=== PATIENT | female | born 1945 | race Caucasian/White ===

== ENCOUNTER → 2019-02-24 14:54 | Outpatient (BNVA) | payer MEDICARE, MEDICAID, SELFPAY | PROVIDERS: PCP Family Medicine; Visit Provider Family Medicine | DX: R42 Dizziness and giddiness (principal); E03.9 Hypothyroidism, unspecified; E78.2 Mixed hyperlipidemia; M25.541 Pain in joints of right hand; M25.542 Pain in joints of left hand | CPT/HCPCS: 80053; 80061; 83721; 84443; 85025 ==

== ENCOUNTER 2019-04-01 07:16 | Observation (INO) | payer MEDICARE, MEDICAID, SELFPAY ==
[2019-04-01] VITALS (15 sets, daily range): BP systolic 105–169; BP diastolic 66–102; PULSE 62–97; RESP 14–22; TEMP 34.7–36.6; O2SAT 96–100; BMI 26.6
--- NOTE | 2019-04-01 07:20 | XR_ITS ---
WS: [id number] XR chest 1V portable [id number] REASON FOR EXAM: cp FINDINGS: Comparisons were made to previous exam of 09/30 2017. A dual electrode pacemaker seen electrode wiring satisfactory. There is mild congestion in the upper lung summers in the hilum on the right and left show mild conges tion There is no definite pneumonia. XR/XR chest 1V portable [id number] IMPRESSION: Mild interstitial edema hilum and upper lungs. Dual electrode pacemaker.
--- NOTE | 2019-04-01 07:21 | ECG_ITS ---
Measurements Intervals [place] Rate: 76 P: 66 SD: 152 QRS: 89 QRSD: 151 T: 19 QT: 497 QTc: 561 ELECTRONIC VENTRICULAR PACEMAKER MARKED ST ELEVATION, CONSIDER INFERIOR INJURY [MARKED ST ELEVATION W/O NORMALLY I INFLECTED T WAVE IN II/aVF] Compared to ECG 07/01/2017 05:42:09 ST (T wave) deviation now present Myocardial infarct finding now present Electronically Signed On 04-01-2019 19:05:01 REAL ESTATE COORDINATOR by Nehemias Vazquez M.D. [id number]
--- NOTE | 2019-04-01 07:22 | ED_ITS ---
Entered by Leti Farnsworth, acting as scribe for Robb Connors MD HPI - Chest Pain General: Chief Complaint: Chest Pain Stated Complaint: chest pain Time Seen by Provider: 04/01/19 07:20 Source: patient and EMS Mode of arrival: EMS Limitations: no limitations History of Present Illness: HPI narrative: 73 yo female presents with chest pain. pt states this started yesterday. pt states the pain radiates to bilateral arms. pt has had nausea. pt denies any other symptoms at this time. She denies worsening or improving factors. Patient had aspirin and nitro in route. She has no history of cardiac stents. complaint: chest pain Onset (ago): day(s) (yesterday) Timing of current episode: constant and still present Prior episodes: No Onset: during rest Pain location: substernal Pain radiation: right arm and left arm Severity: moderate Quality: sharp Relieving factors: nitroglycerin Exacerbating factors: nothing Associated symptoms: Reports diaphoresis and nausea; Deny dyspnea Treatment prior to arrival: nitroglycerin Review of Systems Const: Reports: diaphoresis Eyes: Denies: blurry vision or eye discomfort ENMT: Denies: throat pain or dental pain Card: Reports: chest pain Resp: Denies: shortness of breath GI: Reports: nausea : Denies: painful urination Musc: Denies: neck pain or back pain Skin/Breast: Denies: rash Neuro: Denies: headache Psych: Denies: depression Torey/Lymph: Denies: easy bruising All/Imm: Denies: hives PFS ED PFSH: Social History Smoking and tobacco status: former smoker Physical Exam Const: COMMON NORMALS: no apparent distress, oriented x3 and healthy appearing HENMT: COMMON NORMALS: normocephalic and head/scalp atraumatic HEAD & SCALP: normocephalic and atraumatic Eye: COMMON NORMALS: PERRL and EOMs intact bilaterally PUPIL: Yes PERRL Neck/C-Spine: COMMON NORMALS: full ROM and supple Resp: COMMON NORMALS: normal respiratory effort, no retractions, no use of accessory muscles and clear to auscultation bilaterally AUSCULTATION: clear to auscultation bilaterally Cardio: COMMON NORMALS: regular rate, regular rhythm and no murmurs RATE: regular rate RHYTHM: regular rhythm GI: COMMON NORMALS: normal to inspection, nondistended, normoactive bowel sounds, soft to palpation, non-tender and no masses PALPATION: Yes soft Extremity: COMMON NORMALS: normal to inspection and full ROM Neuro: COMMON NORMALS: oriented x3, moves all extremities and no focal motor deficits Psych: COMMON NORMALS: mental status grossly normal, thought process normal and cooperative THOUGHT PROCESS: normal thought process Skin: COMMON NORMALS: no rashes or lesions noted and no wounds GENERAL SKIN EXAM: no rashes or lesions noted Course Reevaluation(s): Reevaluation #1: Patient's EKG shows a paced rhythm with a EKG she caught an acute STEMI. Minimal change previous EKG that I noticed. I did go to the [facility] and have Dr. Knapp review EKG at this time as well and he states it is not an acute STEMI and to follow troponins. Time: 07:30 Vital Signs: Vital signs: Vital Signs Temperature 94.4 F L 04/01/19 07:24 Pulse Rate 82 04/01/19 08:55 Respiratory Rate 18 04/01/19 09:16 Blood Pressure 153/98 04/01/19 08:55 Pulse Oximetry 100 04/01/19 08:55 MDM - Chest Pain 2 MDM Narrative: Medical decision making narrative: Patient presents here with chest pain. Initial troponins elevated second troponin actually decreased. Had Dr. Knapp review EKG with no signs of ST elevation KS. Patient has had continued pain here and spoke to hospitalist will admit for ACS rule out. Patient has no signs of pulmonary embolism. Lab Data: Labs: Lab Results 04/01/19 04/01/19 04/01/19 Range/Units 07:40 07:40 07:40 WBC 11.7 H (4.0-10.0) 10^3/ uL RBC 5.09 (4.1-5.3) 10^6/u L Hgb 14.3 (11.5-15.3) g/dL Hct 45.2 (37.0-47.0) % MCV 88.8 (81-99) fL MCH 28.1 (28.0-34.0) pg MCHC 31.6 (30.0-36.0) g/dL RDW 14.5 (12.1-15.1) % Plt Count 200 (130-400) 10^3/c mm MPV 10.8 H (7.4-10.4) fL Neut % (Auto) 68.1 % Lymph % (Auto) 21.4 % [place] % (Auto) 6.8 % Eos % (Auto) 2.5 % Baso % (Auto) 0.9 % Neut # (Auto) 8.0 H (1.8-7.7) 10^3/u L Lymph # (Auto) 2.5 (0.8-4.8) 10^3/u L [place] # (Auto) 0.8 (0.2-0.9) 10^3/u L Eos # (Auto) 0.3 (0.0-0.8) 10^3/u L Baso # (Auto) 0.1 (0.0-0.1) 10^3/u L Nucleated RBC % (a uto) 0 % Nucleated RBCs # 0.0 /100WBC Sodium 134 L (136-145) mmol/L Potassium 4.5 (3.5-5.1) mmol/L Chloride 96 L (98-107) mmol/L Carbon Dioxide 19 L (22-29) mmol/L Anion Gap 23.5 H (5-19) BUN 26 H (8-23) mg/dL Creatinine 1.6 H (0.5-0.9) mg/dL Glucose 413 H (65-115) mg/dL Calcium 9.9 (8.5-10.5) mg/dL Total Bilirubin 0.6 (0.15-1.2) mg/dL AST 34 H (0-32) U/L ALT 25 (0-33) U/L Alkaline Phosphata se 126 H (35-105) IU/L Troponin T Baselin e 102 H* (0-10) ng/mL Troponin T 120 Min carlene (0-10) ng/mL Total Protein 8.2 (6.6-8.7) g/dL Albumin 3.9 (3.5-5.2) g/dL Globulin 4.3 (1.3-4.6) g/dL 04/01/19 Range/Units 09:15 WBC (4.0-10.0) 10^3/ uL RBC (4.1-5.3) 10^6/u L Hgb (11.5-15.3) g/dL Hct (37.0-47.0) % MCV (81-99) fL MCH (28.0-34.0) pg MCHC (30.0-36.0) g/dL RDW (12.1-15.1) % Plt Count (130-400) 10^3/c mm MPV (7.4-10.4) fL Neut % (Auto) % Lymph % (Auto) % [place] % (Auto) % Eos % (Auto) % Baso % (Auto) % Neut # (Auto) (1.8-7.7) 10^3/u L Lymph # (Auto) (0.8-4.8) 10^3/u L [place] # (Auto) (0.2-0.9) 10^3/u L Eos # (Auto) (0.0-0.8) 10^3/u L Baso # (Auto) (0.0-0.1) 10^3/u L Nucleated RBC % (a uto) % Nucleated RBCs # /100WBC Sodium (136-145) mmol/L Potassium (3.5-5.1) mmol/L Chloride (98-107) mmol/L Carbon Dioxide (22-29) mmol/L Anion Gap (5-19) BUN (8-23) mg/dL Creatinine (0.5-0.9) mg/dL Glucose (65-115) mg/dL Calcium (8.5-10.5) mg/dL Total Bilirubin (0.15-1.2) mg/dL AST (0-32) U/L ALT (0-33) U/L Alkaline Phosphata se (35-105) IU/L Troponin T Baselin e (0-10) ng/mL Troponin T 120 Min carlene 84.30 H (0-10) ng/mL Total Protein (6.6-8.7) g/dL Albumin (3.5-5.2) g/dL Globulin (1.3-4.6) g/dL Imaging Data^: CXR: Attestation: I personally reviewed and interpreted this imaging study as follows: My impression: no acute abnormality EKG Data^: EKG 1: Attestation: I personally reviewed and interpreted this EKG as follows: EKG interpretation date: 04/01/19 EKG interpretation time: 07:26 Interpretation: paced rhytm no stemi qrs 151 qtc 527 EKG 2: Attestation: I personally reviewed and interpreted this EKG as follows: EKG interpretation date: 04/01/19 EKG interpretation time: 09:02 Interpretation: paced rhythm hr 82 no stemi qrs 126 qtc 485 Discharge Plan Discharge Prescriptions: No Action rosuvastatin [Crestor] 40 mg tablet 40 mg PO ONCE RF: 0 spironolactone 25 mg tablet 25 mg PO DAILY RF: 0 levothyroxine 50 mcg tablet 50 mcg PO ONCE RF: 0 alendronate 70 mg tablet 70 mg PO .weekly RF: 0 nitroglycerin [Nitrostat] 0.4 mg tablet, sublingual 0.4 mg SUBLINGUAL Q5M PRNRF: 0 famotidine 20 mg tablet 20 mg PO BID RF: 0 methenamine hippurate 1 gram tablet 1 gm PO BID RF: 0 citalopram 10 mg tablet 10 mg PO DAILY RF: 0 aspirin [Adult Low Dose Aspirin] 81 mg tablet,delayed release (DR/EC) 81 mg PO DAILY RF: 0 PreserVision AREDS [id number] ekll-qo-boyw capsule 1 cap PO BID RF: 0 tramadol 50 mg tablet 50 mg PO .hs Qty: 30 RF: 1 clonazepam 0.5 mg tablet 0.5 mg PO ONCE Qty: 30 RF: 1 Tresiba FlexTouch U-100 100 unit/mL (3 mL) insulin pen 75 unit SUBCUT DAILY RF: 0 insulin aspart U-100 [Novolog U-100 Insulin aspart] 100 unit/mL solution See Rx Instructions SUBCUT .COMPLEX Qty: 30 RF: 0 carvedilol 3.125 mg tablet 6.25 mg PO BID RF: 0 Lasix 20 mg Tablet 20 mg PO DAILY RF: 0 Coding Level of Care Code ED Chief Talent Officer for Chg 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 The documentation recorded by the Javad raines Bridget Annette, accurately reflects the service I personally performed and the decisions made by Dory joseph Korby, MD Apr 01, 2019 07:16
[2019-04-01] MEDS: ondansetron 2 mg/ML SDV 2 mL 4 MG IVP ×2 (07:39→09:16)
[2019-04-01] MEDS: morphine 4 mg/mL SDV 1 mL IVP ×2 (07:39→09:16)
[2019-04-01 07:44] LABS: Basophils # 0.1 10^3/uL (0.0-0.1); Basophils % 0.9 %; Eosinophils # 0.3 10^3/uL (0.0-0.8); Eosinophils % 2.5 %; Hematocrit 45.2 % (37.0-47.0); Hemoglobin 14.3 g/dL (11.5-15.3); Lymphocytes # 2.5 10^3/uL (0.8-4.8); Lymphocytes % 21.4 %; Mean Corpuscular HGB Conc 31.6 g/dL (30.0-36.0); Mean Corpuscular Hemoglobin 28.1 pg (28.0-34.0); Mean Corpuscular Volume 88.8 fL (81-99); Mean Platelet Volume 10.8 fL (7.4-10.4); Monocytes # 0.8 10^3/uL (0.2-0.9); Monocytes % 6.8 %; Neutrophils % 68.1 %; Nucleated Red Blood Cells % 0 %; Platelet Count 200 10^3/cmm (130-400); Red Blood Count 5.09 10^6/uL (4.1-5.3); Red Cell Distribution Width 14.5 % (12.1-15.1); White Blood Count 11.7 10^3/uL (4.0-10.0)
--- NOTE | 2019-04-01 07:56 | PC.NURSE ---
Pt stated she is have intermittent right arm pain. Dr. Connors informed. No new orders recieved.
[2019-04-01 08:04] LABS: Alanine Aminotransferase 25 U/L (0-33); Albumin Level 3.9 g/dL (3.5-5.2); Alkaline Phosphatase 126 IU/L (35-105); Anion Gap 23.5 (5-19); Aspartate Amino Transferase 34 U/L (0-32); Blood Urea Nitrogen 26 mg/dL (8-23); Calcium 9.9 mg/dL (8.5-10.5); Carbon Dioxide 19 mmol/L (22-29); Chloride 96 mmol/L (98-107); Globulin 4.3 g/dL (1.3-4.6); Glucose 413 mg/dL (65-115); Potassium 4.5 mmol/L (3.5-5.1); Sodium 134 mmol/L (136-145); Total Bilirubin 0.6 mg/dL (0.15-1.2); Total Protein 8.2 g/dL (6.6-8.7)
--- NOTE | 2019-04-01 08:06 | ECG_ITS ---
Measurements Intervals [place] Rate: 74 P: 71 MD: 128 QRS: -52 QRSD: 145 T: -54 QT: 489 QTc: 545 ELECTRONIC VENTRICULAR PACEMAKER MARKED ST ELEVATION, CONSIDER LATERAL INJURY [MARKED ST ELEVATION W/O NORMALLY IN INFLECTED T WAVE IN I/aVL/V5/V6] Compared to ECG 07/01/2017 05:42:09 ST (T wave) deviation now present Myocardial infarct finding now present Electronically Signed On 04-01-2019 19:05:26 TEASEL GIG OPERATOR by Nehemias Vazquez M.D. [id number] f
[2019-04-01] MEDS: HYDROmorphone 1 mg/mL INJ 1 mL 0.5 MG IVP (08:16)
[2019-04-01 08:19] LABS: Troponin(5th) Baseline 102 ng/mL (0-10)
[2019-04-01] MEDS: enoxaparin 80 mg/0.8 mL Syringe 70 MG SUBCUT (08:29)
--- NOTE | 2019-04-01 08:57 | PC.NURSE ---
Dr. Connors informed about pt's chest pain going back up to 08/19. Changed positions, offered distraction.
--- NOTE | 2019-04-01 09:21 | ECG_ITS ---
Measurements Intervals [place] Rate: 82 P: 69 VA: 128 QRS: -39 QRSD: 126 T: -53 QT: 447 QTc: 523 ELECTRONIC VENTRICULAR PACEMAKER MARKED ST ELEVATION, CONSIDER LATERAL INJURY [MARKED ST ELEVATION W/O NORMALLY INF INFLECTED T WAVE IN I/aVL/V5/V6] MARKED ST DEPRESSION, CONSIDER SUBENDOCARDIAL INJURY [0.2+ mV ST DEPRESSION] Compared to ECG 07/01/2017 05:42:09 ST (T wave) deviation now present Myocardial infarct finding now present Electronically Signed On 04-01-2019 19:09:51 MANAGER SHIP by Nehemias Vazquez M.D. [id number] f
[2019-04-01] MEDS: nitroglycerin 0.4 mg sublingual Tablet SUBLINGUAL (09:33)
--- NOTE | 2019-04-01 09:35 | USCV_ITS ---
Carmen Alvarenga Age: 73 Gender: F : 1945 Exam Date: 04/01/2019 10:30 Ordering Phys: Maria Ines Tripathi DO Technologist: Angelique Duff Exam Location: [facility] [place] Indication: Chest pain, CHF with last known LVEF 25% BP: 153 / 90 HR: 93 Rhythm: Pacemaker Technical Quality: Fair MEASUREMENTS (Male / Female) Normal Values 2D ECHO LV Diastolic Diameter PLAX 5.1 cm 4.2 - 5.9 / 3.9 - 5.3 cm LV Systolic Diameter PLAX 4.8 cm LV Chamber Size 4.6 cm IVS Diastolic Thickness 0.9 cm 0.6 - 1.0 / 0.6 - 0.9 cm IVS Systolic Thickness 0.9 cm LVPW Diastolic Thickness 1.0 cm 0.6 - 1.0 / 0.6 - 0.9 cm LVPW Systolic Thickness 1.2 cm RV Chamber Size 1.3 cm LVOT Diameter 2.0 cm LV Ejection Fraction 2D Teich 15.5 % LV Ejection Fraction MOD 2C 32.4 % LV Ejection Fraction 2C AL 34.3 % LA Diameter 3.2 cm LA Width 3.1 cm LA Height 4.4 cm RA Width 2.6 cm RA Height 3.5 cm Aorta at Sinotubular Diameter 2.3 cm M-MODE LV Diastolic Diameter MM 5.1 cm 4.2 - 5.9 / 3.9 - 5.3 cm LV Systolic Diameter MM 4.6 cm LV Ejection Fraction MM Teich 21.8 % IVS Diastolic Thickness MM 1.1 cm 0.6 - 1.0 / 0.6 - 0.9 cm IVS Systolic Thickness MM 1.4 cm LVPW Diastolic Thickness MM 1.3 cm 0.6 - 1.0 / 0.6 - 0.9 cm LVPW Systolic Thickness MM 1.5 cm Aortic Annulus Diameter 2.7 cm LA Ao Ratio MM 1.2 MV E Point Septal Separation 2.2 cm DOPPLER AV Peak Velocity 93.0 cm/s LVOT Peak Velocity 96.0 cm/s AV Area Cont Eq vti 3.0 cm squared AV Area Cont Eq pk 3.1 cm squared MV Area PHT 5.6 cm squared MV E' Velocity 13.0 cm/s Mitral E to MV E' Ratio 10.6 Mitral E to LV E' Lateral Ratio 9.3 Mitral E to LV E' Septal Ratio 12.2 TR Peak Velocity 264.0 cm/s TR Peak Gradient 27.8 mmHg TR Mean Velocity 204.4 cm/s TR Mean Gradient 18.2 mmHg TR Velocity Time Integral 66.4 cm TV Peak E Velocity 60.0 cm/s Right Atrial Pressure 8.0 mmHg Pulmonary Artery Systolic Pressu 35.9 mmHg PV Peak Velocity 67.0 cm/s RV Acceleration Time 0.1 s RV Ejection Time 0.3 s RV AcT/ET 0.5 FINDINGS Left Ventricle Moderately increased left ventricular cavity size. Decreased left ventricular wall thickness. Global left ventricular hypokinesis. Left ventricular ejection fraction is estimated at 30-35 %. Severely decreased left ventricular systolic function. Grade II/IV diastolic dysfunction, moderately elevated filling pressures. Abnormal septal motion consistent with pacemaker. Right Ventricle Normal right ventricular size and systolic function. Mild pulmonary hypertension, RVSP 35.9 mmHg. Catheter/pacemaker wire visualized in the right ventricle. Right Atrium The right atrium is normal in size. Left Atrium The left atrium is normal in size. Mitral Valve Structurally normal mitral valve. Mild-moderate mitral valve regurgitation. Aortic Valve Structurally normal aortic valve without significant sclerosis or stenosis. There is no aortic regurgitation. Tricuspid Valve Structurally normal tricuspid valve. Trace to mild tricuspid valve regurgitation. Pulmonic Valve Pulmonic valve not well visualized. Pericardium Normal pericardium without effusion. Aorta Normal ascending aorta dimension. CONCLUSIONS Moderately increased left ventricular cavity size. Decreased left ventricular wall thickness. Global left ventricular hypokinesis. Left ventricular ejection fraction is estimated at 30-35 %. Severely decreased left ventricular systolic function. Grade II/IV diastolic dysfunction, moderately elevated filling pressures. Abnormal septal motion consistent with pacemaker. Normal right ventricular size and systolic function. Mild pulmonary hypertension, RVSP 35.9 mmHg. Structurally normal mitral valve. Mild-moderate mitral valve regurgitation. When compared to the previous study done 01/08/2015, the ejection fraction may be slightly improved. Pulmonary pressure is about the same. Mitral regurgitation is about the same. Overall, no significant change. Dr. Sushil Knapp MD (Electronically Signed) Final Date: 01 April 2019 11:18 S
[2019-04-01 09:48] LABS: Ketone (Acetest) Serum Negative (Negative)
[2019-04-01 09:56] LABS: Glucose Point of Care 408 mg/dL (70-110)
--- NOTE | 2019-04-01 09:56 | PC.NURSE ---
Pt had a run of v-tach. Upon assessment, pt was asleep, and pt ventricular paced upon nurse arrival. Dr. Connors informed. Chest pain 5/10
[2019-04-01 10:00] LABS: NT Pro B Type Natriuretic Pept 730 pg/mL (0-125)
--- NOTE | 2019-04-01 10:29 | P.HP_ITS ---
Providers/Chief Complaint Admitting Physician: Maria Ines Tripathi DO Primary Care Provider: Aziza Nguyen MD Chief Complaint: chest pain History of Present Illness Carmen Alvarenga is a 73 year old female with a past medical history of congestive heart failure, diabetes, anxiety and hypothyroidism that presented to the emergency department for chest pain. She reported that her chest pain started yesterday. She could not tell me any specific aggravating factors, alleviating factors include pain medication. She reported that she did take some nitroglycerin but had minimal relief from it. Patient reported that she follows with Dr. Scales but is not been seen in quite some time, likely over 1 year. She stated that she has had angiogram in the past, however no reported st ent placement or intervention. Patient denies any recent fever, no cough, denies any shortness of breath, denies any lower extremity swelling or weight changes. Difficult to obtain full review of systems as patient is somewhat sleepy after receiving pain medication. Patient was seen and evaluated in the emergency department and admitted for further evaluation and treatment due to concern for chest pain Review of Systems Const: Denies: fever or chills Eyes: Denies: change in vision ENMT: Denies: nasal congestion Card: Reports: chest pain; Denies: palpitations or edema Resp: Denies: shortness of breath, productive cough or coughing up blood GI: Reports: nausea; Denies: abdominal pain, vomiting, diarrhea, constipation, blood in stool or black tarry stool : Denies: painful urination or blood in urine Musc: Denies: extremity pain or muscle cramps Skin/Breast: Denies: rash or new lesion Neuro: Denies: headache or dizziness Psych: Denies: anxiety or depression Endo: Denies: excessive urination or hot flashes Torey/Lymph: Denies: easy bruising or easy bleeding Medications/Allergies Home Medications Medication Instructions Recorded Confirmed Last Taken Type carvedilol 6.25 mg PO BID 04/01/19 04/01/19 Unknown History furosemide [Lasix] 20 mg PO DAILY 04/01/19 04/01/19 Unknown History Allergies Allergy/AdvReac Type Severity Reaction Status Date / Time metformin Allergy Intermediate diarrhea Verified 04/01/19 07:29 PFSH Acute PFSH: Medical History Anxiety and depression ASHD (arteriosclerotic heart disease) Chronic pain syndrome Congestive heart failure Diabetes GERD (gastroesophageal reflux disease) Insomnia Osteoarthritis Pacemaker Vitamin D deficiency Surgical History History of angioplasty History of appendectomy History of hysterectomy Family History Other CAD (coronary artery disease) Diabetes Social History Smoking and tobacco status: former smoker Vitals/I&O/Wt Last Vital Signs Temp 94.4 F L 04/01/19 07:24 Pulse 82 04/01/19 08:55 Resp 18 04/01/19 09:16 BP 153/98 04/01/19 08:55 Pulse Ox 100 04/01/19 08:55 Weight last 48 hrs Weight 72.575 kg Physical Exam Const: COMMON NORMALS: oriented x3 GENERAL APPEARANCE: cooperative and other (sleepy) ORIENTATION/CONSCIOUSNESS: Yes oriented to person and Yes oriented to place HENMT: COMMON NORMALS: normocephalic and head/scalp atraumatic HEAD & SCALP: normocephalic and atraumatic Eye: COMMON NORMALS: PERRL PUPIL: Yes PERRL Neck/C-Spine: COMMON NORMALS: supple GENERAL: Yes normal visual inspection Resp: COMMON NORMALS: normal respiratory effort and clear to auscultation bilaterally AUSCULTATION: clear to auscultation bilaterally, no rhonchi and no wheezes Cardio: COMMON NORMALS: regular rate, regular rhythm and no murmurs RATE: regular rate RHYTHM: regular rhythm GI: COMMON NORMALS: soft to palpation and non-tender INSPECTION: No abdominal distension AUSCULTATION: Yes normoactive bowel sounds PALPATION: Yes soft Extremity: COMMON NORMALS: no clubbing, cyanosis or edema and no calf tenderness Neuro: COMMON NORMALS: oriented x3, CN's II-XII intact bilaterally, moves all extremities and no focal motor deficits SENSORIUM/ORIENTATION: Yes oriented to person, Yes oriented to place and Yes other (sleepy) Psych: COMMON NORMALS: cooperative Skin: COMMON NORMALS: no rashes or lesions noted GENERAL SKIN EXAM: no rashes or lesions noted Data : 04/01/19 07:40 04/01/19 07:40 CXR: Radiologist's impression: Chest x-ray personally reviewed, report as read by radiologist: IMPRESSION: Mild interstitial edema hilum and upper lungs. Dual electrode pacemaker. A&P Assessment and plan (1) Chest pain: Patient has resolution of her chest pain at time of exam in the ER, had just received Dilaudid, therefore was somewhat sleepy Serial EKG and troponin, close monitoring on telemetry Negative delta troponin, will continue to monitor closely, if patient does not have any continued chest pain will further evaluate with stress test Echocardiogram ordered to evaluate due to patient's congestive heart failure with the last LVEF of 25% FRANNY as needed for chest discomfort Status: Acute Code(s): R07.9 - Chest pain, unspecified (2) Diabetes: Hyperglycemia in the emergency department, will check A1c Continue on sliding scale insulin, patient unable to answer question about her home medication regimen, noted to be on 75 units of long-acting insulin daily Serum ketones negative Status: Acute Code(s): E11.9 - Type 2 diabetes mellitus without complications (3) GERD (gastroesophageal reflux disease): Continue home H2 esther Status: Acute Code(s): K21.9 - Gastro-esophageal reflux disease without esophagitis (4) Congestive heart failure: Systolic congestive heart failure with last echocardiogram from 2014, LVEF of 25% at that time, patient does have ICD in place and previously followed with Dr. Scales, patient reports she has not seen him in over 1 year. Continue on home Coreg, Aldactone, Lasix, she has never been on an STERLING or ARB in the past due to hypotension. We will continue to monitor blood pressure closely and if tolerated will consider addition of 1 of these medications. Strict intake and output as well as daily weights Appears to be euvolemic and possibly slightly dry at this time, BNP ordered Status: Acute Code(s): I50.9 - Heart failure, unspecified (5) Anxiety and depression: Continue home citalopram Hold on home benzodiazepines at this time due to patient being somewhat sleepy from pain medication Status: Acute Code(s): F41.9 - Anxiety disorder, unspecified; F32.9 - Major depressive disorder, single episode, unspecified Additional A&P Information Elevated anion gap with acute kidney injury: Check serum ketones which were negative, patient has hyperglycemia and some mild concern for dehydration, however patient also has severe systolic congestive heart failure so we will continue with oral hydration but consider very gentle IV fluids if indicated. We will continue to monitor respiratory status closely Hyperglycemia with poorly controlled insulin-dependent diabetes mellitus type 2: Continue on sliding scale insulin, will check A1c, continue with long-acting insulin but will verify with family her home dosing prior to this as we do not wish for patient to become hypoglycemic DVT prophylaxis: Lovenox Diet: Carbohydrate consistent CODE STATUS: Full code by default, patient somewhat sleepy after pain medication in the ED therefore difficult to get information from patient, will attempt to reach her family members listed Attestations Medical Necessity Statement*: Hospitalization for chest pain with known con gestive heart failure, expected stay less than 2 midnights Coding Level of Care Code Acute Supervisor Histology for Chris Jane Diagnoses Chest pain R07.9 Diabetes E11.9 GERD (gastroesophageal reflux disease) K21.9 Congestive heart failure I50.9 Anxiety and depression F41.9; F32.9
--- NOTE | 2019-04-01 13:21 | ECG_ITS ---
Measurements Intervals [place] Rate: 96 P: 64 MT: 143 QRS: -30 QRSD: 128 T: -47 QT: 428 QTc: [address] ELEVATION, CONSIDER LATERAL INJURY [MARKED ST ELEVATION W/O NORMALLY INFLECTED T WAVE IN I/aVL/V5/V6] Compared to ECG 07/01/2017 05:42:09 ST (T wave) deviation now present Myocardial infarct finding now present Electronically Signed On 04-01-2019 19:12:41 HEALTH INFORMATION DIRECTOR by Nehemias Vazquez M.D. [id number]
[2019-04-01 14:08] LABS: Glucose Point of Care 442 mg/dL (70-110)
[2019-04-01 14:34] LABS: Thyroid Stimulating Hormone 3.97 uIU/mL (0.27-4.20)
[2019-04-01 14:41] LABS: Estmated Average Glucose 237; Hemoglobin A1C 9.9 % (4.0-6.0)
[2019-04-01 15:04] LABS: Protein Urine 3+ (Negative); Urine Appearance Hazy (CLEAR); Urine Color Straw (Yellow); pH Urine 6 (5-7)
[2019-04-01 15:05] LABS: Add Urine Microscopic? YES; Bilirubin Urine Neg (NEGATIVE); Blood Urine 3+ (Negative); Glucose Urine UA 4+ (Normal); Ketones Urine Negative (Negative); Leukocyte Esterase Urine Negative (Negative); Nitrate Urine Negative (Negative); Urobilinogen Urine Norm (Negative)
[2019-04-01 15:11] LABS: Amorphous Sediment Urine 1+; Bacteria Urine 4+; RBC Urine 0-4 /hpf (0-2); Squamous Epithelial Cell Urine 0-4 (0-5); WBC Urine 0-4 /hpf (0-5)
[2019-04-01 15:12] LABS: Add Urine Culture? Yes
[2019-04-01] MEDS: enoxaparin 40 mg/0.4 mL Syringe SUBCUT (15:17)
[2019-04-01] MEDS: levothyroxine 50 mcg Tablet PO (15:17)
--- NOTE | 2019-04-01 15:29 | PC.NURSE ---
MD notified of blood sugar and v/O given to give 16 units now.
[2019-04-01 15:48] LABS: Troponin 5 6HR 270 ng/mL (0-10)
[2019-04-01 15:51] LABS: Troponin 5 6HR Delta 168 ng/L (0-12)
--- NOTE | 2019-04-01 16:54 | PM.CONSULT ---
Providers/Reason For Consult Consulting Physican/Specialty*: Cardiovascular medicine Reason for Consult*: Elevated troponin with chest pain Attending Physician: Maria Ines Tripathi DO Primary Care Provider: Aziza Nguyen MD History of Present Illness History of Present Illness Carmen Alvarenga is a 73 year old female who was admitted earlier today with chest discomfort. She has a longstanding history of underlying organic heart disease and involves a nonischemic cardiomyopathy and placement of a intracardiac defibrillator. Over the years she has had multiple admissions for chest pain and elevated troponin which have been described as non-ST segment elevation MIs. On several occasions she has also had coronary angiography which have revealed nonobstructive disease. She has a long list of other medical problems listed below. Ejection fractions by sestamibi examinations have been as low as 25%. By echo they have been 25 to 30%. She is not a particularly good historian. She started having chest pain 2 days ago. She has a difficult time describing it. She says it wilder. When I asked her how to describe it she says it just hurts . She says her arms hurt also but they hurt all the time. When asked if she has nausea, vomiting, shortness of breath or diaphoresis she answers yes to all of those questions. She took 2 nitroglycerin at home with no help. She called the ambulance today and they gave her 2 nitroglycerin with no help. She states the only thing that helped her was that pain shot they gave me in the emergency room . Her third troponin is quite a bit higher than the baseline troponin and this is primarily the reason that we have been asked to see her. Interestingly, she is pain-free today. Her EKG shows paced rhythm so it is not of any help. Review of Systems General: Reports: 10 or more systems reviewed and unremarkable except in HPI and below Meds/Allergies Home Medications and Allergies Home Medications Medication Instructions Recorded Confirmed Type alendronate 70 mg tablet 70 mg PO Q7D tab 02/24/19 04/01/19 History aspirin 81 mg tablet,delayed 81 mg PO DAILY 02/24/19 04/01/19 History release famotidine 20 mg tablet 20 mg PO BID 02/24/19 04/01/19 History levothyroxine 50 mcg tablet 50 mcg PO DAILY 02/24/19 04/01/19 History methenamine hippurate 1 gram tablet 1 gm PO BID 02/24/19 04/01/19 History nitroglycerin 0.4 mg sublingual 0.4 mg SUBLINGUAL Q5M PRN 02/24/19 04/01/19 History tablet rosuvastatin 40 mg tablet 40 mg PO DAILY 02/24/19 04/01/19 History spironolactone 25 mg tablet 25 mg PO DAILY tab 02/24/19 04/01/19 History vitamins A,C,K-vqdt-bevdpa 14,320 1 cap PO BID 02/24/19 04/01/19 History unit-226 mg-200 unit capsule insulin degludec 100 unit/mL (3 75 unit SUBCUT DAILY ml 03/18/19 04/01/19 History mL) subcutaneous pen ascorbic acid (vitamin C) [Vitamin 500 mg PO BID 04/01/19 04/01/19 History C] carvedilol 6.25 mg PO BID 04/01/19 04/01/19 History furosemide [Lasix] 20 mg PO DAILY 04/01/19 04/01/19 History lorazepam [Ativan] 0.5 mg PO BID PRN 04/01/19 04/01/19 History tramadol 50 mg PO BEDTIME 04/01/19 04/01/19 History Allergies Allergy/AdvReac Type Severity Reaction Status Date / Time metformin Allergy Intermediate diarrhea Verified 04/01/19 07:29 Current Medications Current Medications Generic Name Dose Route Start Last Admin Trade Name Freq PRN Reason Stop Dose Admin Insulin Aspart 0 unit 04/01/19 12:57 04/01/19 15:17 Novolog SUBCUT 16 unit TIDWM NORA Administration Protocol Levothyroxine Sodium 50 mcg 04/01/19 15:00 04/01/19 15:17 Synthroid PO 50 mcg DAILY NORA Administration PFSH Acute PFSH: Medical History Anxiety and depression ASHD (arteriosclerotic heart disease) Cardiomyopathy Chronic kidney disease (CKD) stage G1/A1, glomerular filtration rate (GFR) equal to or greater than 90 mL/min/1.73 square meter and albuminuria creatinine ratio less than 30 mg/g Chronic pain syndrome Congestive heart failure Diabetes Dyslipidemia Essential hypertension GERD (gastroesophageal reflux disease) ICD (implantable cardioverter-defibrillator) in place Insomnia Left bundle branch block Osteoarthritis Pacemaker Vitamin D deficiency Surgical History History of angioplasty History of appendectomy History of hysterectomy Family History Other CAD (coronary artery disease) Diabetes Social History Smoking and tobacco status: former smoker Vitals/I&O/Wt Last Vital Signs Temp 97.9 F 04/01/19 16:00 Pulse 97 04/01/19 16:00 Resp 18 04/01/19 16:00 BP 141/77 04/01/19 16:00 Pulse Ox 98 04/01/19 16:00 Weight last 48 hrs Weight 160 lb Physical Exam Narrative: EXAM NARRATIVE: GENERAL: She is comfortable at rest now with no chest pain HEENT: Exam within normal limits. NECK: Supple without jugular vein distention. The carotid upstroke is normal without bruits. BACK: Exam normal. LUNGS: Clear. HEART: Regular rate and rhythm. ABDOMEN: Benign without organomegaly or tenderness. EXTREMITIES: No edema. NEUROLOGIC: Exam normal. SKIN: Unremarkable. Data Other Data: Other data: EKG shows a paced rhythm. First troponin I 02, second 84 and 3rd-70. BNP is 730. The echo reveals global hypokinesis with septal dyssynergy and an ejection fraction around 30%. A&P Assessment and plan (1) Chronic kidney disease (CKD) stage G1/A1, glomerular filtration rate (GFR) equal to or greater than 90 mL/min/1.73 square meter and albuminuria creatinine ratio less than 30 mg/g: Status: Acute Code(s): N18.1 - Chronic kidney disease, stage 1 (2) ICD (implantable cardioverter-defibrillator) in place: Status: Acute Code(s): Z95.810 - Presence of automatic (implantable) cardiac defibrillator (3) Cardiomyopathy: Status: Acute Code(s): I42.9 - Cardiomyopathy, unspecified (4) Dyslipidemia: Status: Acute Code(s): E78.5 - Hyperlipidemia, unspecified (5) Essential hypertension: Status: Acute Code(s): I10 - Essential (primary) hypertension (6) Chest pain: Status: Acute Code(s): R07.9 - Chest pain, unspecified (7) Chronic pain syndrome: Status: Acute Code(s): G89.4 - Chronic pain syndrome (8) Diabetes: Status: Acute Code(s): E11.9 - Type 2 diabetes mellitus without complications (9) Congestive heart failure: Status: Acute Code(s): I50.9 - Heart failure, unspecified (10) Anxiety and depression: Status: Acute Code(s): F41.9 - Anxiety disorder, unspecified; F32.9 - Major depressive disorder, single episode, unspecified Additional A&P Information Given her history of having troponin elevations in the past and negative stress tests and negative coronary angiograms I am going to continue with the planned stress test for tomorrow. I am a little resistant or hesitant to perform angiography given her elevated creatinine and the history. Currently she is comfortable. No angina now. No evidence of heart failure. We will reassess after the stress test is completed. Consult Attestations Medical Necessity Statement: Not applicable Coding Level of Care Code New Pt Acute Linux Network Systems Administrator for Chris Jane Patient Type New History Detailed Exam Detailed Medical Decision Making Moderate Complexity Diagnoses Chronic kidney disease (CKD) stage G1/A1, glomerular filtration rate (GFR) equal to or greater than 90 mL/min/1.73 square meter and albuminuria creatinine ratio less than 30 mg/g N18.1 ICD (implantable cardioverter-defibrillator) in place Z95.810 Cardiomyopathy I42.9 Dyslipidemia E78.5 Essential hypertension I10 Chest pain R07.9 Chronic pain syndrome G89.4 Diabetes E11.9 Congestive heart failure I50.9 Anxiety and depression F41.9; F32.9
[2019-04-01 17:21] LABS: Glucose Point of Care 332 mg/dL (70-110)
[2019-04-01] MEDS: famotidine 20 mg Tablet PO (18:12)
[2019-04-01] MEDS: carvedilol 6.25 mg Tablet PO (18:12)
[2019-04-01] MEDS: atorvastatin 40 mg Tablet 80 MG PO (21:09)
[2019-04-01] MEDS: insulin glargine 100 units/1 mL 40 UNIT SUBCUT (21:10)
[2019-04-01 21:51] LABS: Glucose Point of Care 292 mg/dL (70-110)
[2019-04-02] VITALS (9 sets, daily range): BP systolic 82–125; BP diastolic 42–78; PULSE 75–91; RESP 15–24; TEMP 36.8; O2SAT 93–100
--- NOTE | 2019-04-02 | NMCV_ITS ---
NM maikol perf SPECT r/s* [id number] Carmen Alvarenga Age: 73 Gender: F : 1945 Exam Date: 04/02/2019 Ordering Phys: Maria Ines Tripathi DO Technologist: JUDE Giron Exam Location: [facility] Indications: CHEST PAIN STRESS TEST Please see separate stress test report in [facility] for full findings IMAGE PROTOCOL Rest/Stress 1 Lexiscan Day Radiopharmaceutical Dose (mCi) Administration Site Administered by Rest: Tc-99m 10.7 IV Evelyn Dave MEDICAL STENOGRAPHER Sestamibi Stress:Tc-99m 32.5 IV Evelyn Grajedarager, MEDICAL STENOGRAPHER Sestamibi Rest: 02-Apr-2019 60 Discovery 630 Stress: 02-Apr-2019 30 Discovery 630 0.4mg Lexiscan. Supine position only as patient was unable to lay prone. SPECT RESULTS Technical Quality: Good Raw Data Analysis: Normal Image Corrections: No attenuation or motion correction applied Summed Stress Score: 18 Summed Rest Score: 17 Summed Difference Score: 2 PERFUSION FINDINGS Moderate to large area of severely decrease uptake in the anterior inferior wall, basal and mid inferoseptal, mid inferolateral, apical lateral, apical septal and LV apex. Starting areas of reversibility was noted in the mid inferolateral, apical inferior regions FUNCTIONAL RESULTS (calculated via Gated SPECT) Stress Image LV EF (%): 30 Stress EDV (mL):163 TID: 1.2 Stress ESV (mL):114 FUNCTIONAL FINDINGS: Segmental wall motion analysis revealed severe diffuse hypokinesia of the septum and inferior wall with moderate hypokinesia of the apex. IMPRESSIONS 1. Myocardial perfusion may revealing a moderately large area of persistent decreased tracer uptake in the inferior, inferolateral , inferoseptal and apical segments with subtle areas of reversibility in the inferior and inferolateral regions, suggestive of myocardial scarring, mostly in the distribution of the right coronary artery and left circumflex artery with subtle areas of blayne-infarction ischemia. 2. Diminished LV ejection fraction of 30%. 3. Moderately dilated LV cavity with an end-systolic volume of 114 mL. 4. Multiple wall motion normalities as mentioned above 5. Elevated transient ischemic index of 1.2 also may suggest endocardial ischemia. No similar previous studies are available for comparison Dr Lakia Scales MD FACC (Electronically Signed) Final Date: 02 April 2019 11:35 S
[2019-04-02 04:23] LABS: Anion Gap 19.3 (5-19); Blood Urea Nitrogen 25 mg/dL (8-23); Calcium 9.6 mg/dL (8.5-10.5); Carbon Dioxide 24 mmol/L (22-29); Chloride 95 mmol/L (98-107); Glucose 294 mg/dL (65-115); Osmolality Calculated 286 mOsm/kg (285-295); Potassium 4.3 mmol/L (3.5-5.1); Sodium 134 mmol/L (136-145)
[2019-04-02 06:42] LABS: Glucose Point of Care 262 mg/dL (70-110)
--- NOTE | 2019-04-02 07:00 | ECG_ITS ---
NAME OF STUDY: LEXISCAN SESTAMIBI STRESS TEST INDICATION: Chest Pain, LEXISCAN STRESS TEST ORDERING PHYSICIAN: Hospitalist CLINICAL INFORMATION: Chest pain, elevated troponin INTERPRETATION: 1. The patient was brought to the laboratory where Lexiscan was infused over 20 seconds. The resting blood pressure was 90/58. Maximum blood pressure was 106/60. The resting heart rate was 80 beats per minute. The maximum heart rate is 94 beats per minute. 2. The baseline electrocardiogram reveals sinus rhythm with ventricular pacing 3. With Lexiscan infusion, there were no ST segment changes to suggest ischemia. 4. The patient experienced no symptoms or arrhythmias during the examination. CONCLUSION: 1. Unremarkable Lexiscan infusion. 2. Nuclear imaging to follow. Electronically Signed On 04-02-2019 14:10:27 TESTER WAFER SUBSTRATE by Sushil Knapp M.D. [email or web address]
[2019-04-02] MEDS: regadenoson 0.4 Mg/5 ml Syringe IVP (08:01)
--- NOTE | 2019-04-02 08:47 | PM.PN ---
Subjective Subjective: Interval history: No changes overnight. No further chest pain. Medications: Reviewed: Yes Vitals/I&O/Wt Last Vital Signs Temp 98.3 F 04/02/19 04:00 Pulse 82 04/02/19 04:00 Resp 24 H 04/02/19 04:00 BP 111/51 04/02/19 04:00 Pulse Ox 97 04/02/19 04:00 04/01/19 04/02/19 04/02/19 22:59 06:59 14:59 Intake Total 120 / 120 150 / 270 Output Total 100 / 100 200 / 200 Balance 150 / 170 -200 / -200 Weight last 48 hrs Weight 164 lb 12.8 oz Weight 160 lb Physical Exam Narrative: EXAM NARRATIVE: GENERAL: Comfortable at rest HEENT: Exam within normal limits. NECK: Supple without jugular vein distention. The carotid upstroke is normal without bruits. BACK: Exam normal. LUNGS: Clear. HEART: Regular rate and rhythm. ABDOMEN: Benign without organomegaly or tenderness. EXTREMITIES: No edema. NEUROLOGIC: Exam normal. SKIN: Unremarkable. Data : 04/01/19 07:40 04/02/19 03:40 A&P Assessment and plan (1) ASHD (arteriosclerotic heart disease): Status: Acute Code(s): I25.10 - Atherosclerotic heart disease of [place] coronary artery without angina pectoris (2) Chronic kidney disease (CKD) stage G1/A1, glomerular filtration rate (GFR) equal to or greater than 90 mL/min/1.73 square meter and albuminuria creatinine ratio less than 30 mg/g: Status: Acute Code(s): N18.1 - Chronic kidney disease, stage 1 (3) ICD (implantable cardioverter-defibrillator) in place: Status: Acute Code(s): Z95.810 - Presence of automatic (implantable) cardiac defibrillator (4) Cardiomyopathy: Status: Acute Code(s): I42.9 - Cardiomyopathy, unspecified (5) Dyslipidemia: Status: Acute Code(s): E78.5 - Hyperlipidemia, unspecified (6) Essential hypertension: Status: Acute Code(s): I10 - Essential (primary) hypertension (7) Chest pain: Status: Acute Code(s): R07.9 - Chest pain, unspecified (8) Chronic pain syndrome: Status: Acute Code(s): G89.4 - Chronic pain syndrome (9) Diabetes: Status: Acute Code(s): E11.9 - Type 2 diabetes mellitus without complications (10) Congestive heart failure: Status: Acute Code(s): I50.9 - Heart failure, unspecified Additional A&P Information Await results of the nuclear stress test. Further recommendations after this. Attestations Medical Necessity Statement*: Not applicable Coding Level of Care Code Acute Manager Electrical for Chg Fwd History Detailed Exam Detailed Medical Decision Making Moderate Complexity Diagnoses ASHD (arteriosclerotic heart disease) I25.10 Chronic kidney disease (CKD) stage G1/A1, glomerular filtration rate (GFR) equal to or greater than 90 mL/min/1.73 square meter and albuminuria creatinine ratio less than 30 mg/g N18.1 ICD (implantable cardioverter-defibrillator) in place Z95.810 Cardiomyopathy I42.9 Dyslipidemia E78.5 Essential hypertension I10 Chest pain R07.9 Chronic pain syndrome G89.4 Diabetes E11.9 Congestive heart failure I50.9
[2019-04-02] MEDS: aspirin 81 mg EC Tablet PO (09:35)
[2019-04-02] MEDS: levothyroxine 50 mcg Tablet PO (09:35)
[2019-04-02] MEDS: citalopram 20 mg Tablet 10 MG PO (09:35)
[2019-04-02] MEDS: enoxaparin 80 mg/0.8 mL Syringe 70 MG SUBCUT (09:35)
[2019-04-02] MEDS: carvedilol 6.25 mg Tablet PO ×2 (09:35→17:48)
[2019-04-02] MEDS: famotidine 20 mg Tablet PO ×2 (09:36→17:48)
[2019-04-02] MEDS: spironolactone 25 mg Tablet PO (09:36)
[2019-04-02] MEDS: FUROsemide 20 mg Tablet PO (09:36)
--- NOTE | 2019-04-02 10:06 | PC.CHAP ---
Pastoral Care Encounter/Spiritual Assessment Type of Contact [] Declined gun sealing machine operator visit [] Patient/Family/Request visit [] Outpatient visit [] Follow-up visit [] Physician referral [] Code/Alert [x] Routine visit [] Staff referral [] Actively dying [] Patient sleeping [] Family support [] [] Out of room [] Palliative care [] [] Receiving care in room [] Pre-surgical visit [] Trauma [] Long length of stay [] ICU visit [] Other: Relational/Emotional Strength [] Patient feels connected with others/family/visitors/staff [] Distress [] Loneliness/isolation [] Abandonment Spirituality of Patient [x] Person of Eleanor [x] Attends Alevism of their Eleanor [x] Believes in Prayer [] Reads Bible or Christianity materials [] There are Spiritual issues to be addressed Sweet Dough Mixer Interventions [x] Prayer [] Active listening [] Non-anxious presence [] Spiritual/emotional support [] Crisis/trauma care [] Spiritual counseling [] Bereavement support [] Provided bereavement packet [] Provided Bible/devotional materials [] Provided toy/stuffed animal, coloring book to patient or family member [] Provided Communion [] Anointing/[place] [] Salvation [x] Completed spiritual assessment [] Other: Impact on Illness or Injury [] Angry [] Fearful [] Anxious [] Often cries [] Exhaustion [] Unable to work [] Unable to attend faith [] Unable to walk/stand [] Unable to read [] Unable to drive [] Unable to eat/drink [] Unable to sleep [] Unable to be with family [] Patient intubated [x] Other: concerned about chest pains. Summary Patient happy stress test completed Time spent with patient 10min
--- NOTE | 2019-04-02 17:11 | PM.DCS ---
Discharge Providers Date of Admission: 04/01/19 11:40 Date of Discharge: April 02, 2019 Attending Provider at Admission: Maria Ines Tripathi DO Attending Provider at Discharge: Maria Ines Tripathi DO Primary Care Provider: Aziza Nguyen MD Diagnoses at Discharge Discharge Diagnosis (1) ASHD (arteriosclerotic heart disease): Status: Acute Problem details: Stress test showed no changes from previous and cardiology recommendation was to continue with medical management. Patient was sitting up at the side of bed on date of discharge and denied any chest pain or shortness of breath and discussed with her plan for discharge to home with close outpatient follow-up and she agreed with plan. Will continue on statin, aspirin, started on Plavix, continue on Coreg, unable to tolerate any Imdur due to soft blood pressures chronically (2) Chronic kidney disease (CKD) stage G1/A1, glomerular filtration rate (GFR) equal to or greater than 90 mL/min/1.73 square meter and albuminuria creatinine ratio less than 30 mg/g: Status: Acute (3) ICD (implantable cardioverter-defibrillator) in place: Status: Acute Problem details: Will need outpatient pacemaker check in cardiology clinic next week (4) Cardiomyopathy: Status: Acute Problem details: LVEF of approximately 30%, unchanged, unable to tolerate STERLING or ARB in past due to lower BP (5) Dyslipidemia: Status: Acute Problem details: Continue statin (6) Essential hypertension: Status: Acute (7) Chest pain: Status: Acute Problem details: Resolved (8) Chronic pain syndrome: Status: Acute (9) Diabetes: Status: Acute (10) Congestive heart failure: Status: Acute Reason for Visit Reason for Visit: Reason For Visit: chest pain Hospital Course Hospital Course: Patient was seen and evaluated in the emergency department admitted for evaluation due to chest pain. Patient had cardiology consultation and she was sent for stress test. Her stress test showed some scarring and reported no prior change from previous stress test, cardiology recommendation was to continue with medical management due to her chronic kidney disease. On date of discharge patient was chest pain-free and denied any concerns. She was started on Plavix, not started on Imdur due to softer blood pressures chronically, she has been unable to tolerate any STERLING inhibitor or ARB in the past due to blood pressure. Discharge Summary: Discharge to home Physical Exam Const: COMMON NORMALS: oriented x3 GENERAL APPEARANCE: cooperative and other (sleepy) ORIENTATION/CONSCIOUSNESS: Yes oriented to person and Yes oriented to place HENMT: COMMON NORMALS: normocephalic and head/scalp atraumatic HEAD & SCALP: normocephalic and atraumatic Eye: COMMON NORMALS: PERRL PUPIL: Yes PERRL Neck/C-Spine: COMMON NORMALS: supple GENERAL: Yes normal visual inspection Resp: COMMON NORMALS: normal respiratory effort and clear to auscultation bilaterally AUSCULTATION: clear to auscultation bilaterally, no rhonchi and no wheezes Cardio: COMMON NORMALS: regular rate, regular rhythm and no murmurs RATE: regular rate RHYTHM: regular rhythm GI: COMMON NORMALS: soft to palpation and non-tender INSPECTION: No abdominal distension AUSCULTATION: Yes normoactive bowel sounds PALPATION: Yes soft Extremity: COMMON NORMALS: no clubbing, cyanosis or edema and no calf tenderness Neuro: COMMON NORMALS: oriented x3, CN's II-XII intact bilaterally, moves all extremities and no focal motor deficits SENSORIUM/ORIENTATION: Yes oriented to person, Yes oriented to place and Yes other (sleepy) Psych: COMMON NORMALS: cooperative Skin: COMMON NORMALS: no rashes or lesions noted GENERAL SKIN EXAM: no rashes or lesions noted Discharge Data Data Completed and Pending: Completed Studies During Hospitalization Category Date Time Status Sestamibi Stress Test Request Routi ne Exams 04/02/19 07:00 Completed XR chest 1V aleja ble [id number] Stat Exams 04/01/19 07:20 Completed NM maikol perf SPECT r/s* [id number] Routin e Nuc Med 04/02/19 Completed CV echo complete* [id number] Routine Ultrasound 04/01/19 09:35 Completed Pending at discharge Category Date Time Status Sestamibi Stress Test Request Routi ne Exams 04/01/19 12:57 Stop Req Urine Culture Sta t Lab 04/01/19 14:15 Results Labs from last 24 hours 04/02/19 04/02/19 04/01/19 06:30 03:40 20:38 Sodium 134 L Potassium 4.3 Chloride 95 L Carbon Dioxide 24 Anion Gap 19.3 H BUN 25 H Creatinine 1.5 H Glucose 294 H POC Glucose 262 292 Calculated Osmolal ity 286 Calcium 9.6 04/01/19 17:03 Sodium Potassium Chloride Carbon Dioxide Anion Gap BUN Creatinine Glucose POC Glucose 332 Calculated Osmolal ity Calcium Vitals: Last Vital Signs Temp 98.3 F 04/02/19 04:00 Pulse 75 04/02/19 16:00 Resp 15 04/02/19 16:00 BP 94/42 04/02/19 16:00 Pulse Ox 93 04/02/19 15:26 Discharge Plan Discharge Patient Disposition: Home, Self-Care Condition: Stable Prescriptions: New clopidogrel [Plavix] 75 mg tablet 75 mg PO DAILY 30 Days Qty: 30 RF: 0 citalopram 20 mg Tablet 10 mg PO DAILY 30 Days Qty: 30 RF: 0 Continued rosuvastatin [Crestor] 40 mg tablet 40 mg PO DAILY RF: 0 spironolactone 25 mg tablet 25 mg PO DAILY RF: 0 levothyroxine 50 mcg tablet 50 mcg PO DAILY RF: 0 alendronate 70 mg tablet 70 mg PO Q7D RF: 0 nitroglycerin [Nitrostat] 0.4 mg tablet, sublingual 0.4 mg SUBLINGUAL Q5M PRN (Reason: Chest Pain) RF: 0 famotidine 20 mg tablet 20 mg PO BID RF: 0 methenamine hippurate 1 gram tablet 1 gm PO BID RF: 0 aspirin [Adult Low Dose Aspirin] 81 mg tablet,delayed release (DR/EC) 81 mg PO DAILY RF: 0 PreserVision AREDS [id number] capsule 1 cap PO BID RF: 0 Tresiba FlexTouch U-100 100 unit/mL (3 mL) insulin pen 75 unit SUBCUT DAILY RF: 0 insulin aspart U-100 [Novolog U-100 Insulin aspart] 100 unit/mL solution See Rx Instructions SUBCUT .COMPLEX Qty: 30 RF: 0 carvedilol 3.125 mg tablet 6.25 mg PO BID RF: 0 furosemide [Lasix] 20 mg Tablet 20 mg PO DAILY RF: 0 tramadol 50 mg tablet 50 mg PO BEDTIME RF: 0 Vitamin C 1,000 mg Tablet 500 mg PO BID RF: 0 Ativan 0.5 mg Tablet 0.5 mg PO BID PRN (Reason: Anxiety) RF: 0 Discharge Orders: Discharge Order (Routine); Ordered 04/02/19 Ordered By: Maria Ines Tripathi Referrals: Lakia Scales MD [Physician] - 2 weeks (cardiology clinic follow up for pacemaker check in 1 week if possible) Aziza Nguyen MD [Primary Care Provider] - 1-3 days Discharge Diet: Advance as tolerated, Cardiac and Diabetic Discharge Activity: Increase activity as tolerated Activity Restrictions/Additional Instructions: Started on Plavix 75 mg daily. Continue on carvedilol, aspirin, statin, continue home Lasix. Continue other medications as previously prescribed Discussed changes with systolic congestive heart failure and chronic changes seen on stress test concern for scarring. Recommend close cardiology follow-up with Dr. Scales. Recommend pacemaker check in the clinic. He is present to the ER for any acute illness or concern Discharge Attestations Time Spent in Discharge Care*: greater than 30 min Quality Metrics Clinical Quality Measures During this hospital stay, did patient experience: None Coding Level of Care Code Acute Payroll Accounting Clerk for g Fwd Diagnoses ASHD (arteriosclerotic heart disease) I25.10 Chronic kidney disease (CKD) stage G1/A1, glomerular filtration rate (GFR) equal to or greater than 90 mL/min/1.73 square meter and albuminuria creatinine ratio less than 30 mg/g N18.1 ICD (implantable cardioverter-defibrillator) in place Z95.810 Cardiomyopathy I42.9 Dyslipidemia E78.5 Essential hypertension I10 Chest pain R07.9 Chronic pain syndrome G89.4 Diabetes E11.9 Congestive heart failure I50.9
[2019-04-02 17:32] LABS: Glucose Point of Care 264 mg/dL (70-110)
== END 2019-04-02 19:09 | disposition home or self-care (01) ==
LOC: ER 07:41 → CSU 13:08
PROVIDERS: Admitting Provider Family Medicine; Emergency Provider Emergency Medicine; PCP Family Medicine; Visit Provider Family Medicine
DX: R07.9 Chest pain, unspecified (principal); K21.9 Gastro-esophageal reflux disease without esophagitis; F41.9 Anxiety disorder, unspecified; F32.9 Major depressive disorder, single episode, unspecified; E11.22 Type 2 diabetes mellitus with diabetic chronic kidney disease; I13.0 Hypertensive heart and chronic kidney disease with heart failure and stage 1 through stage 4 chronic kidney disease, or unspecified chronic kidney disease; N18.1 Chronic kidney disease, stage 1; I50.9 Heart failure, unspecified; E03.9 Hypothyroidism, unspecified; G47.10 Hypersomnia, unspecified; M19.90 Unspecified osteoarthritis, unspecified site; Z83.3 Family history of diabetes mellitus; Z82.49 Family history of ischemic heart disease and other diseases of the circulatory system; Z87.891 Personal history of nicotine dependence; I42.9 Cardiomyopathy, unspecified; Z95.0 Presence of cardiac pacemaker; E78.5 Hyperlipidemia, unspecified; G89.4 Chronic pain syndrome; I25.10 Atherosclerotic heart disease of native coronary artery without angina pectoris; Z79.4 Long term (current) use of insulin
CPT/HCPCS: 12345; 36415; 36416; 71045; 78452; 80048; 80053; 81001; 82009; 82962; 83036; 83880; 84443; 84484; 85025; 87077; 87086; 87186; 93005; 93017; 93306; 96372; 96374; 96375; 96376; 99283; 99285; A9500; G0378; J1170; J1650; J1815; J2270; J2405; J2785

== ENCOUNTER → 2019-04-16 10:49 | Outpatient (BNVA) | payer MEDICARE, MEDICAID, SELFPAY | PROVIDERS: PCP Family Medicine; Visit Provider Family Medicine | DX: M25.552 Pain in left hip (principal) | CPT/HCPCS: 73502 ==

== ENCOUNTER 2019-05-16 17:12 | Inpatient (IN) | payer MEDICARE, MEDICAID, SELFPAY ==
[2019-05-16] VITALS (9 sets, daily range): BP systolic 96–169; BP diastolic 58–115; PULSE 57–111; RESP 16–20; TEMP 36.5–36.7; O2SAT 95–98; BMI 25.8
--- NOTE | 2019-05-16 17:18 | ECG_ITS ---
Measurements Intervals Walls Rate: 150 P: -13 UT: 138 QRS: -50 QRSD: 177 T: 55 QT: 373 QTc: 591 SINUS TACHYCARDIA, POSSIBLE ATRIAL FLUTTER INTRAVENTRICULAR CONDUCTION DELAY [130+ ms QRS DURATION] INFERIOR MYOCARDIAL INFARCTION [40+ ms Q WAVE AND/OR ST/T ABNORMALITY IN II/aVF], indeterminate age Compared to ECG 04/01/2019 13:37:29 Intraventricular conduction delay now present Ventricular-paced complex(es) or rhythm no longer present ST (T wave) deviation no longer present Myocardial infarct finding still present Electronically Signed On 05-16-2019 21:13:47 CDT by Nehemias Vazquez M.D. [email or web address]
--- NOTE | 2019-05-16 17:18 | XR_ITS ---
WS: [id number] CHEST XRAY TECHNIQUE: Portable chest. CLINICAL INFORMATION: COMPARISON: April 01, 2019 FINDINGS: Heart: Cardiomegaly. AICD. Lungs: Chronic emphysematous changes. No acute pulmonary infiltrates. No focal pneumonia. Bones: Normal visualized bony structures. XR/XR chest 1V portable [id number] IMPRESSION: No acute chest findings
[2019-05-16 17:39] LABS: Basophils # 0.1 10^3/uL (0.0-0.1); Basophils % 0.5 %; Eosinophils # 0.1 10^3/uL (0.0-0.8); Eosinophils % 0.4 %; Hematocrit 47.6 % (37.0-47.0); Hemoglobin 15.2 g/dL (11.5-15.3); Lymphocytes # 2.7 10^3/uL (0.8-4.8); Lymphocytes % 16.1 %; Mean Corpuscular HGB Conc 31.9 g/dL (30.0-36.0); Mean Corpuscular Hemoglobin 27.8 pg (28.0-34.0); Mean Corpuscular Volume 87.2 fL (81-99); Mean Platelet Volume 10.6 fL (7.4-10.4); Monocytes # 0.8 10^3/uL (0.2-0.9); Monocytes % 4.7 %; Neutrophils % 77.9 %; Nucleated Red Blood Cells % 0 %; Platelet Count 233 10^3/cmm (130-400); Red Blood Count 5.46 10^6/uL (4.1-5.3); White Blood Count 16.7 10^3/uL (4.0-10.0)
--- NOTE | 2019-05-16 17:40 | ECG_ITS ---
Measurements Intervals [place] Rate: 92 P: 62 MO: 120 QRS: 121 QRSD: 124 T: -25 QT: 413 QTc: 513 ELECTRONIC VENTRICULAR PACEMAKER ABNORMAL RHYTHM ECG Compared to ECG 04/01/2019 13:37:29 ST (T wave) deviation no longer present Myocardial infarct finding no longer present Electronically Signed On 05-16-2019 21:13:55 CDT by Nehemias Vazquez M.D. [id number]
[2019-05-16 17:48] LABS: INR 0.94 (0.8-1.2)
--- NOTE | 2019-05-16 17:49 | W.ED.CHESTPA ---
HPI - Chest Pain General: Chief Complaint: Chest Pain Stated Complaint: CHEST PAIN Time Seen by Provider: 05/16/19 17:44 Source: patient and EMS Mode of arrival: EMS Limitations: no limitations History of Present Illness: HPI narrative: 73-year-old female states she is having chest pain for the last day with radiation to bilateral arms. Patient here appears to be in slow V. tach. She does have a pacer defibrillator. She denies any vomiting but has had some nausea. Denies any shortness of breath. Denies any worsening or improving factors. MD complaint: chest pain Pertinent past history: coronary artery disease Onset (ago): hour(s) Timing of current episode: constant Pain location: left chest Pain radiation: right arm and left arm Severity: moderate Quality: tightness Relieving factors: nothing Exacerbating factors: nothing Associated symptoms: Reports palpitations; Deny abdominal pain, dyspnea, fever(s), nausea or vomiting Review of Systems Const: Denies: fever, chills, body aches or change in appetite Eyes: Denies: blurry vision or eye discomfort ENMT: Denies: throat pain or dental pain Card: Reports: chest pain, palpitations and irregular heart rhythm Resp: Denies: shortness of breath GI: Denies: abdominal pain, nausea, vomiting or diarrhea : Denies: painful urination Musc: Denies: neck pain or back pain Skin/Breast: Denies: rash Neuro: Denies: headache Psych: Denies: depression Torey/Lymph: Denies: easy bruising All/Imm: Denies: hives PFSH ED PFSH: Medical History Anxiety and depression ASHD (arteriosclerotic heart disease) Cardiomyopathy LVEF of approximately 30%, unchanged, unable to tolerate STERLING or ARB in past due to lower BP Chronic kidney disease (CKD) stage G1/A1, glomerular filtration rate (GFR) equal to or greater than 90 mL/min/1.73 square meter and albuminuria creatinine ratio less than 30 mg/g Chronic pain syndrome Congestive heart failure Diabetes Dyslipidemia Continue statin Essential hypertension GERD (gastroesophageal reflux disease) ICD (implantable cardioverter-defibrillator) in place Insomnia Left bundle branch block Osteoarthritis Pacemaker Vitamin D deficiency Surgical History History of angioplasty History of appendectomy History of hysterectomy Family History Other CAD (coronary artery disease) Diabetes Social History Smoking and tobacco status: never smoked Physical Exam Const: COMMON NORMALS: no apparent distress, oriented x3 and healthy appearing HENMT: COMMON NORMALS: normocephalic and head/scalp atraumatic HEAD & SCALP: normocephalic and atraumatic Eye: COMMON NORMALS: PERRL and EOMs intact bilaterally PUPIL: Yes PERRL Neck/C-Spine: COMMON NORMALS: full ROM and supple Chest: COMMONS NORMALS: inspection of chest normal and palpation of chest normal Resp: COMMON NORMALS: normal respiratory effort, no retractions, no use of accessory muscles and clear to auscultation bilaterally AUSCULTATION: clear to auscultation bilaterally Cardio: COMMON NORMALS: no murmurs RATE: tachycardic GI: COMMON NORMALS: normal to inspection, nondistended, normoactive bowel sounds, soft to palpation, non-tender and no masses PALPATION: Yes soft Extremity: COMMON NORMALS: normal to inspection and full ROM Neuro: COMMON NORMALS: oriented x3, moves all extremities and no focal motor deficits Psych: COMMON NORMALS: mental status grossly normal, thought process normal and cooperative THOUGHT PROCESS: normal thought process Skin: COMMON NORMALS: no rashes or lesions noted and no wounds GENERAL SKIN EXAM: no rashes or lesions noted Course Vital Signs: Vital signs: Vital Signs Temperature 97.8 F 05/16/19 17:15 Pulse Rate 109 H 05/16/19 19:59 Respiratory Rate 16 05/16/19 20:00 Blood Pressure 169/115 05/16/19 19:59 Pulse Oximetry 97 05/16/19 20:00 MDM - Chest Pain MDM Narrative: Medical decision making narrative: Patient presents here originally in V. tach and cardioverted herself here likely by her defibrillator. Patient here is been in a paced rhythm since. Patient's repeat troponin went up mildly and will give 1 dose of Lovenox and continue to trend troponin. I spoke to hospitalist will admit I also consulted Dr. Granda of cardiology. Lab Data: Labs: Lab Results 0405/16/19 05/16/19 Range/Units 17:25 17:25 17:25 WBC 16.7 H (4.0-10.0) 10^3/ uL RBC 5.46 H (4.1-5.3) 10^6/u L Hgb 15.2 (11.5-15.3) g/dL Hct 47.6 H (37.0-47.0) % MCV 87.2 (81-99) fL MCH 27.8 L (28.0-34.0) pg MCHC 31.9 (30.0-36.0) g/dL RDW 14.0 (12.1-15.1) % Plt Count 233 (130-400) 10^3/c mm MPV 10.6 H (7.4-10.4) fL Neut % (Auto) 77.9 % Lymph % (Auto) 16.1 % [place] % (Auto) 4.7 % Eos % (Auto) 0.4 % Baso % (Auto) 0.5 % Neut # (Auto) 13.0 H (1.8-7.7) 10^3/u L Lymph # (Auto) 2.7 (0.8-4.8) 10^3/u L [place] # (Auto) 0.8 (0.2-0.9) 10^3/u L Eos # (Auto) 0.1 (0.0-0.8) 10^3/u L Baso # (Auto) 0.1 (0.0-0.1) 10^3/u L Nucleated RBC % (a uto) 0 % Nucleated RBCs # 0.0 /100WBC PT 12.90 (10.5-13.3) SECO NDS INR 0.94 (0.8-1.2) Sodium 137 (136-145) mmol/L Potassium 3.9 (3.5-5.1) mmol/L Chloride 99 (98-107) mmol/L Carbon Dioxide 22 (22-29) mmol/L Anion Gap 19.9 H (5-19) BUN 26 H (8-23) mg/dL Creatinine 1.7 H (0.5-0.9) mg/dL Glucose 182 H (65-115) mg/dL Calculated Osmolal ity 286 (285-295) mOsm/k g Calcium 9.8 (8.5-10.5) mg/dL Total Bilirubin 0.4 (0.15-1.2) mg/dL AST 26 (0-32) U/L ALT 19 (0-33) U/L Alkaline Phosphata se 113 H (35-105) IU/L Troponin T Baselin e (0-10) ng/mL Troponin T 120 Min [place] (0-10) ng/mL Delta Troponin T (0-10) ABS# Total Protein 8.5 (6.6-8.7) g/dL Albumin 4.4 (3.5-5.2) g/dL Globulin 4.1 (1.3-4.6) g/dL Lipase 73 H (13-60) U/L 05/16/19 05/16/19 Range/Units 17:25 19:15 WBC (4.0-10.0) 10^3/ uL RBC (4.1-5.3) 10^6/u L Hgb (11.5-15.3) g/dL Hct (37.0-47.0) % MCV (81-99) fL MCH (28.0-34.0) pg MCHC (30.0-36.0) g/dL RDW (12.1-15.1) % Plt Count (130-400) 10^3/c mm MPV (7.4-10.4) fL Neut % (Auto) % Lymph % (Auto) % [place] % (Auto) % Eos % (Auto) % Baso % (Auto) % Neut # (Auto) (1.8-7.7) 10^3/u L Lymph # (Auto) (0.8-4.8) 10^3/u L [place] # (Auto) (0.2-0.9) 10^3/u L Eos # (Auto) (0.0-0.8) 10^3/u L Baso # (Auto) (0.0-0.1) 10^3/u L Nucleated RBC % (a uto) % Nucleated RBCs # /100WBC PT (10.5-13.3) SECO NDS INR (0.8-1.2) Sodium (136-145) mmol/L Potassium (3.5-5.1) mmol/L Chloride (98-107) mmol/L Carbon Dioxide (22-29) mmol/L Anion Gap (5-19) BUN (8-23) mg/dL Creatinine (0.5-0.9) mg/dL Glucose (65-115) mg/dL Calculated Osmolal ity (285-295) mOsm/k g Calcium (8.5-10.5) mg/dL Total Bilirubin (0.15-1.2) mg/dL AST (0-32) U/L ALT (0-33) U/L Alkaline Phosphata se (35-105) IU/L Troponin T Baselin e 28 H (0-10) ng/mL Troponin T 120 Min [place] 46.99 H (0-10) ng/mL Delta Troponin T 18.99 H* (0-10) ABS# Total Protein (6.6-8.7) g/dL Albumin (3.5-5.2) g/dL Globulin (1.3-4.6) g/dL Lipase (13-60) U/L Imaging Data^: CXR: Attestation: I personally reviewed and interpreted this imaging study as follows: My impression: no acute abnormality EKG Data^: EKG 1: Attestation: I personally reviewed and interpreted this EKG as follows: EKG interpretation date: 05/16/19 EKG interpretation time: 17:18 Interpretation: vtach hr [address] elevation EKG 2: Attestation: I personally reviewed and interpreted this EKG as follows: EKG interpretation date: 05/16/19 EKG interpretation time: 17:42 Interpretation: ventricula paced hr [address] or twave abnormalities qrs 124 qtc 463 Discharge Plan Discharge Patient Disposition: Admitted As Inpatient Admit Provider: Nehemias Ferrell Clinical Impression: V-tach Chest pain Qualifiers: Chest pain type: other chest pain Qualified Code(s): R07.89 - Other chest pain Condition: Stable Referrals: Aziza Nguyen MD [Primary Care Provider] - Coding Level of Care 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
[2019-05-16 17:57] LABS: Alanine Aminotransferase 19 U/L (0-33); Albumin Level 4.4 g/dL (3.5-5.2); Alkaline Phosphatase 113 IU/L (35-105); Anion Gap 19.9 (5-19); Aspartate Amino Transferase 26 U/L (0-32); Blood Urea Nitrogen 26 mg/dL (8-23); Calcium 9.8 mg/dL (8.5-10.5); Carbon Dioxide 22 mmol/L (22-29); Chloride 99 mmol/L (98-107); Creatinine Clr Calc Pharmacy 30.5103; Globulin 4.1 g/dL (1.3-4.6); Glucose 182 mg/dL (65-115); Lipase 73 U/L (13-60); Osmolality Calculated 286 mOsm/kg (285-295); Potassium 3.9 mmol/L (3.5-5.1); Sodium 137 mmol/L (136-145); Total Bilirubin 0.4 mg/dL (0.15-1.2); Total Protein 8.5 g/dL (6.6-8.7)
[2019-05-16] MEDS: sodium chloride 0.9% 1,000 ML 999 ML IV (17:59)
[2019-05-16 18:00] LABS: Troponin(5th) Baseline 28 ng/mL (0-10)
[2019-05-16] MEDS: ondansetron 2 mg/ML SDV 2 mL 4 MG IVP (18:33)
[2019-05-16] MEDS: morphine 4 mg/mL SDV 1 mL IVP ×2 (18:33→20:00)
--- NOTE | 2019-05-16 19:18 | ECG_ITS ---
Measurements Intervals [place] Rate: 102 P: -9 MO: 156 QRS: 11 QRSD: 90 T: -19 QT: 376 QTc: 492 ELECTRONIC VENTRICULAR PACEMAKER ABNORMAL RHYTHM ECG Compared to ECG 04/01/2019 13:37:29 ST (T wave) deviation no longer present Myocardial infarct finding no longer present Electronically Signed On 05-16-2019 21:14:50 CDT by Nehemias Vazquez M.D. [id number]
[2019-05-16 19:41] LABS: Troponin 5 2HR 46.99 ng/mL (0-10)
[2019-05-16 19:59] LABS: Troponin 5 2HR Delta 18.99 ABS# (0-10)
--- NOTE | 2019-05-16 19:59 | PC.NURSE ---
2hr trop 46.9 Delta 18.9
--- NOTE | 2019-05-16 20:02 | P.HP_ITS ---
Providers/Chief Complaint Primary Care Provider: Aziza Nguyen MD Chief Complaint: CHEST PAIN History of Present Illness Carmen Alvarenga is a 73 year old female who carries diagnosis of ischemic cardiomyopathy severely reduced ejection fraction, diastolic dysfunction, status post AICD/pacemaker placement, was recently discharged from the hospital after a stress test which was unremarkable for new ischemic changes came in today with chief complaint of not feeling well. Patient is stating that since her discharge she has been compliant with her medications, she has been having presyncopal events at home, she lives alone, no loss of consciousness or syncopal events. Today when she woke up she started feeling sick to her sto mach, she had breakfast and around evening she started having emesis, she had 3 episodes of bilious emesis, 1 episode of diarrhea, she did not note temperature at home but is endorsing subjective fevers, hot flashes and chills. She also noticed chest discomfort which she is describing as sharp stabbing pain substernally radiating towards left axilla around subcostal margin, non- positional, nonreproducible no recent sick contacts no recent flulike symptoms. She is benign swelling of her legs, cough, but she is endorsing shortness of breath on minimal exertion, i.e. walking from one room to another makes her short of breath. Her AICd has not fired as per her experience. Diagnostics in ER revealed V. tach analysis by ER physician with spontaneous conversion, systolic blood pressure 150, diastolic 60, heart rate 100-1 06 paced rhythm with multiple unifocal PVCs, potassium mildly low, I have ordered magnesium level and pacemaker/AICD interrogation. Dr. Granda has been notified and consulted by the ER Review of Systems Const: Reports: chills, body aches, fatigue and malaise; Denies: fever Eyes: Reports: blurry vision; Denies: change in vision ENMT: Denies: throat pain Card: Reports: chest pain, lightheadedness, pre-syncope and shortness of breath on exertion; Denies: palpitations, irregular heart rhythm, edema, swelling of feet/ankles or syncope Resp: Reports: shortness of breath GI: Reports: abdominal pain, nausea, vomiting and diarrhea; Denies: vomiting blood, coffee grounds in vomit, difficulty swallowing or constipation : Denies: flank pain, difficulty urinating or painful urination Musc: Denies: neck pain Skin/Breast: Denies: rash Neuro: Denies: headache Psych: Denies: anxiety Endo: Denies: excessive urination Torey/Lymph: Denies: easy bruising All/Imm: Denies: hives Medications/Allergies Home Medications Medication Instructions Recorded Confirmed Last Taken Type carvedilol 3.125 mg PO BID 05/16/19 05/16/19 Unknown History citalopram [Celexa] 10 mg PO DAILY 05/16/19 05/16/19 Unknown History clopidogrel [Plavix] 75 mg PO DAILY 05/16/19 05/16/19 Unknown History diclofenac sodium [Voltaren] See Rx Instructions .ROUTE .COMPLEX 05/16/19 05/16/19 Unknown History famotidine 20 mg PO BID 05/16/19 05/16/19 Unknown History lisinopril See Rx Instructions .ROUTE .COMPLEX 05/16/19 05/16/19 Unknown History Allergies Allergy/AdvReac Type Severity Reaction Status Date / Time metformin Allergy Intermediate diarrhea Verified 04/16/19 10:24 PFSH Acute PFSH: Medical History Anxiety and depression ASHD (arteriosclerotic heart disease) Cardiomyopathy LVEF of approximately 30%, unchanged, unable to tolerate STERLING or ARB in past due to lower BP Chronic kidney disease (CKD) stage G1/A1, glomerular filtration rate (GFR) equal to or greater than 90 mL/min/1.73 square meter and albuminuria creatinine ratio less than 30 mg/g Chronic pain syndrome Congestive heart failure Diabetes Dyslipidemia Continue statin Essential hypertension GERD (gastroesophageal reflux disease) ICD (implantable cardioverter-defibrillator) in place Insomnia Left bundle branch block Osteoarthritis Pacemaker Vitamin D deficiency Surgical History History of angioplasty History of appendectomy History of hysterectomy Family History Other CAD (coronary artery disease) Diabetes Social History Smoking and tobacco status: never smoked Vitals/I&O/Wt Last Vital Signs Temp 97.8 F 05/16/19 17:15 Pulse 57 L 05/16/19 17:15 Resp 18 05/16/19 17:15 BP 96/58 05/16/19 17:15 Pulse Ox 96 05/16/19 17:46 Weight last 48 hrs Weight 72.575 kg Physical Exam Narrative: EXAM NARRATIVE: Very pleasant elderly female lying comfortably in her bed, normal hemodynamics Chest pain-free S1, S2, paced rhythm, No active signs of heart failure Lungs are clear to auscultation on bilateral basilar auscultation, no active crackles Abdomen soft, nontender, nondistended, bowel sounds present in all quadrants Neurologically nonfocal exam, Skin does not show any sign of ischemia gangrene ulcer No sign of edema of lower extremities EOMI, PERRLA Patient is hard of hearing Telemetry showing paced rhythm Data : 05/16/19 17:25 05/16/19 17:25 A&P Assessment and plan (1) Chest pain: Status: Acute Qualifiers: Chest pain type: other chest pain Qualified Code(s): R07.89 - Other chest pain (2) V-tach: Status: Acute (3) ICD (implantable cardioverter-defibrillator) in place: Status: Acute (4) Essential hypertension: Status: Acute Additional A&P Information Nonsustained V. tach with nonspecific gastrointestinal symptoms Interrogation of pacemaker and AICD, EF 25%, Replenishment of potassium with 20 of KCl p.o., TSH on previous admission was normal We will check magnesium level Troponin with significant delta, full dose therapeutic Lovenox 1 dose given in ER Patient is currently chest pain-free, normal hemodynamics, EKG showing paced rhythm Admit to [facility] with telemetry, if I observe more unifocal or multifocal PVCs overnight, would add amiodarone Cardiology is consulted Recent stress test showed cardiac scarring without any reversible ischemia Heart failure with reduced ejection fraction with grade 2 diastolic dysfunction without active exacerbation Continue heart failure evidence-based medications, she is not a candidate to be on STERLING or arb or Entresto because of hypotension Continue aspirin, Plavix, statin, Coreg, Emesis and diarrhea I believe the symptoms are secondary to cardiac event, will follow with AICD/pacemaker interrogation She does carry diagnosis of esophagitis and GERD, will give her GI cocktail Patient is afebrile, noticed leukocytosis, no source of infection, patient is denying dysuria We will check urine analysis Poorly controlled type 2 diabetes: No hypoglycemic events at home, patient has been endorsing presyncopal events, Consistent carbohydrate diet, sliding scale with long acting insulin regimen Patient is full code, initially she wanted to be DNR/DNI but wanted to discuss her goals of care with the family and updated us in the morning DVT prophylaxis: Lovenox Cardiac diet Attestations Medical Necessity Statement*: Considering recent stress test and evaluation by cardiology I would suspect she will be discharged in less than 48 hours, her symptoms have resolved, considering low ejection fraction and comorbid conditions she will be considered high risk for cardiac arrest that might change her length of stay Time Spent in Patient Care: 45 Coding Level of Care Code 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
--- NOTE | 2019-05-16 20:13 | PC.NURSE ---
pain is rated as a 3, on a scale of 1-10
[2019-05-16] MEDS: enoxaparin 80 mg/0.8 mL Syringe 70 MG SUBCUT (20:24)
--- NOTE | 2019-05-16 21:02 | PM.CONSULT ---
Providers/Reason For Consult Consulting Physican/Specialty*: Cardiology Reason for Consult*: Ventricle tachycardia status post ICD shock Attending Physician: Nehemias Ferrell MD Primary Care Provider: Aziza Nguyen MD History of Present Illness History of Present Illness Carmen Alvarenga is a 73 year old female past medical history significant for frequent admission for chest pain history of elated cardiomyopathy, hypertension, diabetes mellitus presented with what she describes as heartburn going on for the last couple of days. It was not relieved with nitroglycerin. She denies any palpitation pounding racing of the heart or firing of ICD at home, she is not good historian but told me that she is dizzy most of the time. Today she came in to ER as she was not feeling well and had chest pressure which was not going away. Twelve-lead EKG was consistent with right bundle branch block and tachycardia. On telemetry patient was noted to have multiple runs of ventricle tachycardia with possible with ICD firing which patient denies. Telemetry strip is in the record, no ICD interrogation has done so far. Patient did not lose a conscious. Chest pain/heartburn responded to morphine. Troponin at the baseline was 28 which increased to 46. Currently she is stable but sinus tachycardic heart rate around 110-15 on telemetry. She is afebrile but white cell count is high. In the month of March patient was admitted with chest pain she was ruled out for acute coronary syndrome stress test showed old inferior wall myocardial infarction without significant ischemia. Patient has chronic kidney disease with baseline creatinine around 1.4 today her creatinine is 1.7. She denies fever chills admits to nausea and vomiting denies contact with flu or recent traveling. Review of Systems Const: Denies: fever, chills, body aches or change in appetite Eyes: Denies: blurry vision or eye discomfort ENMT: Denies: throat pain or dental pain Card: Reports: chest pain, palpitations and irregular heart rhythm Resp: Denies: shortness of breath GI: Denies: abdominal pain, nausea, vomiting or diarrhea : Denies: painful urination Musc: Denies: neck pain or back pain Skin/Breast: Denies: rash Neuro: Denies: headache Psych: Denies: depression Torey/Lymph: Denies: easy bruising All/Imm: Denies: hives Meds/Allergies Home Medications and Allergies Home Medications Medication Instructions Recorded Confirmed Type alendronate 70 mg tablet 70 mg PO Q7D tab 02/24/19 05/16/19 History aspirin 81 mg tablet,delayed 81 mg PO DAILY 02/24/19 05/16/19 History release methenamine hippurate 1 gram tablet 1 gm PO BID 02/24/19 05/16/19 History vitamins A,C,J-crqm-jrxooi 14,320 1 cap PO BID 02/24/19 05/16/19 History unit-226 mg-200 unit capsule insulin aspart U-100 100 unit/mL See Rx Instructions SUBCUT 03/18/19 05/16/19 Rx subcutaneous solution .COMPLEX #30 ml ascorbic acid (vitamin C) [Vitamin 500 mg PO BID 04/01/19 05/16/19 History C] lorazepam [Ativan] 0.5 mg PO BID PRN 04/01/19 05/16/19 History nitroglycerin 0.4 mg sublingual 0.4 mg SUBLINGUAL Q5M PRN #25 tab 04/13/19 05/16/19 Rx tablet omeprazole magnesium 20 mg 20 mg PO DAILY #90 tab 04/13/19 05/16/19 Rx tablet,delayed release rosuvastatin 40 mg tablet 40 mg PO DAILY #30 tab 04/19/19 05/16/19 Rx spironolactone 25 mg tablet 25 mg PO DAILY #30 tab 04/19/19 05/16/19 Rx tramadol 50 mg tablet 50 mg PO Q8H PRN #60 tab 04/29/19 05/16/19 Rx furosemide 20 mg tablet 20 mg PO DAILY #30 tab 05/03/19 05/16/19 Rx levothyroxine 50 mcg tablet 50 mcg PO DAILY #30 tab 05/03/19 05/16/19 Rx insulin degludec 100 unit/mL (3 75 unit SUBCUT DAILY #15 ml 05/07/19 05/16/19 Rx mL) subcutaneous pen carvedilol 3.125 mg PO BID 05/16/19 05/16/19 History citalopram [Celexa] 10 mg PO DAILY 05/16/19 05/16/19 History clopidogrel [Plavix] 75 mg PO DAILY 05/16/19 05/16/19 History diclofenac sodium [Voltaren] See Rx Instructions .ROUTE .COMPLEX 05/16/19 05/16/19 History famotidine 20 mg PO BID 05/16/19 05/16/19 History lisinopril See Rx Instructions .ROUTE .COMPLEX 05/16/19 05/16/19 History Allergies Allergy/AdvReac Type Severity Reaction Status Date / Time metformin Allergy Intermediate diarrhea Verified 04/16/19 10:24 PFSH Acute PFSH: Family History Other CAD (coronary artery disease) Diabetes Social History Smoking and tobacco status: never smoked Dietary Habits: Current diet type/program: regular Caffeine: Yes Exercise: What type of physical activity do you participate in?: none Safety: Seatbelt use: always Home Safety: Working smoke detector in home: Yes Fire extinguisher in home: No Carbon monoxide detector in home: No Personal Safety: Do you feel safe at home: Yes Vitals/I&O/Wt Last Vital Signs Temp 97.8 F 05/16/19 17:15 Pulse 108 H 05/16/19 20:31 Resp 16 05/16/19 20:31 BP 157/95 05/16/19 20:31 Pulse Ox 98 05/16/19 20:31 Weight last 48 hrs Weight 160 lb Physical Exam Narrative: EXAM NARRATIVE: GENERAL: Patient is alert, awake and oriented x3. NECK: No jugular vein distension. HEENT: No cyanosis. No icterus. No pallor. HEART: Regular S1 and S2. No murmur, rub or gallop. LUNGS: Clear to auscultate bilaterally. ABDOMEN: Soft, nontender and nondistended. Positive bowel sounds. No guarding, rebound or tenderness. CENTRAL NERVOUS SYSTEM: Grossly nonfocal. EXTREMITIES: Lower extremities without edema bilaterally. A&P Assessment and plan (1) V-tach: Patient has known severely depressed left ventricular function she is status post ICD. Electrolytes are within normal limit. UA is pending. She does not appear to be in decompensated heart failure. No prior cath record is available to me however she has recent negative stress test for ischemia. Her baseline creatinine is 1.4 today she is 1.7. I will for now start her on amiodarone. Currently she is in sinus rhythm therefore we will start her on oral amiodarone. She may require coronary angiogram depending upon her risk of contrast-induced nephropathy which is more than 20% in her case. Abnormal cardiac markers may not represent acute coronary syndrome in the face of abnormal clearance Status: Acute (2) Cardiomyopathy: Appears to be well compensated. Patient has nonischemic cardiomyopathy. I would like to review her angiogram record. She follows up with Dr. Scales's office we will review it in the morning Status: Acute Qualifiers: Cardiomyopathy type: unspecified Qualified Code(s): I42.9 - Cardiomyopathy, unspecified (3) Essential hypertension: I will increase carvedilol to 6.25 twice a day. We will titrate medicine to keep systolic blood pressure below 140/90 Status: Acute Consult Attestations Medical Necessity Statement: I am expecting her stay to cross more than 2 midnight Coding Level of Care Code Acute Research Phlebotomist for [facility] Fwd Diagnoses V-tach I47.2 Cardiomyopathy I42.9 Cardiomyopathy type: unspecified Essential hypertension I10
[2019-05-16 21:37] LABS: Magnesium 2.4 mg/dL (1.7-2.3)
[2019-05-16 22:15] LABS: Glucose Point of Care 196 mg/dL (70-110)
[2019-05-16] MEDS: lidocaine 2% viscous 15 ML, aluminum-mag hydrox-simethicon 30 ML, sucralfate oral liq 1 GM PO (22:58)
[2019-05-16] MEDS: amiodarone 200 mg Tablet 400 MG PO (22:59)
[2019-05-16] MEDS: carvedilol 6.25 mg Tablet PO (23:00)
[2019-05-16 23:54] LABS: Troponin 5 6HR 172.1 ng/mL (0-10); Troponin 5 6HR Delta 144.1 ng/L (0-12)
[2019-05-17] VITALS (24 sets, daily range): BP systolic 90–130; BP diastolic 50–85; PULSE 76–106; RESP 14–24; TEMP 36.4–37.1; O2SAT 94–97
[2019-05-17] MEDS: TRAMadol 50 mg Tablet PO ×2 (00:54→21:25)
[2019-05-17] MEDS: LORazepam 0.5 mg Tablet PO ×2 (00:55→21:25)
--- NOTE | 2019-05-17 03:39 | PC.NURSE ---
patient arrived to the floor A & 0 x4, no pain or sob noted. patient comfortable at this time. patients hr ^ 100, bp elevated, previously thrown some vtach in ekgs. new meds started, patient had orders to interrogate ppacemaker, both Angela and I tried to use first the meditronic machine then the [employer] machine and neither would cigar packer and picker the patients pacemaker. she also said she felt humming couple days ago and that she usually she feels that when its time to change the battery.
[2019-05-17 05:12] LABS: Basophils # 0.1 10^3/uL (0.0-0.1); Basophils % 0.6 %; Eosinophils # 0.1 10^3/uL (0.0-0.8); Eosinophils % 0.6 %; Hemoglobin 14.2 g/dL (11.5-15.3); Lymphocytes # 2.5 10^3/uL (0.8-4.8); Lymphocytes % 20.4 %; Mean Corpuscular HGB Conc 31.6 g/dL (30.0-36.0); Mean Corpuscular Hemoglobin 27.8 pg (28.0-34.0); Mean Corpuscular Volume 88.1 fL (81-99); Mean Platelet Volume 10.7 fL (7.4-10.4); Monocytes % 7.8 %; Neutrophils # 8.7 10^3/uL (1.8-7.7); Neutrophils % 70.3 %; Nucleated Red Blood Cells % 0 %; Platelet Count 201 10^3/cmm (130-400); Red Blood Count 5.11 10^6/uL (4.1-5.3); Red Cell Distribution Width 14.1 % (12.1-15.1); White Blood Count 12.4 10^3/uL (4.0-10.0)
[2019-05-17 05:22] LABS: Anion Gap 14.7 (5-19); Blood Urea Nitrogen 28 mg/dL (8-23); Calcium 9.3 mg/dL (8.5-10.5); Carbon Dioxide 25 mmol/L (22-29); Chloride 101 mmol/L (98-107); Glucose 228 mg/dL (65-115); Osmolality Calculated 286 mOsm/kg (285-295); Potassium 4.7 mmol/L (3.5-5.1); Sodium 136 mmol/L (136-145)
[2019-05-17 06:37] LABS: Glucose Point of Care 175 mg/dL (70-110)
--- NOTE | 2019-05-17 07:53 | PM.PN ---
Subjective Subjective: Interval history: Carmen reports she certainly feels better than she did on admission. She still feels somewhat weak. Medications: Reviewed: Yes Vitals/I&O/Wt Last Vital Signs Temp 97.7 F 05/17/19 07:00 Pulse 86 05/17/19 07:00 Resp 18 05/17/19 07:00 BP 109/72 05/17/19 07:00 Pulse Ox 95 05/17/19 06:18 05/16/19 05/17/19 05/17/19 22:59 06:59 14:59 Intake Total 400 / 400 Output Total 180 / 180 300 / 300 Balance -180 / -180 100 / 100 Weight last 48 hrs Weight 72.575 kg Physical Exam Narrative: EXAM NARRATIVE: General exam is no apparent distress Cardiovascular regular rate and rhythm without murmur. Lungs clear no wheezing or crackles Abdomen is soft obese nontender with positive bowel sounds Extremities no cyanosis clubbing or edema Data : 05/17/19 04:39 05/17/19 04:39 A&P Assessment and plan (1) Chest pain: Likely secondary to the patient's underlying tachyarrhythmia. Significant troponin elevation occurred consistent with myocardial infarction. Last nuclear stress test in March 2019 demonstrated subtle reversible ischemia inferior and inferior lateral jean and echo demonstrated EF of 30 to 35%. This is consistent with non-ST elevation myocardial infarction secondary to tachyarrhythmia Continue Plavix, aspirin, statin. Nitrates not given secondary to soft blood pressures. Carvedilol was increased slightly. Status: Acute Qualifiers: Chest pain type: other chest pain Qualified Code(s): R07.89 - Other chest pain (2) V-tach: Cardiology has been consulted. This appears to be secondary to ischemic cardiomyopathy. Electrolytes, magnesium level was normal. TSH recently checked and normal. Cardiology has initiated amiodarone. Status: Acute (3) ICD (implantable cardioverter-defibrillator) in place: Status: Acute (4) Essential hypertension: Controlled Status: Acute Additional A&P Information GERD. Currently on Pepcid History of ischemic systolic congestive heart failure as well as diastolic heart failure. Currently appears to be compensated. Leukocytosis. Some complaints of weakness, diarrhea, nausea. Urinalysis has been ordered and pending. White blood cell count is decreased. Currently on no antibiotics. Type 2 diabetes. Continue insulin Patient is full code, initially she wanted to be DNR/DNI but wanted to discuss her goals of care with the family and updated us in the morning Lovenox for DVT prophylaxis Suspect she will need home health with home physical therapy secondary to patient's concern of weakness, history of fall within the last 2 months secondary to weakness. Attestations Medical Necessity Statement*: Needs continued hospitalization for close monitoring of ventricular tachycardia and initiation of amiodarone. She has been changed to a regular admission. 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
[2019-05-17] MEDS: enoxaparin 40 mg/0.4 mL Syringe SUBCUT (08:38)
[2019-05-17] MEDS: amiodarone 200 mg Tablet 400 MG PO ×2 (08:39→21:26)
[2019-05-17] MEDS: clopidogrel 75 mg Tablet PO (08:39)
[2019-05-17] MEDS: famotidine 20 mg Tablet PO ×2 (08:39→17:20)
[2019-05-17] MEDS: atorvastatin 40 mg Tablet 80 MG PO (08:39)
[2019-05-17] MEDS: carvedilol 6.25 mg Tablet PO ×2 (08:40→17:20)
[2019-05-17] MEDS: spironolactone 25 mg Tablet PO (08:40)
[2019-05-17] MEDS: citalopram 20 mg Tablet 10 MG PO (08:40)
[2019-05-17] MEDS: levothyroxine 50 mcg Tablet PO (08:40)
[2019-05-17] MEDS: FUROsemide 20 mg Tablet PO (08:40)
[2019-05-17] MEDS: aspirin 81 mg EC Tablet PO (08:40)
[2019-05-17 11:12] LABS: Glucose Point of Care 256 mg/dL (70-110)
[2019-05-17 15:53] LABS: Add Urine Culture? Yes; Bacteria Urine 4+; Bilirubin Urine Neg (NEGATIVE); Blood Urine Neg (Negative); Glucose Urine UA Norm (Normal); Ketones Urine Negative (Negative); Leukocyte Esterase Urine 1+ (Negative); Nitrate Urine Negative (Negative); Protein Urine 1+ (Negative); Specific Gravity, Urine 1.015 (1.005-1.030); Urine Appearance Hazy (CLEAR); Urine Color Yellow (Yellow); Urobilinogen Urine Norm (Negative); WBC Urine 40-55 /hpf (0-5); pH Urine 5 (5-7)
[2019-05-17 16:39] LABS: Glucose Point of Care 223 mg/dL (70-110)
--- NOTE | 2019-05-17 17:30 | PM.PN ---
Subjective Subjective: Interval history: No more ventricular tachycardia. Patient had UTI. Troponin has increased Medications: Reviewed: Yes Vitals/I&O/Wt Last Vital Signs Temp 97.9 F 05/17/19 16:57 Pulse 77 05/17/19 16:57 Resp 14 05/17/19 16:57 BP 96/64 05/17/19 16:57 Pulse Ox 94 05/17/19 16:00 05/17/19 05/17/19 05/17/19 06:59 14:59 22:59 Intake Total 640 / 640 Output Total 300 / 300 300 / 600 Balance 340 / 340 -300 / 40 Weight last 48 hrs Weight 160 lb Physical Exam Narrative: EXAM NARRATIVE: GENERAL: Patient is alert, awake and oriented x3. NECK: No jugular vein distension. HEENT: No cyanosis. No icterus. No pallor. HEART: Regular S1 and S2. No murmur, rub or gallop. LUNGS: Clear to auscultate bilaterally. ABDOMEN: Soft, nontender and nondistended. Positive bowel sounds. No guarding, rebound or tenderness. CENTRAL NERVOUS SYSTEM: Grossly nonfocal. EXTREMITIES: Lower extremities without edema bilaterally. Data : 05/17/19 04:39 05/17/19 04:39 A&P Assessment and plan (1) V-tach: Patient has known severely depressed left ventricular function she is status post ICD. Electrolytes are within normal limit. UA is pending. She does not appear to be in decompensated heart failure. No prior cath record is available to me however she has recent negative stress test for ischemia. Her baseline creatinine is 1.4 today she is 1.7. I will for now start her on amiodarone. Currently she is in sinus rhythm therefore we will start her on oral amiodarone. She may require coronary angiogram depending upon her risk of contrast-induced nephropathy which is more than 20% in her case. Abnormal cardiac markers may not represent acute coronary syndrome in the face of abnormal clearance On today's visit no more ventricular tachycardia noted. Carvedilol was increased she was started on amiodarone. Status: Acute (2) Cardiomyopathy: Appears to be well compensated. Patient has nonischemic cardiomyopathy. Continue current regimen. She may need to have angiogram in the near future once creatinine is stable Status: Acute Qualifiers: Cardiomyopathy type: unspecified Qualified Code(s): I42.9 - Cardiomyopathy, unspecified (3) Essential hypertension: Optimally controlled continue medicine. Status: Acute Attestations Medical Necessity Statement*: Patient Requires continuation of hospitalization for above defined Care. 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
[2019-05-17] MEDS: cefTRIAXone 1,000 MG in sodium chloride 0.9% (plus) 50 ML 100 MG IV (18:10)
[2019-05-17 21:45] LABS: Glucose Point of Care 176 mg/dL (70-110)
[2019-05-17] MEDS: guaiFENesin 100 mg/5 mL UDC 10 mL 200 MG PO (21:45)
[2019-05-18] VITALS (10 sets, daily range): BP systolic 78–123; BP diastolic 53–84; PULSE 68–74; RESP 16–20; TEMP 36.5–36.9; O2SAT 90–99
--- NOTE | 2019-05-18 03:46 | PC.NURSE ---
Patient was found walking out of her room. Patient states I was looking for the bathroom. Patient states I woke up scared. Patient asks where's david, son? Patient was directed to bathroom with assistance. Patient is able to answer correctly to person, place, time, and situation. Patient has bed alarm set, has been oriented to her room and has call light within reach.
[2019-05-18 06:01] LABS: Basophils # 0.1 10^3/uL (0.0-0.1); Basophils % 0.8 %; Eosinophils # 0.2 10^3/uL (0.0-0.8); Eosinophils % 2.4 %; Hematocrit 37.6 % (37.0-47.0); Hemoglobin 11.6 g/dL (11.5-15.3); Lymphocytes # 3.1 10^3/uL (0.8-4.8); Lymphocytes % 35.5 %; Mean Corpuscular HGB Conc 30.9 g/dL (30.0-36.0); Mean Corpuscular Hemoglobin 27.8 pg (28.0-34.0); Mean Platelet Volume 10.9 fL (7.4-10.4); Monocytes # 0.9 10^3/uL (0.2-0.9); Monocytes % 10.3 %; Neutrophils # 4.4 10^3/uL (1.8-7.7); Neutrophils % 50.8 %; Nucleated Red Blood Cells % 0 %; Platelet Count 134 10^3/cmm (130-400); Red Blood Count 4.18 10^6/uL (4.1-5.3); Red Cell Distribution Width 14.4 % (12.1-15.1); White Blood Count 8.8 10^3/uL (4.0-10.0)
[2019-05-18 06:20] LABS: Anion Gap 14.2 (5-19); Blood Urea Nitrogen 40 mg/dL (8-23); Carbon Dioxide 20 mmol/L (22-29); Chloride 104 mmol/L (98-107); Glucose 125 mg/dL (65-115); Osmolality Calculated 277 mOsm/kg (285-295); Potassium 4.2 mmol/L (3.5-5.1); Sodium 134 mmol/L (136-145)
[2019-05-18 06:44] LABS: Glucose Point of Care 114 mg/dL (70-110)
[2019-05-18] MEDS: citalopram 20 mg Tablet 10 MG PO (09:44)
[2019-05-18] MEDS: clopidogrel 75 mg Tablet PO (09:44)
[2019-05-18] MEDS: carvedilol 3.125 mg Tablet PO ×2 (09:44→17:57)
[2019-05-18] MEDS: famotidine 20 mg Tablet PO ×2 (09:45→17:57)
[2019-05-18] MEDS: atorvastatin 40 mg Tablet 80 MG PO (09:45)
[2019-05-18] MEDS: levothyroxine 50 mcg Tablet PO (09:45)
[2019-05-18] MEDS: aspirin 81 mg EC Tablet PO (09:46)
--- NOTE | 2019-05-18 09:47 | PM.PN ---
Subjective Subjective: Interval history: Patient reports she feels tired. Otherwise no specific complaints. We discussed the need to improve hydration today. No arrhythmias noted overnight. Medications: Reviewed: Yes Vitals/I&O/Wt Last Vital Signs Temp 98.1 F 05/18/19 07:00 Pulse 71 05/18/19 07:00 Resp 16 05/18/19 07:00 BP 80/53 05/18/19 07:00 Pulse Ox 96 05/18/19 07:00 05/17/19 05/18/19 05/18/19 22:59 06:59 14:59 Intake Total 390 / 1030 360 / 360 Output Total 300 / 600 200 / 800 200 / 200 Balance 90 / 430 -200 / 230 160 / 160 Weight last 48 hrs Weight 76.113 kg Weight 72.575 kg Physical Exam Narrative: EXAM NARRATIVE: General exam is no apparent distress Cardiovascular regular rate and rhythm without murmur. Lungs clear no wheezing or crackles Abdomen is soft obese nontender with positive bowel sounds Extremities no cyanosis clubbing or edema Data : 05/18/19 05:53 05/18/19 05:53 Micro: Microbiology 05/17/19 15:00 Urine Culture - Preliminary Urine,Clean Catch Gram Negative Rods A&P Assessment and plan (1) Chest pain: Likely secondary to the patient's underlying tachyarrhythmia. Significant troponin elevation occurred consistent with myocardial infarction. Last nuclear stress test in March 2019 demonstrated subtle reversible ischemia inferior and inferior lateral jean and echo demonstrated EF of 30 to 35%. This is consistent with non-ST elevation myocardial infarction secondary to tachyarrhythmia Continue Plavix, aspirin, statin. Nitrates not given secondary to soft blood pressures. Carvedilol was increased slightly but secondary to lower blood pressures I have decreased this down to 3.125 mg twice daily. Status: Acute Qualifiers: Chest pain type: other chest pain Qualified Code(s): R07.89 - Other chest pain (2) V-tach: Cardiology has been consulted. This appears to be secondary to ischemic cardiomyopathy. Electrolytes, magnesium level was normal. TSH recently checked and normal. Cardiology has initiated amiodarone. Currently on amiodarone 400 mg 3 times daily Status: Acute (3) ICD (implantable cardioverter-defibrillator) in place: Status: Acute (4) Essential hypertension: Blood pressure currently low Secondary to hypotension I will discontinue Aldactone, Lasix. Reduce carvedilol dose. Bolus of 250 cc of NS. Status: Acute Additional A&P Information Acute renal failure superimposed on chronic kidney disease. This may have been exacerbated by hypotension. Lasix, Aldactone held. Carvedilol reduced. Small bolus of fluids and recheck BMP tomorrow. GERD. Currently on Pepcid History of ischemic systolic congestive heart failure as well as diastolic heart failure. Currently appears to be compensated. Last ejection fraction 30 to 35%, March 2019 Leukocytosis. UTI has been identified. She has been placed on Rocephin. Type 2 diabetes. Continue insulin Patient is full code, initially she wanted to be DNR/DNI but wanted to discuss her goals of care with the family and updated us in the morning Lovenox for DVT prophylaxis Suspect she will need home health with home physical therapy secondary to patient's concern of weakness, history of fall within the last 2 months secondary to weakness. Attestations Medical Necessity Statement*: Needs continued hospitalization for IV antibiotics secondary to UTI, close follow-up of renal failure. 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
[2019-05-18] MEDS: enoxaparin 40 mg/0.4 mL Syringe SUBCUT (09:57)
--- NOTE | 2019-05-18 10:50 | PC.CHAP ---
Pastoral Care Encounter/Spiritual Assessment Type of Contact [] Declined ferryboat operator helper visit [] Patient/Family/Request visit [] Outpatient visit [] Follow-up visit [] Physician referral [] Code/Alert [x] Routine visit [] Staff referral [] Actively dying [] Patient sleeping [] Family support [] [] Out of room [] Palliative care [] [x] Receiving care in room [] Pre-surgical visit [] Trauma [] Long length of stay [] ICU visit [] Other: Relational/Emotional Strength [x] Patient feels connected with others/family/visitors/staff [] Distress [] Loneliness/isolation [] Abandonment Spirituality of Patient [x] Person of Eleanor [x] Attends Synagogue of their [place] [x] Believes in Prayer [x] Reads Bible or Episcopalian materials [] There are Spiritual issues to be addressed Pear Picker Interventions [x] Prayer [] Active listening [] Non-anxious presence [x] Spiritual/emotional support [] Crisis/trauma care [x] Spiritual counseling [] Bereavement support [] Provided bereavement packet [] Provided Bible/devotional materials [] Provided toy/stuffed animal, coloring book to patient or family member [] Provided Communion [] Anointing/[place] [] Salvation [x] Completed spiritual assessment [] Other: Impact on Illness or Injury [] Angry [] Fearful [] Anxious [] Often cries [] Exhaustion [x] Unable to work [] Unable to attend baptist [] Unable to walk/stand [] Unable to read [x] Unable to drive [] Unable to eat/drink [] Unable to sleep [] Unable to be with family [] Patient intubated [] Other: Summary Heart and blood pressure, feels god, possitive attitude, getting to go home today Time spent with patient 10 mins
[2019-05-18] MEDS: sodium chloride 0.9% 250 ML IV (10:54)
[2019-05-18 12:07] LABS: Glucose Point of Care 194 mg/dL (70-110)
[2019-05-18] MEDS: amiodarone 200 mg Tablet 400 MG PO ×2 (12:17→22:09)
--- NOTE | 2019-05-18 14:47 | PM.PN ---
Subjective Subjective: Interval history: This patient was admitted to hospital with complaints of some atypical chest symptoms. She was found to have episodes of ventricular tachycardia. She was started on IV amiodarone. Her arrhythmia seems to be responding to the medication. She is known to have nonischemic cardiomyopathy and mild coronary artery disease by angiogram. Most recently, she had a myocardial perfusion imaging in March 2019. She was found to have mostly areas of fixed defects with a very small areas of reversible defect, suggestive of myocardial scarring in the distribution of the right coronary artery/circumflex artery with a very small areas of blayne-infarction ischemia. It was opted to treat her medically. She had multiple hospital admissions in the past with chest pains and slightly elevated troponins. She is also known to have chronic kidney disease. Her blood pressure was low this morning. For that reason, the dose of the Coreg was decreased. She is mainly complaining of feeling little tired today. She has no chest pain or any unusual shortness of breath. She has some shortness of breath with activities. Her BUN and creatinine was found to be elevated at the time of admission. It seems to be getting worse. Medications: Reviewed: Yes Medication Review Details: Current Medications Amiodarone HCl (Cordarone) 400 mg PO TID [facility] Last Admin: 05/18/19 12:17 Dose: 400 mg Documented by: Aspirin (Aspirin Ec) 81 mg PO DAILY [facility] Last Admin: 05/18/19 09:46 Dose: 81 mg Documented by: Atorvastatin Calcium (Lipitor) 80 mg PO DAILY [facility] Last Admin: 05/18/19 09:45 Dose: 80 mg Documented by: Carvedilol (Coreg) 3.125 mg PO BID [facility] Last Admin: 05/18/19 09:44 Dose: 3.125 mg Documented by: Citalopram Hydrobromide (Celexa) 10 mg PO DAILY [facility] Last Admin: 05/18/19 09:44 Dose: 10 mg Documented by: Clopidogrel Bisulfate (Plavix) 75 mg PO DAILY [facility] Last Admin: 05/18/19 09:44 Dose: 75 mg Documented by: Dextrose (D50w) 25 ml IVP ONCE PRN; Protocol PRN Reason: hypoglycemia protocol Dextrose (D50w) 50 ml IVP PRN PRN; Protocol PRN Reason: hypoglycemia protocol Enoxaparin Sodium (Lovenox) 40 mg SUBCUT Q24H [facility] Last Admin: 05/18/19 09:57 Dose: 40 mg Documented by: Famotidine (Pepcid Tab) 20 mg PO BID [facility] Last Admin: 05/18/19 09:45 Dose: 20 mg Documented by: Glucagon (Glucagen) 1 mg IM ONCE PRN; Protocol PRN Reason: Adult Acute Hypoglycemia Prot. Guaifenesin (Robitussin Oral Liq) 200 mg PO Q4H PRN PRN Reason: COUGH AND CONGESTION Last Admin: 05/17/19 21:45 Dose: 200 mg Documented by: Dextrose (D5w) 500 mls @ 100 mls/hr IV ONCE PRN; Protocol PRN Reason: Adult Acute Hypoglycemia Prot Ceftriaxone Sodium 1,000 mg/ (Sodium Chloride) 50 mls @ 100 mls/hr IV Q24H [facility]; Protocol Last Infusion: 05/17/19 18:40 Dose: Infused Documented by: Insulin Aspart (Novolog) 0 unit SUBCUT WM&BEDTIME [facility]; Protocol Last Admin: 05/18/19 12:17 Dose: 4 unit Documented by: Levothyroxine Sodium (Synthroid) 50 mcg PO DAILY [facility] Last Admin: 05/18/19 09:45 Dose: 50 mcg Documented by: Lorazepam (Ativan) 0.5 mg PO BID PRN PRN Reason: Anxiety Last Admin: 05/17/19 21:25 Dose: 0.5 mg Documented by: Nitroglycerin (Nitrostat) 0.4 mg SUBLINGUAL Q5M PRN PRN Reason: Chest Pain Non-Formulary Medication (Insulin Degludec [Tresiba Flextouch U-100]) 75 unit SUBCUT DAILY [facility] Last Admin: 05/18/19 10:46 Dose: Not Given Documented by: Non-Formulary Medication (Vitamins A,C,G-Hvfp-Lthgvg [Preservision Areds]) 1 cap PO BID [facility] Last Admin: 05/18/19 10:48 Dose: Not Given Documented by: Tramadol HCl (Ultram) 50 mg PO BEDTIME PRN PRN Reason: pain Last Admin: 05/17/19 21:25 Dose: 50 mg Documented by: Vitals/I&O/Wt Last Vital Signs Temp 98.0 F 05/18/19 11:00 Pulse 68 05/18/19 14:07 Resp 16 05/18/19 11:00 BP 97/63 05/18/19 11:00 Pulse Ox 95 05/18/19 14:07 05/17/19 05/18/19 05/18/19 22:59 06:59 14:59 Intake Total 390 / 1030 360 / 360 Output Total 300 / 600 200 / 800 200 / 200 Balance 90 / 430 -200 / 230 160 / 160 Weight last 48 hrs Weight 167 lb 12.8 oz Weight 160 lb Physical Exam Narrative: EXAM NARRATIVE: GENERAL: The patient is alert and oriented times three. Not in any acute distress. HEENT: No significant pallor, icterus or lymphadenopathy.Oral cavity: There are no mucous membrane lesions. NECK: Trachea appears to be central. No masses noted. No JVD or thyromegaly appreciated. RESPIRATORY: Chest is symmetrical. No intercostals muscle retraction or any accessory muscle activation. There is no chest wall tenderness. Breath sounds are heard bilaterally. No rales or rhonchi heard. No evidence of any consolidation. BREASTS: Deferred. HEART: The heart sounds are normal. No S3 or S4. Short systolic murmur in the left sternal border. No pericardial rub. ABDOMEN: No vessel pulsations or distention. No tenderness. No organomegaly appreciated. Bowel sounds are normally heard. : Deferred. RECTAL: Deferred. LYMPHATIC: No lymphadenopathy noted in the neck . EXTREMITIES: No edema or cyanosis. No clubbing. Peripheral pulses are palpated in fairly good volume and amplitude MUSCULOSKELETAL: No acute joint deformities or swelling SKIN: There are no significant scars or skin rash noted. NEUROPSYCHIATRIC: The patient is alert and oriented x3. Appears to be in a good mood. No tremors or rigidity noted. Data : 05/18/19 05:53 05/18/19 05:53 Other Labs: Laboratory Results - last 24 hr 05/17/19 05/17/19 05/17/19 15:00 16:24 21:35 WBC RBC Hgb Hct MCV MCH MCHC RDW Plt Count MPV Neut % (Auto) Lymph % (Auto) [place] % (Auto) Eos % (Auto) Baso % (Auto) Neut # (Auto) Lymph # (Auto) [place] # (Auto) Eos # (Auto) Baso # (Auto) Nucleated RBC % (auto) Nucleated RBCs # Sodium Potassium Chloride Carbon Dioxide Anion Gap BUN Creatinine Glucose POC Glucose 223 176 Calculated Osmolality Calcium Urine Color Yellow Urine Appearance Hazy A Urine pH 5 Ur Specific [place] 1.015 Urine Protein 1+ H Urine Glucose (UA) Norm Urine Ketones Negative Urine Blood Neg Urine Nitrate Negative Urine Bilirubin Neg Urine Urobilinogen Norm Ur Leukocyte Esterase 1+ H Urine RBC None Urine WBC 40-55 H Ur Squamous Epith Cells 5-10 H Urine Bacteria 4+ H 05/18/19 05/18/19 05/18/19 05:53 05:53 06:25 WBC 8.8 RBC 4.18 Hgb 11.6 Hct 37.6 MCV 90.0 MCH 27.8 L MCHC 30.9 RDW 14.4 Plt Count 134 MPV 10.9 H Neut % (Auto) 50.8 Lymph % (Auto) 35.5 [place] % (Auto) 10.3 Eos % (Auto) 2.4 Baso % (Auto) 0.8 Neut # (Auto) 4.4 Lymph # (Auto) 3.1 [place] # (Auto) 0.9 Eos # (Auto) 0.2 Baso # (Auto) 0.1 Nucleated RBC % (auto) 0 Nucleated RBCs # 0.0 Sodium 134 L Potassium 4.2 Chloride 104 Carbon Dioxide 20 L Anion Gap 14.2 BUN 40 H Creatinine 1.9 H Glucose 125 H POC Glucose 114 Calculated Osmolality 277 L Calcium 9.0 Urine Color Urine Appearance Urine pH Ur Specific [place] Urine Protein Urine Glucose (UA) Urine Ketones Urine Blood Urine Nitrate Urine Bilirubin Urine Urobilinogen Ur Leukocyte Esterase Urine RBC Urine WBC Ur Squamous Epith Cells Urine Bacteria 05/18/19 11:26 WBC RBC Hgb Hct MCV MCH MCHC RDW Plt Count MPV Neut % (Auto) Lymph % (Auto) [place] % (Auto) Eos % (Auto) Baso % (Auto) Neut # (Auto) Lymph # (Auto) [place] # (Auto) Eos # (Auto) Baso # (Auto) Nucleated RBC % (auto) Nucleated RBCs # Sodium Potassium Chloride Carbon Dioxide Anion Gap BUN Creatinine Glucose POC Glucose 194 Calculated Osmolality Calcium Urine Color Urine Appearance Urine pH Ur Specific [place] Urine Protein Urine Glucose (UA) Urine Ketones Urine Blood Urine Nitrate Urine Bilirubin Urine Urobilinogen Ur Leukocyte Esterase Urine RBC Urine WBC Ur Squamous Epith Cells Urine Bacteria Micro: Microbiology 05/17/19 15:00 Urine Culture - Preliminary Urine,Clean Catch Gram Negative Rods A&P Assessment and plan (1) V-tach: Patient is on amiodarone. The dose needs to be tapered down. May continue on the current dose for the time being. Status: Acute (2) Nonischemic cardiomyopathy: Patient is known to have nonischemic cardiomyopathy. LV ejection fraction was around 30% by echocardiogram in March. Currently she does not have any evidence of decompensation. May continue on the current medications. Status: Acute (3) Atypical chest pain: Her chest pain most likely is nonischemic. Cardiac arrhythmia, GERD etc. are considerations. May continue on the current medications. She may not require any further cardiac evaluation at this point. Status: Acute (4) Dyslipidemia: May continue on the current medicines. Status: Acute (5) ICD (implantable cardioverter-defibrillator) in place: Patient is up-to-date with the ICD interrogation. The ICD function appears to be appropriate. We may do a telephonic interrogation, to further evaluate. Status: Acute (6) Hypotension: This could be related to the LV dysfunctions, arrhythmia/medications. It may be appropriate to cut back on the dose of the Coreg at this time. Based on the clinical response, further recommendations will be made. Status: Acute Qualifiers: Hypotension type: hypotension due to drug Qualified Code(s): I95.2 - Hypotension due to drugs (7) Abnormal [id number] ratio: The etiology is not clear. It could be related to the low output state. I may hold back on the diuretics. Repeat BMP in the morning. Based on the results, further recommendations will be made Status: Acute Additional A&P Information Other problems are UTI history of dyslipidemia, on rosuvastatin History of congestive heart failure, currently compensated History of hypothyroidism, clinically euthyroid GERD Chronic fatigue Type 2 diabetes Osteoarthritis Macular degeneration Dry eye syndrome Based on the patient clinical response to medication changes, further recommendations will be made Attestations Medical Necessity Statement*: Patient requires continued hospital stay for close monitoring and further management Coding Level of Care Code Acute 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
[2019-05-18 16:43] LABS: Glucose Point of Care 265 mg/dL (70-110)
[2019-05-18] MEDS: cefTRIAXone 1,000 MG in sodium chloride 0.9% (plus) 50 ML 100 MG IV (17:57)
[2019-05-18 20:30] LABS: Glucose Point of Care 171 mg/dL (70-110)
[2019-05-18] MEDS: TRAMadol 50 mg Tablet PO (22:09)
[2019-05-18] MEDS: LORazepam 0.5 mg Tablet PO (22:09)
--- NOTE | 2019-05-18 23:15 | PC.NURSE ---
Attempt to do pacemaker check on patient with Erik @ home [employer] ([employer]) machine. Spoke with two different people on the phone who work for this company in attempt to get the data to transmit/send. We were not able to get the information to get a good signal to send after three attempts.
[2019-05-19 03:00] VITALS: BP 115/63; PULSE 82; RESP 16; TEMP 36.6; O2SAT 94
[2019-05-19 04:34] LABS: Blood Urea Nitrogen 37 mg/dL (8-23); Calcium 8.7 mg/dL (8.5-10.5); Carbon Dioxide 19 mmol/L (22-29); Chloride 102 mmol/L (98-107); Glucose 161 mg/dL (65-115); Osmolality Calculated 283 mOsm/kg (285-295); Sodium 136 mmol/L (136-145)
[2019-05-19 05:07] LABS: Anion Gap 19.7 (5-19); Potassium 4.7 mmol/L (3.5-5.1)
[2019-05-19 06:49] LABS: Glucose Point of Care 147 mg/dL (70-110)
[2019-05-19 08:00] VITALS: BP 112/72; PULSE 71; RESP 16; TEMP 36.8; O2SAT 91
--- NOTE | 2019-05-19 08:37 | P.PN_ITS ---
Subjective Subjective: Interval history: Patient is feeling better. She has no chest pain or palpitations. Telemetry shows occasional PVCs. No significant arrhythmias. She seems to be tolerating the amiodarone so far well. Her blood pressure is back to the baseline at this time. The BUN and creatinine levels are coming down. Denies any new symptoms. Medications: Reviewed: Yes Medication Review Details: Current Medications Amiodarone HCl (Cordarone) 400 mg PO TID [facility] Last Admin: 05/18/19 12:17 Dose: 400 mg Documented by: Aspirin (Aspirin Ec) 81 mg PO DAILY [facility] Last Admin: 05/18/19 09:46 Dose: 81 mg Documented by: Atorvastatin Calcium (Lipitor) 80 mg PO DAILY [facility] Last Admin: 05/18/19 09:45 Dose: 80 mg Documented by: Carvedilol (Coreg) 3.125 mg PO BID [facility] Last Admin: 05/18/19 09:44 Dose: 3.125 mg Documented by: Citalopram Hydrobromide (Celexa) 10 mg PO DAILY [facility] Last Admin: 05/18/19 09:44 Dose: 10 mg Documented by: Clopidogrel Bisulfate (Plavix) 75 mg PO DAILY [facility] Last Admin: 05/18/19 09:44 Dose: 75 mg Documented by: Dextrose (D50w) 25 ml IVP ONCE PRN; Protocol PRN Reason: hypoglycemia protocol Dextrose (D50w) 50 ml IVP PRN PRN; Protocol PRN Reason: hypoglycemia protocol Enoxaparin Sodium (Lovenox) 40 mg SUBCUT Q24H [facility] Last Admin: 05/18/19 09:57 Dose: 40 mg Documented by: Famotidine (Pepcid Tab) 20 mg PO BID [facility] Last Admin: 05/18/19 09:45 Dose: 20 mg Documented by: Glucagon (Glucagen) 1 mg IM ONCE PRN; Protocol PRN Reason: Adult Acute Hypoglycemia Prot. Guaifenesin (Robitussin Oral Liq) 200 mg PO Q4H PRN PRN Reason: COUGH AND CONGESTION Last Admin: 05/17/19 21:45 Dose: 200 mg Documented by: Dextrose (D5w) 500 mls @ 100 mls/hr IV ONCE PRN; Protocol PRN Reason: Adult Acute Hypoglycemia Prot Ceftriaxone Sodium 1,000 mg/ (Sodium Chloride) 50 mls @ 100 mls/hr IV Q24H [facility]; Protocol Last Infusion: 05/17/19 18:40 Dose: Infused Documented by: Insulin Aspart (Novolog) 0 unit SUBCUT WM&BEDTIME [facility]; Protocol Last Admin: 05/18/19 12:17 Dose: 4 unit Documented by: Levothyroxine Sodium (Synthroid) 50 mcg PO DAILY [facility] Last Admin: 05/18/19 09:45 Dose: 50 mcg Documented by: Lorazepam (Ativan) 0.5 mg PO BID PRN PRN Reason: Anxiety Last Admin: 05/17/19 21:25 Dose: 0.5 mg Documented by: Nitroglycerin (Nitrostat) 0.4 mg SUBLINGUAL Q5M PRN PRN Reason: Chest Pain Non-Formulary Medication (Insulin Degludec [Tresiba Flextouch U-100]) 75 unit SUBCUT DAILY [facility] Last Admin: 05/18/19 10:46 Dose: Not Given Documented by: Non-Formulary Medication (Vitamins A,C,C-Qxkm-Cbrabf [Preservision Areds]) 1 cap PO BID [facility] Last Admin: 05/18/19 10:48 Dose: Not Given Documented by: Tramadol HCl (Ultram) 50 mg PO BEDTIME PRN PRN Reason: pain Last Admin: 05/17/19 21:25 Dose: 50 mg Documented by: Vitals/I&O/Wt Last Vital Signs Temp 98.4 F 05/19/19 08:00 Pulse 60 05/19/19 08:00 Resp 18 05/19/19 08:00 BP 147/72 05/19/19 08:00 Pulse Ox 94 05/19/19 08:00 05/18/19 05/19/19 05/19/19 22:59 06:59 14:59 Intake Total 420 / 1100 200 / 1300 Output Total 300 / 500 250 / 750 Balance 120 / 600 -50 / 550 Weight last 48 hrs Weight 170 lb 3.2 oz Weight 167 lb 12.8 oz Physical Exam Narrative: EXAM NARRATIVE: GENERAL: The patient is alert and oriented times three. Not in any acute distress. HEENT: No significant pallor, icterus or lymphadenopathy.Oral cavity: There are no mucous membrane lesions. NECK: Trachea appears to be central. No masses noted. No JVD or thyromegaly appreciated. RESPIRATORY: Chest is symmetrical. No intercostals muscle retraction or any accessory muscle activation. There is no chest wall tenderness. Breath sounds are heard bilaterally. No rales or rhonchi heard. No evidence of any consolidation. BREASTS: Deferred. HEART: The heart sounds are normal. No S3 or S4. Short systolic murmur in the left sternal border. No pericardial rub. ABDOMEN: No vessel pulsations or distention. No tenderness. No organomegaly appreciated. Bowel sounds are normally heard. : Deferred. RECTAL: Deferred. LYMPHATIC: No lymphadenopathy noted in the neck . EXTREMITIES: No edema or cyanosis. No clubbing. Peripheral pulses are palpated in fairly good volume and amplitude MUSCULOSKELETAL: No acute joint deformities or swelling SKIN: There are no significant scars or skin rash noted. NEUROPSYCHIATRIC: The patient is alert and oriented x3. Appears to be in a good mood. No tremors or rigidity noted. Data : 05/18/19 05:53 05/19/19 03:35 Micro: Microbiology 05/17/19 15:00 Urine Culture - Preliminary Urine,Clean Catch Gram Negative Rods A&P Assessment and plan (1) V-tach: Patient is on amiodarone. The dose needs to be tapered down. May continue on the current dose for the time being. May take amiodarone 4 mg p.o. 3 times daily for a week followed by twice daily for a week and then 400 mg daily. Status: Acute (2) Nonischemic cardiomyopathy: Patient is known to have nonischemic cardiomyopathy. LV ejection fraction was around 30% by echocardiogram in March. Currently she does not have any evidence of decompensation. May continue on the current medications. Patient may be placed back on the Lasix at a small dose. The spironolactone may be held at this point. Needs to have a repeat BMP in the office in 1 week. She also needs an EKG at that time. Based on the results, further recommendations will be made Status: Acute (3) Atypical chest pain: Her chest pain most likely is nonischemic. Cardiac arrhythmia, GERD etc. are considerations. May continue on the current medications. She may not require any further cardiac evaluation at this point. May continue on the current measures. The recent myocardial perfusion imaging results were discussed with the patient. Status: Acute (4) Dyslipidemia: May continue on the current medicines. Status: Acute (5) ICD (implantable cardioverter-defibrillator) in place: Patient is up-to-date with the ICD interrogation. The ICD function appears to be appropriate. Telephone interrogation was attempted yesterday. It was unsuccessful. We may consider doing the ICD interrogation in the clinic. Status: Acute (6) Hypotension: This could be related to the LV dysfunctions, arrhythmia/medications. Currently she is normotensive. May continue on the current dose of the medications. Status: Acute Qualifiers: Hypotension type: hypotension due to drug Qualified Code(s): I95.2 - Hypotension due to drugs (7) Abnormal PWV-ex-usruhzwtei ratio: Most likely related to the arrhythmia in the low output state. Currently it is getting back to the baseline. May continue on the current measures. Continue to hold off on the Spironolactone. She may be discharged home on a low-dose of Lasix namely 20 mg p.o. daily. Status: Acute Additional A&P Information Other problems are UTI history of dyslipidemia, on rosuvastatin History of congestive heart failure, currently compensated History of hypothyroidism, clinically euthyroid GERD Chronic fatigue Type 2 diabetes Osteoarthritis Macular degeneration Dry eye syndrome Based on the patient clinical response to medication changes, further recommendations will be made Attestations Medical Necessity Statement*: Possible discharge home today Coding Level of Care Code Acute Grip Assembler for [facility] Fwd Diagnoses V-tach I47.2 Nonischemic cardiomyopathy I42.8 Atypical chest pain R07.89 Dyslipidemia E78.5 ICD (implantable cardioverter-defibrillator) in place Z95.810 Hypotension I95.2 Hypotension type: hypotension due to drug Abnormal UXB-vd-knfnlabvpa ratio R79.89
[2019-05-19] MEDS: atorvastatin 40 mg Tablet 80 MG PO (08:48)
[2019-05-19] MEDS: enoxaparin 40 mg/0.4 mL Syringe SUBCUT (08:48)
[2019-05-19] MEDS: aspirin 81 mg EC Tablet PO (08:49)
[2019-05-19] MEDS: famotidine 20 mg Tablet PO (08:49)
[2019-05-19] MEDS: amiodarone 200 mg Tablet 400 MG PO (08:49)
[2019-05-19] MEDS: clopidogrel 75 mg Tablet PO (08:49)
[2019-05-19] MEDS: citalopram 20 mg Tablet 10 MG PO (08:49)
[2019-05-19] MEDS: levothyroxine 50 mcg Tablet PO (08:49)
[2019-05-19] MEDS: carvedilol 3.125 mg Tablet PO (08:49)
--- NOTE | 2019-05-19 10:06 | PC.SOCIAL ---
Pg 2 IMM Explained to pt via phone, Pg 2 IMM. Pt verbally understands, no questions voiced. Signed, dated, & timed a copy & placed in chart.
--- NOTE | 2019-05-19 10:45 | PM.DCS ---
Discharge Providers Date of Admission: 05/16/19 20:01 Date of Discharge: May 19, 2019 Attending Provider at Admission: Nehemias Ferrell MD Attending Provider at Discharge: Robin Austin MD Primary Care Provider: Aziza Nguyen MD Diagnoses at Discharge Discharge Diagnosis (1) V-tach: Status: Acute Problem details: Amiodarone initiated. Cardiology to follow-up. (2) Nonischemic cardiomyopathy: Status: Acute Problem details: Stable (3) Atypical chest pain: Status: Acute Problem details: Resolved (4) Dyslipidemia: Status: Acute Problem details: Continue statin (5) ICD (implantable cardioverter-defibrillator) in place: Status: Acute (6) Hypotension: Status: Acute Problem details: Resolved Qualifiers: Hypotension type: hypotension due to drug Qualified Code(s): I95.2 - Hypotension due to drugs (7) Abnormal HQR-ly-odjiodhulo ratio: Status: Acute Problem details: Improving Reason for Visit Reason for Visit: Reason For Visit: CHEST PAIN Hospital Course Hospital Course: Carmen is a 73-year-old white female who presented to the hospital with complaints of chest discomfort as well as diarrhea, vomiting. Renal failure was noted. Arrhythmia with concern for ventricular tachycardia was noted. Cardiology was consulted. Amiodarone was initiated. Electrolytes were checked and potassium and magnesium were normal. Urinalysis was obtained and urinary tract infection was present and Rocephin started. During her hospital stay she had some lower blood pressures, and slight worsening of her renal function. Her Lasix and Aldactone was held along with her STERLING inhibitor. By May 18, she was improving, blood pressure stable, and creatinine down to 1.8. It was thought she could be discharged home with close follow-up with her primary care provider with lab work at that time as well as with cardiology. She will discharge with home health. Urinalysis eventually grew out E. coli, sensitive to ceftriaxone. She will be discharged on cefdinir. Physical Exam Narrative: EXAM NARRATIVE: General exam no apparent distress Cardiovascular regular rate and rhythm without murmur Lungs clear Abdomen is soft with positive bowel sounds Extremities no cyanosis clubbing or edema Discharge Data Data Completed and Pending: Completed Studies During Hospitalization Category Date Time Status XR chest 1V aleja ble [id number] Stat Exams 05/16/19 17:18 Completed Labs from last 24 hours 05/19/19 05/19/19 05/18/19 06:26 03:35 20:19 Sodium 136 Potassium 4.7 Chloride 102 Carbon Dioxide 19 L Anion Gap 19.7 H BUN 37 H Creatinine 1.8 H Glucose 161 H POC Glucose 147 171 Calculated Osmolal ity 283 L Calcium 8.7 05/18/19 05/18/19 16:34 11:26 Sodium Potassium Chloride Carbon Dioxide Anion Gap BUN Creatinine Glucose POC Glucose 265 194 Calculated Osmolal ity Calcium Vitals: Last Vital Signs Temp 98.3 F 05/19/19 08:00 Pulse 71 05/19/19 08:00 Resp 16 05/19/19 08:00 BP 112/72 05/19/19 08:00 Pulse Ox 91 05/19/19 08:00 Discharge Plan Discharge Patient Disposition: Home Health Service Condition: Stable Prescriptions: New amiodarone [Pacerone] 200 mg Tablet 400 mg PO TID Qty: 91 RF: 0 cefdinir 300 mg capsule 300 mg PO BID 5 Days Qty: 10 RF: 0 Continued alendronate 70 mg tablet 70 mg PO Q7D RF: 0 methenamine hippurate 1 gram tablet 1 gm PO BID RF: 0 aspirin [Adult Low Dose Aspirin] 81 mg tablet,delayed release (DR/EC) 81 mg PO DAILY RF: 0 PreserVision AREDS [id number]-[id number] capsule 1 cap PO BID RF: 0 insulin aspart U-100 [Novolog U-100 Insulin aspart] 100 unit/mL solution See Rx Instructions SUBCUT .COMPLEX Qty: 30 RF: 0 Prilosec OTC 20 mg tablet,delayed release (DR/EC) 20 mg PO DAILY Qty: 90 RF: 0 nitroglycerin [Nitrostat] 0.4 mg tablet, sublingual 0.4 mg SUBLINGUAL Q5M PRN (Reason: Chest Pain) Qty: 25 RF: 2 rosuvastatin [Crestor] 40 mg tablet 40 mg PO DAILY Qty: 30 RF: 3 tramadol 50 mg tablet 50 mg PO Q8H PRN (Reason: pain) Qty: 60 RF: 1 furosemide [Lasix] 20 mg tablet 20 mg PO DAILY Qty: 30 RF: 1 levothyroxine 50 mcg tablet 50 mcg PO DAILY Qty: 30 RF: 1 Tresiba FlexTouch U-100 100 unit/mL (3 mL) insulin pen 75 unit SUBCUT DAILY Qty: 15 RF: 2 ascorbic acid (vitamin C) [Vitamin C] 1,000 mg Tablet 500 mg PO BID RF: 0 lorazepam [Ativan] 0.5 mg Tablet 0.5 mg PO BID PRN (Reason: Anxiety) RF: 0 Celexa 10 mg Tablet 10 mg PO DAILY RF: 0 Plavix 75 mg Tablet 75 mg PO DAILY RF: 0 famotidine 20 mg Tablet 20 mg PO BID RF: 0 Voltaren 1 % Gel See Rx Instructions .ROUTE .COMPLEX RF: 0 carvedilol 3.125 mg tablet 3.125 mg PO BID RF: 0 Discontinued spironolactone 25 mg tablet 25 mg PO DAILY Qty: 30 RF: 3 lisinopril 2.5 mg Tablet See Rx Instructions .ROUTE .COMPLEX RF: 0 Discharge Orders: Discharge Order (Routine); Ordered 05/19/19 Ordered By: Robin Austin Referrals: Lkaia Scales MD [Physician] - 2 weeks Aziza Nguyen MD [Primary Care Provider] - 4-7 days (Please discuss with Dr. Gordon the need for diabetic shoes. BMP, CBC on follow-up) Discharge Diet: Cardiac and Diabetic Discharge Activity: Increase activity as tolerated Activity Restrictions/Additional Instructions: Take all medicine as prescribed Note the tapered dose of amiodarone Note that your Aldactone, lisinopril have been discontinued at this time secondary to lower blood pressures, renal function Discharge Attestations Time Spent in Discharge Care*: greater than 30 min Quality Metrics Clinical Quality Measures During this hospital stay, did patient experience: None Coding Level of Care Code Acute Ingot Car Operator for [facility] Fwd Diagnoses V-tach I47.2 Nonischemic cardiomyopathy I42.8 Atypical chest pain R07.89 Dyslipidemia E78.5 ICD (implantable cardioverter-defibrillator) in place Z95.810 Hypotension I95.2 Hypotension type: hypotension due to drug Abnormal YRH-cd-shicexplto ratio R79.89
[2019-05-19 11:08] VITALS: BP 112/72; PULSE 71; RESP 16; TEMP 36.8; O2SAT 91
[2019-05-19 11:36] LABS: Glucose Point of Care 206 mg/dL (70-110)
[2019-05-19 11:48] VITALS: BP 114/73; PULSE 74; RESP 18; TEMP 37; O2SAT 98
== END 2019-05-19 12:19 | disposition home health service (06) | DRG 281 ==
LOC: ER 18:22 → MEDSURG 20:21
PROVIDERS: Admitting Provider Internal Medicine; Emergency Provider Emergency Medicine; PCP Family Medicine; Visit Provider Internal Medicine
DX: I21.4 Non-ST elevation (NSTEMI) myocardial infarction (principal); I13.0 Hypertensive heart and chronic kidney disease with heart failure and stage 1 through stage 4 chronic kidney disease, or unspecified chronic kidney disease; I47.2 Ventricular tachycardia; I50.22 Chronic systolic (congestive) heart failure; I42.8 Other cardiomyopathies; E78.5 Hyperlipidemia, unspecified; Z95.810 Presence of automatic (implantable) cardiac defibrillator; I99.8 Other disorder of circulatory system; I95.9 Hypotension, unspecified; Z79.82 Long term (current) use of aspirin; Z79.4 Long term (current) use of insulin; F41.8 Other specified anxiety disorders; N18.9 Chronic kidney disease, unspecified; I44.7 Left bundle-branch block, unspecified; G89.4 Chronic pain syndrome; K21.9 Gastro-esophageal reflux disease without esophagitis; G47.00 Insomnia, unspecified; M19.90 Unspecified osteoarthritis, unspecified site
CPT/HCPCS: 12345; 36415; 36416; 71045; 80048; 80053; 81001; 82962; 83690; 83735; 84484; 85025; 85610; 87077; 87086; 87186; 93005; 94762; 96372; 96375; 99283; J0696; J1650; J1815; J2270; J2405; J7030; J7050

== ENCOUNTER → 2019-06-03 11:01 | Outpatient (BNVA) | payer MEDICARE, MEDICAID, SELFPAY | PROVIDERS: PCP Family Medicine; Visit Provider Family Medicine | DX: N18.1 Chronic kidney disease, stage 1 (principal); N39.0 Urinary tract infection, site not specified; I47.2 Ventricular tachycardia | CPT/HCPCS: 80053; 80076 ==

== ENCOUNTER → 2019-09-17 13:24 | Outpatient (BNVA) | payer MEDICARE, MEDICAID, SELFPAY | PROVIDERS: PCP Family Medicine; Visit Provider Family Medicine | DX: E11.9 Type 2 diabetes mellitus without complications (principal); I47.2 Ventricular tachycardia; I42.8 Other cardiomyopathies; E03.9 Hypothyroidism, unspecified; Z76.0 Encounter for issue of repeat prescription; E78.5 Hyperlipidemia, unspecified; I10 Essential (primary) hypertension; F41.9 Anxiety disorder, unspecified; F32.9 Major depressive disorder, single episode, unspecified; M19.90 Unspecified osteoarthritis, unspecified site | CPT/HCPCS: 80053; 80061; 83036; 84443 ==

== ENCOUNTER → 2019-12-22 15:00 | Outpatient (BNVA) | payer MEDICARE, MEDICAID, SELFPAY | PROVIDERS: PCP Family Medicine; Visit Provider Internal Medicine Cardiovascular Disease | DX: Z95.810 Presence of automatic (implantable) cardiac defibrillator (principal); I42.8 Other cardiomyopathies; R06.02 Shortness of breath; I50.33 Acute on chronic diastolic (congestive) heart failure; E11.65 Type 2 diabetes mellitus with hyperglycemia; I10 Essential (primary) hypertension; I47.2 Ventricular tachycardia; N18.1 Chronic kidney disease, stage 1 | CPT/HCPCS: 80048; 83880 ==

== ENCOUNTER 2020-02-09 12:33 | Inpatient (IN) | payer MEDICARE, MEDICAID, SELFPAY ==
[2020-02-09] VITALS (9 sets, daily range): BP systolic 104–130; BP diastolic 57–81; PULSE 55–69; RESP 18–24; TEMP 36.5–37.3; O2SAT 92–97; BMI 24.2
--- NOTE | 2020-02-09 12:53 | ED_ITS ---
HPI - Altered Mental Status General: Chief Complaint: Altered Mental Status Stated Complaint: AMS, CONFUSION, WEAKNESS Time Seen by Provider: 02/09/20 12:43 History of Present Illness: HPI narrative: 84-year-old female comes in the emergency room via EMS. Reported altered mental status. Patient is aware where she is at but is not really able to tell us anything specific as far as her history. When asked specific open-ended questions patient is unable to really answer. She denies chest pain or abdominal pain he denies dysuria or urgency or frequency. EMS reported she fell a month ago was evaluated and had no significant injury or no family members at the bedside to assist with history. MD complaint: altered mental status and weakness Onset (ago): hour(s) Severity: moderate Associated symptoms: Deny auditory hallucinations, visual hallucinations, delusions, depression, homicidal ideation, racing thoughts or suicidal ideation Review of Systems Const: Denies: fever(s), chills, body aches, change in appetite, fatigue or malaise ENMT: Denies: throat pain, ear or mastoid pain, nasal discharge or nasal congestion Card: Denies: chest pain, edema, dyspnea on exertion or orthopnea Resp: Denies: dyspnea, productive cough or non-productive cough GI: Denies: abdominal pain, nausea, vomiting, hematemesis, coffee ground emesis, diarrhea, constipation, bloating, hematochezia or melena : Denies: flank pain, difficulty voiding, dysuria, urinary frequency or urinary urgency Skin/Breast: Denies: rash or pruritus Psych: Denies: depression, visual hallucinations, auditory hallucinations, suicidal ideation or homicidal ideation [facility] ED PFSH: Medical History Abnormal UET-hc-hjktbneegx ratio Improving Anxiety and depression ASHD (arteriosclerotic heart disease) Atypical chest pain Resolved Benign essential HTN Cardiomyopathy LVEF of approximately 30%, unchanged, unable to tolerate STERLING or ARB in past due to lower BP Chronic kidney disease (CKD) stage G1/A1, glomerular filtration rate (GFR) equal to or greater than 90 mL/min/1.73 square meter and albuminuria creatinine ratio less than 30 mg/g Chronic pain syndrome Diabetes Dyslipidemia Continue statin Essential hypertension GERD (gastroesophageal reflux disease) Hypotension Resolved ICD (implantable cardioverter-defibrillator) in place Insomnia Left bundle branch block Nonischemic cardiomyopathy Stable Osteoarthritis Pacemaker Vitamin D deficiency Surgical History History of angioplasty History of appendectomy History of hysterectomy Family History Other CAD (coronary artery disease) Diabetes Social History Smoking and tobacco status: never smoked Physical Exam Const: COMMON NORMALS: no acute distress GENERAL APPEARANCE: cooperative and comfortable ORIENTATION/CONSCIOUSNESS: Yes awake, Yes oriented to person, Yes oriented to place and Yes oriented to time HENMT: COMMON NORMALS: normocephalic, atraumatic, hearing grossly normal bilaterally, external ears normal, EAC's normal, TM's normal bilaterally, Normal nasal mucous membranes and turbinates present, moist oral mucous membranes and oropharynx normal HEAD & SCALP: normocephalic and atraumatic NOSE: Normal nasal mucous membranes and turbinates present EXTERNAL EAR: Yes external ears normal EXTERNAL AUDITORY CANAL: EAC's normal TYMPANIC MEMBRANE: TM's normal bilaterally Eye: COMMON NORMALS: Equal, round and reactive pupils present, EOMs intact bilaterally, conjunctivae normal and no scleral icterus CONJUNCTIVA: Yes conjunctivae normal PUPIL: Yes Equal, round and reactive pupils present Neck/C-Spine: COMMON NORMALS: full ROM, no lymphadenopathy, supple and no JVD Lymph: LYMPHATIC: no lymphadenopathy noted and no lymphedema noted Resp: COMMON NORMALS: normal respiratory effort, No retractions, No use of accessory muscles and clear to auscultation bilaterally AUSCULTATION: clear to auscultation bilaterally Cardio: COMMON NORMALS: no JVD, regular rate, regular rhythm and No murmurs present (Cardio) RATE: regular rate RHYTHM: regular rhythm GI: COMMON NORMALS: Soft to palpation and No hepatosplenomegaly present AUSCULTATION: Yes normoactive bowel sounds PALPATION: Yes Soft to palpation, No Tenderness to palpation present (GI), No Guarding due to palpation present (GI) and Yes No hepatosplenomegaly present Extremity: COMMON NORMALS: normal to inspection, capillary refill normal, no clubbing, cyanosis or edema, no calf tenderness and no pedal edema Neuro: SENSORIUM/ORIENTATION: Yes oriented to person, Yes oriented to place and Yes oriented to time Psych: THOUGHT CONTENT: No delusions Skin: COMMON NORMALS: no rashes or lesions noted GENERAL SKIN EXAM: no rashes or lesions noted Course Vital Signs: Vital signs: Vital Signs Temperature 99.1 F 02/09/20 12:42 Pulse Rate 64 02/09/20 14:29 Respiratory Rate 24 H 02/09/20 13:23 Blood Pressure 120/60 02/09/20 14:29 Pulse Oximetry 96 02/09/20 13:23 MDM - Altered Mental Status MDM Narrative: Medical decision making narrative: Altered mental status secondary to cystitis. She does have some underlying cognitive dysfunction suspect she will need long-term placement discussed with Dr. Rios orders have been written. Lab Data: Labs: Lab Results 02/09/20 02/09/20 02/09/20 Range/Units 13:38 13:38 13:38 WBC 20.7 H (4.0-10.0) 10^3/ uL RBC 4.45 (4.1-5.3) 10^6/u L Hgb 12.0 (11.5-15.3) g/dL Hct 36.7 L (37.0-47.0) % MCV 82.5 (81-99) fL MCH 27.0 L (28.0-34.0) pg MCHC 32.7 (30.0-36.0) g/dL RDW 15.8 H (12.1-15.1) % Plt Count 350 (130-400) 10^3/c mm MPV 9.8 (7.4-10.4) fL Neut % (Auto) 83.4 % Lymph % (Auto) 7.0 % [place] % (Auto) 8.5 % Eos % (Auto) 0.0 % Baso % (Auto) 0.4 % Neut # (Auto) 17.23 H (1.8-7.7) 10^3/u L Lymph # (Auto) 1.5 (0.8-4.8) 10^3/u L [place] # (Auto) 1.8 H (0.2-0.9) 10^3/u L Eos # (Auto) 0.0 (0.0-0.8) 10^3/u L Baso # (Auto) 0.1 (0.0-0.1) 10^3/u L Nucleated RBC % (a uto) 0 % Nucleated RBCs # 0.0 /100WBC Sodium 137 (136-145) mmol/L Potassium 3.0 L (3.5-5.1) mmol/L Chloride 96 L (98-107) mmol/L Carbon Dioxide 28 (22-29) mmol/L Anion Gap 16.0 (5-19) BUN 32 H (8-23) mg/dL Creatinine 1.9 H (0.5-0.9) mg/dL GFR Calculation Not Reportable Glucose 154 H (65-115) mg/dL POC Glucose (70-110) mg/dL Calculated Osmolal ity 294 (285-295) mOsm/k g Lactic Acid 1.2 (0.5-2.2) mmol/L Calcium 8.3 L (8.5-10.5) mg/dL Total Bilirubin 1.1 (0.15-1.2) mg/dL AST 57 H (0-32) U/L ALT 47 H (0-33) U/L Alkaline Phosphata se 189 H (35-105) IU/L Creatine Kinase 106 (26-192) U/L Troponin T Baselin e (0-10) ng/L Total Protein 6.1 L (6.6-8.7) g/dL Albumin 3.1 L (3.5-5.2) g/dL Globulin 3.0 (1.3-4.6) g/dL Lipase 37 (13-60) U/L Urine Color (Yellow) Urine Appearance (CLEAR) Urine pH (5-7) Ur Specific Gravit y (1.005-1.030) Urine Protein (Negative) Urine Glucose (UA) (Normal) Urine Ketones (Negative) Urine Blood (Negative) Urine Nitrate (Negative) Urine Bilirubin (Negative) Urine Urobilinogen (Negative) mg/dL Ur Leukocyte Arianna ase (Negative) Urine RBC (0-2) /hpf Urine WBC (0-5) /hpf Ur Squamous Epith Cells (0-5) /hpf Amorphous Sediment Urine Bacteria (NONE) /hpf 02/09/20 02/09/20 02/09/20 Range/Units 13:38 13:38 14:11 WBC (4.0-10.0) 10^3/ uL RBC (4.1-5.3) 10^6/u L Hgb (11.5-15.3) g/dL Hct (37.0-47.0) % MCV (81-99) fL MCH (28.0-34.0) pg MCHC (30.0-36.0) g/dL RDW (12.1-15.1) % Plt Count (130-400) 10^3/c mm MPV (7.4-10.4) fL Neut % (Auto) % Lymph % (Auto) % [place] % (Auto) % Eos % (Auto) % Baso % (Auto) % Neut # (Auto) (1.8-7.7) 10^3/u L Lymph # (Auto) (0.8-4.8) 10^3/u L [place] # (Auto) (0.2-0.9) 10^3/u L Eos # (Auto) (0.0-0.8) 10^3/u L Baso # (Auto) (0.0-0.1) 10^3/u L Nucleated RBC % (a uto) % Nucleated RBCs # /100WBC Sodium (136-145) mmol/L Potassium (3.5-5.1) mmol/L Chloride (98-107) mmol/L Carbon Dioxide (22-29) mmol/L Anion Gap (5-19) BUN (8-23) mg/dL Creatinine (0.5-0.9) mg/dL GFR Calculation Glucose (65-115) mg/dL POC Glucose 151 H (70-110) mg/dL Calculated Osmolal ity (285-295) mOsm/k g Lactic Acid (0.5-2.2) mmol/L Calcium (8.5-10.5) mg/dL Total Bilirubin (0.15-1.2) mg/dL AST (0-32) U/L ALT (0-33) U/L Alkaline Phosphata se (35-105) IU/L Creatine Kinase (26-192) U/L Troponin T Baselin e 27 H (0-10) ng/L Total Protein (6.6-8.7) g/dL Albumin (3.5-5.2) g/dL Globulin (1.3-4.6) g/dL Lipase (13-60) U/L Urine Color Haakon (Yellow) Urine Appearance Hazy A (CLEAR) Urine pH 5 (5-7) Ur Specific Gravit y 1.015 (1.005-1.030) Urine Protein 1+ H (Negative) Urine Glucose (UA) Norm (Normal) Urine Ketones Negative (Negative) Urine Blood 2+ H (Negative) Urine Nitrate Positive H (Negative) Urine Bilirubin 1+ H (Negative) Urine Urobilinogen 1 H (Negative) mg/dL Ur Leukocyte Arianna ase 1+ H (Negative) Urine RBC 5-10 H (0-2) /hpf Urine WBC Too numerous to c nt H (0-5) /hpf Ur Squamous Epith Cells 0-4 H (0-5) /hpf Amorphous Sediment Not Reportable Urine Bacteria 4+ H (NONE) /hpf Discharge Plan Discharge Patient Disposition: Admitted As Inpatient Clinical Impression: Cystitis, Diabetes, ASHD (arteriosclerotic heart disease), Essential hypertension, Chronic kidney disease (CKD) stage G1/A1, glomerular filtration rate (GFR) equal to or greater than 90 mL/min/1.73 square meter and albuminuria creatinine ratio less than 30 mg/g, Hypothyroidism, Benign essential HTN, Dementia Condition: Stable Prescriptions: No Action aspirin [Adult Low Dose Aspirin] 81 mg tablet,delayed release (DR/EC) 81 mg PO DAILY RF: 0 PreserVision AREDS 14,320-226-200 yccx-xx-hxck capsule 1 cap PO BID RF: 0 diclofenac sodium [Voltaren] 1 % gel 2 gm TOPICAL QID Qty: 100 RF: 2 nitroglycerin [Nitrostat] 0.4 mg tablet, sublingual 0.4 mg SUBLINGUAL Q5M PRN (Reason: Chest Pain) Qty: 25 RF: 2 omeprazole 20 mg capsule,delayed release(DR/EC) See Rx Instructions .ROUTE .COMPLEX Qty: 90 RF: 2 rosuvastatin 40 mg tablet See Rx Instructions .ROUTE .COMPLEX Qty: 30 RF: 4 methenamine hippurate 1 gram tablet 1 gm PO BID Qty: 30 RF: 3 furosemide 20 mg tablet 20 mg PO DAILY Qty: 135 RF: 3 insulin aspart U-100 [Novolog U-100 Insulin aspart] 100 unit/mL solution See Rx Instructions SUBCUT .COMPLEX Qty: 30 RF: 0 lorazepam [Ativan] 0.5 mg tablet 0.5 mg PO BID PRN (Reason: Anxiety) Qty: 60 RF: 1 tramadol 50 mg tablet 50 mg PO Q8H PRN (Reason: pain) Qty: 60 RF: 1 levothyroxine 75 mcg tablet 75 mcg PO DAILY Qty: 30 RF: 0 Tresiba FlexTouch U-100 100 unit/mL (3 mL) insulin pen 20 unit SUBCUT DAILY Qty: 30 RF: 2 ascorbic acid (vitamin C) [Vitamin C] 1,000 mg Tablet 500 mg PO BID RF: 0 famotidine 20 mg Tablet 20 mg PO BID RF: 0 amiodarone 200 mg tablet 400 mg PO DAILY RF: 0 clopidogrel 75 mg tablet 75 mg PO DAILY RF: 0 carvedilol 3.125 mg tablet 3.125 mg PO BID RF: 0 citalopram 10 mg Tablet 10 mg PO DAILY RF: 0 Referrals: Aziza Nguyen MD [Primary Care Provider] - Coding Level of Care Code ED Air Conditioning Installer Supervisor for Chg 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
--- NOTE | 2020-02-09 12:56 | ECG_ITS ---
[facility] Test Date: 2020-02-09 Pat Name: Carmen Alvarenga Department: Room: Gender: Female Panman: : 1945 Requested By: Michael Damico Order Number: [id number] Sharon MD: Marcelina Sandoval M.D. Measurements Intervals [place] Rate: 64 P: 61 ME: 133 QRS: -82 QRSD: 161 T: 84 QT: 446 QTc: 460 Interpretive Statements A sensed V paced rhythm Compared to ECG 05/16/2019 19:56:17 No significant changes Electronically Signed On 02-09-2020 16:50:48 SALES SERVICE REPRESENTATIVE by Marcelina Sandoval M.D. [id number] f
--- NOTE | 2020-02-09 12:56 | CTR_ITS ---
PROCEDURE INFORMATION: Exam: CT Head Without Contrast Exam date and time: 02/09/2020 12:59 PM Age: 74 years old Clinical indication: Injury or trauma; Blunt trauma (contusions or hematomas); Consciousness not specified; Patient HX: Fall, AMS, confusion; Additional info: Ams/fall TECHNIQUE: Imaging protocol: Computed tomography of the head without contrast. Radiation optimization: All CT scans at this facility use at least one of these dose optimization techniques: automated exposure control; mA and/or kV adjustment per patient size (includes targeted exams where dose is matched to clinical indication); or iterative reconstruction. COMPARISON: CT head wo con* [id number] 06/30/2017 7:03 PM RADIATION DOSE METRICS: Total DLP (mGy-cm): 770.57 FINDINGS: Brain: There is no acute intracranial hemorrhage, cerebral edema, or midline shift. Chronic microvascular ischemic changes are seen in the periventricular white matter. Age-related cerebral and cerebellar volume loss is present. Cerebral ventricles: Mild ex vacuo dilation of the lateral and third ventricles is noted. Bones/joints: No acute fracture. Paranasal sinuses: There is no acute sinusitis. Mastoid air cells: The mastoid air cells are clear. Orbital cavity: The included orbital structures are unremarkable. Soft tissues: Unremarkable. CT/CT head wo con* [id number] IMPRESSION: 1. No acute intracranial abnormality. 2. Atrophy and chronic deep white matter ischemic changes. Radiation Dose CTDIVOL = (mGy): DLP = 770.57 (mGy-cm)
[2020-02-09 14:08] LABS: Basophils # 0.1 10^3/uL (0.0-0.1); Basophils % 0.4 %; Hematocrit 36.7 % (37.0-47.0); Lymphocytes # 1.5 10^3/uL (0.8-4.8); Mean Corpuscular HGB Conc 32.7 g/dL (30.0-36.0); Mean Corpuscular Volume 82.5 fL (81-99); Mean Platelet Volume 9.8 fL (7.4-10.4); Monocytes # 1.8 10^3/uL (0.2-0.9); Monocytes % 8.5 %; Neutrophils # 17.23 10^3/uL (1.8-7.7); Neutrophils % 83.4 %; Nucleated Red Blood Cells % 0 %; Platelet Count 350 10^3/cmm (130-400); Red Blood Count 4.45 10^6/uL (4.1-5.3); Red Cell Distribution Width 15.8 % (12.1-15.1); White Blood Count 20.7 10^3/uL (4.0-10.0)
[2020-02-09 14:15] LABS: Glucose Point of Care 151 mg/dL (70-110)
[2020-02-09 14:21] LABS: Alanine Aminotransferase 47 U/L (0-33); Albumin Level 3.1 g/dL (3.5-5.2); Alkaline Phosphatase 189 IU/L (35-105); Aspartate Amino Transferase 57 U/L (0-32); Blood Urea Nitrogen 32 mg/dL (8-23); Calcium 8.3 mg/dL (8.5-10.5); Carbon Dioxide 28 mmol/L (22-29); Chloride 96 mmol/L (98-107); Creatine Phosphokinase 106 U/L (26-192); Glucose 154 mg/dL (65-115); Lipase 37 U/L (13-60); Osmolality Calculated 294 mOsm/kg (285-295); Sodium 137 mmol/L (136-145); Total Bilirubin 1.1 mg/dL (0.15-1.2); Total Protein 6.1 g/dL (6.6-8.7)
[2020-02-09 14:22] LABS: Lactic Sepsis W/Reflex 1.2 mmol/L (0.5-2.2)
[2020-02-09 14:27] LABS: Add Urine Microscopic? YES; Bilirubin Urine 1+ (Negative); Blood Urine 2+ (Negative); Glucose Urine UA Norm (Normal); Ketones Urine Negative (Negative); Leukocyte Esterase Urine 1+ (Negative); Nitrate Urine Positive (Negative); Protein Urine 1+ (Negative); Specific Gravity, Urine 1.015 (1.005-1.030); Urine Appearance Hazy (CLEAR); Urine Color Orange (Yellow); Urobilinogen Urine 1 mg/dL (Negative); pH Urine 5 (5-7)
[2020-02-09 14:30] LABS: Squamous Epithelial Cell Urine 0-4 /hpf (0-5); WBC Urine TOO NUMEROUS TO CNT /hpf (0-5)
[2020-02-09] MEDS: cefTRIAXone 1,000 MG in sodium chloride 0.9% (plus) 50 ML 100 MG IV (14:30)
[2020-02-09 14:31] LABS: Add Urine Culture? Yes; Bacteria Urine 4+ /hpf
[2020-02-09 14:34] LABS: Troponin(5th) Baseline 27 ng/L (0-10)
--- NOTE | 2020-02-09 14:49 | PC.NURSE ---
EKG done at 1445 and shown to ER doctor
--- NOTE | 2020-02-09 14:56 | ECG_ITS ---
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 Measurements Intervals [place] Rate: 59 P: 66 MA: 173 QRS: 94 QRSD: 132 T: 87 QT: 409 QTc: 408 Interpretive Statements ELECTRONIC ATRIAL PACEMAKER ELECTRONIC VENTRICULAR PACEMAKER ABNORMAL RHYTHM ECG Compared to ECG 02/09/2020 12:45:14 No significant changes Electronically Signed On 02-09-2020 16:54:12 GUN WELDER by Marcelina Sandoval M.D. [email or web address] general [email or web address] hospital [email or web address] eastFlossonic/store/OM/[id number]
[2020-02-09 16:49] LABS: Troponin 5 2HR 25.56 ng/L (0-10)
--- NOTE | 2020-02-09 16:51 | PM.HP ---
Providers/Chief Complaint Primary Care Provider: Aziza Nguyen MD Chief Complaint: AMS, CONFUSION, WEAKNESS History of Present Illness Carmen Alvarenga is 73 year old female with a past medical history of HFrEF (S/P ICD ) , diabetes, anxiety and hypothyroidism was admitted with chief complaint of worsening mentation for the last 2 to 3-day, as well as functional state, daughter was at the bedside who was providing all information, She has been more lethargic, has generalized weakness for the last 2-3 the days. At baseline she is active does all her work, in the last 1 month her functional status has declined, she had a fall a month ago, after that her daughter came to live with her, she was doing pretty well post fall. Upon arrival in the ER patient to contribute to some history taking, she is alert and awake, was complaining of cough, subject fever, and occasional shortness of breath. She was requiring 2 L oxygen in the ER, she does not use any oxygen at home. Upon arrival in the ER she was worked up for acute encephalopathy. CT head without contrast: No acute intracranial pathology: Atrophy and chronic deep white matter ischemic changes.no acute intracranial hemorrhage, cerebral edema, or midline shift. Chronic microvascular ischemic changes are seen in the periventricular white matter. Age-related cerebral and cerebellar volume loss is present. X-ray chest is pending: EKG: Paced rhythm, rate 59, QTc 408 Pertinent labs: WBC: 20.7, H&H: 12/36, k: 3 , BUN/SCR : 32/1.9, lactic acid: 1.2, Troponin T baseline: 27, Urine analysis : Dirty Blood culture and urine cultures were ordered. ECA medications: Ceftriaxone 1 g IV x1 dose, as well as potassium replacement. Prior pertinent imaging studies: Stress test (03/2019): Myocardial perfusion may revealing a moderately large area of persistent decreased tracer uptake in the inferior, inferolateral , inferoseptal and apical segments with subtle areas of reversibility in the inferior and inferolateral regions, suggestive of myocardial scarring, mostly in the distribution of the right coronary artery and left circumflex artery with subtle areas of blayne-infarction ischemia. Diminished LV ejection fraction of 30%. Review of Systems Narrative: Complete review of system was not possible: As the patient was not very communicative. Const: Denies: diaphoresis Resp: Denies: wheezing GI: Denies: abdominal pain, nausea, vomiting, diarrhea or constipation Musc: Denies: extremity pain or extremity swelling Neuro: Denies: headache(s) Medications/Allergies Home Medications Medication Instructions Recorded Confirmed Last Taken Type aspirin 81 mg tablet,delayed 81 mg PO DAILY 02/24/19 02/09/20 04/01/19 History release vitamins A,C,M-csja-khrbrg 14,320 1 cap PO BID 02/24/19 02/09/20 03/31/19 History unit-226 mg-200 unit capsule ascorbic acid (vitamin C) [Vitamin 500 mg PO BID 04/01/19 02/09/20 03/31/19 History C] nitroglycerin 0.4 mg sublingual 0.4 mg SUBLINGUAL Q5M PRN #25 tab 04/13/19 02/09/20 Unknown Rx tablet famotidine 20 mg PO BID 05/16/19 02/09/20 Unknown History diclofenac sodium 1 % topical gel 2 gm TOPICAL QID #100 gm 09/17/19 02/09/20 Unknown Rx omeprazole 20 mg capsule,delayed See Rx Instructions .ROUTE 09/30/19 02/09/20 Unknown Rx release .COMPLEX #90 capsule rosuvastatin 40 mg tablet See Rx Instructions .ROUTE 09/30/19 02/09/20 Unknown Rx .COMPLEX #30 tab methenamine hippurate 1 gram tablet 1 gm PO BID #30 tab 12/08/19 02/09/20 Unknown Rx furosemide 20 mg tablet 20 mg PO DAILY #135 tab 12/27/19 02/09/20 Unknown Rx insulin aspart U-100 100 unit/mL See Rx Instructions SUBCUT 01/21/20 02/09/20 Unknown Rx subcutaneous solution .COMPLEX #30 ml lorazepam 0.5 mg tablet 0.5 mg PO BID PRN #60 tab 01/27/20 02/09/20 Unknown Rx tramadol 50 mg tablet 50 mg PO Q8H PRN #60 tab 01/27/20 02/09/20 Unknown Rx levothyroxine 75 mcg tablet 75 mcg PO DAILY #30 tab 01/31/20 02/09/20 Unknown Rx insulin degludec 100 unit/mL (3 20 unit SUBCUT DAILY #30 ml 02/01/20 02/09/20 Unknown Rx mL) subcutaneous pen amiodarone 400 mg PO DAILY 02/09/20 02/09/20 Unknown History carvedilol 3.125 mg PO BID 02/09/20 02/09/20 Unknown History citalopram 10 mg PO DAILY 02/09/20 02/09/20 Unknown History clopidogrel 75 mg PO DAILY 02/09/20 02/09/20 Unknown History Allergies Allergy/AdvReac Type Severity Reaction Status Date / Time metformin Allergy Intermediate diarrhea Verified 01/10/20 11:51 PFSH Acute PFSH: Medical History Abnormal DIL-wv-xltzogbios ratio Improving Anxiety and depression ASHD (arteriosclerotic heart disease) Atypical chest pain Resolved Benign essential HTN Cardiomyopathy LVEF of approximately 30%, unchanged, unable to tolerate STERLING or ARB in past due to lower BP Chronic kidney disease (CKD) stage G1/A1, glomerular filtration rate (GFR) equal to or greater than 90 mL/min/1.73 square meter and albuminuria creatinine ratio less than 30 mg/g Chronic pain syndrome Diabetes Dyslipidemia Continue statin Essential hypertension GERD (gastroesophageal reflux disease) Hypotension Resolved ICD (implantable cardioverter-defibrillator) in place Insomnia Left bundle branch block Nonischemic cardiomyopathy Stable Osteoarthritis Pacemaker Vitamin D deficiency Surgical History History of angioplasty History of appendectomy History of hysterectomy Family History Other CAD (coronary artery disease) Diabetes Social History Smoking and tobacco status: never smoked Vitals/I&O/Wt Last Vital Signs Temp 99.1 F 02/09/20 12:42 Pulse 64 02/09/20 14:29 Resp 24 H 02/09/20 13:23 BP 120/60 02/09/20 14:29 Pulse Ox 96 02/09/20 13:23 Weight last 48 hrs Weight 68.039 kg Physical Exam Narrative: EXAM NARRATIVE: Alert and awake HENMT: COMMON NORMALS: normocephalic and atraumatic HEAD & SCALP: normocephalic and atraumatic EXTERNAL EAR: Yes external ears normal Resp: COMMON NORMALS: normal respiratory effort and clear to auscultation bilaterally EFFORT & INSPECTION: Yes symmetric chest movement AUSCULTATION: clear to auscultation bilaterally Cardio: COMMON NORMALS: regular rate, regular rhythm, S1 normal heart sound present, S2 normal heart sound present, No gallops present (Cardio), No murmurs present (Cardio), No rub (Cardio) and Peripheral pulses 2+ throughout RATE: regular rate RHYTHM: regular rhythm HEART SOUNDS: S1 normal heart sound present and S2 normal heart sound present PERIPHERAL PULSES: Peripheral pulses 2+ throughout GI: COMMON NORMALS: Normal to inspection, nondistended, normoactive bowel sounds present, Soft to palpation, non-tender, No hepatosplenomegaly present and no masses AUSCULTATION: Yes normoactive bowel sounds PALPATION: Yes Soft to palpation and Yes No hepatosplenomegaly present RECTAL EXAM: deferred Extremity: COMMON NORMALS: no clubbing, cyanosis or edema and no pedal edema Neuro: COMMON NORMALS: patient oriented x3 Data : 02/09/20 13:38 02/09/20 13:38 Micro: Microbiology 02/09/20 14:30 Blood Culture - Preliminary Blood SPECIMEN COLLECTED 02/09/20 14:15 Blood Culture - Preliminary Blood SPECIMEN COLLECTED A&P Assessment and plan (1) Acute encephalopathy: 2/2 UTI. Continue ceftriaxone 1 g every 24 hour daily. Follow up blood culture urine and adjust antibiotic accordingly. Status: Acute (2) UTI (urinary tract infection): Plan as 1 Status: Acute Qualifiers: Hematuria presence: without hematuria Urinary tract infection type: site unspecified Qualified Code(s): N39.0 - Urinary tract infection, site not specified (3) Heart failure: Currently compensated HFrEF Continue: Lasix 20 mg p.o. daily Carvedilol 3.125 mg p.o. twice daily I/O charting Daily weight Status: Acute (4) Benign essential HTN: Currently well controlled: Continue carvedilol 3.125 mg twice daily Status: Acute (5) Hypothyroidism: Continue levothyroxine 75 mcg p.o. daily Status: Acute (6) Diabetes: LDSSI FSG Status: Acute Additional A&P Information Code Status :Full code DVT PPx: Heparin 5000 mg q12 h daily Disposition: Daughter wants to take home after discharge. Attestations Medical Necessity Statement*: Patient needs to be in hospital for the management of Ac encephalopathy 2/2 UTI.Anticipated LOS is greater then 2 midnights. Coding Level of Care Code Acute Dimension Specification Inspector for Chg Fwd Exam Detailed Diagnoses Acute encephalopathy G93.40 UTI (urinary tract infection) N39.0 Hematuria presence: without hematuria Urinary tract infection type: site unspecified Heart failure I50.9 Benign essential HTN I10 Hypothyroidism E03.9 Diabetes E11.9
[2020-02-09 17:11] LABS: Troponin 5 2HR Delta -1.44 ABS# (0-10)
--- NOTE | 2020-02-09 18:36 | PC.NURSE ---
report attempted to be call nurse answered and stated he could not give report bc/ he was not clocked in and no one was at the dest
--- NOTE | 2020-02-09 18:56 | ECG_ITS ---
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 Measurements Intervals [place] Rate: 65 P: 64 VT: 101 QRS: 4 QRSD: 149 T: 96 QT: 418 QTc: 436 Interpretive Statements ELECTRONIC VENTRICULAR PACEMAKER ABNORMAL RHYTHM ECG Compared to ECG 02/09/2020 14:46:22 Atrial-paced complex(es) or rhythm no longer present Electronically Signed On 02-09-2020 21:21:01 MARRIAGE AND FAMILY TEACHER by Marcelina Sandoval M.D. [id number]
--- NOTE | 2020-02-09 19:02 | PC.NURSE ---
EKG done at 1855 and shown to ER doctor
[2020-02-09 19:58] LABS: Troponin 5 6HR 23.51 ng/L (0-10)
[2020-02-09 20:02] LABS: Troponin 5 6HR Delta -3.49 ng/L (0-12)
[2020-02-09] MEDS: sodium chloride 0.9% 1,000 ML 250 ML IV (20:06)
--- NOTE | 2020-02-09 20:41 | PC.NURSE ---
Called report to Brianna SEE on med-surg at 2038
--- NOTE | 2020-02-09 21:07 | XR_ITS ---
WS: [id number] Exam: XR chest 1V portable [id number] Date/Time of Exam: 02/09/2020 9:18 PM Reason For Exam: SOB Comparison 05/16/2019. There are patchy groundglass infiltrates noted throughout both lungs suggesting pneumonia. No pleura l effusions or pneumothorax. Cardiomediastinal structures are unremarkable. A permanent cardiac pacer superimposes the left chest. XR/XR chest 1V portable [id number] IMPRESSION: 1. Patchy groundglass infiltrates throughout both lungs consistent with pneumon ia.
[2020-02-09] MEDS: carvedilol 3.125 mg Tablet PO (23:35)
[2020-02-09] MEDS: famotidine 20 mg Tablet PO (23:35)
[2020-02-09] MEDS: D5-NS 0.45% + KCL 20 mEq 20 MEQ/1,000 ML BAG 100 MEQ IV (23:35)
[2020-02-10] VITALS (8 sets, daily range): BP systolic 102–135; BP diastolic 62–80; PULSE 60–67; RESP 17–20; TEMP 36.3–36.9; O2SAT 94–96
[2020-02-10 05:42] LABS: Basophils # 0.1 10^3/uL (0.0-0.1); Basophils % 0.5 %; Eosinophils % 0.3 %; Hematocrit 35.8 % (37.0-47.0); Hemoglobin 11.5 g/dL (11.5-15.3); Lymphocytes # 1.4 10^3/uL (0.8-4.8); Lymphocytes % 9.4 %; Mean Corpuscular HGB Conc 32.1 g/dL (30.0-36.0); Mean Corpuscular Hemoglobin 27.4 pg (28.0-34.0); Mean Corpuscular Volume 85.2 fL (81-99); Mean Platelet Volume 10.1 fL (7.4-10.4); Monocytes # 1.3 10^3/uL (0.2-0.9); Monocytes % 8.5 %; Neutrophils # 12.38 10^3/uL (1.8-7.7); Neutrophils % 80.8 %; Nucleated Red Blood Cells % 0 %; Platelet Count 313 10^3/cmm (130-400); White Blood Count 15.3 10^3/uL (4.0-10.0)
[2020-02-10 06:08] LABS: Alanine Aminotransferase 58 U/L (0-33); Albumin Level 2.7 g/dL (3.5-5.2); Alkaline Phosphatase 182 IU/L (35-105); Anion Gap 13.2 (5-19); Aspartate Amino Transferase 70 U/L (0-32); Blood Urea Nitrogen 31 mg/dL (8-23); Calcium 8.1 mg/dL (8.5-10.5); Carbon Dioxide 28 mmol/L (22-29); Chloride 99 mmol/L (98-107); Globulin 3.7 g/dL (1.3-4.6); Glucose 236 mg/dL (65-115); Osmolality Calculated 298 mOsm/kg (285-295); Potassium 3.2 mmol/L (3.5-5.1); Sodium 137 mmol/L (136-145); Total Bilirubin 0.9 mg/dL (0.15-1.2); Total Protein 6.4 g/dL (6.6-8.7)
[2020-02-10 06:11] LABS: Procalcitonin 0.19 ng/mL (0-0.5)
[2020-02-10 06:34] LABS: Glucose Point of Care 230 mg/dL (70-110)
[2020-02-10] MEDS: atorvastatin 40 mg Tablet 80 MG PO (08:45)
[2020-02-10] MEDS: ascorbic acid 500 mg Tablet PO ×2 (08:45→17:22)
[2020-02-10] MEDS: aspirin 81 mg EC Tablet PO (08:45)
[2020-02-10] MEDS: levothyroxine 150 mcg Tablet 75 MCG PO (08:46)
[2020-02-10] MEDS: amiodarone 200 mg Tablet 400 MG PO (08:46)
[2020-02-10] MEDS: D5-NS 0.45% + KCL 20 mEq 20 MEQ/1,000 ML BAG 100 MEQ IV (08:47)
[2020-02-10] MEDS: clopidogrel 75 mg Tablet PO (08:48)
[2020-02-10] MEDS: citalopram 20 mg Tablet 10 MG PO (08:49)
[2020-02-10] MEDS: pantoprazole DR 40 mg Tablet PO (08:50)
[2020-02-10] MEDS: FUROsemide 20 mg Tablet PO (08:50)
[2020-02-10] MEDS: carvedilol 3.125 mg Tablet PO ×2 (08:50→17:22)
[2020-02-10] MEDS: famotidine 20 mg Tablet PO ×2 (08:50→17:22)
--- NOTE | 2020-02-10 10:38 | PC.CHAP ---
Pastoral Care Encounter/Spiritual Assessment Type of Contact [] Declined coal trammer visit [] Patient/Family/Request visit [] Outpatient visit [] Follow-up visit [] Physician referral [] Code/Alert [x] Routine visit [] Staff referral [] Actively dying [] Patient sleeping [] Family support [] [] Out of room [] Palliative care [] [x] Receiving care in room [] Pre-surgical visit [] Trauma [x] Long length of stay [] ICU visit [] Other: Relational/Emotional Strength [] Patient feels connected with others/family/visitors/staff [] Distress [x] Loneliness/isolation [] Abandonment Spirituality of Patient [x] Person of Eleanor [] Attends Restoration of their Eleanor [x] Believes in Prayer [] Reads Bible or Synagogue materials [] There are Spiritual issues to be addressed Senior Manager Asset Protection Interventions [x] Prayer [x] Active listening [x] Non-anxious presence [x] Spiritual/emotional support [x] Crisis/trauma care [x] Spiritual counseling [] Bereavement support [] Provided bereavement packet [] Provided Bible/devotional materials [] Provided toy/stuffed animal, coloring book to patient or family member [] Provided Communion [] Anointing/[place] [] Salvation [x] Completed spiritual assessment [] Other: Impact on Illness or Injury [] Angry [x] Fearful [] Anxious [] Often cries [] Exhaustion [] Unable to work [] Unable to attend anglican [] Unable to walk/stand [] Unable to read [] Unable to drive [] Unable to eat/drink [] Unable to sleep [] Unable to be with family [] Patient intubated [] Other: Summary She beiieves end of life at this time, wants to see her family has eleanor in God Time spent with patient 10 mins
[2020-02-10] MEDS: diclofenac 1% Topical Gel 100 gm 1 APPLIC TOPICAL ×3 (10:41→20:53)
--- NOTE | 2020-02-10 10:53 | PC.NURSE ---
Changed patient due to incontinent episode and noted blood in brief mixed with urine. Patient unable to answer orientation questions correctly and when asked if any burning or hurting when urinating, unable to reply.
[2020-02-10 10:59] LABS: Glucose Point of Care 312 mg/dL (70-110)
[2020-02-10 11:50] LABS: SARS Covid-2 Antigen Negative (Negative)
[2020-02-10] MEDS: potassium chloride ER 20 mEq Tablet 40 MEQ PO (12:18)
--- NOTE | 2020-02-10 13:59 | PC.NURSE ---
Patient's daughter at bedside stated the patient took azo at home and that it turns her urine orange.
--- NOTE | 2020-02-10 14:45 | P.PN_ITS ---
Subjective Subjective: Interval history: This is a 73-year-old female with history of Heart failure status post ICD, diabetes, anxiety, hypothyroidism who was admitted with worsening mental status. Patient was also noted to have generalized weakness. Patient was also noted to require oxygen. She was admitted also with abnormal UA and started on antibiotics. Seen today with daughter at bedside. Pleasant. No acute events overnight Vitals/I&O/Wt Last Vital Signs Temp 98.4 F 02/10/20 12:00 Pulse 64 02/10/20 12:00 Resp 17 02/10/20 12:00 BP 128/75 02/10/20 12:00 Pulse Ox 96 02/10/20 12:00 02/09/20 02/10/20 02/10/20 22:59 06:59 14:59 Intake Total 240 / 240 1160 / 1160 Output Total 300 / 300 Balance -60 / -60 1160 / 1160 Weight last 48 hrs Weight 150 lb Physical Exam Const: COMMON NORMALS: no acute distress OTHER: Oriented to person and place Resp: COMMON NORMALS: normal respiratory effort and No retractions Cardio: COMMON NORMALS: regular rate and regular rhythm RATE: regular rate RHYTHM: regular rhythm GI: COMMON NORMALS: Soft to palpation and non-tender AUSCULTATION: Yes normoactive bowel sounds PALPATION: Yes Soft to palpation Extremity: COMMON NORMALS: no joint enlargement Data : 02/10/20 04:57 02/10/20 04:57 Micro: Microbiology 02/09/20 14:30 Blood Culture - Preliminary Blood SPECIMEN COLLECTED 02/09/20 14:15 Blood Culture - Preliminary Blood SPECIMEN COLLECTED A&P Assessment and plan (1) Cystitis: Status: Acute (2) Acute encephalopathy: Status: Acute (3) Heart failure: Status: Acute (4) Benign essential HTN: Status: Acute (5) Hypothyroidism: Status: Acute (6) UTI (urinary tract infection): Status: Acute Qualifiers: Hematuria presence: without hematuria Urinary tract infection type: site unspecified Qualified Code(s): N39.0 - Urinary tract infection, site not specified Additional A&P Information This a 74-year-old female admitted with UTI and CHF exacerbation. Noted to have altered mental status. Encephalopathy -Factorial including hypoxemia and UTI -Diuresis, antibiotics follow-up cultures Heart failure -Continue aspirin, Plavix -lasix -dc IVF Hypothyroidism -continue levothyroxine -check TSH afib -rate controlled -amiodarone, carvedilol Attestations Medical Necessity Statement*: Carmen Alvarenga's hospital stay will be less than 2 midnights for ams Coding Level of Care Code Acute Occupational Health Nurse Supervisor for [facility] Fwd Exam Detailed Diagnoses Cystitis N30.90 Acute encephalopathy G93.40 Heart failure I50.9 Benign essential HTN I10 Hypothyroidism E03.9 UTI (urinary tract infection) N39.0 Hematuria presence: without hematuria Urinary tract infection type: site unspecified
[2020-02-10] MEDS: cefTRIAXone 1,000 MG in sodium chloride 0.9% (plus) 50 ML 100 MG IV (14:46)
--- NOTE | 2020-02-10 16:53 | PC.NURSE ---
k-aylin given on 02/09/2020 40 meq in 100 mls given iv over 4 hours
[2020-02-10 17:31] LABS: Glucose Point of Care 313 mg/dL (70-110)
[2020-02-10 21:25] LABS: Glucose Point of Care 276 mg/dL (70-110)
[2020-02-11] VITALS (8 sets, daily range): BP systolic 100–119; BP diastolic 55–67; PULSE 58–66; RESP 16–20; TEMP 36.1–36.8; O2SAT 95–99
[2020-02-11] MEDS: acetaminophen 325 mg Tablet 650 MG PO ×2 (01:59→16:02)
[2020-02-11 05:57] LABS: Alanine Aminotransferase 75 U/L (0-33); Albumin Level 2.6 g/dL (3.5-5.2); Alkaline Phosphatase 180 IU/L (35-105); Anion Gap 13.5 (5-19); Aspartate Amino Transferase 93 U/L (0-32); Blood Urea Nitrogen 32 mg/dL (8-23); Calcium 8.1 mg/dL (8.5-10.5); Carbon Dioxide 24 mmol/L (22-29); Chloride 101 mmol/L (98-107); Creatinine Clr Calc Pharmacy 35.4783; Globulin 3.3 g/dL (1.3-4.6); Glucose 167 mg/dL (65-115); Osmolality Calculated 291 mOsm/kg (285-295); Potassium 3.5 mmol/L (3.5-5.1); Sodium 135 mmol/L (136-145); Total Bilirubin 0.9 mg/dL (0.15-1.2); Total Protein 5.9 g/dL (6.6-8.7)
[2020-02-11 07:06] LABS: Glucose Point of Care 179 mg/dL (70-110)
--- NOTE | 2020-02-11 08:23 | PC.PHAR ---
TELEPHONE ORDER FROM DR MORENO, DISCONTINUE LIPITOR, CHANGE HYDROCODONE TO Q8H, PRN PAIN
[2020-02-11 08:43] LABS: Creatine Phosphokinase 232 U/L (26-192)
[2020-02-11 09:01] LABS: Basophils # 0.1 10^3/uL (0.0-0.1); Basophils % 0.5 %; Eosinophils # 0.1 10^3/uL (0.0-0.8); Eosinophils % 0.4 %; Hematocrit 34.2 % (37.0-47.0); Hemoglobin 10.6 g/dL (11.5-15.3); Lymphocytes # 1.2 10^3/uL (0.8-4.8); Lymphocytes % 9.1 %; Mean Corpuscular Hemoglobin 26.8 pg (28.0-34.0); Mean Corpuscular Volume 86.6 fL (81-99); Mean Platelet Volume 10.7 fL (7.4-10.4); Monocytes # 1.1 10^3/uL (0.2-0.9); Monocytes % 8.7 %; Nucleated Red Blood Cells % 0 %; Platelet Count 282 10^3/cmm (130-400); Red Blood Count 3.95 10^6/uL (4.1-5.3); Red Cell Distribution Width 15.9 % (12.1-15.1); White Blood Count 12.9 10^3/uL (4.0-10.0)
[2020-02-11 09:25] LABS: CKMB 3.5 ng/mL (0-5.34)
[2020-02-11] MEDS: citalopram 20 mg Tablet 10 MG PO (09:57)
[2020-02-11] MEDS: aspirin 81 mg EC Tablet PO (09:57)
[2020-02-11] MEDS: levothyroxine 150 mcg Tablet 75 MCG PO (09:57)
[2020-02-11] MEDS: clopidogrel 75 mg Tablet PO (09:57)
[2020-02-11] MEDS: ascorbic acid 500 mg Tablet PO ×2 (09:57→16:04)
[2020-02-11] MEDS: amiodarone 200 mg Tablet 400 MG PO (09:58)
[2020-02-11] MEDS: famotidine 20 mg Tablet PO ×2 (09:58→16:04)
[2020-02-11] MEDS: carvedilol 3.125 mg Tablet PO ×2 (09:58→16:04)
[2020-02-11] MEDS: pantoprazole DR 40 mg Tablet PO (09:59)
[2020-02-11] MEDS: diclofenac 1% Topical Gel 100 gm 1 APPLIC TOPICAL ×3 (09:59→16:03)
[2020-02-11] MEDS: FUROsemide 20 mg Tablet PO (09:59)
[2020-02-11 11:40] LABS: Glucose Point of Care 288 mg/dL (70-110)
--- NOTE | 2020-02-11 11:44 | P.PN_ITS ---
Subjective Subjective: Interval history: This is a 73-year-old female with history of Heart failure status post ICD, diabetes, anxiety, hypothyroidism who was admitted with worsening mental status. Patient was also noted to have generalized weakness. Patient was also noted to require oxygen. She was admitted also with abnormal UA and started on antibiotics. Recent and her liver enzymes this morning. Statin held. [place] dose adjusted. She is requesting a benzodiazepine. Vitals/I&O/Wt Last Vital Signs Temp 97.5 F L 02/11/20 08:00 Pulse 66 02/11/20 08:00 Resp 18 02/11/20 08:00 BP 100/63 02/11/20 08:00 Pulse Ox 95 02/11/20 07:46 02/10/20 02/11/20 02/11/20 22:59 06:59 14:59 Intake Total 170 / 1330 200 / 1530 240 / 240 Balance 170 / 1330 200 / 1530 240 / 240 Weight last 48 hrs Weight 150 lb Physical Exam Const: COMMON NORMALS: no acute distress OTHER: Oriented to person and place Resp: COMMON NORMALS: normal respiratory effort and No retractions Cardio: COMMON NORMALS: regular rate and regular rhythm RATE: regular rate RHYTHM: regular rhythm GI: COMMON NORMALS: Soft to palpation and non-tender AUSCULTATION: Yes normoactive bowel sounds PALPATION: Yes Soft to palpation Extremity: COMMON NORMALS: no joint enlargement Data : 02/11/20 04:27 02/11/20 04:23 Micro: Microbiology 02/09/20 13:38 Urine Culture - Final Urine,Clean Catch 02/09/20 14:15 Blood Culture - Preliminary Blood NEGATIVE TO DATE 02/09/20 14:30 Blood Culture - Preliminary Blood NEGATIVE TO DATE A&P Assessment and plan (1) Cystitis: Status: Acute (2) Acute encephalopathy: Status: Acute (3) Heart failure: Status: Acute (4) Benign essential HTN: Status: Acute (5) Hypothyroidism: Status: Acute (6) UTI (urinary tract infection): Status: Acute Qualifiers: Hematuria presence: without hematuria Urinary tract infection type: site unspecified Qualified Code(s): N39.0 - Urinary tract infection, site not specified (7) Abnormal CPK: Status: Acute Additional A&P Information This a 74-year-old female admitted with UTI and CHF exacerbation. Noted to have altered mental status. Encephalopathy -Factorial including hypoxemia and UTI -Diuresis, antibiotics follow-up cultures Heart failure -Continue aspirin, Plavix -lasix -dc IVF Hypothyroidism -continue levothyroxine -tsh pending Transaminitis -hold statin Rhabdomyolosis -repeat CPK -add Phos -hold statin afib -rate controlled -amiodarone, carvedilol Attestations Medical Necessity Statement*: Carmen Sarabiawood's hospital stay will require greater than 2 midnights for ams Coding Level of Care Code Acute Acoustic Intelligence Specialist for Chg Fwd Exam Detailed Diagnoses Cystitis N30.90 Acute encephalopathy G93.40 Heart failure I50.9 Benign essential HTN I10 Hypothyroidism E03.9 UTI (urinary tract infection) N39.0 Hematuria presence: without hematuria Urinary tract infection type: site unspecified Abnormal CPK R74.8
[2020-02-11 12:17] LABS: Phosphorus 2.1 mg/dL (2.5-4.5)
[2020-02-11 12:40] LABS: Thyroid Stimulating Hormone 5.09 uIU/mL (0.27-4.20)
[2020-02-11] MEDS: cefTRIAXone 1,000 MG in sodium chloride 0.9% (plus) 50 ML 100 MG IV (13:00)
[2020-02-11 16:28] LABS: Glucose Point of Care 226 mg/dL (70-110)
[2020-02-11] MEDS: TRAMadol 50 mg Tablet PO (20:44)
[2020-02-11 21:28] LABS: Glucose Point of Care 212 mg/dL (70-110)
[2020-02-12] VITALS (7 sets, daily range): BP systolic 109–151; BP diastolic 68–84; PULSE 60–73; RESP 17–20; TEMP 36.4–36.9; O2SAT 93–97
--- NOTE | 2020-02-12 04:09 | PC.NURSE ---
Patient incontinent of bladder soaking multiple chucks along with bed linens with copious amounts of urine.
[2020-02-12 04:56] LABS: Basophils # 0.1 10^3/uL (0.0-0.1); Basophils % 0.4 %; Eosinophils % 0.3 %; Hematocrit 34.2 % (37.0-47.0); Lymphocytes # 1.1 10^3/uL (0.8-4.8); Lymphocytes % 8.3 %; Mean Corpuscular HGB Conc 32.2 g/dL (30.0-36.0); Mean Corpuscular Hemoglobin 26.9 pg (28.0-34.0); Mean Corpuscular Volume 83.6 fL (81-99); Mean Platelet Volume 10.4 fL (7.4-10.4); Monocytes # 1.2 10^3/uL (0.2-0.9); Monocytes % 8.8 %; Neutrophils # 11.25 10^3/uL (1.8-7.7); Neutrophils % 81.5 %; Nucleated Red Blood Cells % 0 %; Platelet Count 283 10^3/cmm (130-400); Red Blood Count 4.09 10^6/uL (4.1-5.3); Red Cell Distribution Width 15.7 % (12.1-15.1); White Blood Count 13.8 10^3/uL (4.0-10.0)
[2020-02-12 05:33] LABS: Alanine Aminotransferase 122 U/L (0-33); Albumin Level 2.8 g/dL (3.5-5.2); Alkaline Phosphatase 303 IU/L (35-105); Anion Gap 14.7 (5-19); Aspartate Amino Transferase 167 U/L (0-32); Blood Urea Nitrogen 30 mg/dL (8-23); Calcium 8.1 mg/dL (8.5-10.5); Carbon Dioxide 26 mmol/L (22-29); Chloride 95 mmol/L (98-107); Globulin 3.5 g/dL (1.3-4.6); Glucose 207 mg/dL (65-115); Osmolality Calculated 286 mOsm/kg (285-295); Potassium 3.7 mmol/L (3.5-5.1); Sodium 132 mmol/L (136-145); Total Bilirubin 1.1 mg/dL (0.15-1.2); Total Protein 6.3 g/dL (6.6-8.7)
[2020-02-12 06:49] LABS: Glucose Point of Care 201 mg/dL (70-110)
[2020-02-12 08:19] LABS: Creatine Phosphokinase 574 U/L (26-192)
[2020-02-12] MEDS: levothyroxine 150 mcg Tablet 75 MCG PO (08:46)
[2020-02-12] MEDS: carvedilol 3.125 mg Tablet PO ×2 (08:46→17:02)
[2020-02-12] MEDS: amiodarone 200 mg Tablet 400 MG PO (08:46)
[2020-02-12] MEDS: ascorbic acid 500 mg Tablet PO ×2 (08:47→17:02)
[2020-02-12] MEDS: aspirin 81 mg EC Tablet PO (08:47)
[2020-02-12] MEDS: citalopram 20 mg Tablet 10 MG PO (08:47)
[2020-02-12] MEDS: pantoprazole DR 40 mg Tablet PO (08:47)
[2020-02-12] MEDS: famotidine 20 mg Tablet PO ×2 (08:47→17:02)
[2020-02-12] MEDS: FUROsemide 20 mg Tablet PO (08:47)
[2020-02-12] MEDS: clopidogrel 75 mg Tablet PO (08:47)
[2020-02-12] MEDS: diclofenac 1% Topical Gel 100 gm 1 APPLIC TOPICAL ×3 (08:48→21:57)
[2020-02-12] MEDS: acetaminophen 325 mg Tablet 650 MG PO (08:49)
[2020-02-12 11:13] LABS: Glucose Point of Care 291 mg/dL (70-110)
[2020-02-12] MEDS: LORazepam 0.5 mg Tablet PO ×2 (11:56→17:01)
--- NOTE | 2020-02-12 13:47 | PC.SOCIAL ---
Pg 2 IMM Explained to pt & family Pg 2 IMM. No questions voiced. Provided pt a copy. Signed, dated, & timed a copy & placed in chart.
--- NOTE | 2020-02-12 14:14 | PM.PN ---
Subjective Subjective: Interval history: still has intermittent Confusion episodes. She has Remained afebrile. Other Vitals and labs have been reviewed . Medications: Reviewed: Yes Vitals/I&O/Wt Last Vital Signs Temp 97.7 F 02/12/20 11:17 Pulse 62 02/12/20 11:17 Resp 17 02/12/20 11:17 BP 122/68 02/12/20 11:17 Pulse Ox 97 02/12/20 11:17 02/11/20 02/12/20 02/12/20 22:59 06:59 14:59 Intake Total 270 / 650 120 / 770 480 / 480 Balance 270 / 650 120 / 770 480 / 480 Physical Exam HENMT: COMMON NORMALS: normocephalic and atraumatic HEAD & SCALP: normocephalic and atraumatic Resp: COMMON NORMALS: clear to auscultation bilaterally AUSCULTATION: clear to auscultation bilaterally Cardio: COMMON NORMALS: regular rate, regular rhythm, S1 normal heart sound present, S2 normal heart sound present, No gallops present (Cardio), No murmurs present (Cardio), No rub (Cardio) and Peripheral pulses 2+ throughout RATE: regular rate RHYTHM: regular rhythm HEART SOUNDS: S1 normal heart sound present and S2 normal heart sound present PERIPHERAL PULSES: Peripheral pulses 2+ throughout GI: COMMON NORMALS: Normal to inspection, nondistended, normoactive bowel sounds present, Soft to palpation, non-tender, No hepatosplenomegaly present and no masses AUSCULTATION: Yes normoactive bowel sounds PALPATION: Yes Soft to palpation and Yes No hepatosplenomegaly present RECTAL EXAM: deferred Extremity: COMMON NORMALS: no clubbing, cyanosis or edema and no pedal edema Data : 02/12/20 04:09 02/12/20 04:09 Micro: Microbiology 02/09/20 13:38 Urine Culture - Final Urine,Clean Catch A&P Assessment and plan (1) UTI (urinary tract infection): Plan as 1 Status: Acute Qualifiers: Urinary tract infection type: site unspecified Hematuria presence: without hematuria Qualified Code(s): N39.0 - Urinary tract infection, site not specified (2) Pneumonia: Patient came in with SOB and Cough, Currently requiring supplemental oxygen. Xray chest : Patchy groundglass infiltrates throughout both lungs consistent with pneumonia. Rapid COVID :Negative , PCR is awaited Ceftriaxone 1 gm q24 h daily Azithromycin 500 mg q24 h daily Status: Acute (3) Acute encephalopathy: 2/2 UTI. Continue ceftriaxone 1 g every 24 hour daily. Follow up blood culture urine and adjust antibiotic accordingly. Status: Acute (4) Heart failure: Currently compensated HFrEF Continue: Lasix 20 mg p.o. daily Carvedilol 3.125 mg p.o. twice daily I/O charting Daily weight Status: Acute (5) Benign essential HTN: Currently well controlled: Continue carvedilol 3.125 mg twice daily Status: Acute (6) Hypothyroidism: Continue levothyroxine 75 mcg p.o. daily TSH :5.09 Status: Acute (7) Abnormal CPK: Status: Acute (8) Transaminitis: Status: Acute Additional A&P Information This a 74-year-old female admitted with UTI and CHF exacerbation. Noted to have altered mental status. Encephalopathy -Factorial including hypoxemia and UTI -Diuresis, antibiotics follow-up cultures Heart failure -Continue aspirin, Plavix -lasix Hypothyroidism -continue levothyroxine Transaminitis -hold statin Rhabdomyolosis -repeat CPK -add Phos -hold statin afib -rate controlled -amiodarone, carvedilol Attestations Medical Necessity Statement*: Patient needs to be in hospital for the management of PNA, UTI, Coding Level of Care Code Acute Asset Coordinator for [facility] Fwd Diagnoses UTI (urinary tract infection) N39.0 Urinary tract infection type: site unspecified Hematuria presence: without hematuria Pneumonia J18.9 Acute encephalopathy G93.40 Heart failure I50.9 Benign essential HTN I10 Hypothyroidism E03.9 Abnormal CPK R74.8 Transaminitis R74.01
[2020-02-12] MEDS: cefTRIAXone 1,000 MG in sodium chloride 0.9% (plus) 50 ML 100 MG IV (15:46)
[2020-02-12 16:53] LABS: Glucose Point of Care 192 mg/dL (70-110)
[2020-02-12] MEDS: HYDROcodone-acetaminophen 5-325 mg Tablet 1 TAB PO (17:01)
--- NOTE | 2020-02-12 19:25 | PC.NURSE ---
pt moved to private room [id number] due to the covid testing, pts daughter had to leave due to policy. pt then stated she was feeling very anxious and just needed her daughter. she then became very adamant that she was going to leave, she is very weak and tried to stand. she kept asking for her shoes. typewriter repairer then called pts daughter to see if she could calm her down over the phone. pt became angry she stated she felt betrayed due to her daughter leaving. many other family members called her to try to orient her. she kept saying she was being held in a ten box, that she was sitting on the side of the road. typewriter repairer tried to offer her prn anxiety meds. pt refused she was to upset. typewriter repairer called dr griffin he stated it was ok for family to sit 1;1 with pt as along as they understood the risk to pt being possible covid positive. when typewriter repairer called pts daughter to let her know it was ok for her to stay daughter told pt over the phone that she was on her way pt calmed down. pt took her prn meds and scheduled meds.
[2020-02-12 20:38] LABS: Glucose Point of Care 121 mg/dL (70-110)
[2020-02-12] MEDS: azithromycin 500 MG in sodium chloride 0.9% 250 ML 250 MG IV (21:57)
[2020-02-12] MEDS: sodium chloride 0.9% 1,000 ML 75 ML IV (21:57)
[2020-02-13 04:00] VITALS: BP 154/100; PULSE 97; RESP 12; TEMP 36.7; O2SAT 97
[2020-02-13 04:19] VITALS: BP 133/76; PULSE 67; RESP 19; TEMP 36.8; O2SAT 94
[2020-02-13 06:35] LABS: Glucose Point of Care 153 mg/dL (70-110)
[2020-02-13 08:00] VITALS: BP 113/69; PULSE 65; RESP 18; TEMP 36.6; O2SAT 95
[2020-02-13 08:31] LABS: Basophils # 0.1 10^3/uL (0.0-0.1); Basophils % 0.7 %; Eosinophils % 0.3 %; Hematocrit 36.2 % (37.0-47.0); Hemoglobin 11.4 g/dL (11.5-15.3); Lymphocytes # 1.4 10^3/uL (0.8-4.8); Lymphocytes % 11.3 %; Mean Corpuscular HGB Conc 31.5 g/dL (30.0-36.0); Mean Corpuscular Hemoglobin 26.8 pg (28.0-34.0); Monocytes % 8.1 %; Neutrophils # 9.57 10^3/uL (1.8-7.7); Neutrophils % 78.8 %; Nucleated Red Blood Cells % 0 %; Platelet Count 305 10^3/cmm (130-400); Red Blood Count 4.26 10^6/uL (4.1-5.3); Red Cell Distribution Width 15.9 % (12.1-15.1); White Blood Count 12.2 10^3/uL (4.0-10.0)
[2020-02-13 08:35] LABS: Alanine Aminotransferase 136 U/L (0-33); Albumin Level 2.8 g/dL (3.5-5.2); Alkaline Phosphatase 296 IU/L (35-105); Anion Gap 14.6 (5-19); Aspartate Amino Transferase 150 U/L (0-32); Blood Urea Nitrogen 27 mg/dL (8-23); Calcium 8.4 mg/dL (8.5-10.5); Carbon Dioxide 26 mmol/L (22-29); Chloride 100 mmol/L (98-107); Globulin 3.6 g/dL (1.3-4.6); Glucose 166 mg/dL (65-115); Osmolality Calculated 293 mOsm/kg (285-295); Potassium 3.6 mmol/L (3.5-5.1); Sodium 137 mmol/L (136-145); Total Protein 6.4 g/dL (6.6-8.7)
--- NOTE | 2020-02-13 11:00 | P.PN_ITS ---
Subjective Subjective: Interval history: is doing fine.Has remained afebrile.other vitals and labs have reviewed. Medications: Reviewed: Yes Vitals/I&O/Wt Last Vital Signs Temp 97.8 F 02/13/20 08:00 Pulse 65 02/13/20 08:00 Resp 18 02/13/20 08:00 BP 113/69 02/13/20 08:00 Pulse Ox 95 02/13/20 08:00 Physical Exam Narrative: EXAM NARRATIVE: Alert and awake HENMT: COMMON NORMALS: normocephalic and atraumatic HEAD & SCALP: normo cephalic and atraumatic Resp: COMMON NORMALS: clear to auscultation bilaterally EFFORT & INSPECTION: Yes symmetric chest movement AUSCULTATION: clear to auscultation bilaterally Cardio: COMMON NORMALS: regular rate, regular rhythm, S1 normal heart sound present, S2 normal heart sound present, No gallops present (Cardio), No murmurs present (Cardio), No rub (Cardio) and Peripheral pulses 2+ throughout RATE: regular rate RHYTHM: regular rhythm HEART SOUNDS: S1 normal heart sound present and S2 normal heart sound present PERIPHERAL PULSES: Peripheral pulses 2+ throughout GI: COMMON NORMALS: Normal to inspection, nondistended, normoactive bowel damaris nds present, Soft to palpation, non-tender, No hepatosplenomegaly present and no masses AUSCULTATION: Yes normoactive bowel sounds PALPATION: Yes Soft to palpation and Yes No hepatosplenomegaly present RECTAL EXAM: deferred Extremity: COMMON NORMALS: no clubbing, cyanosis or edema and no pedal edema Data : 02/13/20 07:46 02/13/20 07:46 A&P Assessment and plan (1) Pneumonia: Patient came in with SOB and Cough, Currently requiring supplemental oxygen. Xray chest : Patchy groundglass infiltrates throughout both lungs consistent with pneumonia. Rapid COVID :Negative , PCR is awaited Blood cultures :Negative Urine culture :No growth Ceftriaxone 1 gm q24 h daily Azithromycin 500 mg q24 h daily Status: Acute (2) UTI (urinary tract infection): Plan as 1 Status: Acute Qualifiers: Urinary tract infection type: site unspecified Hematuria presence: without hematuria Qualified Code(s): N39.0 - Urinary tract infection, site not specified (3) Acute encephalopathy: 2/2 UTI. Continue ceftriaxone 1 g every 24 hour daily. Follow up blood culture urine and adjust antibiotic accordingly. Status: Acute (4) Heart failure: Currently compensated HFrEF Continue: Lasix 20 mg p.o. daily Carvedilol 3.125 mg p.o. twice daily I/O charting Daily weight Status: Acute (5) Benign essential HTN: Currently well controlled: Continue carvedilol 3.125 mg twice daily Status: Acute (6) Hypothyroidism: Continue levothyroxine 75 mcg p.o. daily TSH :5.09 Status: Acute (7) Abnormal CPK: Status: Acute (8) Transaminitis: Status: Acute (9) A-fib: Status: Acute Additional A&P Information This a 74-year-old female admitted with UTI and CHF exacerbation. Noted to have altered mental status. Encephalopathy -Factorial including hypoxemia and UTI -Diuresis, antibiotics follow-up cultures Heart failure -Continue aspirin, Plavix -lasix Hypothyroidism -continue levothyroxine Transaminitis -hold statin Rhabdomyolosis -repeat CPK -add Phos -hold statin afib -rate controlled -amiodarone, carvediloL Code status;Full code Disposition :Home with daughter Attestations Medical Necessity Statement*: Patient needs to be in hospital for the management Of UTI,PNA (R/O COVID ) Coding Level of Care Code Acute Tug Boat Captain for [facility] Fwd Diagnoses Pneumonia J18.9 UTI (urinary tract infection) N39.0 Urinary tract infection type: site unspecified Hematuria presence: without hematuria Acute encephalopathy G93.40 Heart failure I50.9 Benign essential HTN I10 Hypothyroidism E03.9 Abnormal CPK R74.8 Transaminitis R74.01 A-fib I48.91
[2020-02-13 12:00] VITALS: BP 126/68; PULSE 66; RESP 18; TEMP 37.2; O2SAT 92
[2020-02-13 12:16] LABS: Glucose Point of Care 302 mg/dL (70-110)
[2020-02-13] MEDS: levothyroxine 150 mcg Tablet 75 MCG PO (12:17)
[2020-02-13] MEDS: citalopram 20 mg Tablet 10 MG PO (12:18)
[2020-02-13] MEDS: ascorbic acid 500 mg Tablet PO ×2 (12:18→16:51)
[2020-02-13] MEDS: carvedilol 3.125 mg Tablet PO ×2 (12:19→16:52)
[2020-02-13] MEDS: pantoprazole DR 40 mg Tablet PO (12:19)
[2020-02-13] MEDS: aspirin 81 mg EC Tablet PO (12:20)
[2020-02-13] MEDS: clopidogrel 75 mg Tablet PO (12:20)
[2020-02-13] MEDS: amiodarone 200 mg Tablet 400 MG PO (12:21)
[2020-02-13] MEDS: FUROsemide 20 mg Tablet PO (12:21)
[2020-02-13] MEDS: diclofenac 1% Topical Gel 100 gm 1 APPLIC TOPICAL ×4 (12:21→21:51)
[2020-02-13] MEDS: famotidine 20 mg Tablet PO ×2 (12:21→16:51)
[2020-02-13 16:00] VITALS: BP 123/76; PULSE 60; RESP 18; TEMP 36.2; O2SAT 96
[2020-02-13] MEDS: cefTRIAXone 1,000 MG in sodium chloride 0.9% (plus) 50 ML 100 MG IV (16:51)
[2020-02-13 17:23] LABS: Glucose Point of Care 305 mg/dL (70-110)
[2020-02-13 19:38] LABS: Glucose Point of Care 358 mg/dL (70-110)
[2020-02-13 20:00] VITALS: BP 107/64; PULSE 63; RESP 20; TEMP 37; O2SAT 94
[2020-02-13] MEDS: azithromycin 500 MG in sodium chloride 0.9% 250 ML 250 MG IV (21:50)
[2020-02-13] MEDS: sodium chloride 0.9% 1,000 ML 75 ML IV (21:50)
[2020-02-13] MEDS: LORazepam 0.5 mg Tablet PO (21:53)
[2020-02-13] MEDS: HYDROcodone-acetaminophen 5-325 mg Tablet 1 TAB PO (21:53)
[2020-02-14] VITALS (8 sets, daily range): BP systolic 94–146; BP diastolic 54–79; PULSE 60–69; RESP 17–18; TEMP 36.4–36.8; O2SAT 94–96
[2020-02-14] MEDS: TRAMadol 50 mg Tablet PO (03:12)
[2020-02-14] MEDS: LORazepam 0.5 mg Tablet PO ×3 (03:12→19:13)
[2020-02-14 04:57] LABS: Basophils # 0.1 10^3/uL (0.0-0.1); Basophils % 0.9 %; Eosinophils # 0.1 10^3/uL (0.0-0.8); Hematocrit 32.9 % (37.0-47.0); Hemoglobin 10.6 g/dL (11.5-15.3); Lymphocytes # 1.9 10^3/uL (0.8-4.8); Lymphocytes % 20.9 %; Mean Corpuscular HGB Conc 32.2 g/dL (30.0-36.0); Mean Corpuscular Hemoglobin 26.8 pg (28.0-34.0); Mean Corpuscular Volume 83.3 fL (81-99); Mean Platelet Volume 9.9 fL (7.4-10.4); Monocytes # 0.8 10^3/uL (0.2-0.9); Monocytes % 9.4 %; Neutrophils # 5.92 10^3/uL (1.8-7.7); Neutrophils % 66.7 %; Nucleated Red Blood Cells % 0 %; Platelet Count 241 10^3/cmm (130-400); Red Blood Count 3.95 10^6/uL (4.1-5.3); Red Cell Distribution Width 15.9 % (12.1-15.1); White Blood Count 8.9 10^3/uL (4.0-10.0)
[2020-02-14 05:23] LABS: Alanine Aminotransferase 133 U/L (0-33); Albumin Level 2.8 g/dL (3.5-5.2); Alkaline Phosphatase 333 IU/L (35-105); Aspartate Amino Transferase 131 U/L (0-32); Blood Urea Nitrogen 24 mg/dL (8-23); Calcium 8.1 mg/dL (8.5-10.5); Carbon Dioxide 25 mmol/L (22-29); Chloride 100 mmol/L (98-107); Creatinine Clr Calc Pharmacy 35.4783; Globulin 3.4 g/dL (1.3-4.6); Glucose 80 mg/dL (65-115); Osmolality Calculated 283 mOsm/kg (285-295); Sodium 135 mmol/L (136-145); Total Bilirubin 0.8 mg/dL (0.15-1.2); Total Protein 6.2 g/dL (6.6-8.7)
[2020-02-14 05:42] LABS: Anion Gap 13.2 (5-19); Potassium 3.2 mmol/L (3.5-5.1)
[2020-02-14 06:34] LABS: Glucose Point of Care 91 mg/dL (70-110)
[2020-02-14] MEDS: pantoprazole DR 40 mg Tablet PO (08:57)
[2020-02-14] MEDS: famotidine 20 mg Tablet PO ×2 (08:57→19:13)
[2020-02-14] MEDS: aspirin 81 mg EC Tablet PO (08:57)
[2020-02-14] MEDS: carvedilol 3.125 mg Tablet PO ×2 (08:59→19:13)
[2020-02-14] MEDS: citalopram 20 mg Tablet 10 MG PO (09:00)
[2020-02-14] MEDS: ascorbic acid 500 mg Tablet PO ×2 (09:00→19:13)
[2020-02-14] MEDS: clopidogrel 75 mg Tablet PO (09:00)
[2020-02-14] MEDS: amiodarone 200 mg Tablet 400 MG PO (09:00)
[2020-02-14] MEDS: levothyroxine 150 mcg Tablet 75 MCG PO (09:00)
[2020-02-14] MEDS: diclofenac 1% Topical Gel 100 gm 1 APPLIC TOPICAL ×4 (09:01→21:29)
[2020-02-14 11:23] LABS: Glucose Point of Care 227 mg/dL (70-110)
[2020-02-14] MEDS: sodium chloride 0.9% 1,000 ML 75 ML IV (12:18)
[2020-02-14] MEDS: FUROsemide 20 mg Tablet PO (12:18)
--- NOTE | 2020-02-14 12:37 | PC.SOCIAL ---
IMM Update Pg. 2 of IMM updated and reviewed with patient's family.
[2020-02-14] MEDS: cefTRIAXone 1,000 MG in sodium chloride 0.9% (plus) 50 ML 100 MG IV (14:38)
--- NOTE | 2020-02-14 15:48 | PM.PN ---
Subjective Subjective: Interval history: Chart reviewed, afebrile, normotensive, has been weaned to room air. Resolved leukocytosis, stable hemoglobin and renal function. Decreasing LFTs. Urine culture so far negative. Discontinue isolation precautions as COVID-19 PCR test negative. Daughter at bedside, quite concerned about continued confusion. Quite weak even with assistance to/from bedside commode. Medications: Reviewed: Yes Medication Review Details: Active Medications Generic Name Dose Route Start Last Admin Trade Name Freq PRN Reason Stop Dose Admin Acetaminophen 650 mg 02/09/20 16:19 02/12/20 08:49 Acetaminophen 32 5 Mg Tablet PO 650 mg Q6H PRN Administration Mild/Mod Pain Or Temp >/= 101 Hydrocodone Bitart /Acetaminophen 1 tab 02/11/20 08:22 02/13/20 21:53 Hydrocodone-Acet aminophen 5-325 Mg Tablet PO 1 tab Q8H PRN Administration MODERATE TO SEVER E PAIN Amiodarone HCl 400 mg 02/10/20 09:00 02/14/20 09:00 Amiodarone 200 M g Tablet PO 400 mg DAILY NORA Administration Artificial Tears 1 drop 02/11/20 13:13 Artificial Tears Op Soln 15 Ml Btl EYE-BOTH Q4H PRN DRY EYE(S) Ascorbic Acid 500 mg 02/10/20 09:00 02/14/20 09:00 Ascorbic Acid 50 0 Mg Tablet PO 500 mg BID NORA Administration Aspirin 81 mg 02/10/20 09:00 02/14/20 08:57 Aspirin 81 Mg Ec Tablet PO 81 mg DAILY NORA Administration Bisacodyl 10 mg 02/09/20 16:19 Bisacodyl 5 Mg T ablet PO DAILY PRN CONSTIPATION Carvedilol 3.125 mg 02/09/20 21:07 02/14/20 08:59 Carvedilol 3.125 Mg Tablet PO 3.125 mg BID NORA Administration Citalopram Hydrobr omide 10 mg 02/10/20 09:00 02/14/20 09:00 Citalopram 20 Mg Tablet PO 10 mg DAILY NORA Administration Clopidogrel Bisulf ate 75 mg 02/10/20 09:00 02/14/20 09:00 Clopidogrel 75 M g Tablet PO 75 mg DAILY NORA Administration Dextrose 25 ml 02/09/20 21:07 Dextrose 50% Syr pretty 50 Ml IVP ONCE PRN hypoglycemia prot ocol Protocol Dextrose 50 ml 12/30/20 21:07 Dextrose 50% Syr pretty 50 Ml IVP PRN PRN hypoglycemia prot ocol Protocol Diclofenac Sodium 1 applic 02/09/20 21:07 02/14/20 12:20 Diclofenac 1% To pical Gel 100 Gm TOPICAL 1 applic QID NORA Administration Famotidine 20 mg 02/09/20 21:07 02/14/20 08:57 Famotidine 20 Mg Tablet PO 20 mg BID NORA Administration Furosemide 20 mg 02/10/20 09:00 02/14/20 12:18 Furosemide 20 Mg Tablet PO 20 mg DAILY NORA Administration Glucagon 1 mg 02/09/20 21:07 Glucagon 1 Mg/Ml Inj 1 Ml IM ONCE PRN Adult Acute Hypog lycemia Prot. Protocol Guaifenesin/Dextro methorphan 10 ml 02/12/20 11:55 Guaifenesin-Dext romethorphan Udc 1 0 Ml PO Q4H PRN COUGH Ceftriaxone Sodium 1,000 mg/ 50 mls @ 100 mls/ hr 02/10/20 14:30 02/14/20 14:38 Sodium Chloride IV 100 mls/hr Q24H NORA Administration Protocol Dextrose 500 mls @ 100 mls /hr 02/09/20 21:07 D5w IV ONCE PRN Adult Acute Hypog lycemia Prot Protocol Azithromycin 500 m g/ Sodium 250 mls @ 250 mls /hr 02/12/20 21:00 02/13/20 21:50 Chloride IV 250 mls/hr Q24H NORA Administration Protocol Sodium Chloride 1,000 mls @ 75 ml s/hr 02/12/20 20:30 02/14/20 12:18 Sodium Chloride 0.9% IV 75 mls/hr .[id number] ONRA Administration Insulin Aspart 0 unit 02/09/20 21:07 02/14/20 12:18 Insulin Aspart 1 00 Unit/1 Ml SUBCUT 6 unit WM&BEDTIME NORA Administration Protocol Lanolin 1 applic 02/10/20 12:26 Lanolin Oint 7 G m TOPICAL PRN PRN DRYNESS Levothyroxine Sodi um 75 mcg 02/10/20 09:00 02/14/20 09:00 Levothyroxine 15 0 Mcg Tablet PO 75 mcg DAILY NORA Administration Lorazepam 0.5 mg 02/12/20 09:21 02/14/20 08:56 Lorazepam 0.5 Mg Tablet PO 0.5 mg Q4H PRN Administration ANXIETY Naloxone HCl 0.1 mg 02/09/20 16:19 Naloxone 0.4 Mg/ Ml Sdv IVP Q2M PRN OPIATERV Nitroglycerin 0.4 mg 02/09/20 21:07 Nitroglycerin 0. 4 Mg Sublingual Ta blet SUBLINGUAL Q5M PRN Chest Pain Ondansetron HCl 4 mg 02/09/20 16:19 Ondansetron 2 Mg /Ml Sdv 2 Ml IVP Q8H PRN vomiting, or N/V if npo Ondansetron HCl 4 mg 02/09/20 21:07 Ondansetron 2 Mg /Ml Sdv 2 Ml IVP Q6H PRN NAUSEA AND VOMITI NG Pantoprazole Sodiu m 40 mg 02/10/20 09:00 02/14/20 08:[address] 40 Mg Tablet PO 40 mg DAILY NORA Administration Tramadol HCl 50 mg 02/09/20 21:07 02/14/20 03:12 Tramadol 50 Mg T ablet PO 50 mg Q8H PRN Administration pain metformin Allergy (Intermediate, Verified 01/10/20 11:51) diarrhea Vitals/I&O/Wt Last Vital Signs Temp 98.2 F 02/14/20 12:00 Pulse 60 02/14/20 12:00 Resp 17 02/14/20 12:00 BP 117/73 02/14/20 12:00 Pulse Ox 95 02/14/20 12:00 02/14/20 02/14/20 02/14/20 06:59 14:59 22:59 Intake Total 480 / 1730 1480 / 1480 Output Total 800 / 800 Balance -320 / 930 1480 / 1480 Physical Exam Const: COMMON NORMALS: no acute distress and alert GENERAL APPEARANCE: cooperative and comfortable NUTRITIONAL APPEARANCE: obese morbidly obese ORIENTATION/CONSCIOUSNESS: Yes awake and Yes confused HENMT: COMMON NORMALS: normocephalic, atraumatic and moist oral mucous membranes HEAD & SCALP: normocephalic and atraumatic GENERAL EAR: hearing grossly impaired Eye: COMMON NORMALS: Equal, round and reactive pupils present, EOMs intact bilaterally and conjunctivae normal CONJUNCTIVA: Yes conjunctivae normal PUPIL: Yes Equal, round and reactive pupils present Neck/C-Spine: COMMON NORMALS: full ROM GENERAL: Yes normal visual inspection and Yes trachea midline Resp: COMMON NORMALS: normal respiratory effort, No retractions, No use of accessory muscles and clear to auscultation bilaterally EFFORT & INSPECTION: Yes able to speak in complete sentences, Yes symmetric chest movement and No tachypneic AUSCULTATION: clear to auscultation bilaterally OTHER: -on RA Cardio: COMMON NORMALS: regular rate, regular rhythm, S1 normal heart sound present, S2 normal heart sound present and No murmurs present (Cardio) RATE: regular rate RHYTHM: regular rhythm HEART SOUNDS: S1 normal heart sound present and S2 normal heart sound present GI: COMMON NORMALS: Normal to inspection, nondistended, normoactive bowel sounds present, Soft to palpation and non-tender INSPECTION: Yes central obesity PALPATION: Yes Soft to palpation Extremity: COMMON NORMALS: normal to inspection, full ROM and no clubbing, cyanosis or edema; negative for no pedal edema Neuro: COMMON NORMALS: moves all extremities, no focal motor deficits and no sensory deficits noted SENSORIUM/ORIENTATION: Yes alert and Yes Orientation impaired OTHER: -quite weak generally Psych: COMMON NORMALS: cooperative, normal affect and speech normal ATTITUDE: Yes calm SPEECH: Yes normal speech THOUGHT PROCESS: confused INSIGHT: Limited insight present (Psych) Skin: COMMON NORMALS: no rashes or lesions noted, no jaundice, no petechiae and no mottling GENERAL SKIN EXAM: no rashes or lesions noted Data : 02/14/20 04:50 02/14/20 04:50 Micro: Microbiology 02/09/20 14:30 Blood Culture - Final Blood NO GROWTH AFTER 5 DAYS 02/09/20 14:15 Blood Culture - Final Blood NO GROWTH AFTER 5 DAYS 02/13/20 08:00 Urine Culture - Preliminary Urine,Voided A&P Assessment and plan (1) Pneumonia: -Noted to have bilateral patchy opacities throughout both lungs on chest x-ray -Clinical suspicion for COVID-19, PCR negative, d/c isolation precautions -Continue dual antibiotic regimen with azithromycin and ceftriaxone -Continue to monitor respiratory status -Blood cultures negative -Resolved leukocytosis, afebrile, weaned to room air -Continue to monitor vital signs -Continue steroids Status: Acute Qualifiers: Laterality: bilateral Lung location: unspecified part of lung Pneumonia type: due to unspecified organism Qualified Code(s): J18.9 - Pneumonia, unspecified organism (2) Cystitis: -UA indicative of infection -urine cx: prelim negative -already on abx Status: Acute (3) Acute encephalopathy: -likely secondary to UTI, pneumonia Status: Acute (4) Transaminitis: -statin on hold -improving, continue to trend LFTs Status: Acute (5) Abnormal CPK: -CPK-574; repeat in AM -statin on hold -has been on cautious IVF; monitor for fluid overload; d/c today; encourage oral hydration Status: Acute (6) Heart failure: -Appears clinically compensated, continue oral lasix -Echo (03/2019): EF=30-35%, global LV hypokinesis, G2DD, mild pulmonary HTN, mild-moderate MR, trace-mild TR -has AICD in place Status: Chronic Qualifiers: Heart failure chronicity: chronic Heart failure type: combined systolic and diastolic Qualified Code(s): I50.42 - Chronic combined systolic (congestive) and diastolic (congestive) heart failure (7) Dementia: -re-orient as needed -fall precautions Status: Chronic Qualifiers: Dementia behavioral disturbance: without behavioral disturbance Dementia type: unspecified type Qualified Code(s): F03.90 - Unspecified dementia without behavioral disturbance (8) Benign essential HTN: -VSS; continue to monitor -continue oral antihypertensives Status: Chronic (9) Hypothyroidism: -continue levothyroxine Status: Chronic Qualifiers: Hypothyroidism type: unspecified Qualified Code(s): E03.9 - Hypothyroidism, unspecified Additional A&P Information -consistent carb diet as tolerated -quite weak generally; PT/OT evaluations in AM -GI ppx with famotidine -DVT ppx with heparin -Dispo: home, has in-home services -Code status: FULL code Attestations Medical Necessity Statement*: Patient requires hospitalization for continued treatment of pneumonia, UTI. Time Spent in Patient Care: 16 - 35 minutes (>than 50% of time spent in counselling and/or direct pt care on unit). Coding Level of Care Code Acute Floor Attendant for [facility] 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 Diagnoses Pneumonia J18.9 Laterality: bilateral Lung location: unspecified part of lung Pneumonia type: due to unspecified organism Cystitis N30.90 Acute encephalopathy G93.40 Transaminitis R74.01 Abnormal CPK R74.8 Heart failure I50.42 Heart failure chronicity: chronic Heart failure type: combined systolic and diastolic Dementia F03.90 Dementia behavioral disturbance: without behavioral disturbance Dementia type: unspecified type Benign essential HTN I10 Hypothyroidism E03.9 Hypothyroidism type: unspecified
[2020-02-14 18:08] LABS: Glucose Point of Care 301 mg/dL (70-110)
[2020-02-14 19:08] LABS: Quest SARS-CoV-2 RNA NOT DETECTED (NOT DETECTED)
[2020-02-14] MEDS: heparin 5,000 unit/mL INJ 1 mL 5000 UNIT SUBCUT (19:13)
[2020-02-14] MEDS: HYDROcodone-acetaminophen 5-325 mg Tablet 1 TAB PO (19:13)
[2020-02-14 20:52] LABS: Glucose Point of Care 304 mg/dL (70-110)
[2020-02-14] MEDS: azithromycin 500 MG in sodium chloride 0.9% 250 ML 250 MG IV (21:28)
[2020-02-15] VITALS (7 sets, daily range): BP systolic 122–149; BP diastolic 66–79; PULSE 60–106; RESP 18; TEMP 36.6–36.8; O2SAT 93–96
[2020-02-15] MEDS: LORazepam 0.5 mg Tablet PO ×2 (00:35→23:37)
[2020-02-15] MEDS: TRAMadol 50 mg Tablet PO (00:35)
[2020-02-15] MEDS: heparin 5,000 unit/mL INJ 1 mL 5000 UNIT SUBCUT ×2 (04:21→18:08)
[2020-02-15 06:30] LABS: Glucose Point of Care 126 mg/dL (70-110)
[2020-02-15 06:50] LABS: Basophils # 0.1 10^3/uL (0.0-0.1); Basophils % 0.6 %; Eosinophils # 0.1 10^3/uL (0.0-0.8); Eosinophils % 1.1 %; Hematocrit 35.1 % (37.0-47.0); Hemoglobin 11.4 g/dL (11.5-15.3); Lymphocytes # 1.9 10^3/uL (0.8-4.8); Lymphocytes % 21.3 %; Mean Corpuscular HGB Conc 32.5 g/dL (30.0-36.0); Mean Corpuscular Hemoglobin 27.5 pg (28.0-34.0); Mean Corpuscular Volume 84.8 fL (81-99); Mean Platelet Volume 10.5 fL (7.4-10.4); Monocytes # 0.7 10^3/uL (0.2-0.9); Neutrophils # 6.11 10^3/uL (1.8-7.7); Neutrophils % 68.3 %; Nucleated Red Blood Cells % 0 %; Platelet Count 354 10^3/cmm (130-400); Red Blood Count 4.14 10^6/uL (4.1-5.3); Red Cell Distribution Width 16.4 % (12.1-15.1); White Blood Count 8.9 10^3/uL (4.0-10.0)
[2020-02-15 08:39] LABS: Albumin Level 2.9 g/dL (3.5-5.2); Alkaline Phosphatase 350 IU/L (35-105); Blood Urea Nitrogen 18 mg/dL (8-23); Calcium 8.4 mg/dL (8.5-10.5); Carbon Dioxide 24 mmol/L (22-29); Chloride 100 mmol/L (98-107); Globulin 3.5 g/dL (1.3-4.6); Glucose 132 mg/dL (65-115); Osmolality Calculated 290 mOsm/kg (285-295); Sodium 138 mmol/L (136-145); Total Protein 6.4 g/dL (6.6-8.7)
[2020-02-15 08:40] LABS: Alanine Aminotransferase 128 U/L (0-33); Anion Gap 17.6 (5-19); Aspartate Amino Transferase 111 U/L (0-32); Potassium 3.6 mmol/L (3.5-5.1)
[2020-02-15 08:47] LABS: Creatine Phosphokinase 114 U/L (26-192)
[2020-02-15] MEDS: citalopram 20 mg Tablet 10 MG PO (09:15)
[2020-02-15] MEDS: FUROsemide 20 mg Tablet PO (09:15)
[2020-02-15] MEDS: ascorbic acid 500 mg Tablet PO ×2 (09:16→18:09)
[2020-02-15] MEDS: levothyroxine 150 mcg Tablet 75 MCG PO (09:16)
[2020-02-15] MEDS: aspirin 81 mg EC Tablet PO (09:16)
[2020-02-15] MEDS: amiodarone 200 mg Tablet 400 MG PO (09:16)
[2020-02-15] MEDS: carvedilol 3.125 mg Tablet PO ×2 (09:16→18:09)
[2020-02-15] MEDS: clopidogrel 75 mg Tablet PO (09:16)
[2020-02-15] MEDS: famotidine 20 mg Tablet PO ×2 (09:16→18:09)
[2020-02-15] MEDS: diclofenac 1% Topical Gel 100 gm 1 APPLIC TOPICAL ×4 (09:17→21:33)
[2020-02-15 11:10] LABS: Glucose Point of Care 234 mg/dL (70-110)
--- NOTE | 2020-02-15 12:14 | PM.PN ---
Subjective Subjective: Interval history: Remains on RA, afebrile, improved LFTs, stable Hg and renal function. CPK normalized. Resting quietly in bed, daughter at bedside, seems more alert, cooperative, off isolation precautions as COVID negative. Daughter is pleased with progress so far. Patient did well with therapy evaluations. Medications: Reviewed: Yes Medication Review Details: Active Medications Generic Name Dose Route Start Last Admin Trade Name Freq PRN Reason Stop Dose Admin Acetaminophen 650 mg 02/09/20 16:19 02/12/20 08:49 Acetaminophen 32 5 Mg Tablet PO 650 mg Q6H PRN Administration Mild/Mod Pain Or Temp >/= 101 Hydrocodone Bitart /Acetaminophen 1 tab 02/11/20 08:22 02/14/20 19:13 Hydrocodone-Acet aminophen 5-325 Mg Tablet PO 1 tab Q8H PRN Administration MODERATE TO SEVER E PAIN Amiodarone HCl 400 mg 02/10/20 09:00 02/15/20 09:16 Amiodarone 200 M g Tablet PO 400 mg DAILY NORA Administration Artificial Tears 1 drop 02/11/20 13:13 Artificial Tears Op Soln 15 Ml Btl EYE-BOTH Q4H PRN DRY EYE(S) Ascorbic Acid 500 mg 02/10/20 09:00 02/15/20 09:16 Ascorbic Acid 50 0 Mg Tablet PO 500 mg BID NORA Administration Aspirin 81 mg 02/10/20 09:00 02/15/20 09:16 Aspirin 81 Mg Ec Tablet PO 81 mg DAILY NORA Administration Bisacodyl 10 mg 02/09/20 16:19 Bisacodyl 5 Mg T ablet PO DAILY PRN CONSTIPATION Carvedilol 3.125 mg 02/09/20 21:07 02/15/20 09:16 Carvedilol 3.125 Mg Tablet PO 3.125 mg BID NORA Administration Citalopram Hydrobr omide 10 mg 02/10/20 09:00 02/15/20 09:15 Citalopram 20 Mg Tablet PO 10 mg DAILY NORA Administration Clopidogrel Bisulf ate 75 mg 02/10/20 09:00 02/15/20 09:16 Clopidogrel 75 M g Tablet PO 75 mg DAILY NORA Administration Dextrose 25 ml 02/09/20 21:07 Dextrose 50% Syr pretty 50 Ml IVP ONCE PRN hypoglycemia prot ocol Protocol Dextrose 50 ml 02/09/20 21:07 Dextrose 50% Syr pretty 50 Ml IVP PRN PRN hypoglycemia prot ocol Protocol Diclofenac Sodium 1 applic 02/09/20 21:07 02/15/20 11:59 Diclofenac 1% To pical Gel 100 Gm TOPICAL 1 applic QID NORA Administration Famotidine 20 mg 02/09/20 21:07 02/15/20 09:16 Famotidine 20 Mg Tablet PO 20 mg BID NORA Administration Furosemide 20 mg 02/10/20 09:00 02/15/20 09:15 Furosemide 20 Mg Tablet PO 20 mg DAILY NORA Administration Glucagon 1 mg 02/09/20 21:07 Glucagon 1 Mg/Ml Inj 1 Ml IM ONCE PRN Adult Acute Hypog lycemia Prot. Protocol Guaifenesin/Dextro methorphan 10 ml 02/12/20 11:55 Guaifenesin-Dext romethorphan Udc 1 0 Ml PO Q4H PRN COUGH Heparin Sodium (Be ef Lung) 5,000 unit 02/14/20 17:00 02/15/20 04:21 Heparin 5,000 Un it/Ml Inj 1 Ml SUBCUT 5,000 unit Q12H NORA Administration Ceftriaxone Sodium 1,000 mg/ 50 mls @ 100 mls/ hr 02/10/20 14:30 02/14/20 14:38 Sodium Chloride IV 100 mls/hr Q24H NORA Administration Protocol Dextrose 500 mls @ 100 mls /hr 02/09/20 21:07 D5w IV ONCE PRN Adult Acute Hypog lycemia Prot Protocol Azithromycin 500 m g/ Sodium 250 mls @ 250 mls /hr 02/12/20 21:00 02/14/20 21:28 Chloride IV 250 mls/hr Q24H NORA Administration Protocol Insulin Aspart 0 unit 02/09/20 21:07 02/15/20 11:58 Insulin Aspart 1 00 Unit/1 Ml SUBCUT 6 unit WM&BEDTIME NORA Administration Protocol Lanolin 1 applic 02/10/20 12:26 Lanolin Oint 7 G m TOPICAL PRN PRN DRYNESS Levothyroxine Sodi um 75 mcg 02/10/20 09:00 02/15/20 09:16 Levothyroxine 15 0 Mcg Tablet PO 75 mcg DAILY NORA Administration Lorazepam 0.5 mg 02/12/20 09:21 02/15/20 00:35 Lorazepam 0.5 Mg Tablet PO 0.5 mg Q4H PRN Administration ANXIETY Naloxone HCl 0.1 mg 02/09/20 16:19 Naloxone 0.4 Mg/ Ml Sdv IVP Q2M PRN OPIATERV Nitroglycerin 0.4 mg 02/09/20 21:07 Nitroglycerin 0. 4 Mg Sublingual Ta blet SUBLINGUAL Q5M PRN Chest Pain Ondansetron HCl 4 mg 02/09/20 21:07 Ondansetron 2 Mg /Ml Sdv 2 Ml IVP Q6H PRN NAUSEA AND VOMITI NG Tramadol HCl 50 mg 02/09/20 21:07 02/15/20 00:35 Tramadol 50 Mg T ablet PO 50 mg Q8H PRN Administration pain metformin Allergy (Intermediate, Verified 01/10/20 11:51) diarrhea Vitals/I&O/Wt Last Vital Signs Temp 98.0 F 02/15/20 11:35 Pulse 64 02/15/20 11:35 Resp 18 02/15/20 11:35 BP 147/79 02/15/20 11:35 Pulse Ox 95 02/15/20 11:35 02/14/20 02/15/20 02/15/20 22:59 06:59 14:59 Intake Total 480 / 1960 240 / 240 Output Total 450 / 450 400 / 400 Balance 30 / 1510 -160 / -160 Physical Exam Const: COMMON NORMALS: no acute distress and alert GENERAL APPEARANCE: cooperative and comfortable NUTRITIONAL APPEARANCE: obese morbidly obese ORIENTATION/CONSCIOUSNESS: Yes awake and Yes confused (easily redirected) OTHER: -resting quietly in bed HENMT: COMMON NORMALS: normocephalic, atraumatic and moist oral mucous membranes HEAD & SCALP: normocephalic and atraumatic GENERAL EAR: hearing grossly impaired Eye: COMMON NORMALS: Equal, round and reactive pupils present, EOMs intact bilaterally and conjunctivae normal CONJUNCTIVA: Yes conjunctivae normal PUPIL: Yes Equal, round and reactive pupils present Neck/C-Spine: COMMON NORMALS: full ROM GENERAL: Yes normal visual inspection and Yes trachea midline Resp: COMMON NORMALS: normal respiratory effort, No retractions, No use of accessory muscles and clear to auscultation bilaterally EFFORT & INSPECTION: Yes able to speak in complete sentences, Yes symmetric chest movement and No tachypneic AUSCULTATION: clear to auscultation bilaterally OTHER: -on RA Cardio: COMMON NORMALS: regular rate, regular rhythm, S1 normal heart sound present, S2 normal heart sound present and No murmurs present (Cardio) RATE: regular rate RHYTHM: regular rhythm HEART SOUNDS: S1 normal heart sound present and S2 normal heart sound present GI: COMMON NORMALS: Normal to inspection, nondistended, normoactive bowel sounds present, Soft to palpation and non-tender INSPECTION: Yes central obesity PALPATION: Yes Soft to palpation Extremity: COMMON NORMALS: normal to inspection, full ROM and no clubbing, cyanosis or edema; negative for no pedal edema Neuro: COMMON NORMALS: moves all extremities, no focal motor deficits and no sensory deficits noted SENSORIUM/ORIENTATION: Yes alert and Yes Orientation impaired OTHER: -quite weak generally Psych: COMMON NORMALS: cooperative, normal affect and speech normal ATTITUDE: Yes calm SPEECH: Yes normal speech THOUGHT PROCESS: confused INSIGHT: Limited insight present (Psych) Skin: COMMON NORMALS: no rashes or lesions noted, no jaundice, no petechiae and no mottling GENERAL SKIN EXAM: no rashes or lesions noted Data : 02/15/20 06:37 02/15/20 07:49 Micro: Microbiology 02/13/20 08:00 Urine Culture - Final Urine,Voided 02/09/20 14:30 Blood Culture - Final Blood NO GROWTH AFTER 5 DAYS 02/09/20 14:15 Blood Culture - Final Blood NO GROWTH AFTER 5 DAYS A&P Assessment and plan (1) Pneumonia: -Noted to have bilateral patchy opacities throughout both lungs on chest x-ray; repeat imaging today -Clinical suspicion for COVID-19, PCR negative, d/c isolation precautions -Continue dual antibiotic regimen with azithromycin and ceftriaxone -Continue to monitor respiratory status -Blood cultures negative -Resolved leukocytosis, afebrile, weaned to room air -Continue to monitor vital signs -Continue steroids Status: Acute Qualifiers: Laterality: bilateral Lung location: unspecified part of lung Pneumonia type: due to unspecified organism Qualified Code(s): J18.9 - Pneumonia, unspecified organism (2) Cystitis: -UA indicative of infection -urine cx: prelim negative -already on abx Status: Acute (3) Acute encephalopathy: -likely secondary to UTI, pneumonia Status: Acute (4) Transaminitis: -statin on hold -improving, continue to trend LFTs -hold amiodarone Status: Acute (5) Abnormal CPK: -CPK normalized (574->114) -resume statin once LFTs wnl -off IVF; encourage oral hydration Status: Resolved (6) Heart failure: -Appears clinically compensated, continue oral lasix -Echo (03/2019): EF=30-35%, global LV hypokinesis, G2DD, mild pulmonary HTN, mild-moderate MR, trace-mild TR -has AICD in place Status: Chronic Qualifiers: Heart failure chronicity: chronic Heart failure type: combined systolic and diastolic Qualified Code(s): I50.42 - Chronic combined systolic (congestive) and diastolic (congestive) heart failure (7) Dementia: -re-orient as needed; mental status waxes and wanes -fall precautions Status: Chronic Qualifiers: Dementia behavioral disturbance: without behavioral disturbance Dementia type: unspecified type Qualified Code(s): F03.90 - Unspecified dementia without behavioral disturbance (8) Benign essential HTN: -VSS; continue to monitor -continue oral antihypertensives Status: Chronic (9) Hypothyroidism: -continue levothyroxine Status: Chronic Qualifiers: Hypothyroidism type: unspecified Qualified Code(s): E03.9 - Hypothyroidism, unspecified Additional A&P Information -consistent carb diet as tolerated -quite weak generally; PT/OT evaluations appreciated -GI ppx with famotidine -DVT ppx with heparin -Dispo: home, has in-home services, family can provide full-time supervision. Request HH services per PT/OT recommendations -Code status: FULL code -anticipate d/c tomorrow if continued stability/improvement Attestations Medical Necessity Statement*: Patient requires hospitalization for continued antibiotic treatment pending return of mental status to baseline. Time Spent in Patient Care: 16 - 35 minutes (>than 50% of time spent in counselling and/or direct pt care on unit). Coding Level of Care Code Acute Oral Hygienist for [facility] 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 Diagnoses Pneumonia J18.9 Laterality: bilateral Lung location: unspecified part of lung Pneumonia type: due to unspecified organism Cystitis N30.90 Acute encephalopathy G93.40 Transaminitis R74.01 Abnormal CPK R74.8 Heart failure I50.42 Heart failure chronicity: chronic Heart failure type: combined systolic and diastolic Dementia F03.90 Dementia behavioral disturbance: without behavioral disturbance Dementia type: unspecified type Benign essential HTN I10 Hypothyroidism E03.9 Hypothyroidism type: unspecified
--- NOTE | 2020-02-15 12:16 | XRR_ITS ---
PROCEDURE INFORMATION: Exam: XR Chest, 1 View Exam date and time: 02/15/2020 12:50 PM Age: 74 years old Clinical indication: Condition or disease; Lung condition and disease; Pneumonia; Additional info: Progression of pneumonia TECHNIQUE: Imaging protocol: XR of the chest Views: 1 view. COMPARISON: CR XR chest 1V portable [id number] 02/09/2020 9:20 PM FINDINGS: Tubes, catheters and devices: AICD. Lungs: Emphysematous change, interstitial prominence, and worsening basilar airspace disease. Pleural space: Small bilateral pleural effusions. Heart/Mediastinum: No cardiomegaly. Bones/joints: Degenerative change. XR/XR chest 1V portable [id number] IMPRESSION: 1. Emphysematous change, interstitial prominence, and worsening basilar airspace disease. 2. Small bilateral pleural effusions.
[2020-02-15] MEDS: cefTRIAXone 1,000 MG in sodium chloride 0.9% (plus) 50 ML 100 MG IV (13:48)
[2020-02-15 17:24] LABS: Glucose Point of Care 282 mg/dL (70-110)
[2020-02-15] MEDS: azithromycin 500 MG in sodium chloride 0.9% 250 ML 250 MG IV (21:13)
[2020-02-15] MEDS: HYDROcodone-acetaminophen 5-325 mg Tablet 1 TAB PO (21:34)
[2020-02-15 21:42] LABS: Glucose Point of Care 314 mg/dL (70-110)
[2020-02-15 23:46] LABS: Glucose Point of Care 113 mg/dL (70-110)
[2020-02-16] VITALS: BP 108/71; PULSE 62; RESP 20; TEMP 36.5; O2SAT 95
[2020-02-16 04:00] VITALS: BP 128/72; PULSE 60; RESP 18; TEMP 36.6; O2SAT 95
[2020-02-16] MEDS: heparin 5,000 unit/mL INJ 1 mL 5000 UNIT SUBCUT (04:26)
--- NOTE | 2020-02-16 05:47 | PC.NURSE ---
SHIFT SUMMARY Rested after received dose of po Ativan last evening. Daughter had stated she was restless and not settling down to sleep. Had Hydrocodone X1 for c/o right hip pain as well. Is very pleasant but some occ confusion. Wanted to refuse her VS check at midnight but when told was important for Dr to know she was cooperative and consented. Has occ prod cough. Denies SOB except for my usual Is hoping to go home today
[2020-02-16 06:16] LABS: Glucose Point of Care 160 mg/dL (70-110)
[2020-02-16 06:22] LABS: Alanine Aminotransferase 108 U/L (0-33); Albumin Level 2.6 g/dL (3.5-5.2); Alkaline Phosphatase 308 IU/L (35-105); Anion Gap 12.4 (5-19); Aspartate Amino Transferase 74 U/L (0-32); Blood Urea Nitrogen 15 mg/dL (8-23); Calcium 8.7 mg/dL (8.5-10.5); Carbon Dioxide 27 mmol/L (22-29); Chloride 100 mmol/L (98-107); Globulin 3.7 g/dL (1.3-4.6); Glucose 153 mg/dL (65-115); Osmolality Calculated 286 mOsm/kg (285-295); Potassium 3.4 mmol/L (3.5-5.1); Sodium 136 mmol/L (136-145); Total Bilirubin 0.9 mg/dL (0.15-1.2); Total Protein 6.3 g/dL (6.6-8.7)
--- NOTE | 2020-02-16 06:38 | PC.NURSE ---
CHAIR Up to chair this morning and requested cup of coffee. Daughter remains at bedside and assists pt
--- NOTE | 2020-02-16 07:27 | PC.NURSE ---
Assisted up to bedside commode, X1 minimum assistance, voided, assisted back to chair, daughter in room, denies pain this morning states, I am ready to go home.
[2020-02-16 07:49] VITALS: BP 139/80; PULSE 60; RESP 16; TEMP 36.6; O2SAT 94
[2020-02-16 08:00] VITALS: BP 139/80; PULSE 60; RESP 16; TEMP 36.6
[2020-02-16] MEDS: citalopram 20 mg Tablet 10 MG PO (08:35)
[2020-02-16] MEDS: levothyroxine 150 mcg Tablet 75 MCG PO (08:36)
[2020-02-16] MEDS: clopidogrel 75 mg Tablet PO (08:36)
[2020-02-16] MEDS: famotidine 20 mg Tablet PO (08:36)
[2020-02-16] MEDS: ascorbic acid 500 mg Tablet PO (08:36)
[2020-02-16] MEDS: carvedilol 3.125 mg Tablet PO (08:36)
[2020-02-16] MEDS: aspirin 81 mg EC Tablet PO (08:36)
[2020-02-16] MEDS: FUROsemide 20 mg Tablet PO (08:36)
[2020-02-16] MEDS: diclofenac 1% Topical Gel 100 gm 1 APPLIC TOPICAL (08:37)
--- NOTE | 2020-02-16 09:21 | P.DS_ITS ---
Discharge Providers Date of Admission: 02/09/20 16:25 Date of Discharge: February 16, 2020 Attending Provider at Admission: Twan Rios MD Attending Provider at Discharge: Rebeca Blancas MD Consults: None Primary Care Provider: Aziza gNuyen MD Diagnoses at Discharge Discharge Diagnosis (1) Pneumonia: Status: Acute Permanent problem details: -Noted to have bilateral patchy opacities throughout both lungs on chest x-ray -Clinical suspicion for COVID-19, PCR negative, off isolation precautions -Continue dual antibiotic regimen with azithromycin and ceftriaxone -Continue to monitor respiratory status -Blood cultures negative -Resolved leukocytosis, afebrile, weaned to room air Qualifiers: Pneumonia type: due to unspecified organism Laterality: bilateral Lung location: unspecified part of lung Qualified Code(s): J18.9 - Pneumonia, unspecified organism (2) Cystitis: Status: Acute Permanent problem details: -UA indicative of infection -urine cx: prelim negative -already on abx (3) Acute encephalopathy: Status: Acute Permanent problem details: -mental status at baseline (4) Transaminitis: Status: Acute Permanent problem details: -statin on hold -improving, continue to trend LFTs -hold amiodarone (5) Abnormal CPK: Status: Resolved (6) Heart failure: Status: Chronic Permanent problem details: -Appears clinically compensated, continue oral lasix -Echo (03/2019): EF=30-35%, global LV hypokinesis, G2DD, mild pulmonary HTN, mild-moderate MR, trace-mild TR -has AICD in place -follows up with Dr. Scales Qualifiers: Heart failure type: combined systolic and diastolic Heart failure hiv prevention specialist nicity: chronic Qualified Code(s): I50.42 - Chronic combined systolic (congestive) and diastolic (congestive) heart failure (7) Dementia: Status: Chronic Permanent problem details: -re-orient as needed; mental status waxes and wanes -fall precautions Qualifiers: Dementia behavioral disturbance: without behavioral disturbance Dementia type: unspecified type Qualified Code(s): F03.90 - Unspecified dementia without behavioral disturbance (8) Benign essential HTN: Status: Chronic Permanent problem details: -VSS; continue to monitor -continue oral antihypertensives (9) Hypothyroidism: Status: Chronic Permanent problem details: -continue levothyroxine Qualifiers: Hypothyroidism type: unspecified Qualified Code(s): E03.9 - Hypothyroidism, unspecified Reason for Visit Reason for Visit: AMS, CONFUSION, WEAKNESS Hospital Course Hospital Course Patient was admitted to the medical surgical floor and started on antibiotics secondary to evidence of UTI and pneumonia and associated encephalopathy. There was initially clinical suspicion for CHF exacerbation so she was gently diure sed. With continued encephalopathy and evidence of bilateral patchy opacities, she was tested for COVID-19, found to be negative. With continued antibiotic treatment, her mental status has returned to baseline; she does tend to wax and wane at baseline due to underlying dementia. She was noted to have abnormal CPK which normalized following some hydration. She was also noted to have transaminitis so statin and amiodarone have been held, noted improvement in liver function. She has been working with physical therapy as she has been quite deconditioned physically and quite weak. She is now able to ambulate for short distances with standby assistance and use of a walker. Daughter has been present at bedside during patient's entire hospital stay due to her underlying dementia. Patient is to return home with family support and continued in-home services. Home health services have been requested for continued therapy at home. Patient is to follow-up with her primary care physician and to continue to follow-up with Dr. Scales. She is to seek medical attention immediately should her symptoms worsen. Physical Exam Const: COMMON NORMALS: no acute distress and alert GENERAL APPEARANCE: cooperative and comfortable NUTRITIONAL APPEARANCE: obese morbidly obese ORIENTATION/CONSCIOUSNESS: Yes awake and Yes confused (easily redirected) O THER: -resting quietly in bed HENMT: COMMON NORMALS: normocephalic, atraumatic and moist oral mucous membranes HEAD & SCALP: normocephalic and atraumatic GENERAL EAR: hearing grossly impaired Eye: COMMON NORMALS: Equal, round and reactive pupils present, EOMs intact bilaterally and conjunctivae normal CONJUNCTIVA: Yes conjunctivae normal PUPIL: Yes Equal, round and reactive pupils present Neck/C-Spine: COMMON NORMALS: full ROM GENERAL: Yes normal visual inspection and Yes trachea midline Resp: COMMON NORMALS: normal respiratory effort, No retractions, No use of accessory muscles and clear to auscultation bilaterally EFFORT & INSPECTION: Yes able to speak in complete sentences, Yes symmetric chest movement and No tachypneic AUSCULTATION: clear to auscultation bilaterally OTHER: -on RA Cardio: COMMON NORMALS: regular rate, regular rhythm, S1 normal heart sound present, S2 normal heart sound present and No murmurs present (Cardio) RATE: regular rate RHYTHM: regular rhythm HEART SOUNDS: S1 normal heart sound present and S2 normal heart sound present GI: COMMON NORMALS: Normal to inspection, nondistended, normoactive bowel sounds present, Soft to palpation and non-tender INSPECTION: Yes central obesity PALPATION: Yes Soft to palpation Extremity: COMMON NORMALS: normal to inspection, full ROM and no clubbing, cyanosis or edema; negative for no pedal edema Neuro: COMMON NORMALS: moves all extremities, no focal motor deficits and no sensory deficits noted SENSORIUM/ORIENTATION: Yes alert and Yes Orientation impaired OTHER: -quite weak generally but ambulating with walker and standby assistance -mentation tends to wax and wane Psych: COMMON NORMALS: cooperative, normal affect and speech normal ATTITUDE: Yes calm SPEECH: Yes normal speech THOUGHT PROCESS: confused INSIGHT: Limited insight present (Psych) Skin: COMMON NORMALS: no rashes or lesions noted, no jaundice, no petechiae and no mottling GENERAL SKIN EXAM: no rashes or lesions noted Discharge Data Data Completed and Pending: Completed Studies During Hospitalization Category Date Time Status CT head wo con* [id number] Stat Cat Scan 02/09/20 12:56 Completed XR chest 1V aleja ble [id number] Routine Exams 02/15/20 12:16 Completed XR chest 1V aleja ble [id number] Stat Exams 02/09/20 21:07 Completed Labs from last 24 hours 02/16/20 02/16/20 02/15/20 05:40 05:31 23:40 Sodium 136 Potassium 3.4 L Chloride 100 Carbon Dioxide 27 Anion Gap 12.4 BUN 15 Creatinine 1.1 H GFR Calculation Not Reportable Glucose 153 H POC Glucose 160 H 113 H Calculated Osmolal ity 286 Calcium 8.7 Total Bilirubin 0.9 AST 74 H ALT 108 H Alkaline Phosphata se 308 H Total Protein 6.3 L Albumin 2.6 L Globulin 3.7 02/15/20 02/15/20 02/15/20 19:45 17:19 10:46 Sodium Potassium Chloride Carbon Dioxide Anion Gap BUN Creatinine GFR Calculation Glucose POC Glucose 314 H 282 H 234 H Calculated Osmolal ity Calcium Total Bilirubin AST ALT Alkaline Phosphata se Total Protein Albumin Globulin Vitals: Last Vital Signs Temp 97.8 F 02/16/20 08:00 Pulse 60 02/16/20 08:00 Resp 16 02/16/20 08:00 BP 139/80 02/16/20 08:00 Pulse Ox 94 02/16/20 07:49 Discharge Plan Discharge Patient Disposition: Home Health Service Condition: Stable Prescriptions: New hydrocodone-acetaminophen 5-325 mg Tablet 1 tab PO Q8H PRN (Reason: Severe Pain (Scale Score 7-10)) Qty: 30 RF: 0 azithromycin 500 mg tablet 500 mg PO DAILY 3 Days Qty: 3 RF: 0 Ativan 0.5 mg tablet 0.5 mg PO TID PRN (Reason: Anxiety) Qty: 30 RF: 0 Continued aspirin [Adult Low Dose Aspirin] 81 mg tablet,delayed release (DR/EC) 81 mg PO DAILY RF: 0 PreserVision AREDS [id number] capsule 1 cap PO BID RF: 0 diclofenac sodium [Voltaren] 1 % gel 2 gm TOPICAL QID Qty: 100 RF: 2 nitroglycerin [Nitrostat] 0.4 mg tablet, sublingual 0.4 mg SUBLINGUAL Q5M PRN (Reason: Chest Pain) Qty: 25 RF: 2 rosuvastatin 40 mg tablet See Rx Instructions .ROUTE .COMPLEX Qty: 30 RF: 4 methenamine hippurate 1 gram tablet 1 gm PO BID Qty: 30 RF: 3 insulin aspart U-100 [Novolog U-100 Insulin aspart] 100 unit/mL solution See Rx Instructions SUBCUT .COMPLEX Qty: 30 RF: 0 levothyroxine 75 mcg tablet 75 mcg PO DAILY Qty: 30 RF: 0 Tresiba FlexTouch U-100 100 unit/mL (3 mL) insulin pen 20 unit SUBCUT DAILY Qty: 30 RF: 2 ascorbic acid (vitamin C) [Vitamin C] 1,000 mg Tablet 500 mg PO BID RF: 0 famotidine 20 mg Tablet 20 mg PO BID RF: 0 amiodarone 200 mg tablet 400 mg PO DAILY RF: 0 clopidogrel 75 mg tablet 75 mg PO DAILY RF: 0 carvedilol 3.125 mg tablet 3.125 mg PO BID RF: 0 citalopram 10 mg Tablet 10 mg PO DAILY RF: 0 tramadol 50 mg tablet 50 mg PO Q8H PRN (Reason: Moderate Pain (Scale Score 5-6)) Qty: 30 RF: 0 furosemide 20 mg tablet 20 mg PO DAILY Qty: 30 RF: 0 Discontinued omeprazole 20 mg capsule,delayed release(DR/EC) See Rx Instructions .ROUTE .COMPLEX Qty: 90 RF: 2 lorazepam [Ativan] 0.5 mg tablet 0.5 mg PO BID PRN (Reason: Anxiety) Qty: 60 RF: 1 Discharge Orders: Discharge Order (Routine); Ordered 02/16/20 Ordered By: Rebeca Blancas Referrals: Aziza Nguyen MD [Primary Care Provider] - 02/21/20 11:00 am Discharge Diet: Advance as tolerated, Cardiac and Diabetic Discharge Activity: Increase activity as tolerated, Use walker/crutches as instructed and As per PT/OT instructions Activity Restrictions/Additional Instructions: -Please continue fall precautions and working with therapy Discharge Attestations Time Spent in Discharge Care*: greater than 30 min Specific Discharge Activities: educating and/or supporting family/caregiver (daughter at bedside), discussing with family independence case manager/social workers/dc planners, documenting/other paperwork and evaluating patient/reviewing data Status at Discharge: Cognitive status at discharge: mildly impaired cognition , Behavioral status at discharge: cooperative and dependent in ADL's , Functional status at discharge: uses cane/walker Overall status at discharge: patient is progressing back to baseline Quality Metrics Clinical Quality Measures During this hospital stay, did patient experience: None Coding Level of Care Code Acute Stacker Tender for g Fwd Diagnoses Pneumonia J18.9 Pneumonia type: due to unspecified organism Laterality: bilateral Lung location: unspecified part of lung Cystitis N30.90 Acute encephalopathy G93.40 Transaminitis R74.01 Abnormal CPK R74.8 Heart failure I50.42 Heart failure type: combined systolic and diastolic Heart failure chronicity: chronic Dementia F03.90 Dementia behavioral disturbance: without behavioral disturbance Dementia type: unspecified type Benign essential HTN I10 Hypothyroidism E03.9 Hypothyroidism type: unspecified
--- NOTE | 2020-02-16 09:59 | PC.SOCIAL ---
IMM Update Pg. 2 of IMM updated and reviewed with patient and her daughter at bedside, who verbalized understanding. Copy provided.
--- NOTE | 2020-02-16 10:26 | PC.NURSE ---
ot will be working with the patient today
[2020-02-16 11:20] VITALS: BP 139/80; PULSE 60; RESP 16; TEMP 36.6
--- NOTE | 2020-02-16 11:20 | PC.NURSE ---
Discharge instructions provided, meds to beds and prescriptions provided, patient and patients daughter denies further questions or concerns.
== END 2020-02-16 11:32 | disposition home health service (06) | DRG 193 ==
LOC: ER 15:58 → MEDSURG 18:40
PROVIDERS: Internal Medicine; Admitting Provider Internal Medicine; Emergency Provider Family Medicine; PCP Family Medicine; Visit Provider Family Medicine
DX: J18.9 Pneumonia, unspecified organism (principal); I50.43 Acute on chronic combined systolic (congestive) and diastolic (congestive) heart failure; G93.40 Encephalopathy, unspecified; I13.0 Hypertensive heart and chronic kidney disease with heart failure and stage 1 through stage 4 chronic kidney disease, or unspecified chronic kidney disease; I42.9 Cardiomyopathy, unspecified; N39.0 Urinary tract infection, site not specified; N18.9 Chronic kidney disease, unspecified; E11.22 Type 2 diabetes mellitus with diabetic chronic kidney disease; Z95.810 Presence of automatic (implantable) cardiac defibrillator; F41.8 Other specified anxiety disorders; E03.9 Hypothyroidism, unspecified; Z91.81 History of falling; I25.10 Atherosclerotic heart disease of native coronary artery without angina pectoris; Z98.61 Coronary angioplasty status; G89.4 Chronic pain syndrome; E78.5 Hyperlipidemia, unspecified; K21.9 Gastro-esophageal reflux disease without esophagitis; G47.00 Insomnia, unspecified; M19.90 Unspecified osteoarthritis, unspecified site; E55.9 Vitamin D deficiency, unspecified; I48.91 Unspecified atrial fibrillation; F03.90 Unspecified dementia, unspecified severity, without behavioral disturbance, psychotic disturbance, mood disturbance, and anxiety; Z79.891 Long term (current) use of opiate analgesic; Z79.02 Long term (current) use of antithrombotics/antiplatelets; Z79.4 Long term (current) use of insulin; Z79.82 Long term (current) use of aspirin; I08.1 Rheumatic disorders of both mitral and tricuspid valves; I27.20 Pulmonary hypertension, unspecified
CPT/HCPCS: 12345; 36415; 36416; 70450; 71045; 80053; 81001; 82550; 82553; 82962; 83605; 83690; 84100; 84145; 84443; 84484; 85025; 87040; 87086; 87426; 87635; 93005; 96372; 97110; 97116; 97163; 97166; 97535; 99283; J0456; J0696; J1644; J1815; J7030; J7050

== ENCOUNTER → 2020-02-21 11:32 | Outpatient (BNVA) | payer MEDICARE, MEDICAID, SELFPAY | PROVIDERS: PCP Family Medicine; Visit Provider Family Medicine | DX: Z09 Encounter for follow-up examination after completed treatment for conditions other than malignant neoplasm (principal); N30.90 Cystitis, unspecified without hematuria; J18.9 Pneumonia, unspecified organism | CPT/HCPCS: 81000 ==

== ENCOUNTER → 2020-06-20 14:43 | Outpatient (BNVA) | payer MEDICARE, MEDICAID, SELFPAY | PROVIDERS: PCP Family Medicine; Visit Provider Nurse Practitioner Family | DX: N39.0 Urinary tract infection, site not specified (principal) | CPT/HCPCS: 81003; 87086 ==

== ENCOUNTER → 2020-08-29 14:35 | Outpatient (BNVA) | payer MEDICARE, MEDICAID, SELFPAY | PROVIDERS: PCP Family Medicine; Visit Provider Family Medicine | DX: Z76.0 Encounter for issue of repeat prescription (principal); G62.9 Polyneuropathy, unspecified; F41.9 Anxiety disorder, unspecified; F32.9 Major depressive disorder, single episode, unspecified | CPT/HCPCS: 80307 ==

== ENCOUNTER → 2020-09-06 15:57 | Outpatient (BNVA) | payer MEDICARE, MEDICAID, SELFPAY | PROVIDERS: PCP Family Medicine; Visit Provider Nurse Practitioner Family | DX: R79.89 Other specified abnormal findings of blood chemistry; E55.9 Vitamin D deficiency, unspecified; E11.9 Type 2 diabetes mellitus without complications; G62.9 Polyneuropathy, unspecified; Z79.4 Long term (current) use of insulin; M54.41 Lumbago with sciatica, right side | CPT/HCPCS: 80053; 80061; 82043; 82306; 83036; 84443; 85025 ==

== ENCOUNTER 2020-09-07 11:48 | Outpatient (CLI) | payer MEDICARE, MEDICAID, SELFPAY ==
--- NOTE | 2020-09-07 11:58 | XR_ITS ---
WS: [id number] Exam: XR lumbar spine 2-3V* [id number] Date/Time of Exam: 09/07/2020 11:58 AM Reason For Exam: M54.5 - Low back pain No acute fracture or dislocation. Degenerative disc changes at all levels. Mild spondylosis. Osteopen ia. Facet DJD at all levels. Slight scoliosis. XR/XR lumbar spine 2-3V* [id number] IMPRESSION: 1. Advanced degenerative disc changes at all levels. Facet DJD and spondylosis. 2. No fracture or malalignment
--- NOTE | 2020-09-07 11:58 | XR_ITS ---
WS: [id number] Exam: XR hip RT 2-3V wo/w pel* [id number] Date/Time of Exam: 09/07/2020 11:58 AM Reason For Exam: M25.551 - Pain in right hip No fracture or dislocation. Minimal degenerative change of the joint compartment. Subcortical cyst in the femoral head. XR/XR hip RT 2-3V wo/w pel* [id number] IMPRESSION: 1. Mild degenerative changes. No fracture or dislocation.
== END 2020-09-07 11:49 | disposition home or self-care (01) ==
PROVIDERS: PCP Family Medicine; Visit Provider Nurse Practitioner Family
DX: M54.5 Low back pain (principal); M25.551 Pain in right hip; W19.XXXA Unspecified fall, initial encounter; M47.816 Spondylosis without myelopathy or radiculopathy, lumbar region
CPT/HCPCS: 72100; 73502

== ENCOUNTER → 2020-09-13 09:43 | Outpatient (BNVA) | payer MEDICARE, MEDICAID, SELFPAY | PROVIDERS: PCP Family Medicine; Visit Provider Nurse Practitioner Family | DX: R79.89 Other specified abnormal findings of blood chemistry (principal); N18.9 Chronic kidney disease, unspecified; E11.65 Type 2 diabetes mellitus with hyperglycemia; Z79.4 Long term (current) use of insulin | CPT/HCPCS: 80053; 82977; 83915; 86705; 86706; 86709; 86803; 87340 ==

== ENCOUNTER 2020-10-02 12:37 | Outpatient (CLI) | payer MEDICARE, MEDICAID, SELFPAY ==
--- NOTE | 2020-10-02 12:54 | CT_ITS ---
WS: [id number] CT ABDOMEN AND PELVIS NONCONTRAST HISTORY: R94.5 - Abnormal results of liver function studies TECHNIQUE: Imaging performed through the abdomen and pelvis. Coronal and sagittal reformats are submi tted. All CT scans at [facility] use at least one of these dose optimization techniques: automated exposure control; mA and/or kV adjustment per patient size (includes targeted exams where d ose is matched to clinical indication); or iterative reconstruction. DLP: 793.76 mGycm COMPARISON: 03/05/2016 Lower thorax: Lung bases are clear. Dual lead cardiac defibrillator/pacer noted over the lower thorax . Heart is moderately enlarged. Small hiatal hernia. Liver: Liver is normal size. There is marked diffuse increased density throughout the liver which is new. Hepatic veins are markedly dilated. Scattered granulomata. Mild central bile duct dilatation. Gallbladder: Contracted with stones. Pancreas: Normal size and attenuation. Normal pancreatic duct. No pancreatitis or mass. Spleen: Normal size spleen with numerous granulomata. Adrenal glands: Normal. No mass. Right kidney: Normal size kidney with no mass or hydronephrosis. Left kidney: Normal size kidney with no mass or hydronephrosis. Aorta: Mild atherosclerosis abdominal aorta with no aneurysm. No free fluid, intraperitoneal air or significant lymphadenopathy. GI tract: Diffuse fecal retention and constipation. Long segment area of wall thickening within the d escending and sigmoid colon. Several scattered diverticula without evidence for acute diverticulitis. No obstructive pattern. The appendix is not is identified. Abdominal wall: Negative. No hernia. Pelvis: Normal. Osseous structures: Severe degenerative disc disease and spondylitic changes throughout the lumbar sp ine. Osteopenia. There is also mild narrowing of the hip joints. No destructive lesions within the bam orion. Healed deformed rib fractures in the posterior inferior RIGHT thorax. CT/CT abdomen pelvis wo con [id number] IMPRESSION: 1. Increased density throughout the liver is a new finding since 03/05/2016. Co nsider possible etiologies such as hemosiderosis, Sujit's disease, Glycogen s torage disease or amiodarone therapy. 2. Mild central bile duct dilatation. Recommend follow-up RIGHT upper quadrant ultrasound to further evaluate the common bile duct. 3. Contracted gallbladder with cholelithiasis. 4. Constipation with diffuse long segment wall thickening involving the descen ding and sigmoid colon. No ascites or adenopathy.
[2020-10-02] MEDS: iohexol 300 mg/mL 50 mL Btl PO (12:55)
== END 2020-10-02 12:38 | disposition home or self-care (01) ==
PROVIDERS: PCP Family Medicine; Visit Provider Nurse Practitioner Family
DX: R94.5 Abnormal results of liver function studies (principal); K59.00 Constipation, unspecified; K80.20 Calculus of gallbladder without cholecystitis without obstruction
CPT/HCPCS: 74176; Q9967

== ENCOUNTER 2020-10-24 09:11 | Inpatient (IN) | payer MEDICARE, MEDICAID, SELFPAY ==
[2020-10-24] VITALS (77 sets, daily range): BP systolic 102–141; BP diastolic 48–75; PULSE 68–80; RESP 20–52; TEMP 35.8–36.8; O2SAT 90–95; BMI 20.9; BMI 22.8
--- NOTE | 2020-10-24 09:24 | CT_ITS ---
WS: [id number] CT ABDOMEN AND PELVIS WITH CONTRAST HISTORY: Abdominal pain. TECHNIQUE: Imaging performed of the abdomen and pelvis with IV contrast. Single phase imaging of the abdomen. Coronal and sagittal reformats are submitted. All CT scans at [facility] use at [facility] one of these dose optimization techniques: automated exposure control; mA and/or kV adjustment per patient size (includes targeted exams where dose is matched to clinical indication); or iterative re construction. IV CONTRAST: Visipaque 320; 95 mL IV. Oral contrast: No DLP: 1143.15 mGy.cm COMPARISON: 10/02/2020 Lower thorax: Seen best on the continuity clerk image are interstitial infiltrates in the mid and lower lungs. 2 No hiatal hernia. Liver/biliary system: Mild low attenuation along the falciform ligament. No mass or bile duct dilatat ion. Gallbladder: Normally distended gallbladder. Increased density within the gallbladder. Pancreas: Mildly edematous pancreas. No duct dilatation or mass. Spleen: Normal size spleen. No mass or infarct. Adrenal glands: Normal. Right kidney: Cortical thinning with no obstruction. Left kidney: Cortical thinning with no obstruction. Aorta: Mild atherosclerosis with no aneurysm. Lymphadenopathy: None. Free fluid: No free fluid or ascites. There is mild mesenteric stranding surrounding the pancreas and extending along the paracolic gutters. There is also mild pericolonic stranding. GI tract: No GI tract obstruction. There is mucosal thickening surrounding the transverse colon and m ild edema. No obstruction. Appendix is not identified. Low-attenuation nodule near the cecum is proba sandra a lipoma. Abdominal wall: Unremarkable abdominal wall. No hernia. Pelvis: No free fluid or adenopathy within the pelvis. Bones: Thoracolumbar curvature and degenerative disc disease in the lumbar spine. CT/CT abdomen pelvis w con* [id number] IMPRESSION: 1. Mesenteric edema surrounding the transverse colon and the pancreas. Differe ntial includes acute pancreatitis and focal colitis. 2. Mild cortical thinning of each kidney with no obstruction. 3. Bilateral areas of pneumonitis in the mid and lower lung summers. New since 10/02/2020.
--- NOTE | 2020-10-24 09:24 | XR_ITS ---
WS: [id number] XR chest 1V portable [id number] REASON FOR EXAM: dyspnea/cough FINDINGS: Compared to previous examination of 02/15/2020, diffuse patchy infiltrative changes seen throughout the right lung. Likely there are similar but less severe changes in the left mid and lower lung. No other significant interval change. XR/XR chest 1V portable [id number] IMPRESSION: Bilateral infiltrative changes, more severe in the right, uncertain chronicity. Compatible with acute or subacute pneumonitis.
--- NOTE | 2020-10-24 09:24 | CT_ITS ---
WS: [id number] CT HEAD NONCONTRAST HISTORY: altered mental status TECHNIQUE: Contiguous axial imaging performed through the brain in 2.5 mm imaging. Bone and soft tiss ue windows. Sagittal and coronal reformats reviewed. All CT scans at [facility] use at least one of these dose optimization techniques: automated exposure control; mA and/or kV adjustment per pa tient size (includes targeted exams where dose is matched to clinical indication); or iterative recon struction. DLP: 703.16 mGy.cm COMPARISON: 02/09/2020 No acute intracranial hemorrhage, midline shift or mass effect. Mild atrophy and mild chronic microvascular ischemic disease. Ventricles: Normal size with no hydrocephalus. No inferior displacement of cerebellar tonsils. Paranasal sinuses: Small amount of mucoperiosteal thickening in the floor LEFT maxillary sinus. No ai r-fluid levels. Mastoid air cells: Well pneumatized. Calvarium and scalp: Hyperostosis frontalis interna. No fracture. CT/CT head wo con* [id number] IMPRESSION: 1. No acute intracranial hemorrhage or edema. 2. Mild atrophy and mild chronic microvascular ischemic disease.
[2020-10-24 09:46] LABS: Glucose Point of Care > 600 mg/dL (70-110)
[2020-10-24 09:55] LABS: Basophils # 0.1 10^3/uL (0.0-0.1); Basophils % 0.2 %; Hematocrit 38.9 % (37.0-47.0); Hemoglobin 13.3 g/dL (11.5-15.3); Lymphocytes # 0.6 10^3/uL (0.8-4.8); Mean Corpuscular HGB Conc 34.2 g/dL (30.0-36.0); Mean Corpuscular Hemoglobin 29.9 pg (28.0-34.0); Mean Corpuscular Volume 87.4 fl (81-99); Mean Platelet Volume 11.2 fL (7.4-10.4); Monocytes % 4.7 %; Neutrophils # 18.54 10^3/uL (1.8-7.7); Nucleated Red Blood Cells % 0 %; Platelet Count 280 10^3/cmm (130-400); Red Blood Count 4.45 10^6/uL (4.1-5.3); Red Cell Distribution Width 15.9 % (12.1-15.1); White Blood Count 20.4 10^3/uL (4.0-10.0)
[2020-10-24 10:00] LABS: ABG PCO2 24.8 mmHg (35-45); ABG PH Result 7.36 (7.35-7.45); Alveolar-Arterial Oxygen Gradi 7.8 mmHg (5-10); Arterial Blood Gas Hematocrit 40.7 % (37-47); Base Excess ABG -9.7 mmol/L (-2.0-2.0); Blood Gas Allen Test Pos; Blood Gas Sample Type Arterial; Ionized Calcium Level - ABG 0.9 mmol/L (1.1-1.4); Methemoglobin 0.3 % (0.4-1.5); Oxygen Saturation ABG 90.2; PO2 ABG 57.7 mmHg (80.0-100.0); Potassium Level - ABG 3.4 mmol/L (3.5-5.0); Total Hemoglobin 13.3 g/dL (12-16)
[2020-10-24 10:01] LABS: Blood Gas Sample Site Radial, left; Oxygen Device NC
--- NOTE | 2020-10-24 10:02 | W.ED.AMS ---
HPI - Altered Mental Status General: Chief Complaint: Altered Mental Status Stated Complaint: AMS/ BLOOD SUGAR 474 Time Seen by Provider: 10/24/20 09:12 History of Present Illness: HPI narrative: 75-year-old female presents emergency room via EMS altered mental status from home. Patient is a known UTI of the last day or 2 days has had increasing altered mental status. Patient reports having been diagnosed with Covid at the end of September. She is a known diabetic blood sugar reads high on the bedside Accu-Chek. She is poorly responsive will mumble a few attempted responses but they are unintelligible. She has rapid breathing as well. Suggestive of DKA. MD complaint: altered mental status, confusion and decreased responsiveness Onset (ago): day(s) Severity: severe Consistency of symptoms: Getting Worse Context: diabetes Treatments prior to arrival: oxygen Review of Systems General: Reports: ROS unobtainable due to medical condition [facility] PFSH: Medical History (Updated 10/24/20 @ 15:17 by Michael Domingo DO) A-fib Anxiety and depression ASHD (arteriosclerotic heart disease) Benign essential HTN -VSS; continue to monitor -continue oral antihypertensives Cardiomyopathy LVEF of approximately 30%, unchanged, unable to tolerate STERLING or ARB in past due to lower BP Chronic kidney disease (CKD) stage G1/A1, glomerular filtration rate (GFR) equal to or greater than 90 mL/min/1.73 square meter and albuminuria creatinine ratio less than 30 mg/g Chronic pain syndrome Constipation Cystitis Dementia -re-orient as needed; mental status waxes and wanes -fall precautions Diabetes Dyslipidemia Continue statin Essential hypertension GERD (gastroesophageal reflux disease) Heart failure -Appears clinically compensated, continue oral lasix -Echo (03/2019): EF=30-35%, global LV hypokinesis, G2DD, mild pulmonary HTN, mild-moderate MR, trace-mild TR -has AICD in place -follows up with Dr. Scales Hypotension Resolved Hypothyroidism -continue levothyroxine ICD (implantable cardioverter-defibrillator) in place Insomnia Left bundle branch block Nonischemic cardiomyopathy Stable Osteoarthritis Pacemaker Vitamin D deficiency Surgical History History of angioplasty History of appendectomy History of hysterectomy Family History Other CAD (coronary artery disease) Diabetes Social History Smoking and tobacco status: never smoked Second hand smoke exposure: Yes Alcohol intake: never Caregiver/support person: Yes Lives independently: Yes Household members: children Marital status: / service: No Current occupational status: disabled History of recent travel: No Current gender identity: Female Special phil needs: No Agree to transfusion: Yes Physical Exam Const: COMMON NORMALS: no acute distress HENMT: COMMON NORMALS: normocephalic and atraumatic HEAD & SCALP: normocephalic and atraumatic Neck/C-Spine: COMMON NORMALS: no JVD Resp: COMMON NORMALS: normal respiratory effort, No retractions, No use of accessory muscles and clear to auscultation bilaterally AUSCULTATION: clear to auscultation bilaterally Cardio: COMMON NORMALS: no JVD, regular rate, regular rhythm and No murmurs present (Cardio) RATE: regular rate RHYTHM: regular rhythm GI: COMMON NORMALS: No hepatosplenomegaly present PALPATION: Yes Tenderness to palpation present (GI) (Diffuse abdominal pain), No Guarding due to palpation present (GI) and Yes No hepatosplenomegaly present : OTHER: Extensive yeast infection spreading from the vaginal area up to the gluteal cleft. Extremity: COMMON NORMALS: normal to inspection, capillary refill normal, no clubbing, cyanosis or edema and no calf tenderness GENERAL: Yes edema Skin: NARRATIVE SKIN EXAM: Candidal skin infection extending from the genitalia into the gluteal cleft. There is some early sacral decub stage I. And mild redness on the heels, but no skin breakdown Course Vital Signs: Vital signs: Vital Signs Temperature 96.5 F L 10/24/20 14:35 Pulse Rate 69 10/24/20 14:50 Respiratory Rate 27 H 10/24/20 14:50 Blood Pressure 110/48 10/24/20 14:50 Pulse Oximetry 91 10/24/20 14:50 MDM - Altered Mental Status MDM Narrative: Medical decision making narrative: Encephalopathy. Early DKA. Lipase is also markedly elevated, CT shows pancreatitis on CT of the abdomen. Discussed with Dr. Miller initial fluids and insulin drip started. He will admit the patient to the ICU. Lab Data: Labs: Lab Results 10/23/20 10/24/20 10/24/20 Range/Units 09:45 09:44 09:45 WBC 20.4 H (4.0-10.0) 10^3/ uL RBC 4.45 (4.1-5.3) 10^6/u L Hgb 13.3 (11.5-15.3) g/dL Hct 38.9 (37.0-47.0) % MCV 87.4 (81-99) fl MCH 29.9 (28.0-34.0) pg MCHC 34.2 (30.0-36.0) g/dL RDW 15.9 H (12.1-15.1) % Plt Count 280 (130-400) 10^3/c mm MPV 11.2 H (7.4-10.4) fL Neut % (Auto) 91.0 % Lymph % (Auto) 3.0 % Kitt[place] % (Auto) 4.7 % Eos % (Auto) 0.0 % Baso % (Auto) 0.2 % Neut # (Auto) 18.54 H (1.8-7.7) 10^3/u L Lymph # (Auto) 0.6 L (0.8-4.8) 10^3/u L Kittson # (Auto) 1.0 H (0.2-0.9) 10^3/u L Eos # (Auto) 0.0 (0.0-0.8) 10^3/u L Baso # (Auto) 0.1 (0.0-0.1) 10^3/u L Nucleated RBC % (a uto) 0 % Nucleated RBCs # 0.0 /100WBC Specimen Type Sample Site ABG pH (7.35-7.45) ABG pCO2 (35-45) mmHg ABG pO2 (80.0-100.0) mmH g ABG HCO3 (22-26) mmol/L ABG O2 Saturation ABG Base Excess (-2.0-2.0) mmol/ L Luke Test A-a O2 Gradient (5-10) mmHg Hematocrit (37-47) % Hgb O2 Saturation (95-100) % Carboxyhemoglobin (0.4-20.1) %THgb Methemoglobin (0.4-1.5) % Total Hemoglobin (12-16) g/dL Ionized Calcium (1.1-1.4) mmol/L O2 Delivery Device O2 Liters/Min % Heavy [employer] ID Sodium (136-145) mmol/L Potassium (3.5-5.1) mmol/L Chloride (98-107) mmol/L Carbon Dioxide (22-29) mmol/L Anion Gap (5-19) BUN (8-23) mg/dL Creatinine (0.5-0.9) mg/dL GFR Calculation Glucose (65-115) mg/dL POC Glucose > 600 H* (70-110) mg/dL Calculated Osmolal ity (285-295) mOsm/k g Lactic Acid (0.5-2.2) mmol/L Calcium (8.5-10.5) mg/dL Total Bilirubin (0.15-1.2) mg/dL AST (0-32) U/L ALT (0-33) U/L Alkaline Phosphata se (35-105) IU/L Troponin T Baselin e (0-10) ng/L Total Protein (6.6-8.7) g/dL Albumin (3.5-5.2) g/dL Globulin (1.3-4.6) g/dL Triglycerides (0-150) mg/dL Lipase (13-60) U/L TSH (0.27-4.20) uIU/ mL Urine Color Cancelled Urine Appearance Cancelled Urine pH Cancelled Ur Specific Gravit y Cancelled Urine Protein Cancelled Urine Glucose (UA) Cancelled Urine Ketones Cancelled Urine Blood Cancelled Urine Nitrate Cancelled Urine Bilirubin Cancelled Prot Sulfosalicyli c Acd Cancelled Urine Urobilinogen Cancelled Ur Leukocyte Arianna ase Cancelled Urine RBC Cancelled Urine WBC Cancelled Ur Squamous Epith Cells Cancelled Ur Transition Epit h Cell Cancelled Ur Renal Epithelia l Cell Cancelled Calcium Oxalate Cr ystal Cancelled Uric Acid Crystals Cancelled Triple Phos Brittney ls Cancelled Other Crystals Cancelled Amorphous Sediment Cancelled Urine Bacteria Cancelled Hyaline Casts Cancelled Fine Granular Cast s Cancelled Coarse Granular Ca sts Cancelled RBC Casts Cancelled Other Casts Cancelled Urine Mucus Cancelled Urine Trichomonas Cancelled Urine Yeast Cancelled Urine Sperm Cancelled Ur Oval Fat Bodies Cancelled Serum Ketones (Negative) SARS-CoV-2 Ag (Rap id) (Negative) 10/24/20 10/24/20 10/24/20 Range/Units 09:45 09:45 09:45 WBC (4.0-10.0) 10^3/ uL RBC (4.1-5.3) 10^6/u L Hgb (11.5-15.3) g/dL Hct (37.0-47.0) % MCV (81-99) fl MCH (28.0-34.0) pg MCHC (30.0-36.0) g/dL RDW (12.1-15.1) % Plt Count (130-400) 10^3/c mm MPV (7.4-10.4) fL Neut % (Auto) % Lymph % (Auto) % Kittson % (Auto) % Eos % (Auto) % Baso % (Auto) % Neut # (Auto) (1.8-7.7) 10^3/u L Lymph # (Auto) (0.8-4.8) 10^3/u L Kittson # (Auto) (0.2-0.9) 10^3/u L Eos # (Auto) (0.0-0.8) 10^3/u L Baso # (Auto) (0.0-0.1) 10^3/u L Nucleated RBC % (a uto) % Nucleated RBCs # /100WBC Specimen Type Sample Site ABG pH (7.35-7.45) ABG pCO2 (35-45) mmHg ABG pO2 (80.0-100.0) mmH g ABG HCO3 (22-26) mmol/L ABG O2 Saturation ABG Base Excess (-2.0-2.0) mmol/ L Luke Test A-a O2 Gradient (5-10) mmHg Hematocrit (37-47) % Hgb O2 Saturation (95-100) % Carboxyhemoglobin (0.4-20.1) %THgb Methemoglobin (0.4-1.5) % Total Hemoglobin (12-16) g/dL Ionized Calcium (1.1-1.4) mmol/L O2 Delivery Device O2 Liters/Min % Heavy [employer] ID Sodium 131 L (136-145) mmol/L Potassium 4.0 (3.5-5.1) mmol/L Chloride 94 L (98-107) mmol/L Carbon Dioxide 14 L (22-29) mmol/L Anion Gap 27.0 H (5-19) BUN 53 H (8-23) mg/dL Creatinine 1.6 H (0.5-0.9) mg/dL GFR Calculation Not Reportable Glucose 589 H* (65-115) mg/dL POC Glucose (70-110) mg/dL Calculated Osmolal ity 314 H (285-295) mOsm/k g Lactic Acid 1.6 (0.5-2.2) mmol/L Calcium 6.0 L (8.5-10.5) mg/dL Total Bilirubin 0.8 (0.15-1.2) mg/dL AST 138 H (0-32) U/L ALT 146 H (0-33) U/L Alkaline Phosphata se 370 H (35-105) IU/L Troponin T Baselin e (0-10) ng/L Total Protein 6.1 L (6.6-8.7) g/dL Albumin 2.6 L (3.5-5.2) g/dL Globulin 3.5 (1.3-4.6) g/dL Triglycerides 165 H (0-150) mg/dL Lipase 3591 H (13-60) U/L TSH (0.27-4.20) uIU/ mL Urine Color Urine Appearance Urine pH Ur Specific Gravit y Urine Protein Urine Glucose (UA) Urine Ketones Urine Blood Urine Nitrate Urine Bilirubin Prot Sulfosalicyli c Acd Urine Urobilinogen Ur Leukocyte Arianna ase Urine RBC Urine WBC Ur Squamous Epith Cells Ur Transition Epit h Cell Ur Renal Epithelia l Cell Calcium Oxalate Cr ystal Uric Acid Crystals Triple Phos Brittney ls Other Crystals Amorphous Sediment Urine Bacteria Hyaline Casts Fine Granular Cast s Coarse Granular Ca sts RBC Casts Other Casts Urine Mucus Urine Trichomonas Urine Yeast Urine Sperm Ur Oval Fat Bodies Serum Ketones Positive H (Negative) SARS-CoV-2 Ag (Rap id) (Negative) 10/24/20 10/24/20 10/24/20 Range/Units 09:45 09:45 09:45 WBC (4.0-10.0) 10^3/ uL RBC (4.1-5.3) 10^6/u L Hgb (11.5-15.3) g/dL Hct (37.0-47.0) % MCV (81-99) fl MCH (28.0-34.0) pg MCHC (30.0-36.0) g/dL RDW (12.1-15.1) % Plt Count (130-400) 10^3/c mm MPV (7.4-10.4) fL Neut % (Auto) % Lymph % (Auto) % Kittson % (Auto) % Eos % (Auto) % Baso % (Auto) % Neut # (Auto) (1.8-7.7) 10^3/u L Lymph # (Auto) (0.8-4.8) 10^3/u L Kittson # (Auto) (0.2-0.9) 10^3/u L Eos # (Auto) (0.0-0.8) 10^3/u L Baso # (Auto) (0.0-0.1) 10^3/u L Nucleated RBC % (a uto) % Nucleated RBCs # /100WBC Specimen Type Sample Site ABG pH (7.35-7.45) ABG pCO2 (35-45) mmHg ABG pO2 (80.0-100.0) mmH g ABG HCO3 (22-26) mmol/L ABG O2 Saturation ABG Base Excess (-2.0-2.0) mmol/ L Luke Test A-a O2 Gradient (5-10) mmHg Hematocrit (37-47) % Hgb O2 Saturation (95-100) % Carboxyhemoglobin (0.4-20.1) %THgb Methemoglobin (0.4-1.5) % Total Hemoglobin (12-16) g/dL Ionized Calcium (1.1-1.4) mmol/L O2 Delivery Device O2 Liters/Min % Heavy [employer] ID Sodium (136-145) mmol/L Potassium (3.5-5.1) mmol/L Chloride (98-107) mmol/L Carbon Dioxide (22-29) mmol/L Anion Gap (5-19) BUN (8-23) mg/dL Creatinine (0.5-0.9) mg/dL GFR Calculation Glucose (65-115) mg/dL POC Glucose (70-110) mg/dL Calculated Osmolal ity (285-295) mOsm/k g Lactic Acid (0.5-2.2) mmol/L Calcium (8.5-10.5) mg/dL Total Bilirubin (0.15-1.2) mg/dL AST (0-32) U/L ALT (0-33) U/L Alkaline Phosphata se (35-105) IU/L Troponin T Baselin e 50 H (0-10) ng/L Total Protein (6.6-8.7) g/dL Albumin (3.5-5.2) g/dL Globulin (1.3-4.6) g/dL Triglycerides (0-150) mg/dL Lipase (13-60) U/L TSH 0.21 L (0.27-4.20) uIU/ mL Urine Color Yellow Urine Appearance Cloudy Urine pH 5 Ur Specific Gravit y 1.015 Urine Protein 1+ H Urine Glucose (UA) 4+ H Urine Ketones 1+ H Urine Blood 3+ H Urine Nitrate Positive H Urine Bilirubin Neg Prot Sulfosalicyli c Acd Urine Urobilinogen Norm Ur Leukocyte Arianna ase Negative Urine RBC 5-10 H Urine WBC 15-25 H Ur Squamous Epith Cells 10-15 H Ur Transition Epit h Cell Ur Renal Epithelia l Cell Calcium Oxalate Cr ystal Uric Acid Crystals Triple Phos Brittney ls Other Crystals Amorphous Sediment Not Reportable Urine Bacteria 2+ H Hyaline Casts Fine Granular Cast s Coarse Granular Ca sts RBC Casts Other Casts Urine Mucus Urine Trichomonas Urine Yeast 2+ H Urine Sperm Ur Oval Fat Bodies Serum Ketones (Negative) SARS-CoV-2 Ag (Rap id) (Negative) 10/24/20 10/24/20 Range/Units 09:49 10:16 WBC (4.0-10.0) 10^3/ uL RBC (4.1-5.3) 10^6/u L Hgb (11.5-15.3) g/dL Hct (37.0-47.0) % MCV (81-99) fl MCH (28.0-34.0) pg MCHC (30.0-36.0) g/dL RDW (12.1-15.1) % Plt Count (130-400) 10^3/c mm MPV (7.4-10.4) fL Neut % (Auto) % Lymph % (Auto) % Kittson % (Auto) % Eos % (Auto) % Baso % (Auto) % Neut # (Auto) (1.8-7.7) 10^3/u L Lymph # (Auto) (0.8-4.8) 10^3/u L Kittson # (Auto) (0.2-0.9) 10^3/u L Eos # (Auto) (0.0-0.8) 10^3/u L Baso # (Auto) (0.0-0.1) 10^3/u L Nucleated RBC % (a uto) % Nucleated RBCs # /100WBC Specimen Type Arterial Sample Site Radial, left ABG pH 7.36 (7.35-7.45) ABG pCO2 24.8 L (35-45) mmHg ABG pO2 57.7 L (80.0-100.0) mmH g ABG HCO3 14.0 L (22-26) mmol/L ABG O2 Saturation 90.2 ABG Base Excess -9.7 L (-2.0-2.0) mmol/ L Luke Test Pos A-a O2 Gradient 7.8 (5-10) mmHg Hematocrit 40.7 (37-47) % Hgb O2 Saturation 89.0 L (95-100) % Carboxyhemoglobin 1.0 (0.4-20.1) %THgb Methemoglobin 0.3 L (0.4-1.5) % Total Hemoglobin 13.3 (12-16) g/dL Ionized Calcium 0.9 L (1.1-1.4) mmol/L O2 Delivery Device Nc O2 Liters/Min 2.0 % Heavy Duty [employer] ID nabde Sodium 136.0 (136-145) mmol/L Potassium 3.4 L (3.5-5.1) mmol/L Chloride (98-107) mmol/L Carbon Dioxide (22-29) mmol/L Anion Gap (5-19) BUN (8-23) mg/dL Creatinine (0.5-0.9) mg/dL GFR Calculation Glucose 608.0 H (65-115) mg/dL POC Glucose (70-110) mg/dL Calculated Osmolal ity (285-295) mOsm/k g Lactic Acid (0.5-2.2) mmol/L Calcium (8.5-10.5) mg/dL Total Bilirubin (0.15-1.2) mg/dL AST (0-32) U/L ALT (0-33) U/L Alkaline Phosphata se (35-105) IU/L Troponin T Baselin e (0-10) ng/L Total Protein (6.6-8.7) g/dL Albumin (3.5-5.2) g/dL Globulin (1.3-4.6) g/dL Triglycerides (0-150) mg/dL Lipase (13-60) U/L TSH (0.27-4.20) uIU/ mL Urine Color Urine Appearance Urine pH Ur Specific Gravit y Urine Protein Urine Glucose (UA) Urine Ketones Urine Blood Urine Nitrate Urine Bilirubin Prot Sulfosalicyli c Acd Urine Urobilinogen Ur Leukocyte Arianna ase Urine RBC Urine WBC Ur Squamous Epith Cells Ur Transition Epit h Cell Ur Renal Epithelia l Cell Calcium Oxalate Cr ystal Uric Acid Crystals Triple Phos Brittney ls Other Crystals Amorphous Sediment Urine Bacteria Hyaline Casts Fine Granular Cast s Coarse Granular Ca sts RBC Casts Other Casts Urine Mucus Urine Trichomonas Urine Yeast Urine Sperm Ur Oval Fat Bodies Serum Ketones (Negative) SARS-CoV-2 Ag (Rap id) Negative (Negative) Discharge Plan Discharge Patient Disposition: Admitted As Inpatient Admit Provider: Robin Austin Clinical Impression: DKA (diabetic ketoacidoses), Pancreatitis, acute, Acute encephalopathy, Pneumonia, UTI (urinary tract infection) Condition: Stable Coding Level of Care Code 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
[2020-10-24 10:15] LABS: Ketone (Acetest) Serum Positive (Negative); Lactic Sepsis W/Reflex 1.6 mmol/L (0.5-2.2)
--- NOTE | 2020-10-24 10:18 | PC.PHAR ---
PT UNABLE TO CONFIRM MEDICATIONS. I HAVE A LIST FROM HOME HEALTH, PLUS PT'S MEDICATION HISTORY AND THE PHARMACY LIST. I AM GOING BY THOSE. PT DOESN'T KNOW WHEN SHE LAST TOOK MEDICATIONS.
[2020-10-24 10:23] LABS: Alanine Aminotransferase 146 U/L (0-33); Albumin Level 2.6 g/dL (3.5-5.2); Alkaline Phosphatase 370 IU/L (35-105); Blood Urea Nitrogen 53 mg/dL (8-23); Carbon Dioxide 14 mmol/L (22-29); Chloride 94 mmol/L (98-107); Globulin 3.5 g/dL (1.3-4.6); Osmolality Calculated 314 mOsm/kg (285-295); Sodium 131 mmol/L (136-145); Total Bilirubin 0.8 mg/dL (0.15-1.2); Total Protein 6.1 g/dL (6.6-8.7)
[2020-10-24 10:24] LABS: Add Urine Culture? Yes; Add Urine Microscopic? YES; Bacteria Urine 2+ /hpf; Bilirubin Urine Neg (Negative); Blood Urine 3+ (Negative); Glucose Urine UA 4+ (Normal); Ketones Urine 1+ (Negative); Leukocyte Esterase Urine Negative (Negative); Nitrate Urine Positive (Negative); Other Sediment, Urine BUD YEAST W/HYPHAE; Protein Urine 1+ (Negative); Specific Gravity, Urine 1.015 (1.005-1.030); Urine Appearance Cloudy (CLEAR); Urine Color Yellow (Yellow); Urobilinogen Urine Norm (Negative); WBC Urine 15-25 /hpf (0-5); pH Urine 5 (5-7)
[2020-10-24 10:28] LABS: Troponin(5th) Baseline 50 ng/L (0-10)
[2020-10-24 10:33] LABS: Aspartate Amino Transferase 138 U/L (0-32); Glucose 589 mg/dL (65-115)
--- NOTE | 2020-10-24 10:52 | US_ITS ---
WS: [id number] RIGHT UPPER QUADRANT ULTRASOUND HISTORY: elevated LFTs COMPARISON: None available. Liver: 15.4 cm in length. Normal size liver. No bile duct dilatation or mass. Gallbladder: Normally distended gallbladder. There are tiny mobile calcifications in the gallbladder. No wall thickening. CBD: 0.5 cm Pancreas: Normal size and echogenicity. Right kidney: 9.7 cm in length. Normal size and echogenicity. No hydronephrosis or mass. Aorta and IVC: Unremarkable abdominal aorta and IVC. No ascites. US/US gall bladder 06150 IMPRESSION: Cholelithiasis without acute cholecystitis. No bile duct dilatation.
[2020-10-24 10:57] LABS: Lipase 3591 U/L (13-60)
[2020-10-24 11:01] LABS: SARS Covid-2 Antigen Negative (Negative)
--- NOTE | 2020-10-24 11:24 | ECG_ITS ---
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 Measurements Intervals [place] Rate: 76 P: 67 OK: 139 QRS: -1 QRSD: 162 T: 44 QT: 540 QTc: 611 Interpretive Statements ELECTRONIC VENTRICULAR PACEMAKER PROLONGED QT INTERVAL CRITICAL TEST RESULT Compared to ECG 02/09/2020 18:55:18 Prolonged QT interval now present Electronically Signed On 10-24-2020 23:49:36 CDT by Lakia Scales M.D. [email or web address]
[2020-10-24] MEDS: levofloxacin-dextrose 5 % 750 MG/150 ML PREMIX 100 MG IV (11:33)
[2020-10-24] MEDS: sodium chloride 0.9% 1,000 ML 999 ML IV (11:34)
[2020-10-24] MEDS: insulin regular-human 100 units/1 mL 10 UNIT IVP (11:35)
[2020-10-24] MEDS: iodixanol 320 mg/mL 100mL Btl IV (12:00)
[2020-10-24] MEDS: insulin regular-human 250 UNIT in sodium chloride 0.9% 250 ML 15 UNIT IV (12:06)
--- NOTE | 2020-10-24 12:29 | PM.HP ---
Providers/Chief Complaint Primary Care Provider: Aziza Nguyen MD Chief Complaint: AMS/ BLOOD SUGAR 474 History of Present Illness Carmen Alvarenga is a 75 year old female who presented to the hospital via EMS with altered mental status. She cannot give a history, but will now open her eyes and track me when I initiate conversation. From what I understand from her daughter she had been ill for the last 2-1/2 weeks. She has had significant diarrhea. She may have recently had a UTI. She has had some nausea and not eating as well. She has had a cough and some shortness of breath. Family was convinced she had Covid but she has some ill contacts with Covid but she has had several negative rapid test. The last negative test was 1 week ago. She got more confused last night, and this morning be no better they called 911. She has not had fevers. Review of Systems General: Reports: ROS unobtainable due to mental status (Currently encephalopathic) Medications/Allergies Home Medications Medication Instructions Recorded Confirmed Last Taken Type aspirin 81 mg tablet,delayed 81 mg PO DAILY 02/24/19 10/24/20 04/01/19 History release vitamins A,C,U-itzt-ngmokk 14,320 1 cap PO BID 02/24/19 10/24/20 03/31/19 History unit-226 mg-200 unit capsule ascorbic acid (vitamin C) [Vitamin 500 mg PO BID 04/01/19 10/24/20 03/31/19 History C] famotidine 20 mg PO BID 05/16/19 10/24/20 Unknown History insulin aspart U-100 100 unit/mL See Rx Instructions SUBCUT 01/21/20 10/24/20 Unknown Rx subcutaneous solution .COMPLEX #30 ml furosemide 20 mg PO DAILY #30 tab 02/16/20 10/24/20 Unknown Rx diclofenac sodium 1 % topical gel 4 g TOPICAL QID #300 g 03/17/20 10/24/20 Unknown Rx nitroglycerin 0.4 mg sublingual 0.4 mg SUBLINGUAL Q5M PRN #25 tab 04/26/20 10/24/20 Unknown Rx tablet albuterol sulfate 2.5 mg INHALATION Q8H PRN #90 ml 05/09/20 10/24/20 Unknown Rx nebulizer #1 ea 05/09/20 10/24/20 Unknown Rx albuterol sulfate 90 mcg/actuation 2 puff INHALATION Q6H PRN #8.5 g 05/10/20 10/24/20 Unknown Rx aerosol inhaler citalopram 10 mg tablet 10 mg PO DAILY #30 tab 05/23/20 10/24/20 Unknown Rx lorazepam 0.5 mg tablet 0.5 mg PO TID PRN #90 tab 07/20/20 10/24/20 Unknown Rx tramadol 50 mg tablet 50 mg PO BID PRN #20 tab 07/20/20 10/24/20 Unknown Rx insulin degludec 100 unit/mL (3 See Rx Instructions .ROUTE 08/24/20 10/24/20 Unknown Rx mL) subcutaneous pen .COMPLEX #30 ml PULLUP DEPENDS #100 ea 09/15/20 10/24/20 Unknown Rx polyethylene glycol 3350 17 17 g PO DAILY #119 g 10/06/20 10/24/20 Unknown Rx gram/dose oral powder alendronate [Fosamax] 70 mg PO Q7D 10/24/20 10/24/20 Unknown History amiodarone 400 mg PO DAILY 10/24/20 10/24/20 Unknown History carvedilol 3.125 mg PO BID 10/24/20 10/24/20 Unknown History clopidogrel 75 mg PO DAILY 10/24/20 10/24/20 Unknown History ergocalciferol (vitamin D2) 1,250 mcg PO Q7D 10/24/20 10/24/20 Unknown History gabapentin 100 mg PO BEDTIME 10/24/20 10/24/20 Unknown History levothyroxine 75 mcg PO DAILY 10/24/20 10/24/20 Unknown History meclizine See Rx Instructions .ROUTE .COMPLEX 10/24/20 10/24/20 Unknown History methenamine hippurate 1 g PO BID 10/24/20 10/24/20 Unknown History rosuvastatin 40 mg PO DAILY 10/24/20 10/24/20 Unknown History Allergies Allergy/AdvReac Type Severity Reaction Status Date / Time metformin Allergy Intermediate diarrhea Verified 10/24/20 09:25 PFSH Acute PFSH: Medical History (Updated 10/24/20 @ 12:58 by Robin Austin MD) A-fib Anxiety and depression ASHD (arteriosclerotic heart disease) Benign essential HTN -VSS; continue to monitor -continue oral antihypertensives Cardiomyopathy LVEF of approximately 30%, unchanged, unable to tolerate STERLING or ARB in past due to lower BP Chronic kidney disease (CKD) stage G1/A1, glomerular filtration rate (GFR) equal to or greater than 90 mL/min/1.73 square meter and albuminuria creatinine ratio less than 30 mg/g Chronic pain syndrome Constipation Cystitis Dementia -re-orient as needed; mental status waxes and wanes -fall precautions Diabetes Dyslipidemia Continue statin Essential hypertension GERD (gastroesophageal reflux disease) Heart failure -Appears clinically compensated, continue oral lasix -Echo (03/2019): EF=30-35%, global LV hypokinesis, G2DD, mild pulmonary HTN, mild-moderate MR, trace-mild TR -has AICD in place -follows up with Dr. Scales Hypotension Resolved Hypothyroidism -continue levothyroxine ICD (implantable cardioverter-defibrillator) in place Insomnia Left bundle branch block Nonischemic cardiomyopathy Stable Osteoarthritis Pacemaker Vitamin D deficiency Surgical History History of angioplasty History of appendectomy History of hysterectomy Family History Other CAD (coronary artery disease) Diabetes Social History Smoking and tobacco status: never smoked Second hand smoke exposure: Yes Alcohol intake: never Caregiver/support person: Yes Lives independently: Yes Household members: children Marital status: / service: No Current occupational status: disabled History of recent travel: No Current gender identity: Female Special phil needs: No Agree to transfusion: Yes Vitals/I&O/Wt Last Vital Signs Temp 97.6 F 10/24/20 09:11 Pulse 74 10/24/20 09:40 Resp 52 H 10/24/20 09:40 BP 141/66 10/24/20 09:40 Pulse Ox 95 10/24/20 09:40 Weight last 48 hrs Weight 58.967 kg Physical Exam Narrative: EXAM NARRATIVE: General exam demonstrated tachypneic female, who opens eyes and tracks me but I cannot get a verbal response out of currently. HEENT: Atraumatic and normocephalic. Pupils equally round. Oropharynx with dry mucous membranes Neck is supple no lymphadenopathy or thyromegaly Cardiovascular regular rate and rhythm, no murmur Lungs diminished breath sounds bilaterally but no crackles or wheezes Abdomen is soft. Question tenderness right upper quadrant. Positive bowel sounds. No obvious organomegaly exam is deferred, Montalvo to be placed Extremities no cyanosis clubbing or edema, cap refill brisk Skin no rash Neurologic: Spontaneously moves all 4 extremities. Appears confused and slow to respond. Data : 10/24/20 09:45 10/24/20 09:45 Micro: Microbiology 10/24/20 09:45 Blood Culture - Preliminary Blood SPECIMEN COLLECTED Other data: Head CT negative for acute findings Chest x-ray bibasilar infiltrates Abdomen pelvis CT mesenteric edema transverse colon, pancreas. Pneumonitis noted. ABG demonstrates pH 7.36, PCO2 of 25, PO2 of 58 on 2 L Lactic acid 1.6 Calcium 6.0 Total bili 0.8 AST 138, ALT 146, alk phos 370 Troponin baseline 50 Albumin 2.6 Lipase 3591 UA with 15-25 whites per 10-15 squamous. Serum ketones are positive Rapid Covid negative Covid PCR pending Gallbladder ultrasound pending. A&P Assessment and plan (1) DKA (diabetic ketoacidoses): Patient with acute DKA demonstrated by markedly elevated sugar, elevated anion gap, positive serum ketones. Note she has partial compensatory respiratory alkalosis. Hydration Insulin drip Close follow-up of electrolytes Status: Acute (2) Acute encephalopathy: Likely secondary to DKA and markedly elevated sugar She has shown some improvement in the emergency department. Continue to follow closely CT head negative Doubt CVA Status: Acute (3) Pancreatitis, acute: N.p.o. Repeat lipase tomorrow History of gallstones complicates presentation. May need surgical evaluation by end of hospitalization for consideration of cholecystectomy Secondary to concern of gallbladder etiology presentation will initiate Zosyn. Blood cultures have already been drawn. Check triglyceride level Status: Acute (4) Pneumonia: Covid PCR pending Initiate Zosyn Check MRSA PCR Oxygen as needed Pulmonary toilet as needed Status: Acute Qualifiers: Pneumonia type: due to unspecified organism Laterality: bilateral Lung location: unspecified part of lung Qualified Code(s): J18.9 - Pneumonia, unspecified organism (5) Transaminitis: Await gallbladder ultrasound. See CT scan results as above. Hold statin Status: Acute (6) Cardiomyopathy: History of ejection fraction 30 to 35% on last echocardiogram March 2019. 2/4 diastolic dysfunction. Mild to moderate mitral regurgitation. Monitor closely for any fluid overload. History of ventricular tachycardia, pacemaker and ICD implantation. Past history of atrial fibrillation, as well as coronary artery disease. Continue amiodarone. Serial troponins Status: Acute Qualifiers: Cardiomyopathy type: unspecified Qualified Code(s): I42.9 - Cardiomyopathy, unspecified (7) Acute kidney injury: Acute kidney injury superimposed on chronic kidney disease Hydration Recheck creatinine tomorrow Avoid renal toxic medication Status: Acute Additional A&P Information History of diarrhea. Enteric pathogens, C. difficile. This could have also contributed to metabolic acidosis. Full code Heparin for DVT prophylaxis Pepcid for GI prophylaxis Plan of care discussed with daughter. Attestations Medical Necessity Statement*: Will need greater than 2 midnight stay for treatment of DKA, encephalopathy, acute kidney injury, acute pancreatitis, etc. Critical Care Time: Critical Care Time (min): 64 Other Attestations: The high probability of a clinically significant, sudden or life threatening deterioration of the patient's [pulmonary, GI, endocrine, renal] system(s) required my full and direct attention, intervention and personal management. The critical care time is as shown. This time is in addition to time spent performing any reported procedures but includes the following: [x] Data and vital sign review and interpretation [x] Patient assessment, examination and intervention [x] Documentation [x] Medication orders and management Coding Level of Care Code Acute [facility] for [facility] Fwd Diagnoses DKA (diabetic ketoacidoses) E11.10 Acute encephalopathy G93.40 Pancreatitis, acute K85.90 Pneumonia J18.9 Pneumonia type: due to unspecified organism Laterality: bilateral Lung location: unspecified part of lung Transaminitis R74.01 Cardiomyopathy I42.9 Cardiomyopathy type: unspecified Acute kidney injury N17.9
[2020-10-24] MEDS: insulin regular-human 250 UNIT in sodium chloride 0.9% 250 ML 19.5 UNIT IV (13:04)
[2020-10-24 13:19] LABS: Triglycerides 165 mg/dL (0-150)
[2020-10-24 13:42] LABS: Thyroid Stimulating Hormone 0.21 uIU/mL (0.27-4.20)
[2020-10-24 13:45] LABS: Glucose Point of Care 548 mg/dL (70-110)
[2020-10-24] MEDS: piperacillin-tazobactam 3.375 GM in sodium chloride 0.9% (plus) 50 ML IV ×2 (13:48→21:04)
[2020-10-24] MEDS: insulin regular-human 250 UNIT in sodium chloride 0.9% 250 ML 21.1 UNIT IV (14:01)
[2020-10-24 14:04] LABS: Troponin 5 2HR 45.69 ng/L (0-10)
[2020-10-24 14:05] LABS: Glucose Point of Care 483 mg/dL (70-110)
[2020-10-24 14:07] LABS: Troponin 5 2HR Delta -4.31 ABS# (0-10)
[2020-10-24 14:39] LABS: Glucose Point of Care 423 mg/dL (70-110)
[2020-10-24 15:14] LABS: Glucose Point of Care 411 mg/dL (70-110)
[2020-10-24] MEDS: sodium chloride 0.9% 1,000 ML 75 ML IV (15:36)
[2020-10-24] MEDS: heparin 5,000 unit/mL INJ 1 mL 5000 UNIT SUBCUT (15:36)
--- NOTE | 2020-10-24 15:54 | PC.NURSE ---
1435 Pt arrived to ICU via stretcher from ED. Transferred to ICU bed and connected to monitor. VSS. Pt alert and able to follow commands and shake head yes and no to some questions but is nonverbal. Pt rolled and cleaned, open areas noted to buttocks and perineum, entire area is reddened and excoriated. Cleaned and cream applied to area, pt c/o pain to area. Repositioned on side. SCDS applied per orders. Insulin gtt infusing per orders. NS initiated per orders. Bilateral PIV's cdi. Pt family called, spoke with daughter and she states that nonverbal is not her baseline. Montalvo cath in place draining clear andriy urine to BSD. Blood glucose 423 on admission to ICU. Will monitor.
[2020-10-24 16:10] LABS: Glucose Point of Care 363 mg/dL (70-110)
[2020-10-24 17:07] LABS: Glucose Point of Care 287 mg/dL (70-110)
[2020-10-24 17:30] LABS: Troponin 5 6HR 58.48 ng/L (0-10); Troponin 5 6HR Delta 8.48 ng/L (0-12)
[2020-10-24 17:31] LABS: Blood Urea Nitrogen 49 mg/dL (8-23); Calcium 6.1 mg/dL (8.5-10.5); Carbon Dioxide 15 mmol/L (22-29); Chloride 102 mmol/L (98-107); Glucose 283 mg/dL (65-115); Magnesium 2.3 mg/dL (1.7-2.3); Osmolality Calculated 301 mOsm/kg (285-295); Sodium 134 mmol/L (136-145)
[2020-10-24 17:33] LABS: Anion Gap 20.1 (5-19); Potassium 3.1 mmol/L (3.5-5.1)
[2020-10-24] MEDS: lidocaine 1% 5 ML in potassium chloride premix 100 ML 25 ML IV (17:54)
[2020-10-24 18:17] LABS: Glucose Point of Care 151 mg/dL (70-110)
[2020-10-24] MEDS: dextrose 5%-sod chloride 0.45% 1,000 ML 75 ML IV (18:56)
[2020-10-24 19:02] LABS: Glucose Point of Care 110 mg/dL (70-110)
--- NOTE | 2020-10-24 19:03 | PC.NURSE ---
D51/2NS started per orders d/t BG <250. Pt remains nonverbal. Follows commands and answers yes and no questions. Education provided to daughter r/t treatment plan, verbalizes understanding. VSS. Repositioned q2h and PRN. Will monitor.
[2020-10-24] MEDS: famotidine 20 mg/2 mL INJ IVP (21:04)
[2020-10-24 21:39] LABS: Anion Gap 19.4 (5-19); Blood Urea Nitrogen 48 mg/dL (8-23); Calcium 6.2 mg/dL (8.5-10.5); Carbon Dioxide 17 mmol/L (22-29); Chloride 107 mmol/L (98-107); Glucose 114 mg/dL (65-115); Osmolality Calculated 303 mOsm/kg (285-295); Potassium 3.4 mmol/L (3.5-5.1); Sodium 140 mmol/L (136-145)
[2020-10-25] VITALS (105 sets, daily range): BP systolic 87–122; BP diastolic 42–67; PULSE 66–82; RESP 18–49; TEMP 36.7–37.7; O2SAT 88–100; BMI 22.8
[2020-10-25 04:10] LABS: Basophils # 0.2 10^3/uL (0.0-0.1); Basophils % 0.5 %; Hematocrit 38.4 % (37.0-47.0); Lymphocytes # 0.8 10^3/uL (0.8-4.8); Lymphocytes % 2.4 %; Mean Corpuscular HGB Conc 33.9 g/dL (30.0-36.0); Mean Corpuscular Hemoglobin 30.2 pg (28.0-34.0); Mean Corpuscular Volume 89.1 fl (81-99); Mean Platelet Volume 9.8 fL (7.4-10.4); Monocytes # 1.7 10^3/uL (0.2-0.9); Monocytes % 4.7 %; Neutrophils % 91.1 %; Nucleated Red Blood Cells % 0 %; Platelet Count 284 10^3/cmm (130-400); Red Blood Count 4.31 10^6/uL (4.1-5.3); Red Cell Distribution Width 15.9 % (12.1-15.1)
[2020-10-25 04:26] LABS: Slide Review Slide Review Perform
[2020-10-25 04:27] LABS: White Blood Count 35.1 10^3/uL (4.0-10.0)
[2020-10-25 04:29] LABS: Alanine Aminotransferase 131 U/L (0-33); Albumin Level 2.2 g/dL (3.5-5.2); Alkaline Phosphatase 413 IU/L (35-105); Aspartate Amino Transferase 156 U/L (0-32); Blood Urea Nitrogen 53 mg/dL (8-23); Carbon Dioxide 18 mmol/L (22-29); Chloride 111 mmol/L (98-107); Globulin 3.5 g/dL (1.3-4.6); Glucose 93 mg/dL (65-115); Magnesium 2.5 mg/dL (1.7-2.3); Osmolality Calculated 310 mOsm/kg (285-295); Sodium 143 mmol/L (136-145); Total Bilirubin 0.7 mg/dL (0.15-1.2); Total Protein 5.7 g/dL (6.6-8.7)
[2020-10-25 04:41] LABS: Lipase 1883 U/L (13-60)
[2020-10-25 04:43] LABS: Calcium 5.7 mg/dL (8.5-10.5)
--- NOTE | 2020-10-25 04:54 | XRR_ITS ---
PROCEDURE INFORMATION: Exam: XR Chest Exam date and time: 10/25/2020 4:54 AM Age: 75 years old Clinical indication: Device placement; Ng tube; Prior surgery; Surgery type: Pacemaker. ; Patient HX: Check S/P ng placement; Additional info: Ng tube placement TECHNIQUE: Imaging protocol: XR of the chest. Views: 1 view. COMPARISON: CR XR chest 1V portable [id number] 10/24/2020 9:50 AM FINDINGS: Tubes, catheters and devices: Apparent NG tube now present, passing beneath the diaphragm. The tip appears to lie in the body of the stomach. Left-sided cardiac pacemaker again noted. Lungs: Moderate lung opacities again present, most prominent in the right mid lung, and left lower lung. Probably no significant interval change. Pleural spaces: No visible pneumothorax. There may be small bilateral pleural effusions. Heart/Mediastinum: Heart size is upper normal/mildly prominent. Bones/joints: No significant acute finding. XR/XR chest 1V portable [id number] IMPRESSION: 1. NG tube placement as discussed above. 2. Continued bilateral lung opacities, see above. 3. Other findings discussed above.
--- NOTE | 2020-10-25 05:07 | CTR_ITS ---
PROCEDURE INFORMATION: Exam: CT Head Without Contrast Exam date and time: 10/25/2020 5:07 AM Age: 75 years old Clinical indication: Altered mental status/memory loss; Confusion or disorientation; Patient HX: AMS. Patient is awake but unresponsive. ; Additional info: Md request TECHNIQUE: Imaging protocol: Computed tomography of the head without contrast. Radiation optimization: All CT scans at this facility use at least one of these dose optimization techniques: automated exposure control; mA and/or kV adjustment per patient size (includes targeted exams where dose is matched to clinical indication); or iterative reconstruction. COMPARISON: CT head wo con* [id number] 10/24/2020 11:47 AM RADIATION DOSE METRICS: Total DLP (mGy-cm): 698.07 FINDINGS: Brain: No acute intracranial hemorrhage or mass effect. There is mild decreased attenuation in the periventricular white matter, likely from microvascular disease. No definite acute infarct by CT. MRI could be more sensitive/specific for detection, as clinically directed. Cerebral ventricles: Ventricle size is normal for age. Paranasal sinuses: Small amount of fluid in the left maxillary sinus. Minimal mucosal thickening in the ethmoid and sphenoid sinuses. Included paranasal sinuses appear essentially clear. Mastoid air cells: No significant acute finding. Bones/joints: No definite acute skull fracture. CT/CT head wo con* [id number] IMPRESSION: 1. No acute intracranial hemorrhage or mass effect. 2. Changes of microvascular disease. 3. No definite acute infarct by CT, see above. 4. Other findings discussed above. Radiation Dose CTDIVOL = (mGy): DLP = 698.07 (mGy-cm)
[2020-10-25] MEDS: dextrose 5%-sod chloride 0.45% 1,000 ML 75 ML IV (05:10)
[2020-10-25 05:11] LABS: ABG PCO2 34.5 mmHg (35-45); ABG PH Result 7.34 (7.35-7.45); Alveolar-Arterial Oxygen Gradi 3.3 mmHg (5-10); Arterial Blood Gas Hematocrit 39.5 % (37-47); Base Excess ABG -6.3 mmol/L (-2.0-2.0); Blood Gas Allen Test Pos; Blood Gas Operator Identificat HARKR; Blood Gas Sample Site Radial, right; Blood Gas Sample Type Arterial; Carboxyhemoglobin 0.7 %THgb (0.4-20.1); HCO3 ABG 18.7 mmol/L (22-26); HGB O2 Sat 95.3 % (95-100); Ionized Calcium Level - ABG 0.9 mmol/L (1.1-1.4); Methemoglobin 0.7 % (0.4-1.5); Oxygen Device NC; Oxygen Saturation ABG 96.8; PO2 ABG 80.5 mmHg (80.0-100.0); Potassium Level - ABG 3.7 mmol/L (3.5-5.0); Total Hemoglobin 12.9 g/dL (12-16)
[2020-10-25] MEDS: piperacillin-tazobactam 3.375 GM in sodium chloride 0.9% (plus) 50 ML IV (06:27)
[2020-10-25 07:26] LABS: Glucose Point of Care 82 mg/dL (70-110)
[2020-10-25 07:26] LABS: Glucose Point of Care 102 mg/dL (70-110)
[2020-10-25 07:26] LABS: Glucose Point of Care 115 mg/dL (70-110)
[2020-10-25 07:26] LABS: Glucose Point of Care 91 mg/dL (70-110)
[2020-10-25 07:26] LABS: Glucose Point of Care 82 mg/dL (70-110)
[2020-10-25 07:26] LABS: Glucose Point of Care 75 mg/dL (70-110)
[2020-10-25 07:26] LABS: Glucose Point of Care 119 mg/dL (70-110)
[2020-10-25 07:26] LABS: Glucose Point of Care 84 mg/dL (70-110)
[2020-10-25 07:26] LABS: Glucose Point of Care 131 mg/dL (70-110)
--- NOTE | 2020-10-25 07:56 | USCV_ITS ---
Carmen Alvarenga Age: 75 Gender: F : 1945 Exam Date: 10/25/2020 09:25 Ordering Phys: Robin Austin MD Technologist: Aleyda Barajas [place] [facility] [place]: DYSPNEA, CHECK EF, COVID BP: 101 / 65 HR: 70 Rhythm: Sinus Technical Quality: Adequate MEASUREMENTS (Male / Female) Normal Values 2D ECHO LV Diastolic Diameter PLAX 6.1 cm 4.2 - 5.9 / 3.9 - 5.3 cm LV Systolic Diameter PLAX 5.6 cm IVS Diastolic Thickness 0.5 cm 0.6 - 1.0 / 0.6 - 0.9 cm IVS Systolic Thickness 0.6 cm LVPW Diastolic Thickness 0.9 cm 0.6 - 1.0 / 0.6 - 0.9 cm LVPW Systolic Thickness 0.7 cm LVOT Diameter 2.0 cm LV Ejection Fraction 2D Teich 17.4 % LV Ejection Fraction MOD 2C 6.0 % LV Ejection Fraction 2C AL 5.9 % LA Diameter 3.3 cm LA Width 3.5 cm LA Height 4.3 cm RA Width 3.0 cm RA Height 4.1 cm Aorta at Sinotubular Diameter 2.3 cm M-MODE Aortic Annulus Diameter 2.2 cm LA Ao Ratio MM 1.5 MV E Point Septal Separation 2.5 cm DOPPLER Right Atrial Pressure 3.0 mmHg FINDINGS Left Ventricle Moderately increased left ventricular cavity size. Severely decreased left ventricular systolic function. Left ventricular ejection fraction is estimated at 25 %. There is anterior and septal d wall dyskinesis. Right Ventricle The right ventricle is normal in size and function. RVSP could not be calculated due to incomplete tricuspid regurgitation velocity profile. Right Atrium The right atrium is normal in size. Left Atrium The left atrium is normal in size. Mitral Valve Moderately thickened mitral valve. Moderate mitral annular calcification. No mitral valve stenosis. Aortic Valve Structurally normal aortic valve without significant sclerosis or stenosis. Tricuspid Valve Structurally normal tricuspid valve without significant stenosis or regurgitation. Pulmonic Valve Structurally normal pulmonic valve without significant stenosis. Pericardium Normal pericardium without effusion. Aorta Normal ascending aorta dimension. CONCLUSIONS 1-Moderately increased left ventricular cavity size. Severely decreased left ventricular systolic function. Left ventricular ejection fraction is estimated at 25 %. There is anterior and septal d wall dyskinesis. 2-No significant valvular stenosis noted. Due to lack of Doppler study cannot comment on regurgitation. If clinically indicated please really do the study with Doppler data 3-There is no pericardial effusion. 4-The right ventricle is normal in size and function. RVSP could not be calculated due to incomplete tricuspid regurgitation velocity profile. 5-Right atrial pressure is around 5 mm of mercury. 6-Cannot compare it with prior echocardiogram dated 01 April 2019 due to lack of Doppler data however left ventricular ejection fraction hennessy there is no significant difference Nehemias Vazquez MD (Electronically Signed) Final Date: 25 October 2020 17:57 S
[2020-10-25] MEDS: heparin 5,000 unit/mL INJ 1 mL 5000 UNIT SUBCUT ×2 (08:13→16:27)
[2020-10-25 08:20] LABS: Glucose Point of Care 107 mg/dL (70-110)
--- NOTE | 2020-10-25 08:37 | P.PN_ITS ---
Subjective Subjective: Interval history: Carmen will not follow directions this morning. She perhaps opens her eyes a little bit with intense stimulation. Yesterday from my understanding this is how she presented to the emergency department. With hydration and treatment she became more responsive and was following directions. I discussed this with her family as well and they report that when she gets a significant urine infection she often loses all faculties for 2 to 3 days. She has a history of some underlying dementia, but not so bad she can't carry on a conversation and take care of some of her activities of daily living. Medications: Reviewed: Yes Vitals/I&O/Wt Last Vital Signs Temp 98.3 F 10/24/20 20:00 Pulse 74 10/25/20 06:05 Resp 44 H 10/25/20 06:05 BP 101/65 10/25/20 06:05 Pulse Ox 93 10/25/20 06:05 10/24/20 10/25/20 10/25/20 22:59 06:59 14:59 Intake Total 1305.120 / 1580.588 1689.3 / 3409.445 Output Total 225 / 225 175 / 400 Balance 1080.120 / 6929.827 4377.3 / 3009.445 Weight last 48 hrs Weight 64.41 kg Weight 64.41 kg Weight 58.967 kg Physical Exam Narrative: EXAM NARRATIVE: General exam, tachypneic, becomes a little bit more alert with significant stimulation but does not follow directions. HEENT: Atraumatic and normocephalic. Pupils equally round. Oropharynx with dry mucous membranes Neck is supple no lymphadenopathy or thyromegaly Cardiovascular regular rate and rhythm, no murmur Lungs diminished breath sounds bilaterally but no crackles or wheezes Abdomen is soft. Question tenderness right upper quadrant. Positive bowel sounds. No obvious organomegaly exam Montalvo Extremities no cyanosis clubbing or edema, cap refill brisk Neurologic: Spontaneously moves all 4 extremities. Urinary Catheter Management^: Montalvo: Cath Placed During This Visit: yes Reason for Continuing Indwelling Catheter: Accurate Measurement of Urinary Output in Critically Ill Patients Urinary Catheter Date of Insertion: 10/24/20 Urinary Catheter Time of Insertion: 13:00 Data : 10/25/20 04:00 10/25/20 04:00 Micro: Microbiology 10/24/20 13:10 Blood Culture - Preliminary Blood SPECIMEN COLLECTED 10/24/20 09:45 Blood Culture - Preliminary Blood SPECIMEN COLLECTED A&P Assessment and plan (1) DKA (diabetic ketoacidoses): Patient with acute DKA demonstrated by markedly elevated sugar, elevated anion gap, positive serum ketones. Note she has partial compensatory respiratory alkalosis. She received hydration, insulin drip overnight. She received some calcium supplementation. Anion gap has decreased to 18 from 27 on admission. I'm reluctant to stop insulin drip currently until the anion gap reaches 14 or less. Therefore, continue insulin drip. We will reduce IV fluid rate to 50 cc an hour secondary to her underlying cardiomyopathy. Status: Acute (2) Acute encephalopathy: Likely secondary to DKA and markedly elevated sugar CT head negative, now x2 Doubt CVA I suspect this is secondary to UTI but cultures pending. White blood cell count being markedly elevated. Continue to follow closely. Status: Acute (3) Pancreatitis, acute: N.p.o. Repeat lipase improved History of gallstones complicates presentation. May need surgical evaluation by end of hospitalization for consideration of cholecystectomy Secondary to concern of gallbladder etiology presentation initially initiated Zosyn. Or changing to Primaxin secondary to history of frequent UTIs which could predispose to ESBL. Blood cultures have already been drawn. Triglyceride level was checked and not elevated Status: Acute (4) Pneumonia: Covid PCR pending Change Zosyn to Primaxin. Add vancomycin. Await MRSA PCR Oxygen as needed Pulmonary toilet as needed Status: Acute (5) Transaminitis: Gallbladder ultrasound did not demonstrate dilated ducts. No evidence of cholecystitis. Gallstones were noted. LFTs approximately the same today with the exception of alk phos which is slightly higher. Continue to hold statin. Status: Acute (6) Cardiomyopathy: History of ejection fraction 30 to 35% on last echocardiogram March 2019. 2/4 diastolic dysfunction. Mild to moderate mitral regurgitation. Monitor closely for any fluid overload. History of ventricular tachycardia, pacemaker and ICD implantation. Past history of atrial fibrillation, as well as coronary artery disease. Continue amiodarone. Reduce IV fluids Check limited echo, to recheck ejection fraction Troponin without significant delta. Status: Acute Qualifiers: Cardiomyopathy type: unspecified Qualified Code(s): I42.9 - Cardiomyopathy, unspecified (7) Acute kidney injury: Acute kidney injury superimposed on chronic kidney disease Continue hydration Avoid renal toxic medication No evidence of obstruction on CT Check CK Status: Acute Additional A&P Information History of diarrhea. Enteric pathogens, C. difficile ordered. Oral vancomycin started secondary to markedly elevated white blood cell count. Possible UTI. Placed on Primaxin. Await culture. Full code Heparin for DVT prophylaxis Pepcid for GI prophylaxis Plan of care discussed with son, as well guarded prognosis Attestations Medical Necessity Statement*: Needs continued hospital stay for IV antibiotics, continued monitoring of encephalopathy, treatment of DKA with insulin drip. Critical Care Time: Critical Care Time (min): 41 Other Attestations: The high probability of a clinically significant, sudden or life threatening deterioration of the patient's [endocrine, renal, neurologic] system(s) required my full and direct attention, intervention and personal management. The critical care time is as shown. This time is in addition to time spent performing any reported procedures but includes the following: [x] Data and vital sign review and interpretation [x] Patient assessment, examination and intervention [x] Documentation [x] Medication orders and management Coding Level of Care Code Acute Emergency Management Program Specialist for [facility] Diagnoses DKA (diabetic ketoacidoses) E11.10 Acute encephalopathy G93.40 Pancreatitis, acute K85.90 Pneumonia J18.9 Transaminitis R74.01 Cardiomyopathy I42.9 Cardiomyopathy type: unspecified Acute kidney injury N17.9
--- NOTE | 2020-10-25 09:04 | PC.CHAP ---
Pastoral Care Encounter/Spiritual Assessment Type of Contact [] Declined de icer element winder visit [] Patient/Family/Request visit [] Outpatient visit [] Follow-up visit [] Physician referral [] Code/Alert [x] Routine visit [] Staff referral [] Actively dying [] Patient sleeping [] Family support [] [] Out of room [] Palliative care [] [] Receiving care in room [] Pre-surgical visit [] Trauma [] Long length of stay [x] ICU visit [] Other: Relational/Emotional Strength [] Patient feels connected with others/family/visitors/staff [] Distress [] Loneliness/isolation [] Abandonment Spirituality of Patient [] Person of Eleanor [] Attends Pentecostal of their Eleanor [] Believes in Prayer [] Reads Bible or Nondenominational materials [] There are Spiritual issues to be addressed Diabetes Education Coordinator Interventions [x] Prayer [] Active listening [] Non-anxious presence [] Spiritual/emotional support [] Crisis/trauma care [] Spiritual counseling [] Bereavement support [] Provided bereavement packet [] Provided Bible/devotional materials [] Provided toy/stuffed animal, coloring book to patient or family member [] Provided Communion [] Anointing/[place] [] Salvation [x] Completed spiritual assessment [] Other: Impact on Illness or Injury [] Angry [] Fearful [] Anxious [] Often cries [] Exhaustion [] Unable to work [] Unable to attend hindu [] Unable to walk/stand [] Unable to read [] Unable to drive [] Unable to eat/drink [] Unable to sleep [] Unable to be with family [] Patient intubated [] Other: Summary Time spent with patient
[2020-10-25] MEDS: citalopram 20 mg Tablet 10 MG PO (09:18)
[2020-10-25] MEDS: levothyroxine 75 mcg Tablet PO (09:18)
[2020-10-25] MEDS: aspirin 81 mg EC Tablet PO (09:18)
[2020-10-25] MEDS: amiodarone 200 mg Tablet 400 MG PO (09:18)
[2020-10-25] MEDS: famotidine 20 mg/2 mL INJ IVP (09:18)
[2020-10-25] MEDS: clopidogrel 75 mg Tablet PO (09:18)
[2020-10-25 09:31] LABS: Creatine Phosphokinase 239 U/L (26-192)
[2020-10-25 09:34] LABS: Glucose Point of Care 96 mg/dL (70-110)
[2020-10-25] MEDS: vancomycin 1,000 MG in sodium chloride 0.9% 250 ML 250 MG IV (09:37)
[2020-10-25 10:31] LABS: Glucose Point of Care 100 mg/dL (70-110)
[2020-10-25 11:21] LABS: Glucose Point of Care 97 mg/dL (70-110)
[2020-10-25 12:41] LABS: Glucose Point of Care 92 mg/dL (70-110)
[2020-10-25 13:22] LABS: Glucose Point of Care 109 mg/dL (70-110)
[2020-10-25 13:44] LABS: Lactate (Lactic Acid level) 1.3 mmol/L (0.5-2.2)
[2020-10-25 13:45] LABS: Blood Urea Nitrogen 54 mg/dL (8-23); Calcium 6.2 mg/dL (8.5-10.5); Carbon Dioxide 16 mmol/L (22-29); Chloride 110 mmol/L (98-107); Creatinine Clr Calc Pharmacy 19.9155; Glucose 90 mg/dL (65-115); Osmolality Calculated 302 mOsm/kg (285-295); Sodium 139 mmol/L (136-145)
[2020-10-25 13:55] LABS: Anion Gap 17.6 (5-19); Potassium 4.6 mmol/L (3.5-5.1)
[2020-10-25 14:15] LABS: Coronavirus Test Green County Detected
[2020-10-25 14:33] LABS: C Reactive Protein 315.8 mg/L (0.0-4.9)
[2020-10-25 14:34] LABS: Glucose Point of Care 113 mg/dL (70-110)
[2020-10-25] MEDS: dexamethasone 10 mg/mL INJ 6 MG IVP (14:55)
[2020-10-25] MEDS: FUROsemide 10 mg/mL SDV 10mL 60 MG IVP ×2 (14:55→21:51)
[2020-10-25 16:11] LABS: Glucose Point of Care 101 mg/dL (70-110)
--- NOTE | 2020-10-25 16:21 | PM.CONSULT ---
Providers/Reason For Consult Consulting Physician/Specialty*: Nephro Reason for Consult*: oliguric renal failure Attending Physician: Robin Austin MD Primary Care Provider: Aziza Nguyen MD History of Present Illness History of Present Illness Thank you for consultation, today I reviewed this 75-year-old female for evaluation of acute kidney injury. She was admitted to our facility yesterday, with weakness, illness for 2 1/2 weeks with associated nausea, diarrhea. She subsequently tested positive for Covid pneumonitis. On arrival she was found to have DKA, acute pancreatitis. She is known to have decreased ejection fraction of 30-35%'s, 2/4 diastolic dysfunction and mild to moderate mitral regurgitation with a history of ventricular tachycardia, pacemaker and I CD implantation. She is currently being treated with a combination Zosyn, Primaxin, vancomycin, gentle IV hydration. Overt Leukopcytosis now, at 45. Urine culture with GNRs Admission CT scan with IV contrast performed demonstrated no anatomical damage to the kidney. Ultrasound of the gallbladder demonstrates cholelithiasis without acute cholecystitis. Next It appears that she has baseline chronic kidney disease with creatinines measured between 1 and 2 mg/dL in the past. On admission her serum creatinine was 1.7 increasing to 2.4 mg/dL today. Urine output was noted to be 450 mL. Does not appear that she has had any other history of acute or chronic kidney disease, no obvious exposure to her prior nephrology services. Hemodynamically she remains somewhat soft, her pulse is stable at 68, blood pressure 91/44, respiratory rate at 45 on oxygen mask. Review of Systems General: Reports: ROS unobtainable due to medical condition and ROS unobtainable due to mental status Meds/Allergies Home Medications and Allergies Home Medications Medication Instructions Recorded Confirmed Last Taken Type aspirin 81 mg tablet,delayed 81 mg PO DAILY 02/24/19 10/24/20 04/01/19 History release vitamins A,C,F-qbru-jrjkgr 14,320 1 cap PO BID 02/24/19 10/24/20 03/31/19 History unit-226 mg-200 unit capsule ascorbic acid (vitamin C) [Vitamin 500 mg PO BID 04/01/19 10/24/20 03/31/19 History C] famotidine 20 mg PO BID 05/16/19 10/24/20 Unknown History insulin aspart U-100 100 unit/mL See Rx Instructions SUBCUT 01/21/20 10/24/20 Unknown Rx subcutaneous solution .COMPLEX #30 ml furosemide 20 mg PO DAILY #30 tab 02/16/20 10/24/20 Unknown Rx diclofenac sodium 1 % topical gel 4 g TOPICAL QID #300 g 03/17/20 10/24/20 Unknown Rx nitroglycerin 0.4 mg sublingual 0.4 mg SUBLINGUAL Q5M PRN #25 tab 04/26/20 10/24/20 Unknown Rx tablet albuterol sulfate 2.5 mg INHALATION Q8H PRN #90 ml 05/09/20 10/24/20 Unknown Rx nebulizer #1 ea 05/09/20 10/24/20 Unknown Rx albuterol sulfate 90 mcg/actuation 2 puff INHALATION Q6H PRN #8.5 g 05/10/20 10/24/20 Unknown Rx aerosol inhaler citalopram 10 mg tablet 10 mg PO DAILY #30 tab 05/23/20 10/24/20 Unknown Rx lorazepam 0.5 mg tablet 0.5 mg PO TID PRN #90 tab 07/20/20 10/24/20 Unknown Rx tramadol 50 mg tablet 50 mg PO BID PRN #20 tab 07/20/20 10/24/20 Unknown Rx insulin degludec 100 unit/mL (3 See Rx Instructions .ROUTE 08/24/20 10/24/20 Unknown Rx mL) subcutaneous pen .COMPLEX #30 ml PULLUP DEPENDS #100 ea 09/15/20 10/24/20 Unknown Rx polyethylene glycol 3350 17 17 g PO DAILY #119 g 10/06/20 10/24/20 Unknown Rx gram/dose oral powder alendronate [Fosamax] 70 mg PO Q7D 10/24/20 10/24/20 Unknown History amiodarone 400 mg PO DAILY 10/24/20 10/24/20 Unknown History carvedilol 3.125 mg PO BID 10/24/20 10/24/20 Unknown History clopidogrel 75 mg PO DAILY 10/24/20 10/24/20 Unknown History ergocalciferol (vitamin D2) 1,250 mcg PO Q7D 10/24/20 10/24/20 Unknown History gabapentin 100 mg PO BEDTIME 10/24/20 10/24/20 Unknown History levothyroxine 75 mcg PO DAILY 10/24/20 10/24/20 Unknown History meclizine See Rx Instructions .ROUTE .COMPLEX 10/24/20 10/24/20 Unknown History methenamine hippurate 1 g PO BID 10/24/20 10/24/20 Unknown History rosuvastatin 40 mg PO DAILY 10/24/20 10/24/20 Unknown History Allergies Allergy/AdvReac Type Severity Reaction Status Date / Time metformin Allergy Intermediate diarrhea Verified 10/24/20 09:25 Current Medications Current Medications Generic Name Dose Route Start Last Admin Trade Name Chetan PRN Reason Stop Dose Admin Amiodarone HCl 400 mg 10/25/20 09:00 10/25/20 09:18 Amiodarone 200 Mg Tablet PO 400 mg DAILY NORA Administration Aspirin 81 mg 10/25/20 09:00 10/25/20 09:18 Aspirin 81 Mg Ec Tablet PO 81 mg DAILY NORA Administration Citalopram Hydrobromide 10 mg 10/25/20 09:00 10/25/20 09:18 Citalopram 20 Mg Tablet PO 10 mg DAILY NORA Administration Clopidogrel Bisulfate 75 mg 10/25/20 09:00 10/25/20 09:18 Clopidogrel 75 Mg Tablet PO 75 mg DAILY NORA Administration Dexamethasone 6 mg 10/25/20 14:30 10/25/20 14:55 Dexamethasone 10 Mg/Ml Inj IVP 6 mg Q24H NORA Administration Famotidine 20 mg 10/24/20 21:00 10/25/20 09:18 Famotidine 20 Mg/2 Ml Inj IVP 20 mg Q12H NORA Administration Heparin Sodium (Beef Lung) 5,000 unit 10/24/20 16:00 10/25/20 08:13 Heparin 5,000 Unit/Ml Inj 1 Ml SUBCUT 5,000 unit Q12H NORA Administration Insulin Human Regular 250 unit 252.5 mls @ 0 mls/hr 10/24/20 10:30 10/25/20 15:20 / Sodium Chloride IV 1.5 ml/hr .Q0M NORA 1.5 mls/hr Titration Protocol Per Protocol Dextrose/Sodium Chloride 1,000 mls @ 50 mls/hr 10/24/20 14:46 10/25/20 05:10 Dextrose 5%-Sod Chloride 0.45% IV 75 mls/hr .Q20H NORA Administration Vancomycin HCl 1,000 mg/ 250 mls @ 250 mls/hr 10/25/20 09:00 10/25/20 10:40 Sodium Chloride IV Infused Q36H NORA Infusion Protocol Imipenem/Cilastatin Sodium 250 100 mls @ 200 mls/hr 10/25/20 08:30 10/25/20 09:45 mg/ Sodium Chloride IV Infused Q8H NORA Infusion Protocol Norepinephrine Bitartrate 4 mg 254 mls @ 0 mls/hr 10/25/20 14:30 10/25/20 14:56 / Dextrose IV 2 mcg/min .Q0M NORA 7.62 mls/hr Administration Protocol Per Protocol Levothyroxine Sodium 75 mcg 10/25/20 09:00 10/25/20 09:18 Levothyroxine 75 Mcg Tablet PO 75 mcg DAILY NOAR Administration Vancomycin HCl 250 mg 10/25/20 04:30 10/25/20 12:18 Vancomycin 1,000 Mg Oral Jackie (Btl) PO 250 mg QID NORA Administration PFSH Acute PFSH: Medical History (Updated 10/24/20 @ 15:17 by Michael Domingo DO) A-fib Anxiety and depression ASHD (arteriosclerotic heart disease) Benign essential HTN -VSS; continue to monitor -continue oral antihypertensives Cardiomyopathy LVEF of approximately 30%, unchanged, unable to tolerate STERLING or ARB in past due to lower BP Chronic kidney disease (CKD) stage G1/A1, glomerular filtration rate (GFR) equal to or greater than 90 mL/min/1.73 square meter and albuminuria creatinine ratio less than 30 mg/g Chronic pain syndrome Constipation Cystitis Dementia -re-orient as needed; mental status waxes and wanes -fall precautions Diabetes Dyslipidemia Continue statin Essential hypertension GERD (gastroesophageal reflux disease) Heart failure -Appears clinically compensated, continue oral lasix -Echo (03/2019): EF=30-35%, global LV hypokinesis, G2DD, mild pulmonary HTN, mild-moderate MR, trace-mild TR -has AICD in place -follows up with Dr. Scales Hypotension Resolved Hypothyroidism -continue levothyroxine ICD (implantable cardioverter-defibrillator) in place Insomnia Left bundle branch block Nonischemic cardiomyopathy Stable Osteoarthritis Pacemaker Vitamin D deficiency Surgical History History of angioplasty History of appendectomy History of hysterectomy Family History Other CAD (coronary artery disease) Diabetes Social History Smoking and tobacco status: never smoked Second hand smoke exposure: Yes Alcohol intake: never Caregiver/support person: Yes Lives independently: Yes Household members: children Marital status: / service: No Current occupational status: disabled History of recent travel: No Current gender identity: Female Special phil needs: No Agree to transfusion: Yes Vitals/I&O/Wt Last Vital Signs Temp 98.1 F 10/25/20 11:00 Pulse 69 10/25/20 15:41 Resp 45 H 10/25/20 13:00 BP 91/44 10/25/20 13:00 Pulse Ox 93 10/25/20 15:41 10/25/20 10/25/20 10/25/20 06:59 14:59 22:59 Intake Total 2071.3 / 3409.445 418.033 / 418.033 3.18 / 421.213 Output Total 175 / 400 50 / 50 Balance 1896.3 / 3009.445 368.033 / 368.033 3.18 / 371.213 Weight last 48 hrs Weight 64.41 kg Weight 64.41 kg Weight 58.967 kg Physical Exam Narrative: EXAM NARRATIVE: Constitutional: Drowsy HEENT: Wet mucosa, no jvp, non icteric Lungs: Bilaterally basal wheeze, rales in all lung zones CVS: S1 S2, no murmurs Abdo: Soft, BS ok Ext 4: Minimal edema, peripheral perfusion with no cyanosis Neurological: Grossly non-focal Urinary Catheter Management^: [place]: Cath Placed During This Visit: yes Reason for Continuing Indwelling Catheter: Accurate Measurement of Urinary Output in Critically Ill Patients Urinary Catheter Date of Insertion: 10/24/20 Urinary Catheter Time of Insertion: 13:00 Data Micro: Micro: Microbiology 10/24/20 13:10 Blood Culture - Pr eliminary Blood NEGATIVE TO DARREN E 10/24/20 09:45 Blood Culture - Pr eliminary Blood NEGATIVE TO DARREN E 10/24/20 09:45 Urine Culture - Pr eliminary Urine Catheterize d Gram Negative R ods Gram Negative R ods#2 A&P Additional A&P Information 1. Acute kidney injury Becoming now progressively oliguric, only making 50 mL of urine today. Likely to be infection related ATN. No acute indication for dialysis today, however, she is at very high risk of requiring dialysis over the next 24-48 hours. Continue gentle IV hydration. Limited evaluation i.e. no need for any further imaging. We will get urine sodium for fractional excretion of sodium, serum CPK, uric acid Strict I's and O's Avoid usual nephrotoxic agents Dose medication for GFR less than 15 2. Chemistry Anion gap metabolic acidosis, likely in part secondary to uremia, lactic acid levels are noted to be okay. We will defer alkalinization for the time being to avoid overloading with sodium. pH on ABG 7.34 i.e. she is currently compensating. 3. Respiratory distress She is currently on high flow oxygen via facemask. High risk of requiring intubation in the next 24 hours as well. Close management in the ICU. 4. Sepsis Multiple potential foci of infection including C. difficile, pancreatitis, pneumonia, urosepsis. Gram-negative rods identified in the urine. Being covered with combination antibiotics including Primaxin, vancomycin, p.o. vancomycin. Cultures are pending. 5. Hemodynamics Has now resolved on low-dose Levophed. Titration in the ICU. Thank you for consultation, as always it is a pleasure to follow these cases with you Kurt Wakefield MD Nephrology [phone] Coding Level of Care Code Acute Training And Development Coordinator for Chris Jane
[2020-10-25] MEDS: rocuronium 10 mg/mL INJ 5mL 50 MG ×2 (17:10)
[2020-10-25] MEDS: propofol 1,000 MG/100 ML INJ 3.87 MG IV (17:17)
--- NOTE | 2020-10-25 17:41 | XRR_ITS ---
PROCEDURE INFORMATION: Exam: XR Chest Exam date and time: 10/25/2020 5:41 PM Age: 75 years old Clinical indication: Device placement; Other: Og, et, and central line placement; Prior surgery; Surgery date: 6+ months; Surgery type: Pacemaker; Patient HX: Central line/ et/ og line placements please; Additional info: Line confirmation TECHNIQUE: Imaging protocol: XR of the chest. Views: 1 view. COMPARISON: CR (CHEST, ) 10/25/2020 5:12 AM FINDINGS: Tubes, catheters and devices: NG tube extends into the stomach. A right central line is present extending into the SVC. Endotracheal tube is present 5.3 cm above the quincy. Cardiac device left anterior chest in good position. Lungs: Right hilar vascular congestion is seen. No consolidation. Pleural spaces: Unremarkable. No pleural effusion. No pneumothorax. Heart/Mediastinum: Unremarkable. No cardiomegaly. Bones/joints: Unremarkable. XR/XR chest 1V portable [id number] IMPRESSION: 1. No acute findings. 2. Right central line in the SVC. 3. Endotracheal tube is above the quincy. 4. NG tube is in the stomach. 5. Cardiac device left anterior chest. 6. Right hilar vascular congestion.
[2020-10-25 17:44] LABS: Creatine Phosphokinase 272 U/L (26-192)
[2020-10-25 17:49] LABS: Glucose Point of Care 119 mg/dL (70-110)
--- NOTE | 2020-10-25 17:51 | PM.CONSULT ---
Providers/Reason For Consult Consulting Physician/Specialty*: Pulmonary and critical care medicine Reason for Consult*: Multiorgan failure Attending Physician: Robin Austin MD Primary Care Provider: Aziza Nguyen MD History of Present Illness History of Present Illness Carmen Alvarenga is a 75 year old female with an extensive past medical history. The patient has ischemic cardiomyopathy with an ejection fraction of approximately 30% (03/2019) status post AICD placement. Her other past medical history includes diabetes mellitus. Her last hemoglobin A1c on September 06 was 10.8. The patient has chronic kidney disease with baseline creatinine around 1.5-1.7. The patient also carries a diagnosis of A. fib, questionable dementia. The patient also suffered from urinary tract infection in 2019. At that time her urine culture grew E. coli that was resistant to fluoroquinolones. The patient presented to the hospital on October 24 with altered mental status. According to chart review, the patient had not been feeling well for approximately 2 to 2-1/2 weeks prior to presenting to the hospital. Based on my conversation with her son, it appears that she had been tested for COVID-19 three times and she had turned out negative every time. During admission, the patient was only on 2 L oxygen. Her rapid Covid antigen testing was negative. She was found to have UTI with gram-negative organism which was thought to be the cause of altered mental status. She was also in DKA, suffering from acute pancreatitis, elevated liver enzymes and pneumonia. The admission chest x-ray revealed bilateral infiltrates without any evidence of pleural effusion. The patient underwent CT scan of the abdomen and pelvis with contrast. The lower part of the chest that was included on the CT scan revealed bilateral infiltrate. Mesenteric edema surrounding the transverse colon and pancreas was also noted. Her initial lipase level on admission was 3591 which has come down to 1883. Blood work revealed elevated liver enzymes. Ultrasound of the gallbladder revealed cholelithiasis without acute cholecystitis. Biliary ductal dilatation was not observed. CT scan of the head revealed chronic changes no acute disease was identified. The patient has developed oliguric renal failure. She has BROOK[place]N on CKD. Her overall urine output had been barely 200 cc in more than 24 hours. I had seen and examined the patient in the ICU. The patient is on BiPAP that was instituted due to tachypnea. Her oxygen saturation is well. The patient is not responsive. Bedside ultrasound revealed bilateral B-lines. The patient has a very dilated IVC with dilated hepatic veins. Echocardiogram revealed global reduction of left ventricular function. The patient has tested positive for SARS-CoV-2 PCR. Review of Systems Narrative: Unable to assess Meds/Allergies Home Medications and Allergies Home Medications Medication Instructions Recorded Confirmed Last Taken Type aspirin 81 mg tablet,delayed 81 mg PO DAILY 02/24/19 10/24/20 04/01/19 History release vitamins A,C,B-ubkx-txdzhl 14,320 1 cap PO BID 02/24/19 10/24/20 03/31/19 History unit-226 mg-200 unit capsule ascorbic acid (vitamin C) [Vitamin 500 mg PO BID 04/01/19 10/24/20 03/31/19 History C] famotidine 20 mg PO BID 05/16/19 10/24/20 Unknown History insulin aspart U-100 100 unit/mL See Rx Instructions SUBCUT 01/21/20 10/24/20 Unknown Rx subcutaneous solution .COMPLEX #30 ml furosemide 20 mg PO DAILY #30 tab 02/16/20 10/24/20 Unknown Rx diclofenac sodium 1 % topical gel 4 g TOPICAL QID #300 g 03/17/20 10/24/20 Unknown Rx nitroglycerin 0.4 mg sublingual 0.4 mg SUBLINGUAL Q5M PRN #25 tab 04/26/20 10/24/20 Unknown Rx tablet albuterol sulfate 2.5 mg INHALATION Q8H PRN #90 ml 05/09/20 10/24/20 Unknown Rx nebulizer #1 ea 05/09/20 10/24/20 Unknown Rx albuterol sulfate 90 mcg/actuation 2 puff INHALATION Q6H PRN #8.5 g 05/10/20 10/24/20 Unknown Rx aerosol inhaler citalopram 10 mg tablet 10 mg PO DAILY #30 tab 05/23/20 10/24/20 Unknown Rx lorazepam 0.5 mg tablet 0.5 mg PO TID PRN #90 tab 07/20/20 10/24/20 Unknown Rx tramadol 50 mg tablet 50 mg PO BID PRN #20 tab 07/20/20 10/24/20 Unknown Rx insulin degludec 100 unit/mL (3 See Rx Instructions .ROUTE 08/24/20 10/24/20 Unknown Rx mL) subcutaneous pen .COMPLEX #30 ml PULLUP DEPENDS #100 ea 09/15/20 10/24/20 Unknown Rx polyethylene glycol 3350 17 17 g PO DAILY #119 g 10/06/20 10/24/20 Unknown Rx gram/dose oral powder alendronate [Fosamax] 70 mg PO Q7D 10/24/20 10/24/20 Unknown History amiodarone 400 mg PO DAILY 10/24/20 10/24/20 Unknown History carvedilol 3.125 mg PO BID 10/24/20 10/24/20 Unknown History clopidogrel 75 mg PO DAILY 10/24/20 10/24/20 Unknown History ergocalciferol (vitamin D2) 1,250 mcg PO Q7D 10/24/20 10/24/20 Unknown History gabapentin 100 mg PO BEDTIME 10/24/20 10/24/20 Unknown History levothyroxine 75 mcg PO DAILY 10/24/20 10/24/20 Unknown History meclizine See Rx Instructions .ROUTE .COMPLEX 10/24/20 10/24/20 Unknown History methenamine hippurate 1 g PO BID 10/24/20 10/24/20 Unknown History rosuvastatin 40 mg PO DAILY 10/24/20 10/24/20 Unknown History Allergies Allergy/AdvReac Type Severity Reaction Status Date / Time metformin Allergy Intermediate diarrhea Verified 10/24/20 09:25 Current Medications Current Medications Generic Name Dose Route Start Last Admin Trade Name Freq PRN Reason Stop Dose Admin Amiodarone HCl 400 mg 10/25/20 09:00 10/25/20 09:18 Amiodarone 200 Mg Tablet PO 400 mg DAILY NORA Administration Aspirin 81 mg 10/25/20 09:00 10/25/20 09:18 Aspirin 81 Mg Ec Tablet PO 81 mg DAILY NORA Administration Citalopram Hydrobromide 10 mg 10/25/20 09:00 10/25/20 09:18 Citalopram 20 Mg Tablet PO 10 mg DAILY NORA Administration Clopidogrel Bisulfate 75 mg 10/25/20 09:00 10/25/20 09:18 Clopidogrel 75 Mg Tablet PO 75 mg DAILY NORA Administration Dexamethasone 6 mg 10/25/20 14:30 10/25/20 14:55 Dexamethasone 10 Mg/Ml Inj IVP 6 mg Q24H NORA Administration Famotidine 20 mg 10/24/20 21:00 10/25/20 09:18 Famotidine 20 Mg/2 Ml Inj IVP 20 mg Q12H NORA Administration Heparin Sodium (Beef Lung) 5,000 unit 10/24/20 16:00 10/25/20 16:27 Heparin 5,000 Unit/Ml Inj 1 Ml SUBCUT 5,000 unit Q12H NORA Administration Insulin Human Regular 250 unit 252.5 mls @ 0 mls/hr 10/24/20 10:30 10/25/20 15:20 / Sodium Chloride IV 1.5 ml/hr .Q0M NORA 1.5 mls/hr Titration Protocol Per Protocol Vancomycin HCl 1,000 mg/ 250 mls @ 250 mls/hr 10/25/20 09:00 10/25/20 10:40 Sodium Chloride IV Infused Q36H NORA Infusion Protocol Imipenem/Cilastatin Sodium 250 100 mls @ 200 mls/hr 10/25/20 08:30 10/25/20 16:27 mg/ Sodium Chloride IV 200 mls/hr Q8H NORA Administration Protocol Norepinephrine Bitartrate 4 mg 254 mls @ 0 mls/hr 10/25/20 14:30 10/25/20 14:56 / Dextrose IV 2 mcg/min .Q0M NORA 7.62 mls/hr Administration Protocol Per Protocol Levothyroxine Sodium 75 mcg 10/25/20 09:00 10/25/20 09:18 Levothyroxine 75 Mcg Tablet PO 75 mcg DAILY NORA Administration Vancomycin HCl 250 mg 10/25/20 04:30 10/25/20 16:27 Vancomycin 1,000 Mg Oral Jackie (Btl) PO 250 mg QID NORA Administration PFSH Acute PFSH: Medical History A-fib Anxiety and depression ASHD (arteriosclerotic heart disease) Benign essential HTN -VSS; continue to monitor -continue oral antihypertensives Cardiomyopathy LVEF of approximately 30%, unchanged, unable to tolerate STERLING or ARB in past due to lower BP Chronic kidney disease (CKD) stage G1/A1, glomerular filtration rate (GFR) equal to or greater than 90 mL/min/1.73 square meter and albuminuria creatinine ratio less than 30 mg/g Chronic pain syndrome Constipation Cystitis Dementia -re-orient as needed; mental status waxes and wanes -fall precautions Diabetes Dyslipidemia Continue statin Essential hypertension GERD (gastroesophageal reflux disease) Heart failure -Appears clinically compensated, continue oral lasix -Echo (03/2019): EF=30-35%, global LV hypokinesis, G2DD, mild pulmonary HTN, mild-moderate MR, trace-mild TR -has AICD in place -follows up with Dr. Scales Hypotension Resolved Hypothyroidism -continue levothyroxine ICD (implantable cardioverter-defibrillator) in place Insomnia Left bundle branch block Nonischemic cardiomyopathy Stable Osteoarthritis Pacemaker Vitamin D deficiency Surgical History History of angioplasty History of appendectomy History of hysterectomy Family History Other CAD (coronary artery disease) Diabetes Social History Smoking and tobacco status: never smoked Second hand smoke exposure: Yes Alcohol intake: never Caregiver/support person: Yes Lives independently: Yes Household members: children Marital status: / service: No Current occupational status: disabled History of recent travel: No Current gender identity: Female Special phil needs: No Agree to transfusion: Yes Vitals/I&O/Wt Last Vital Signs Temp 98.1 F 10/25/20 11:00 Pulse 69 10/25/20 15:41 Resp 45 H 10/25/20 13:00 BP 91/44 10/25/20 13:00 Pulse Ox 93 10/25/20 15:41 10/25/20 10/25/20 10/25/20 06:59 14:59 22:59 Intake Total 2071.3 / 3409.445 418.033 / 418.033 3.18 / 421.213 Output Total 175 / 400 50 / 50 Balance 1896.3 / 3009.445 368.033 / 368.033 3.18 / 371.213 Weight last 48 hrs Weight 142 lb Weight 142 lb Weight 130 lb Physical Exam Narrative: EXAM NARRATIVE: General: Patient is on BiPAP, barely responsive Neck: Mildly elevated JVD Respiratory: Auscultation: Crackles at bilateral lung bases, no wheezing or rhonchi Cardiovascular: Regular rate and rhythm, S1-S2 present, no murmur, no peripheral edema. Abdomen: Soft, unable to assess tenderness due to mental status,, nondistended, positive bowel sound Skin: No rash Neuro: Unable to assess Urinary Catheter Management^: Montalvo: Cath Placed During This Visit: yes Reason for Continuing Indwelling Catheter: Accurate Measurement of Urinary Output in Critically Ill Patients Urinary Catheter Date of Insertion: 10/24/20 Urinary Catheter Time of Insertion: 13:00 Data Micro: Micro: Microbiology 10/24/20 16:20 MRSA Culture - Fin al Nose 10/24/20 13:10 Blood Culture - Pr eliminary Blood NEGATIVE TO DARREN E 10/24/20 09:45 Blood Culture - Pr eliminary Blood NEGATIVE TO DARREN E 10/24/20 09:45 Urine Culture - Pr eliminary Urine Catheterize d Gram Negative R ods Gram Negative R ods#2 Other Data: Attestation for Other Data: I personally reviewed and interpreted the following: Other data: I have reviewed the patient's laboratory, microbiologic and radiologic data. Please see the HPI for detail. The patient has worsened leukocytosis, non-anion gap metabolic acidosis, BR[place] on CKD A&P Assessment and plan (1) Pneumonia due to severe acute respiratory syndrome coronavirus 2 (SARS-CoV-2): This is a 75-year-old lady with SARS-CoV-2 pneumonia. The chest radiography is consistent with COVID-19. The patient did not have significant hypoxia from the pneumonia. The patient is a lifelong non-smoker. The reason for intubation is her altered mental status in the setting of UTI, DKA, sepsis and septic shock. We will continue with dexamethasone 6 mg daily. I am going to discontinue IV vancomycin. We will get a nasal MRSA PCR. Status: Acute (2) Acute kidney injury: The patient has oliguric acute kidney injury on CKD. Her baseline creatinine is about 1.5. The patient has non-anion gap metabolic acidosis at this point likely secondary to resolving DKA as well as [place]. Her bicarb deficit is approximately 234 mEq. I am going to start her on a concentrated bicarb drip on 15 mL an hour. We will be able to correct half her deficit in approximately 10 hours. Bedside ultrasound revealed significantly dilated IVC and hepatic veins. The patient is not hypovolemic at this time. She received a dose of 60 mg of Lasix without any significant urine output. The patient has acute tubular necrosis. This is likely multifocal including receiving contrast for CT abdomen and pelvis yesterday. The patient will need supportive therapy. Will avoid excessive hydration. We will cut down and concentrate the IV drip so that the patient requires minimal IV fluids. Hopefully, the oliguria resolves and we are able to avoid dialysis. If not, the patient may require CRRT. Status: Acute (3) DKA (diabetic ketoacidoses): When the patient presented to the hospital she was in DKA. Currently, I do not believe the patient has any component of DKA. The patient is on approximately 30 units of long-acting insulin at home subcutaneously. At this point, I will continue with 0.5 units of regular insulin an hour. Discontinue the D5 drip. The patient is going to be on a D5 drip with the bicarb and if necessary she can receive D50 IV push as needed. I am going to hold off on long-acting insulin at this point given her acute kidney injury. I will adjust this based on her overall trajectory of blood sugar. Status: Acute (4) Pancreatitis, acute: The patient has biochemical and radiologic evidence of pancreatitis. The lipase level is coming down. We will continue with supportive therapy. Status: Acute (5) Acute encephalopathy: Acute encephalopathy is secondary to sepsis. The source of the sepsis is urinary tract infection. Due to her poor mental status I had decided to proceed with intubation to take control over her respiratory status while the metabolic derangement and other organ failure can be fixed. I had a juvencio conversation with her son prior to proceeding. The son wants her to receive the highest level of care if that would provide her a chance to leave. However he understands that that may not happen. Status: Acute (6) Septic shock: The patient has urinary tract infection with gram-negative rods. Currently the patient is on imipenem. She has developed septic shock requiring vasopressor support. We will follow up on the blood culture. Status: Acute (7) Ischemic cardiomyopathy with implantable cardioverter-defibrillator (ICD): The patient's overall disease process is complicated by ischemic cardiomyopathy.. Patient has an ejection fraction likely less than 30% based on bedside ultrasound at this time. We will continue with the aspirin, Plavix. Hold off on apixaban for the time being. Given multiple risk factors including intubation, dual antiplatelet therapy, IV steroid, I will switch the GI prophylaxis to pantoprazole. Overall, the patient does have a chance of making a recovery however that may not income tax return preparer to be the case. I had a thorough conversation with the family member prior to proceeding with extensive care plan. Status: Acute Coding Level of Care Code Acute Voice Intercept Technician for Chg Fwd Diagnoses Pneumonia due to severe acute respiratory syndrome coronavirus 2 (SARS-CoV-2) U07.1; J12.82 Acute kidney injury N17.9 DKA (diabetic ketoacidoses) E11.10 Pancreatitis, acute K85.90 Acute encephalopathy G93.40 Septic shock A41.9; R65.21 Ischemic cardiomyopathy with implantable cardioverter-defibrillator (ICD) I25.5; Z95.810 Time Spent (min) 62
[2020-10-25] MEDS: etomidate 20 ML 0.1 MG (18:18)
--- NOTE | 2020-10-25 18:29 | PM.ACPR ---
Procedure/Consent Time out: Time Out Performed: Yes Consent: Consent for Procedure: Consent obtained from other (indicate) (Verbal consent obtained from son) Procedure Narrative: Name of the procedure: Endotracheal intubation. Indication: Altered mental status, airway protection Medications: Etomidate 20 mg, rocuronium 80 mg Procedure: The patient was positioned optimally. The patient was oxygenated with 100% oxygen with noninvasive ventilator. After appropriate medications were given, the glide scope blade was introduced and advanced till vocal cords were visualized. Thick inspissated upper airway secretion around the vocal cord was identified and cleared with the ET tube. The endotracheal tube was advanced through the vocal cords under direct visualization. There was fogging of the ET tube, positive change in end-tidal CO2 monitor, bilateral chest rise, bilateral positive breath sound. The ET tube was secured at 22 cm at the lips. Complications: There was no immediate complications. Chest x-ray: Pending Acute Procedures Epistaxis Control: Time out performed: Yes
--- NOTE | 2020-10-25 18:31 | P.PCN_ITS ---
Procedure/Consent Time out: Time Out Performed: Yes Consent: Consent for Procedure: Consent obtained from other (indicate) (Verbally obtained from son) Procedure Narrative: Name of the Procedure: Right subclavian Central venous catheter placement under ultrasound guidance. Indication: Access for vasopressor therapy Anesthesiia: Lidocaine 1%, 5 ml Description of the procedure: The right subclavian vein was identified with the Ultrasound guidance. The site was prepared using sterile technique. The skin and subcuteneous tissue was anesthetized using lidocaine. The introducer needle was advanced under US g uidance till flash back was noted. Dark, non pulsatile blood noted. Using seldinger technique the CVC was put in.Blood return was noted in all ports. Catheter was secured with suture and covered with transparent dressing. Complications: None X-ray: Pending. Acute Procedures Epistaxis Control: Time out performed: Yes
--- NOTE | 2020-10-25 19:26 | PC.NURSE ---
[address] Austin. Reported patient's mental status, increasing O2 requirements, and tachypnea. Orders obtained. 1405 Reported low BP and low UOP to Dr. Austin. Reviewed lab and COVID results. Orders for Levo drip. [address] Wakefield. Discuss UOP, medications, coarse lung sounds, labs, and plan of care. 1630 Dr. Elizabeth at bedside. Plan to intubate patient after discussion with patient's son. 1715 Patient intubated.
[2020-10-26] VITALS (99 sets, daily range): BP systolic 99–125; BP diastolic 44–70; PULSE 55–75; RESP 18–27; TEMP 36.4–37.4; O2SAT 93–100; BMI 25.4
[2020-10-26 01:12] LABS: Urine Creatinine 43 mg/dL (28-217); Urine Random Sodium 65 mmol/L
[2020-10-26 01:25] LABS: Add Urine Culture? Yes; Add Urine Microscopic? YES; Bacteria Urine TRACE /hpf; Bilirubin Urine Neg (Negative); Blood Urine 3+ (Negative); Glucose Urine UA Norm (Normal); Ketones Urine Negative (Negative); Leukocyte Esterase Urine 2+ (Negative); Nitrate Urine Negative (Negative); Protein Urine 1+ (Negative); RBC Urine 0-4 /hpf (0-2); Specific Gravity, Urine 1.005 (1.005-1.030); Squamous Epithelial Cell Urine 0-4 /hpf (0-5); Urine Appearance Hazy (CLEAR); Urine Color Yellow (Yellow); Urobilinogen Urine Norm (Negative); WBC Urine >100 /hpf (0-5); pH Urine 5 (5-7)
[2020-10-26] MEDS: ipratropium-albuterol 3 mL Neb INHALATION ×4 (03:30→20:05)
[2020-10-26 04:07] LABS: Basophils # 0.1 10^3/uL (0.0-0.1); Basophils % 0.4 %; Hematocrit 37.6 % (37.0-47.0); Hemoglobin 12.1 g/dL (11.5-15.3); Lymphocytes # 0.8 10^3/uL (0.8-4.8); Lymphocytes % 2.5 %; Mean Corpuscular HGB Conc 32.2 g/dL (30.0-36.0); Mean Corpuscular Hemoglobin 29.2 pg (28.0-34.0); Mean Corpuscular Volume 90.8 fl (81-99); Mean Platelet Volume 9.8 fL (7.4-10.4); Monocytes # 1.1 10^3/uL (0.2-0.9); Monocytes % 3.2 %; Neutrophils # 30.56 10^3/uL (1.8-7.7); Neutrophils % 90.3 %; Nucleated Red Blood Cells % 0.1 %; Platelet Count 412 10^3/cmm (130-400); Red Blood Count 4.14 10^6/uL (4.1-5.3); Red Cell Distribution Width 16.6 % (12.1-15.1)
[2020-10-26] MEDS: insulin regular-human 250 UNIT in sodium chloride 0.9% 250 ML 5.3 UNIT IV (04:19)
[2020-10-26 04:21] LABS: Alanine Aminotransferase 143 U/L (0-33); Albumin Level 2.2 g/dL (3.5-5.2); Alkaline Phosphatase 599 IU/L (35-105); Anion Gap 19.4 (5-19); Aspartate Amino Transferase 239 U/L (0-32); Blood Urea Nitrogen 58 mg/dL (8-23); Carbon Dioxide 18 mmol/L (22-29); Chloride 107 mmol/L (98-107); Glucose 138 mg/dL (65-115); Magnesium 2.5 mg/dL (1.7-2.3); Osmolality Calculated 308 mOsm/kg (285-295); Potassium 4.4 mmol/L (3.5-5.1); Sodium 140 mmol/L (136-145); Total Bilirubin 0.9 mg/dL (0.15-1.2); Total Protein 6.2 g/dL (6.6-8.7)
[2020-10-26] MEDS: heparin 5,000 unit/mL INJ 1 mL 5000 UNIT SUBCUT ×2 (04:31→15:56)
[2020-10-26 04:48] LABS: Slide Review Slide Review Perform
[2020-10-26 04:50] LABS: Calcium 5.6 mg/dL (8.5-10.5); White Blood Count 33.8 10^3/uL (4.0-10.0)
[2020-10-26 05:53] LABS: ABG PCO2 39.5 mmHg (35-45); ABG PH Result 7.28 (7.35-7.45); Arterial Blood Gas Hematocrit 45.9 % (37-47); Base Excess ABG -7.8 mmol/L (-2.0-2.0); Blood Gas Allen Test Pos; Blood Gas Operator Identificat JB; Blood Gas Sample Site Radial, right; Blood Gas Sample Type Arterial; Blood Gas Tidal Volume 0.35; HCO3 ABG 18.5 mmol/L (22-26); Oxygen Device VENT
[2020-10-26 06:06] LABS: Glucose Point of Care 139 mg/dL (70-110)
[2020-10-26 06:06] LABS: Glucose Point of Care 134 mg/dL (70-110)
[2020-10-26 06:06] LABS: Glucose Point of Care 128 mg/dL (70-110)
[2020-10-26 06:06] LABS: Glucose Point of Care 117 mg/dL (70-110)
[2020-10-26 06:06] LABS: Glucose Point of Care 239 mg/dL (70-110)
[2020-10-26 06:06] LABS: Glucose Point of Care 254 mg/dL (70-110)
[2020-10-26 06:06] LABS: Glucose Point of Care 271 mg/dL (70-110)
[2020-10-26 06:06] LABS: Glucose Point of Care 178 mg/dL (70-110)
[2020-10-26 06:06] LABS: Glucose Point of Care 215 mg/dL (70-110)
[2020-10-26 06:06] LABS: Glucose Point of Care 198 mg/dL (70-110)
[2020-10-26 06:06] LABS: Glucose Point of Care 152 mg/dL (70-110)
--- NOTE | 2020-10-26 07:00 | XR_ITS ---
WS: [id number] XR chest 1V portable [id number] REASON FOR EXAM: resp failiure FINDINGS: Endotracheal tube, nasogastric tube, right subclavian vein central venous catheter, and double lead l eft-sided pacemaker remain in position. Bilateral infiltrates most prominently in the right mid and upper lung and the left midlung. No signi ficant interval change in these findings compared to the examination of 10/25/2020 6:00 PM. Infiltrates are less dense than on the examination of 10/24/2020. No new findings. XR/XR chest 1V portable [id number] IMPRESSION: Stable abnormal chest.
[2020-10-26 07:43] LABS: Glucose Point of Care 141 mg/dL (70-110)
--- NOTE | 2020-10-26 07:46 | P.PN_ITS ---
Subjective Subjective: Interval history: Carmen is sedated and on the ventilator. No significant response. Medications: Reviewed: Yes Vitals/I&O/Wt Last Vital Signs Temp 98.4 F 10/26/20 06:00 Pulse 66 10/26/20 06:00 Resp 24 H 10/26/20 06:00 BP 125/59 10/26/20 06:00 Pulse Ox 97 10/26/20 06:00 10/25/20 10/26/20 10/26/20 22:59 06:59 14:59 Intake Total 1131.818 / 1549.851 767.142 / 2316.993 4.93 / 4.93 Output Total 75 / 125 Balance 1131.818 / 1499.851 692.142 / 2191.993 4.93 / 4.93 Weight last 48 hrs Weight 71.668 kg Weight 71.668 kg Weight 64.41 kg Weight 64.41 kg Weight 58.967 kg Physical Exam Narrative: EXAM NARRATIVE: General exam, sedated and intubated. Orogastric tube noted. HEENT: Pupils equally round Neck is supple no lymphadenopathy or thyromegaly Cardiovascular regular rate and rhythm, no murmur Lungs coarse breath sounds bilaterally Abdomen is soft. Question tenderness right upper quadrant. Positive bowel sounds. No obvious organomegaly exam Montalvo, minimal urine Extremities no cyanosis clubbing or edema, cap refill brisk Urinary Catheter Management^: Montalvo: Cath Placed During This Visit: yes Reason for Continuing Indwelling Catheter: Accurate Measurement of Urinary Output in Critically Ill Patients Urinary Catheter Date of Insertion: 10/24/20 Urinary Catheter Time of Insertion: 13:00 Data : 10/26/20 03:45 10/26/20 03:45 Micro: Microbiology 10/24/20 16:20 MRSA Culture - Final Nose 10/24/20 13:10 Blood Culture - Preliminary Blood NEGATIVE TO DATE 10/24/20 09:45 Blood Culture - Preliminary Blood NEGATIVE TO DATE 10/24/20 09:45 Urine Culture - Preliminary Urine Catheterized Gram Negative Rods Gram Negative Rods#2 Other data: Urine culture growing 2 gram-negative rods ABG this morning demonstrates a pH of 7.28, PCO2 39, PO2 of 82 on 40% FiO2 with a PEEP of 8 on the ventilator. A&P Assessment and plan (1) DKA (diabetic ketoacidoses): Patient presented in DKA. This is likely resolved. Her persistent acidosis is secondary to her renal failure. Currently secondary to n.p.o. status, multiple other comorbidities she remains on an insulin drip. Status: Acute (2) Acute encephalopathy: Currently sedated CT head negative, now x2 Doubt CVA This is multifactorial Status: Acute (3) Pancreatitis, acute: Lipase was improving History of gallstones complicates presentation. May need surgical evaluation by end of hospitalization for consideration of cholecystectomy Secondary to concern of gallbladder etiology presentation initially initiated Zosyn. Or changing to Primaxin secondary to history of frequent UTIs which could predispose to ESBL. Blood cultures have already been drawn. Triglyceride level was checked and not elevated Status: Acute (4) Pneumonia: Covid PCR is positive Continue Primaxin. Vancomycin discontinued as MRSA PCR negative Continue pulmonary toilet We will try to wean from ventilator when mental status improves, comorbidities improved. Appreciate pulmonary critical care intervention. Status: Acute (5) Transaminitis: Gallbladder ultrasound did not demonstrate dilated ducts. No evidence of cholecystitis. Gallstones were noted. LFTs approximately the same today with the exception of alk phos which is slightly higher. Continue to hold statin. Status: Acute (6) Cardiomyopathy: History of ejection fraction 30 to 35% on last echocardiogram March 2019. Repeat echocardiogram demonstrates an EF of approximately 25%. History of ventricular tachycardia, pacemaker and ICD implantation. Past history of atrial fibrillation, as well as coronary artery disease. Continue amiodarone. Troponin without significant delta. Status: Acute Qualifiers: Cardiomyopathy type: unspecified Qualified Code(s): I42.9 - Cardiomyopathy, unspecified (7) Acute kidney injury: Acute kidney injury superimposed on chronic kidney disease Renal function continues to worsen Avoid renal toxic medication No evidence of obstruction on CT CK not significantly elevated Appreciate nephrology consultation With worsening acidosis, increasing positive fluid balance I suspect she may need dialysis at some point. Status: Acute Additional A&P Information History of diarrhea. Enteric pathogens, C. difficile ordered. Oral vancomycin started secondary to markedly elevated white blood cell count suspicious of C. difficile UTI. Continue Primaxin. Await culture. Full code Heparin for DVT prophylaxis Protonix for GI prophylaxis Prognosis guarded Attestations Medical Necessity Statement*: Needs continued hospital stay secondary to re spiratory failure, severe renal failure with need for mechanical ventilation Critical Care Time: The high probability of a clinically significant, sudden or life threatening deterioration of the patient's [endocrine, renal, pulmonary] system(s) required my full and direct attention, intervention and personal management. The critical care time is as shown. This time is in addition to time spent performing any reported procedures but includes the following: [x] Data and vital sign review and interpretation [x] Patient assessment, examination and intervention [x] Documentation [x] Medication orders and management Critical Care Time (min): 34 Coding Level of Care Code Acute Transition Manager for [facility] Fwd Diagnoses DKA (diabetic ketoacidoses) E11.10 Acute encephalopathy G93.40 Pancreatitis, acute K85.90 Pneumonia J18.9 Transaminitis R74.01 Cardiomyopathy I42.9 Cardiomyopathy type: unspecified Acute kidney injury N17.9
[2020-10-26 08:10] LABS: Glucose Point of Care 98 mg/dL (70-110)
[2020-10-26 08:47] LABS: Anion Gap 19.4 (5-19); Blood Urea Nitrogen 65 mg/dL (8-23); Carbon Dioxide 19 mmol/L (22-29); Chloride 104 mmol/L (98-107); Glucose 133 mg/dL (65-115); Osmolality Calculated 307 mOsm/kg (285-295); Potassium 4.4 mmol/L (3.5-5.1); Sodium 138 mmol/L (136-145)
[2020-10-26] MEDS: citalopram 20 mg Tablet 10 MG PO (08:57)
[2020-10-26] MEDS: pantoprazole 40 mg SDV IVP (08:57)
[2020-10-26] MEDS: amiodarone 200 mg Tablet 400 MG PO (08:58)
[2020-10-26] MEDS: clopidogrel 75 mg Tablet PO (08:58)
[2020-10-26] MEDS: aspirin 81 mg EC Tablet PO (08:58)
[2020-10-26] MEDS: levothyroxine 75 mcg Tablet PO (08:59)
[2020-10-26] MEDS: propofol 1,000 MG/100 ML INJ 3.87 MG IV (09:05)
[2020-10-26] MEDS: nystatin powder 15 gm Btl 1 APPLIC TOPICAL ×2 (09:10→17:08)
[2020-10-26 09:25] LABS: Glucose Point of Care 120 mg/dL (70-110)
[2020-10-26 10:07] LABS: Glucose Point of Care 145 mg/dL (70-110)
--- NOTE | 2020-10-26 10:33 | P.PN_ITS ---
Subjective Subjective: Interval history: intubated, on levophed Medications: Reviewed: Yes Vitals/I&O/Wt Last Vital Signs Temp 98.4 F 10/26/20 06:00 Pulse 71 10/26/20 09:02 Resp 19 H 10/26/20 10:12 BP 125/59 10/26/20 06:00 Pulse Ox 94 10/26/20 10:12 10/25/20 10/26/20 10/26/20 22:59 06:59 14:59 Intake Total 1131.818 / 1549.851 767.142 / 2316.993 294.760 / 294.760 Output Total 75 / 125 Balance 1131.818 / 1499.851 692.142 / 2191.993 294.760 / 294.760 Weight last 48 hrs Weight 71.668 kg Weight 71.668 kg Weight 64.41 kg Weight 64.41 kg Physical Exam Urinary Catheter Management^: Montalvo: Cath Placed During This Visit: yes Reason for Continuing Indwelling Catheter: Accurate Measurement of Urinary Output in Critically Ill Patients Urinary Catheter Date of Insertion: 10/24/20 Urinary Catheter Time of Insertion: 13:00 Data : 10/26/20 03:45 10/26/20 08:06 Micro: Microbiology 10/24/20 09:45 Urine Culture - Final Urine Catheterized Klebsiella pneumoniae Escherichia coli 10/24/20 16:20 MRSA Culture - Final Nose 10/24/20 13:10 Blood Culture - Preliminary Blood NEGATIVE TO DATE 10/24/20 09:45 Blood Culture - Preliminary Blood NEGATIVE TO DATE ABG Interpretation 1: 7.28/39.5/82 AC 40%, +8 peep A&P Additional A&P Information 1. Acute oliguric kidney injury, no indication for dialysis at this time 2. Sepsis (klebsiella UTI, COVID pneumonia, pancreatitis) 3. Combination metabolic and respiratory acidosis, on bicarbonate gtt 4. Ischemic cardiomyopathy Rec: continue IVF, antibiotics, pressors Attestations Medical Necessity Statement*: critically ill ICU Time Spent in Patient Care: 16 - 35 minutes Coding Level of Care Code Acute Human Resources Executive for Chris Jane
[2020-10-26 11:13] LABS: Glucose Point of Care 139 mg/dL (70-110)
[2020-10-26 12:28] LABS: Glucose Point of Care 128 mg/dL (70-110)
[2020-10-26] MEDS: dexamethasone 10 mg/mL INJ 6 MG IVP (13:51)
[2020-10-26 14:37] LABS: Glucose Point of Care 151 mg/dL (70-110)
[2020-10-26 15:52] LABS: Glucose Point of Care 149 mg/dL (70-110)
[2020-10-26] MEDS: FUROsemide 10 mg/mL SDV 10mL 60 MG IVP (16:31)
--- NOTE | 2020-10-26 16:32 | PM.PN ---
Subjective Subjective: Interval history: The patient was seen and examined. Intubated and sedated. Oxygen requirement continues to be at 40%. No deterioration of acidosis. Urine output is still minimal. Urine culture was positive for Klebsiella pneumoniae and E. coli. Both organisms are sensitive to imipenem. The pressor requirement has been coming down. Medications: Reviewed: Yes Vitals/I&O/Wt Last Vital Signs Temp 98.4 F 10/26/20 06:00 Pulse 68 10/26/20 14:22 Resp 19 H 10/26/20 15:41 BP 125/59 10/26/20 06:00 Pulse Ox 97 10/26/20 15:41 10/26/20 10/26/20 10/26/20 06:59 14:59 22:59 Intake Total 767.142 / 2316.993 686.510 / 686.510 100 / 786.510 Output Total 75 / 125 Balance 692.142 / 2191.993 686.510 / 686.510 100 / 786.510 Weight last 48 hrs Weight 158 lb Weight 158 lb Weight 142 lb Physical Exam Narrative: EXAM NARRATIVE: General: The patient is intubated and sedated Neck: Minimal jugular venous distention Respiratory: Auscultation: Crackles at bilateral lung bases, no wheezing or rhonchi Cardiovascular: Regular rate and rhythm, S1-S2 present, no murmur, minimal peripheral edema. Abdomen: Soft, unable to assess tenderness due to sedation, nondistended, positive bowel sound Skin: No rash Neuro: Unable to assess Urinary Catheter Management^: Montalvo: Cath Placed During This Visit: yes Reason for Continuing Indwelling Catheter: Accurate Measurement of Urinary Output in Critically Ill Patients Urinary Catheter Date of Insertion: 10/24/20 Urinary Catheter Time of Insertion: 13:00 Data : 10/26/20 03:45 10/26/20 08:06 Micro: Microbiology 10/26/20 09:00 Gram Stain - Final Sputum - Endotracheal Tube Aspirate 10/24/20 09:45 Urine Culture - Final Urine Catheterized Klebsiella pneumoniae Escherichia coli 10/24/20 16:20 MRSA Culture - Final Nose 10/24/20 13:10 Blood Culture - Preliminary Blood NEGATIVE TO DATE Attestation for Other Data: I personally reviewed and interpreted the following: Other data: I have reviewed the patient's laboratory, [place] and radiologic data. The chest x-ray today looks better than how it was on admission. Endotracheal aspirate did not grow any bacteria yet. Minimal yeast. Blood culture has been negative so far. A&P Assessment and plan (1) Pneumonia due to severe acute respiratory syndrome coronavirus 2 (SARS-CoV-2): This is a 75-year-old lady with SARS-CoV-2 pneumonia. The chest radiography is consistent with COVID-19. The chest x-ray seems to be better than how it was on admission. We will continue with dexamethasone 6 mg daily. The endotracheal aspirate culture has not grown any bacteria yet. Status: Acute (2) Acute kidney injury: Does notThe patient continues to have minimal urine output. The patient does not have any acute indication for dialysis at this time. We will give 60 mg of IV Lasix one-time. We will continue with the bicarb drip. Status: Acute (3) DKA (diabetic ketoacidoses): The DKA has resolved. The patient is on insulin drip for blood sugar control. The blood sugar goal is 140 to 180 mg/dL. Status: Acute (4) Pancreatitis, acute: We will continue with supportive therapy. Hold off on tube feed for today. We will start trickle feed tomorrow. Patient will need Nepro. Status: Acute (5) Acute encephalopathy: The patient had been moving spontaneously from time to time but not tracking or have any meaningful mental status yet. Status: Acute (6) Septic shock: The patient has urinary tract infection with gram-negative rods. The urine culture grew Klebsiella and E. coli sensitive to imipenem. Pressor requirement is slowly coming down. Status: Acute (7) Ischemic cardiomyopathy with implantable cardioverter-defibrillator (ICD): The patient's overall disease process is complicated by ischemic cardiomyopathy. Her current ejection fraction is 25%. We will continue with the aspirin, Plavix. Hold off on apixaban for the time being. If the patient does require dialysis, she will likely require an increment in the vasopressor dose because of poor cardiac function. Status: Acute Attestations Medical Necessity Statement*: Will defer to the primary team Coding Level of Care Code Acute Cloth Napping Supervisor for [facility] Diagnoses Pneumonia due to severe acute respiratory syndrome coronavirus 2 (SARS-CoV-2) U07.1; J12.82 Acute kidney injury N17.9 DKA (diabetic ketoacidoses) E11.10 Pancreatitis, acute K85.90 Acute encephalopathy G93.40 Septic shock A41.9; R65.21 Ischemic cardiomyopathy with implantable cardioverter-defibrillator (ICD) I25.5; Z95.810 Time Spent (min) 33
[2020-10-26 16:49] LABS: Glucose Point of Care 161 mg/dL (70-110)
[2020-10-26 18:04] LABS: Glucose Point of Care 155 mg/dL (70-110)
[2020-10-26] MEDS: artificial tears Op Soln 15 mL Btl 1 DROP EYE-BOTH (18:19)
[2020-10-26 19:29] LABS: Glucose Point of Care 159 mg/dL (70-110)
--- NOTE | 2020-10-26 19:57 | PC.NURSE ---
Rounded with Dr. Austin. Reviewed labs, medications, vital signs, I&O, and culture results. Rounded with Dr. Sterling. Discussed plan of care. No orders for HD at this time. Rounded with Dr. Elizabeth. Reviewed labs, medications, I&O, culture results, and plan of care. Orders for Lasix.
[2020-10-27] VITALS (137 sets, daily range): BP systolic 85–136; BP diastolic 46–84; PULSE 60–74; RESP 18–26; TEMP 35.8–37; O2SAT 88–100; BMI 25.4
[2020-10-27] MEDS: ipratropium-albuterol 3 mL Neb INHALATION ×2 (02:41→07:46)
[2020-10-27] MEDS: heparin 5,000 unit/mL INJ 1 mL 5000 UNIT SUBCUT ×2 (03:31→15:29)
[2020-10-27 04:26] LABS: Basophils # 0.1 10^3/uL (0.0-0.1); Basophils % 0.3 %; Eosinophils % 0.1 %; Hemoglobin 11.2 g/dL (11.5-15.3); Lymphocytes # 0.7 10^3/uL (0.8-4.8); Lymphocytes % 2.2 %; Mean Corpuscular HGB Conc 33.9 g/dL (30.0-36.0); Mean Corpuscular Hemoglobin 29.4 pg (28.0-34.0); Mean Corpuscular Volume 86.6 fl (81-99); Mean Platelet Volume 9.4 fL (7.4-10.4); Neutrophils # 30.25 10^3/uL (1.8-7.7); Nucleated Red Blood Cells % 0.1 %; Platelet Count 287 10^3/cmm (130-400); Red Blood Count 3.81 10^6/uL (4.1-5.3); Red Cell Distribution Width 16.5 % (12.1-15.1)
[2020-10-27 04:47] LABS: Slide Review Slide Review Perform
[2020-10-27 05:14] LABS: Alanine Aminotransferase 129 U/L (0-33); Alkaline Phosphatase 694 IU/L (35-105); Anion Gap 21.8 (5-19); Aspartate Amino Transferase 223 U/L (0-32); Blood Urea Nitrogen 68 mg/dL (8-23); Carbon Dioxide 21 mmol/L (22-29); Chloride 100 mmol/L (98-107); Globulin 3.1 g/dL (1.3-4.6); Glucose 130 mg/dL (65-115); Osmolality Calculated 310 mOsm/kg (285-295); Potassium 3.8 mmol/L (3.5-5.1); Sodium 139 mmol/L (136-145); Total Protein 5.1 g/dL (6.6-8.7)
[2020-10-27 05:17] LABS: Calcium 5.3 mg/dL (8.5-10.5); White Blood Count 32.5 10^3/uL (4.0-10.0)
[2020-10-27 05:24] LABS: ABG PCO2 33.5 mmHg (35-45); ABG PH Result 7.42 (7.35-7.45); Arterial Blood Gas Hematocrit 42.6 % (37-47); Base Excess ABG -1.9 mmol/L (-2.0-2.0); Blood Gas Allen Test Pos; Blood Gas Operator Identificat JB; Blood Gas Sample Site Radial, right; Blood Gas Sample Type Arterial; HCO3 ABG 21.8 mmol/L (22-26); Oxygen Device VENT; PO2 ABG 74.8 mmHg (80.0-100.0)
[2020-10-27 05:25] LABS: Blood Gas Tidal Volume 0.35
[2020-10-27 06:16] LABS: Glucose Point of Care 173 mg/dL (70-110)
[2020-10-27 06:16] LABS: Glucose Point of Care 143 mg/dL (70-110)
[2020-10-27 06:16] LABS: Glucose Point of Care 172 mg/dL (70-110)
[2020-10-27 06:16] LABS: Glucose Point of Care 134 mg/dL (70-110)
[2020-10-27 06:16] LABS: Glucose Point of Care 163 mg/dL (70-110)
[2020-10-27 06:16] LABS: Glucose Point of Care 144 mg/dL (70-110)
[2020-10-27 06:16] LABS: Glucose Point of Care 162 mg/dL (70-110)
[2020-10-27 06:16] LABS: Glucose Point of Care 192 mg/dL (70-110)
[2020-10-27 06:16] LABS: Glucose Point of Care 180 mg/dL (70-110)
--- NOTE | 2020-10-27 07:00 | P.PN_ITS ---
Subjective Subjective: Interval history: Patient was seen and examined. Her mental status is better this morning. Hemodynamically the patient is getting better. Acidosis is better. The creatinine is still going up however I believe it is reaching a plateau level. Overall urine output was about 275 cc in the past 24 hours. Medications: Reviewed: Yes Vitals/I&O/Wt Last Vital Signs Temp 97.6 F 10/27/20 02:00 Pulse 60 10/27/20 06:10 Resp 18 10/27/20 05:59 BP 115/63 10/27/20 06:10 Pulse Ox 98 10/27/20 06:10 10/26/20 10/27/20 10/27/20 22:59 06:59 14:59 Intake Total 341.104 / 1037.217 417.17 / 1454.387 Output Total 100 / 100 175 / 275 Balance 241.104 / 937.217 242.17 / 1179.387 Weight last 48 hrs Weight 158 lb Weight 158 lb Weight 158 lb Physical Exam Narrative: EXAM NARRATIVE: General: The patient is intubated and sedated Neck: Minimal jugular venous distention Respiratory: Auscultation: Crackles at bilateral lung bases, no wheezing or rhonchi Cardiovascular: Regular rate and rhythm, S1-S2 present, no murmur, minimal peripheral edema. Abdomen: Soft, unable to assess tenderness due to sedation, nondistended, positive bowel sound Skin: No rash Neuro: Arousable Urinary Catheter Management^: Montalvo: Cath Placed During This Visit: yes Reason for Continuing Indwelling Catheter: Accurate Measurement of Urinary Output in Critically Ill Patients Urinary Catheter Date of Insertion: 10/24/20 Urinary Catheter Time of Insertion: 13:00 Data : 10/27/20 04:17 10/27/20 04:17 Micro: Microbiology 10/26/20 09:00 Gram Stain - Final Sputum - Endotracheal Tube Aspirate 10/24/20 09:45 Urine Culture - Final Urine Catheterized Klebsiella pneumoniae Escherichia coli Attestation for Other Data: I personally reviewed and interpreted the following: Other data: I have reviewed the patient laboratory microbiologic and neurologic data. Chest x-ray looks stable. The urine culture is growing Klebsiella and E. coli sensitive to imipenem. A&P Assessment and plan (1) Pneumonia due to severe acute respiratory syndrome coronavirus 2 (SARS-CoV-2): This is a 75-year-old lady with SARS-CoV-2 pneumonia. The chest radiography is consistent with COVID-19. The chest x-ray is stable. We will continue with dexamethasone 6 mg daily. The endotracheal aspirate culture has not grown any bacteria. We will going to start her on tube feed. We will start Nepro 15 mL/h, if the patient tolerates that he can go up to a maximum of 25 mL/h. Status: Acute (2) Acute kidney injury: Urine output about 275 cc in the past 24 hours. I am going to give her 2 doses of Bumex today. The creatinine went up by about 0.6 mg per DL in the past 24 hours, I believe the patient is going to start recovering her renal function in the next 24 hours. Status: Acute (3) DKA (diabetic ketoacidoses): The DKA has resolved. The patient is on insulin drip for blood sugar control. The blood sugar goal is 140 to 180 mg/dL. Status: Acute (4) Pancreatitis, acute: We will continue with supportive therapy. We will see how the patient does with 2 feet. Status: Acute (5) Acute encephalopathy: The mental status is slowly getting better. Status: Acute (6) Septic shock: The patient has urinary tract infection with gram-negative rods. The urine culture grew Klebsiella and E. coli sensitive to imipenem. Pressor requirement is slowly coming down. Status: Acute (7) Ischemic cardiomyopathy with implantable cardioverter-defibrillator (ICD): The patient's overall disease process is complicated by ischemic cardiomyopathy. Her current ejection fraction is 25%. We will continue with the aspirin, Plavix. Hold off on apixaban for the time being. The patient is paced at this time, her heart rate is 60. Status: Acute Attestations Medical Necessity Statement*: Will defer to the primary team Coding Level of Care Code Acute Bondactor Machine Operator for [facility] Diagnoses Pneumonia due to severe acute respiratory syndrome coronavirus 2 (SARS-CoV-2) U07.1; J12.82 Acute kidney injury N17.9 DKA (diabetic ketoacidoses) E11.10 Pancreatitis, acute K85.90 Acute encephalopathy G93.40 Septic shock A41.9; R65.21 Ischemic cardiomyopathy with implantable cardioverter-defibrillator (ICD) I25.5; Z95.810 Time Spent (min) 33
[2020-10-27] MEDS: propofol 1,000 MG/100 ML INJ 3.87 MG IV (07:01)
[2020-10-27 07:13] LABS: Glucose Point of Care 128 mg/dL (70-110)
[2020-10-27] MEDS: bumetanide 0.25 mg/mL SDV 10 mL 2 MG IVP ×2 (07:36→20:32)
[2020-10-27 08:05] LABS: Glucose Point of Care 136 mg/dL (70-110)
[2020-10-27] MEDS: aspirin 81 mg EC Tablet PO (09:11)
[2020-10-27] MEDS: amiodarone 200 mg Tablet 400 MG PO (09:11)
[2020-10-27] MEDS: calcium carbonate 500 mg Chew Tablet 1000 MG PO ×3 (09:11→20:33)
[2020-10-27] MEDS: pantoprazole 40 mg SDV IVP (09:11)
[2020-10-27] MEDS: clopidogrel 75 mg Tablet PO (09:12)
[2020-10-27] MEDS: citalopram 20 mg Tablet 10 MG PO (09:12)
[2020-10-27] MEDS: nystatin powder 15 gm Btl 1 APPLIC TOPICAL ×2 (09:12→17:13)
[2020-10-27] MEDS: levothyroxine 75 mcg Tablet PO (09:12)
[2020-10-27 09:15] LABS: Glucose Point of Care 175 mg/dL (70-110)
[2020-10-27 09:57] LABS: Glucose Point of Care 185 mg/dL (70-110)
--- NOTE | 2020-10-27 10:36 | PC.NURSE ---
Upon morning wound assessment a pressure injury was noted in the medial buttock and perineal area. Both pressure injuries were Stage 2. An optifoam was placed over the buttock pressure injury. The perineal area pressure injury was left to air and nystatin topical powder as applied.
--- NOTE | 2020-10-27 10:48 | PM.PN ---
Subjective Subjective: Interval history: Remains critically sick in the ICU. UO remains poor, creatinine still uptrending. Low dose Levo. Receiving iv diuretics Medications: Reviewed: Yes Vitals/I&O/Wt Last Vital Signs Temp 96.4 F L 10/27/20 10:00 Pulse 72 10/27/20 10:00 Resp 23 H 10/27/20 10:00 BP 102/66 10/27/20 10:00 Pulse Ox 94 10/27/20 10:00 10/26/20 10/27/20 10/27/20 22:59 06:59 14:59 Intake Total 341.104 / 1037.217 417.17 / 1454.387 599.625 / 599.625 Output Total 100 / 100 175 / 275 Balance 241.104 / 937.217 242.17 / 1179.387 599.625 / 599.625 Weight last 48 hrs Weight 71.668 kg Weight 71.668 kg Weight 71.668 kg Physical Exam Narrative: EXAM NARRATIVE: Constitutional: intubated and vented HEENT: Wet mucosa, no jvp, non icteric Lungs: Bilaterally basal wheeze, rales in all lung zones CVS: S1 S2, no murmurs Abdo: Soft, BS ok Ext 4: Minimal edema, peripheral perfusion with no cyanosis Neurological: Grossly non-focal Urinary Catheter Management^: Montalvo: Cath Placed During This Visit: yes Reason for Continuing Indwelling Catheter: Accurate Measurement of Urinary Output in Critically Ill Patients Urinary Catheter Date of Insertion: 10/24/20 Urinary Catheter Time of Insertion: 13:00 Data : 10/27/20 04:17 10/27/20 04:17 Micro: Microbiology 10/26/20 09:00 Gram Stain - Final Sputum - Endotracheal Tube Aspirate Sputum Culture - Preliminary Yeast 10/26/20 00:40 Urine Culture - Preliminary Urine,Clean Catch Yeast 10/24/20 09:45 Urine Culture - Final Urine Catheterized Klebsiella pneumoniae Escherichia coli A&P Additional A&P Information 1. Acute kidney injury Likely to be infection related ATN. No acute indication for dialysis today, however, she is at very high risk of requiring dialysis over the next 24-48 hours. On gentle diuretics at this time Strict I's and O's Avoid usual nephrotoxic agents Dose medication for GFR less than 15 2. Chemistry Anion gap metabolic acidosis, likely in part secondary to uremia, lactic acid levels are noted to be okay, improving 3. VDRF mgmt per icu team weaning over next few days. FiO2 40% 4. Sepsis Multiple potential foci of infection including C. difficile, pancreatitis, pneumonia, urosepsis. Gram-negative rods identified in the urine. Being covered with combination antibiotics including Primaxin, vancomycin, p.o. vancomycin. Cultures are pending. 5. Hemodynamics On low-dose Levophed. Titration in the ICU. Thank you for consultation, as always it is a pleasure to follow these cases with you Kurt Wakefield MD Nephrology [phone] Attestations Medical Necessity Statement*: Eval for renal failure Coding Level of Care Code Acute Psychiatric Therapist for Chris Jane
[2020-10-27 10:59] LABS: Glucose Point of Care 193 mg/dL (70-110)
[2020-10-27 11:56] LABS: Glucose Point of Care 218 mg/dL (70-110)
--- NOTE | 2020-10-27 12:24 | P.PN_ITS ---
Subjective Subjective: Interval history: Carmen was more responsive today opening her eyes and following some instructions. Medications: Reviewed: Yes Vitals/I&O/Wt Last Vital Signs Temp 96.6 F L 10/27/20 12:00 Pulse 73 10/27/20 12:00 Resp 23 H 10/27/20 12:00 BP 127/77 10/27/20 12:00 Pulse Ox 95 10/27/20 12:00 10/26/20 10/27/20 10/27/20 22:59 06:59 14:59 Intake Total 341.104 / 1037.217 417.17 / 1454.387 603.000 / 603.000 Output Total 100 / 100 175 / 275 Balance 241.104 / 937.217 242.17 / 1179.387 603.000 / 603.000 Weight last 48 hrs Weight 71.668 kg Weight 71.668 kg Weight 71.668 kg Physical Exam Narrative: EXAM NARRATIVE: General exam, sedated and intubated. Orogastric tube noted. Neck is supple no lymphadenopathy or thyromegaly. Right subclavian line noted. Cardiovascular regular rate and rhythm, no murmur Lungs coarse breath sounds bilaterally Abdomen is soft. Question tenderness right upper quadrant. Positive bowel sounds. No obvious organomegaly exam Montalvo, a little bit of yellow urine in Montalvo Extremities no cyanosis clubbing or edema, cap refill brisk Urinary Catheter Management^: Montalvo: Cath Placed During This Visit: yes Reason for Continuing Indwelling Catheter: Accurate Measurement of Urinary Output in Critically Ill Patients Urinary Catheter Date of Insertion: 10/24/20 Urinary Catheter Time of Insertion: 13:00 Data : 10/27/20 04:17 10/27/20 04:17 Micro: Microbiology 10/26/20 09:00 Gram Stain - Final Sputum - Endotracheal Tube Aspirate Sputum Culture - Preliminary Yeast 10/26/20 00:40 Urine Culture - Preliminary Urine,Clean Catch Yeast 10/24/20 09:45 Urine Culture - Final Urine Catheterized Klebsiella pneumoniae Escherichia coli A&P Assessment and plan (1) DKA (diabetic ketoacidoses): Patient presented in DKA. This is likely resolved. Her persistent ac idosis is secondary to her renal failure. Currently she remains on an insulin drip. Status: Acute (2) Acute encephalopathy: Currently sedated CT head negative, now x2 Doubt CVA This is multifactorial. Appears improved today. Status: Acute (3) Pancreatitis, acute: Lipase was improving History of gallstones complicates presentation. May need surgical evaluation by end of hospitalization for consideration of cholecystectomy Secondary to concern of gallbladder etiology presentation initially initiated Zosyn. Or changing to Primaxin secondary to history of frequent UTIs . Blood cultures have already been drawn and negative to date. Triglyceride level was checked and not elevated Status: Acute (4) Pneumonia: Covid PCR is positive Continue Primaxin. Vancomycin discontinued as MRSA PCR negative Continue pulmonary toilet We will try to wean from ventilator when mental status improves, comorbidities improved. Currently only requiring an FiO2 of 40%. Appreciate pulmonary critical care intervention. Yeast growing from endotracheal aspirate. Add fluconazole. Renally adjusted dose. Suspect colonization/thrush and patient receiving broad-spectrum antibiotics, steroids On low-dose pressor support with norepinephrine at 2. Status: Acute (5) Transaminitis: Gallbladder ultrasound did not demonstrate dilated ducts. No evidence of cholecystitis. Gallstones were noted. LFTs approximately the same today with the exception of alk phos which is slightly higher. Continue to hold statin. LFTs stable but elevated Status: Acute (6) Cardiomyopathy: History of ejection fraction 30 to 35% on last echocardiogram March 2019. Repeat echocardiogram demonstrates an EF of approximately 25%. History of ventricular tachycardia, pacemaker and ICD implantation. Past history of atrial fibrillation, as well as coronary artery disease. Continue amiodarone. Troponin without significant delta. Status: Acute Qualifiers: Cardiomyopathy type: unspecified Qualified Code(s): I42.9 - Cardiomyopathy, unspecified (7) Acute kidney injury: Acute kidney injury superimposed on chronic kidney disease Renal function has yet to recover, but perhaps slight more urine output. Avoid renal toxic medication No evidence of obstruction on CT CK not significantly elevated Appreciate nephrology consultation Receiving low-dose bicarb, low-dose diuretics. Status: Acute Additional A&P Information History of diarrhea. Enteric pathogens, C. difficile ordered. Oral vancomycin started secondary to markedly elevated white blood cell count suspicious of C. difficile UTI. Continue Primaxin. Urine grew Klebsiella, E. coli Nutrition, nephro Scot added. Full code Heparin for DVT prophylaxis Protonix for GI prophylaxis Prognosis guarded Attestations 2 Medical Necessity Statement*: Needs continued hospitalization secondary respiratory failure requiring mechanical ventilation. Critical Care Time: The high probability of a clinically significant, sudden or life threatening deterioration of the patient's [pulmonary, renal, cardiac] system(s) required my full and direct attention, intervention and personal management. The critical care time is as shown. This time is in addition to time spent performing any reported procedures but includes the following: [x] Data and vital sign review and interpretation [x] Patient assessment, examination and intervention [x] Documentation [x] Medication orders and management Critical Care Time (min): 31 Coding Level of Care Code Acute Compounder Flavorings for [facility]wd Diagnoses DKA (diabetic ketoacidoses) E11.10 Acute encephalopathy G93.40 Pancreatitis, acute K85.90 Pneumonia J18.9 Transaminitis R74.01 Cardiomyopathy I42.9 Cardiomyopathy type: unspecified Acute kidney injury N17.9
[2020-10-27 12:58] LABS: Glucose Point of Care 178 mg/dL (70-110)
[2020-10-27 13:58] LABS: Glucose Point of Care 153 mg/dL (70-110)
[2020-10-27] MEDS: fluconazole premix 100 MG in empty flexible container 1 EACH 50 MG IV (13:58)
[2020-10-27] MEDS: dexamethasone 10 mg/mL INJ 6 MG IVP (13:59)
[2020-10-27 15:09] LABS: Glucose Point of Care 118 mg/dL (70-110)
[2020-10-27 15:58] LABS: Glucose Point of Care 120 mg/dL (70-110)
[2020-10-27 16:55] LABS: Glucose Point of Care 135 mg/dL (70-110)
[2020-10-27 17:59] LABS: Glucose Point of Care 167 mg/dL (70-110)
--- NOTE | 2020-10-27 19:00 | XR_ITS ---
WS: [id number] XR chest 1V portable [id number] REASON FOR EXAM: resp failure FINDINGS: Endotracheal tube, nasogastric tube, right subclavian central venous line, and left-sided cardiac pac emaker and leads remain in proper position. There are bilateral pulmonary infiltrates centrally and in the lower lobes bilaterally and in the rig ht upper lobe. These infiltrates appear more extensive and confluent than on the examination of 2020. No new findings. XR/XR chest 1V portable [id number] IMPRESSION: Progression of infiltrates compared to the previous examination.
[2020-10-27 19:15] LABS: Glucose Point of Care 217 mg/dL (70-110)
--- NOTE | 2020-10-27 19:27 | XRR_ITS ---
PROCEDURE INFORMATION: Exam: XR Chest Exam date and time: 10/27/2020 7:27 PM Age: 75 years old Clinical indication: Device placement; Other: Ogt placement; Prior surgery; Surgery type: Pacemaker TECHNIQUE: Imaging protocol: XR of the chest. Views: 1 view. COMPARISON: CR XR chest 1V portable [id number] 10/27/2020 5:05 AM FINDINGS: Tubes, catheters and devices: There is an NG tube projecting along expected course of the esophagus with its tip and sidehole in the stomach. Other support lines and tubes are stable. AICD with leads in stable positions. Lungs: Stable infiltrates throughout both lungs, most prominently in the mid right lung. Improved aeration of the left lung base. Pleural spaces: Unremarkable. No pleural effusion. No pneumothorax. Heart/Mediastinum: Unremarkable. No cardiomegaly. Bones/joints: Unremarkable. XR/XR chest 1V portable [id number] IMPRESSION: NG tube in appropriate position.
[2020-10-27] MEDS: propofol 1,000 MG/100 ML INJ 9.66 MG IV (20:42)
[2020-10-27 21:04] LABS: Glucose Point of Care 241 mg/dL (70-110)
[2020-10-27 21:15] LABS: Glucose Point of Care 233 mg/dL (70-110)
[2020-10-27 22:10] LABS: Glucose Point of Care 210 mg/dL (70-110)
[2020-10-27 23:05] LABS: Glucose Point of Care 196 mg/dL (70-110)
[2020-10-28] VITALS (60 sets, daily range): BP systolic 90–125; BP diastolic 43–67; PULSE 60–73; RESP 18–29; TEMP 35.8–36.8; O2SAT 90–96
[2020-10-28 00:07] LABS: Glucose Point of Care 125 mg/dL (70-110)
[2020-10-28 01:08] LABS: Glucose Point of Care 124 mg/dL (70-110)
[2020-10-28 02:05] LABS: Glucose Point of Care 69 mg/dL (70-110)
[2020-10-28] MEDS: calcium carbonate 500 mg Chew Tablet 1000 MG PO ×4 (02:57→20:14)
[2020-10-28 03:04] LABS: Glucose Point of Care 73 mg/dL (70-110)
[2020-10-28 03:31] LABS: Basophils # 0.2 10^3/uL (0.0-0.1); Basophils % 0.4 %; Hematocrit 32.1 % (37.0-47.0); Hemoglobin 10.8 g/dL (11.5-15.3); Lymphocytes # 0.7 10^3/uL (0.8-4.8); Lymphocytes % 1.8 %; Mean Corpuscular HGB Conc 33.6 g/dL (30.0-36.0); Mean Corpuscular Hemoglobin 29.1 pg (28.0-34.0); Mean Corpuscular Volume 86.5 fl (81-99); Monocytes # 1.5 10^3/uL (0.2-0.9); Monocytes % 3.8 %; Neutrophils # 36.27 10^3/uL (1.8-7.7); Neutrophils % 92.5 %; Nucleated Red Blood Cells % 0.1 %; Platelet Count 284 10^3/cmm (130-400); Red Blood Count 3.71 10^6/uL (4.1-5.3); Red Cell Distribution Width 16.4 % (12.1-15.1)
[2020-10-28 04:03] LABS: Alanine Aminotransferase 101 U/L (0-33); Albumin Level 1.9 g/dL (3.5-5.2); Alkaline Phosphatase 731 IU/L (35-105); Anion Gap 21.2 (5-19); Aspartate Amino Transferase 197 U/L (0-32); C Reactive Protein 202.8 mg/L (0.0-4.9); Calcium 6.3 mg/dL (8.5-10.5); Carbon Dioxide 25 mmol/L (22-29); Chloride 99 mmol/L (98-107); Globulin 3.7 g/dL (1.3-4.6); Glucose 67 mg/dL (65-115); Osmolality Calculated 316 mOsm/kg (285-295); Potassium 4.2 mmol/L (3.5-5.1); Sodium 141 mmol/L (136-145); Total Protein 5.6 g/dL (6.6-8.7)
[2020-10-28 04:12] LABS: Blood Urea Nitrogen 86 mg/dL (8-23)
[2020-10-28 04:16] LABS: Glucose Point of Care 111 mg/dL (70-110)
[2020-10-28 04:16] LABS: Slide Review Slide Review Perform
[2020-10-28 04:18] LABS: White Blood Count 39.2 10^3/uL (4.0-10.0)
[2020-10-28] MEDS: propofol 1,000 MG/100 ML INJ 9.66 MG IV ×3 (04:52→16:46)
[2020-10-28] MEDS: heparin 5,000 unit/mL INJ 1 mL 5000 UNIT SUBCUT ×2 (04:52→15:11)
[2020-10-28 05:16] LABS: Glucose Point of Care 152 mg/dL (70-110)
[2020-10-28 06:20] LABS: Glucose Point of Care 149 mg/dL (70-110)
[2020-10-28 06:22] LABS: Blood Gas Allen Test Pos; Blood Gas Operator Identificat JB; Blood Gas Sample Type Arterial
[2020-10-28 06:39] LABS: Blood Gas Tidal Volume 0.35; Oxygen Device VENT
--- NOTE | 2020-10-28 06:47 | PC.NURSE ---
Patient remained stable throughout shift, levophed, propofol, and insulin titrated per protocol. Oxygen saturation remains stable, patient afebrile. Bath given this AM. Repositioned and oral care done Q2. No concerns at this time.
--- NOTE | 2020-10-28 07:00 | XRR_ITS ---
PROCEDURE INFORMATION: Exam: XR Chest Exam date and time: 10/28/2020 7:00 AM Age: 75 years old Clinical indication: Shortness of breath; Additional info: Resp failure TECHNIQUE: Imaging protocol: XR of the chest. Views: 1 view. COMPARISON: CR XR chest 1V portable [id number] 10/27/2020 7:41 PM FINDINGS: Tubes, catheters and devices: Support tubes and lines are stable in appropriately positioned. Lungs: Accounting for technical differences, no change in bilateral pulmonary opacities greatest in right mid lung and in left lung base. Pleural spaces: Unremarkable. No pleural effusion. No pneumothorax. Heart/Mediastinum: No significant cardiomegaly. Bones/joints: No acute finding. XR/XR chest 1V portable [id number] IMPRESSION: Stable chest.
[2020-10-28 07:05] LABS: Glucose Point of Care 153 mg/dL (70-110)
[2020-10-28] MEDS: amiodarone 200 mg Tablet 400 MG PO (08:28)
[2020-10-28] MEDS: levothyroxine 75 mcg Tablet PO (08:29)
[2020-10-28] MEDS: clopidogrel 75 mg Tablet PO (08:29)
[2020-10-28] MEDS: aspirin 81 mg EC Tablet PO (08:29)
[2020-10-28] MEDS: pantoprazole 40 mg SDV IVP (08:29)
[2020-10-28] MEDS: citalopram 20 mg Tablet 10 MG PO (08:29)
[2020-10-28] MEDS: ipratropium-albuterol 3 mL Neb INHALATION ×2 (08:35→20:41)
[2020-10-28] MEDS: nystatin powder 15 gm Btl 1 APPLIC TOPICAL ×2 (08:53→17:26)
[2020-10-28 09:00] LABS: Glucose Point of Care 123 mg/dL (70-110)
[2020-10-28 09:49] LABS: Glucose Point of Care 153 mg/dL (70-110)
[2020-10-28 09:59] LABS: Glucose Point of Care 152 mg/dL (70-110)
[2020-10-28 10:57] LABS: Glucose Point of Care 141 mg/dL (70-110)
[2020-10-28 12:01] LABS: Glucose Point of Care 177 mg/dL (70-110)
--- NOTE | 2020-10-28 12:10 | P.PN_ITS ---
Subjective Subjective: Interval history: Noted to have a decubitus ulcer. Remained on vent Requiring pressor support. Medications: Reviewed: Yes Vitals/I&O/Wt Last Vital Signs Temp 97.6 F 10/28/20 10:00 Pulse 62 10/28/20 10:00 Resp 27 H 10/28/20 10:00 BP 113/57 10/28/20 10:00 Pulse Ox 94 10/28/20 10:00 10/27/20 10/28/20 10/28/20 22:59 06:59 14:59 Intake Total 869.990 / 1548.749 749.583 / 2298.332 433.707 / 433.707 Output Total 275 / 275 150 / 425 Balance 594.990 / 1273.749 599.583 / 1873.332 433.707 / 433.707 Weight last 48 hrs Weight 71.214 kg Weight 71.668 kg Physical Exam Narrative: EXAM NARRATIVE: General exam, sedated and intubated. Orogastric tube noted. Neck is supple no lymphadenopathy or thyromegaly. Right subclavian line noted. Cardiovascular regular rate and rhythm, no murmur Lungs coarse breath sounds bilaterally Abdomen is soft. Question tenderness right upper quadrant. Positive bowel sounds. No obvious organomegaly exam [place], a little bit of yellow urine in [place] Extremities no cyanosis clubbing or edema, cap refill brisk Urinary Catheter Management^: [place]: Cath Placed During This Visit: yes Reason for Continuing Indwelling Catheter: Accurate Measurement of Urinary Output in Critically Ill Patients Urinary Catheter Date of Insertion: 10/24/20 Urinary Catheter Time of Insertion: 13:00 Data : 10/28/20 03:03 10/28/20 03:03 Micro: Microbiology 10/27/20 17:30 Enteric Pathogens (PCR) - Final Stool - Stool Aspirate 10/26/20 09:00 Gram Stain - Final Sputum - Endotracheal Tube Aspirate Sputum Culture - Preliminary Yeast 10/27/20 17:30 C.difficile Toxin B Gene (PCR) - Final Stool - Stool Aspirate 10/26/20 00:40 Urine Culture - Preliminary Urine,Clean Catch Yeast A&P Assessment and plan (1) DKA (diabetic ketoacidoses): Patient presented in DKA. This is likely resolved. Her persistent aci dosis is secondary to her renal failure. Currently she remains on an insulin drip. Will discontiue bicarb drip . Q1hr BS checks Status: Acute (2) Acute encephalopathy: Currently sedated CT head negative, now x2 Doubt CVA This is multifactorial. Currently sedated Status: Acute (3) Pancreatitis, acute: Lipase was improving History of gallstones complicates presentation. May need surgical evaluation by end of hospitalization for consideration of cholecystectomy Secondary to concern of gallbladder etiology presentation initially initiated Zosyn. Or changing to Primaxin secondary to history of frequent UTIs . Blood cultures have already been drawn and negative to date. Triglyceride level was checked and not elevated Check lipase in am Status: Acute (4) Pneumonia: Covid PCR is positive Continue Primaxin. Vancomycin discontinued as MRSA PCR negative Continue pulmonary toilet We will try to wean from ventilator when mental status improves, comorbidities improved. Currently only requiring an FiO2 of 40%. Appreciate pulmonary critical care intervention. Yeast growing from endotracheal aspirate fluconazole. Renally adjusted dose. Suspect colonization/thrush and patient receiving broad-spectrum antibiotics, steroids On low-dose pressor support with norepinephrine. Wean as tolerated. Status: Acute (5) Transaminitis: Gallbladder ultrasound did not demonstrate dilated ducts. No evidence of cholecystitis. Gallstones were noted. LFTs approximately the same today with the exception of alk phos which is slightly higher. Continue to hold statin. LFTs stable but elevated Continue to trend Status: Acute (6) Cardiomyopathy: History of ejection fraction 30 to 35% on last echocardiogram March 2019. Repeat echocardiogram demonstrates an EF of approximately 25%. History of ventricular tachycardia, pacemaker and ICD implantation. Past history of atrial fibrillation, as well as coronary artery disease. Continue amiodarone. Troponin without significant delta. Status: Acute Qualifiers: Cardiomyopathy type: unspecified Qualified Code(s): I42.9 - Cardiomyopathy, unspecified (7) Acute kidney injury: Acute kidney injury superimposed on chronic kidney disease Renal function has yet to recover, but perhaps slight more urine output. Avoid renal toxic medication No evidence of obstruction on CT CK not significantly elevated Appreciate nephrology consultation D/c bicarb Monitor u/o Status: Acute Additional A&P Information History of diarrhea. Enteric pathogens, C. difficile ordered. Oral vancomycin started secondary to markedly elevated white blood cell count suspicious of C. difficile UTI. Continue Primaxin. Urine grew Klebsiella, E. coli Nutrition, nephro Scot added. Full code Heparin for DVT prophylaxis Protonix for GI prophylaxis Prognosis guarded Attestations Medical Necessity Statement*: Will require further hospitalization for managment of resp failure on MV Time Spent in Patient Care: Greater than 35 minutes (>than 50% of time spent in counselling and/or direct pt care on unit) . Critical Care Time: Critical Care Time (min): 45 Coding Level of Care Code Acute Geriatric Nurse for Chg Fwd Diagnoses DKA (diabetic ketoacidoses) E11.10 Acute encephalopathy G93.40 Pancreatitis, acute K85.90 Pneumonia J18.9 Transaminitis R74.01 Cardiomyopathy I42.9 Cardiomyopathy type: unspecified Acute kidney injury N17.9
--- NOTE | 2020-10-28 12:10 | PC.NUTR ---
Nutrition Note: Current TF of Nepro 1.8 @ 25 ml/hr will provide 1080 Kcals + 255 from Prop = 1335 kcal (99% est kcal needs), 49 g prot (60% est prot needs), and 435 ml H2O, with water flushes per MD discretion.
[2020-10-28 12:56] LABS: Glucose Point of Care 170 mg/dL (70-110)
--- NOTE | 2020-10-28 13:49 | PC.NURSE ---
Rounded with Dr. Casper. Bicarb is off and titrating down on the Levo. Assessed the pressure injury in the perineal and buttock area. The perineal area has less moisture and redness then in the morning. Nyostatin powder and inner-dry cloth was used to keep the perineal are dry. The buttock pressure injury can not be staged due to the necrotic tissue. Took dressing off for doctor review and dressing changed. Patient is being turned to keep pressure off the buttock area.
[2020-10-28] MEDS: fluconazole premix 100 MG in empty flexible container 1 EACH 50 MG IV (14:01)
[2020-10-28] MEDS: dexamethasone 10 mg/mL INJ 6 MG IVP (14:02)
[2020-10-28 14:04] LABS: ABG PCO2 39.5 mmHg (35-45); ABG PH Result 7.44 (7.35-7.45); Arterial Blood Gas Hematocrit 40.2 % (37-47); Base Excess ABG 2.4 mmol/L (-2.0-2.0); Blood Gas Sample Site Radial, right; HCO3 ABG 26.7 mmol/L (22-26); PO2 ABG 44.3 mmHg (80.0-100.0)
[2020-10-28 14:11] LABS: Glucose Point of Care 165 mg/dL (70-110)
[2020-10-28 14:59] LABS: Glucose Point of Care 166 mg/dL (70-110)
--- NOTE | 2020-10-28 15:49 | PC.NURSE ---
Updated the family on the doctor rounding, pressure injury, interventions taken, medication, and care plan. Called the daughter and she informed me that the son was present for the phone call and also received the update. The daughter said that the patient gets really scared and nervous. She asked about any medication that the patient is given for being scared and nervous. Informed the family what interventions were taken for the pressure injures and the necrotic tissue noted on the buttock area. The daughter said that the patient had very bad diarrhea before coming to the hospital. She said that she would frequently give pedialyte to the patient. The daughter said that she tried preperation H, butt paste, corn starch, and a zinc cream on the patient. The daughter wanted the doctor to call them for an update and the doctor has been notified.
[2020-10-28 16:04] LABS: Glucose Point of Care 175 mg/dL (70-110)
[2020-10-28 16:59] LABS: Glucose Point of Care 175 mg/dL (70-110)
--- NOTE | 2020-10-28 17:30 | PM.PN ---
Subjective Subjective: Interval history: I am seeing her in follow up for her renal failure. Pt intubated, on low dose pressor Medications: Reviewed: Yes Vitals/I&O/Wt Last Vital Signs Temp 97.1 F L 10/28/20 16:00 Pulse 60 10/28/20 16:00 Resp 18 10/28/20 16:00 BP 100/48 10/28/20 16:00 Pulse Ox 94 10/28/20 16:00 10/28/20 10/28/20 10/28/20 06:59 14:59 22:59 Intake Total 749.583 / 2298.332 631.865 / 631.865 269.758 / 901.623 Output Total 150 / 425 Balance 599.583 / 1873.332 631.865 / 631.865 269.758 / 901.623 Weight last 48 hrs Weight 71.214 kg Weight 71.668 kg Physical Exam Narrative: EXAM NARRATIVE: Pt intubated Resp: AUSCULTATION: crackles Cardio: COMMON NORMALS: S1 normal heart sound present and S2 normal heart sound present HEART SOUNDS: S1 normal heart sound present and S2 normal heart sound present GI: AUSCULTATION: Yes normoactive bowel sounds Extremity: GENERAL: Yes edema Skin: COMMON NORMALS: no rashes or lesions noted GENERAL SKIN EXAM: no rashes or lesions noted Urinary Catheter Management^: [place]: Cath Placed During This Visit: yes Reason for Continuing Indwelling Catheter: Accurate Measurement of Urinary Output in Critically Ill Patients Urinary Catheter Date of Insertion: 10/24/20 Urinary Catheter Time of Insertion: 13:00 Data : 10/28/20 03:03 10/28/20 03:03 Micro: Microbiology 10/27/20 17:30 Enteric Pathogens (PCR) - Final Stool - Stool Aspirate 10/26/20 09:00 Gram Stain - Final Sputum - Endotracheal Tube Aspirate Sputum Culture - Preliminary Yeast 10/27/20 17:30 C.difficile Toxin B Gene (PCR) - Final Stool - Stool Aspirate 10/26/20 00:40 Urine Culture - Preliminary Urine,Clean Catch Yeast A&P Assessment and plan (1) Acute kidney injury: Kidney function continues to stay worse. No acute indication for dialysis today. Will discuss with pt's family regarding future management especially dialysis Status: Acute (2) Hypotension: Titrate pressors to keep MAP above 60 at all times Status: Acute (3) Septic shock: Dose antibiotics based on creatinine clearance Status: Acute (4) Anemia: Follow hb Status: Acute Attestations Medical Necessity Statement*: [place] Coding Level of Care Code Acute Supervisor Prop Making for [facility] Fwd Diagnoses Acute kidney injury N17.9 Hypotension I95.9 Septic shock A41.9; R65.21 Anemia D64.9
[2020-10-28 17:59] LABS: Glucose Point of Care 205 mg/dL (70-110)
--- NOTE | 2020-10-28 18:49 | PC.NURSE ---
Shift Note Frequent safety and comfort rounds continue. Orders and/or nursing care completed as indicated. Patient monitored for response to intervention and treatment(s). OG tube was managed with 30 of residual at 1800. No residual noted throughout the day. Tube feeding was changed at 1000 with the rate changed from 15 mL/hr to 25 mL/hr. Patient was turned to keep pressure off the buttock area.
[2020-10-28 19:12] LABS: Glucose Point of Care 164 mg/dL (70-110)
[2020-10-28 20:22] LABS: Glucose Point of Care 155 mg/dL (70-110)
[2020-10-28 21:04] LABS: Glucose Point of Care 178 mg/dL (70-110)
[2020-10-28 22:16] LABS: Glucose Point of Care 178 mg/dL (70-110)
[2020-10-28 23:02] LABS: Glucose Point of Care 188 mg/dL (70-110)
[2020-10-29] VITALS (54 sets, daily range): BP systolic 83–129; BP diastolic 39–65; PULSE 60–75; RESP 18–26; TEMP 36.1–36.8; O2SAT 92–96
[2020-10-29] MEDS: propofol 1,000 MG/100 ML INJ 3.87 MG IV ×2 (01:55→10:33)
[2020-10-29 02:12] LABS: Glucose Point of Care 149 mg/dL (70-110)
[2020-10-29 02:12] LABS: Glucose Point of Care 149 mg/dL (70-110)
[2020-10-29 02:12] LABS: Glucose Point of Care 155 mg/dL (70-110)
[2020-10-29] MEDS: ipratropium-albuterol 3 mL Neb INHALATION ×4 (02:40→19:43)
[2020-10-29 03:06] LABS: Glucose Point of Care 127 mg/dL (70-110)
[2020-10-29] MEDS: heparin 5,000 unit/mL INJ 1 mL 5000 UNIT SUBCUT ×2 (03:37→16:21)
[2020-10-29] MEDS: calcium carbonate 500 mg Chew Tablet 1000 MG PO ×4 (03:37→22:14)
[2020-10-29 04:03] LABS: Glucose Point of Care 145 mg/dL (70-110)
[2020-10-29 04:08] LABS: Basophils # 0.1 10^3/uL (0.0-0.1); Basophils % 0.3 %; Hematocrit 31.6 % (37.0-47.0); Hemoglobin 10.7 g/dL (11.5-15.3); Lymphocytes % 2.6 %; Mean Corpuscular HGB Conc 33.9 g/dL (30.0-36.0); Mean Corpuscular Hemoglobin 29.3 pg (28.0-34.0); Mean Corpuscular Volume 86.6 fl (81-99); Mean Platelet Volume 10.2 fL (7.4-10.4); Monocytes # 1.3 10^3/uL (0.2-0.9); Monocytes % 3.5 %; Neutrophils # 34.93 10^3/uL (1.8-7.7); Neutrophils % 90.9 %; Nucleated Red Blood Cells % 0.1 %; Platelet Count 231 10^3/cmm (130-400); Red Blood Count 3.65 10^6/uL (4.1-5.3); Red Cell Distribution Width 16.1 % (12.1-15.1)
[2020-10-29 04:45] LABS: D Dimer 5.37 ug/mIFEU (0-0.59)
[2020-10-29 04:46] LABS: Alanine Aminotransferase 68 U/L (0-33); Albumin Level 1.9 g/dL (3.5-5.2); Alkaline Phosphatase 788 IU/L (35-105); Anion Gap 19.9 (5-19); Aspartate Amino Transferase 136 U/L (0-32); C Reactive Protein 154.9 mg/L (0.0-4.9); Carbon Dioxide 25 mmol/L (22-29); Chloride 95 mmol/L (98-107); Globulin 3.5 g/dL (1.3-4.6); Glucose 138 mg/dL (65-115); Magnesium 2.3 mg/dL (1.7-2.3); Osmolality Calculated 312 mOsm/kg (285-295); Potassium 3.9 mmol/L (3.5-5.1); Sodium 136 mmol/L (136-145); Total Bilirubin 0.9 mg/dL (0.15-1.2); Total Protein 5.4 g/dL (6.6-8.7)
[2020-10-29 04:47] LABS: Blood Urea Nitrogen 90 mg/dL (8-23)
[2020-10-29 05:05] LABS: Glucose Point of Care 160 mg/dL (70-110)
[2020-10-29 05:21] LABS: ABG PCO2 34.4 mmHg (35-45); ABG PH Result 7.49 (7.35-7.45); Arterial Blood Gas Hematocrit 34.7 % (37-47); Base Excess ABG 2.6 mmol/L (-2.0-2.0); Blood Gas Allen Test Pos; Blood Gas Sample Type Arterial; HCO3 ABG 25.9 mmol/L (22-26); PO2 ABG 64.5 mmHg (80.0-100.0)
[2020-10-29 05:23] LABS: Blood Gas Sample Site Radial, right; Blood Gas Tidal Volume 0.35; Oxygen Device VENT
[2020-10-29 05:32] LABS: Procalcitonin 1.37 ng/mL (0-0.5)
[2020-10-29 05:43] LABS: Ferritin 1691 ng/mL (15-150)
[2020-10-29 05:57] LABS: Slide Review Slide Review Perform; White Blood Count 38.4 10^3/uL (4.0-10.0)
[2020-10-29 06:21] LABS: Glucose Point of Care 166 mg/dL (70-110)
--- NOTE | 2020-10-29 06:54 | PC.NURSE ---
Patient remains stable throughout shift. Attempts to wean levophed, however unable to wean off. Fentanyl, propofol, insulin titrated per protocol. Bath given, and wounds redressed with interdry. Repostioned and oral care given Q2. Vital signs remain stable.
--- NOTE | 2020-10-29 07:00 | XRR_ITS ---
PROCEDURE INFORMATION: Exam: XR Chest Exam date and time: 10/29/2020 7:00 AM Age: 75 years old Clinical indication: Patient HX: Covid follow up; Additional info: Respiratory failure TECHNIQUE: Imaging protocol: XR of the chest. Views: 1 view. COMPARISON: CR (CHEST, ) 10/28/2020 7:11 AM FINDINGS: Tubes, catheters and devices: Right subclavian approach central line is in satisfactory position, with distal tip in the RA. Endotracheal tube is in satisfactory position. Feeding tube is in satisfactory position. A cardiac pacing device is again seen projecting over the left chest. Lungs: Persistent bilateral airspace opacities. No large pleural effusion or pneumothorax. Pleural spaces: See Lungs finding. Heart/Mediastinum: Stable cardiomediastinal silhouette. Bones/joints: No acute osseous injury identified. XR/XR chest 1V portable [id number] IMPRESSION: Persistent bilateral airspace opacities.
[2020-10-29 07:26] LABS: Glucose Point of Care 147 mg/dL (70-110)
[2020-10-29 08:25] LABS: Glucose Point of Care 145 mg/dL (70-110)
[2020-10-29 09:40] LABS: Glucose Point of Care 172 mg/dL (70-110)
[2020-10-29] MEDS: citalopram 20 mg Tablet 10 MG PO (10:14)
[2020-10-29] MEDS: amiodarone 200 mg Tablet 400 MG PO (10:15)
[2020-10-29] MEDS: aspirin 81 mg EC Tablet PO (10:15)
[2020-10-29] MEDS: levothyroxine 75 mcg Tablet PO (10:16)
[2020-10-29] MEDS: clopidogrel 75 mg Tablet PO (10:16)
[2020-10-29] MEDS: pantoprazole 40 mg SDV IVP (10:17)
[2020-10-29] MEDS: nystatin powder 15 gm Btl 1 APPLIC TOPICAL ×2 (10:17→18:17)
--- NOTE | 2020-10-29 10:51 | PC.SOCIAL ---
IMM not Updated IMM was not updated. Pt is on the vent. Pt is not expected to discharge within the next 24-48hrs.
[2020-10-29 11:07] LABS: Glucose Point of Care 145 mg/dL (70-110)
[2020-10-29 12:16] LABS: Glucose Point of Care 162 mg/dL (70-110)
[2020-10-29] MEDS: fluconazole premix 100 MG in empty flexible container 1 EACH 50 MG IV (13:18)
[2020-10-29 13:35] LABS: Glucose Point of Care 135 mg/dL (70-110)
[2020-10-29 13:35] LABS: Glucose Point of Care 155 mg/dL (70-110)
[2020-10-29] MEDS: dexamethasone 10 mg/mL INJ 6 MG IVP (14:22)
[2020-10-29 14:49] LABS: Glucose Point of Care 136 mg/dL (70-110)
[2020-10-29 15:34] LABS: Glucose Point of Care 166 mg/dL (70-110)
--- NOTE | 2020-10-29 16:51 | P.PN_ITS ---
Subjective Subjective: Interval history: I am seeing her in follow up for renal failure. No new issues overnight. Still intubated Medications: Reviewed: Yes Vitals/I&O/Wt Last Vital Signs Temp 97.5 F L 10/29/20 13:30 Pulse 66 10/29/20 14:00 Resp 21 H 10/29/20 16:30 BP 115/54 10/29/20 14:00 Pulse Ox 94 10/29/20 16:30 10/29/20 10/29/20 10/29/20 06:59 14:59 22:59 Intake Total 1020.294 / 2716.652 764.684 / 764.684 56.261 / 820.945 Output Total 100 / 200 Balance 920.294 / 2516.652 764.684 / 764.684 56.261 / 820.945 Weight last 48 hrs Weight 71.668 kg Weight 71.214 kg Physical Exam Narrative: EXAM NARRATIVE: Pt intubated Resp: AUSCULTATION: crackles Cardio: COMMON NORMALS: S1 normal heart sound present and S2 normal heart sound present HEART SOUNDS: S1 normal heart sound present and S2 normal heart sound present GI: AUSCULTATION: Yes normoactive bowel sounds Extremity: GENERAL: Yes edema Skin: COMMON NORMALS: no rashes or lesions noted GENERAL SKIN EXAM: no rashes or lesions noted Urinary Catheter Management^: [place]: Cath Placed During This Visit: yes Reason for Continuing Indwelling Catheter: Accurate Measurement of Urinary Output in Critically Ill Patients Urinary Catheter Date of Insertion: 10/24/20 Urinary Catheter Time of Insertion: 13:00 Data : 10/29/20 03:56 10/29/20 03:56 Micro: Microbiology 10/26/20 00:40 Urine Culture - Final Urine,Clean Catch Yeast 10/24/20 13:10 Blood Culture - Final Blood NO GROWTH AFTER 5 DAYS 10/26/20 09:00 Gram Stain - Final Sputum - Endotracheal Tube Aspirate Sputum Culture - Final Yeast 10/24/20 09:45 Blood Culture - Final Blood NO GROWTH AFTER 5 DAYS 10/27/20 17:30 Enteric Pathogens (PCR) - Final Stool - Stool Aspirate A&P Assessment and plan (1) Acute kidney injury: Kidney function continues to get worse, no indication for dialysis today. Will monitor kidney function closely for dialysis requirement. Avoid new nephrotoxins Status: Acute (2) Hypotension: Titrate pressors to keep map above 60 Status: Acute (3) Anemia: Monitor hb Status: Acute (4) Septic shock: Dose antibiotics based on creatinine clearance Status: Acute Attestations Medical Necessity Statement*: [place] Coding Level of Care Code Acute [place] Erector Helper for [facility] Fwd Diagnoses Acute kidney injury N17.9 Hypotension I95.9 Anemia D64.9 Septic shock A41.9; R65.21
[2020-10-29 17:14] LABS: Glucose Point of Care 193 mg/dL (70-110)
--- NOTE | 2020-10-29 17:36 | PM.PN ---
Subjective Subjective: Interval history: Noted to have worsening renal failure with poor urine output. Was weaned off pressors. No fever overnight Remained on vent with propofol 15 and fentanyl 25 for sedation Medications: Reviewed: Yes Vitals/I&O/Wt Last Vital Signs Temp 97.5 F L 10/29/20 13:30 Pulse 66 10/29/20 14:00 Resp 21 H 10/29/20 16:30 BP 115/54 10/29/20 14:00 Pulse Ox 94 10/29/20 16:30 10/29/20 10/29/20 10/29/20 06:59 14:59 22:59 Intake Total 1020.294 / 2716.652 764.684 / 764.684 56.261 / 820.945 Output Total 100 / 200 Balance 920.294 / 2516.652 764.684 / 764.684 56.261 / 820.945 Weight last 48 hrs Weight 71.668 kg Weight 71.214 kg Physical Exam Narrative: EXAM NARRATIVE: General exam, sedated and intubated. Orogastric tube noted. Neck is supple no lymphadenopathy or thyromegaly. Right subclavian line noted. Cardiovascular regular rate and rhythm, no murmur Lungs coarse breath sounds bilaterally Abdomen is soft. Question tenderness right upper quadrant. Positive bowel sounds. No obvious organomegaly exam [place], a little bit of yellow urine in [place] Extremities no cyanosis clubbing or edema, cap refill brisk Urinary Catheter Management^: [place]: Cath Placed During This Visit: yes Reason for Continuing Indwelling Catheter: Accurate Measurement of Urinary Output in Critically Ill Patients Urinary Catheter Date of Insertion: 10/24/20 Urinary Catheter Time of Insertion: 13:00 Data : 10/29/20 03:56 10/29/20 03:56 Micro: Microbiology 10/26/20 00:40 Urine Culture - Final Urine,Clean Catch Yeast 10/24/20 13:10 Blood Culture - Final Blood NO GROWTH AFTER 5 DAYS 10/26/20 09:00 Gram Stain - Final Sputum - Endotracheal Tube Aspirate Sputum Culture - Final Yeast 10/24/20 09:45 Blood Culture - Final Blood NO GROWTH AFTER 5 DAYS A&P Assessment and plan (1) DKA (diabetic ketoacidoses): Resolved Transitioned to long acting insulin Lantus 30 units qhs Sliding scale q6hr BS checks Status: Acute (2) Acute encephalopathy: Sedated Status: Acute (3) Pancreatitis, acute: Lipase was improving History of gallstones complicates presentation. May need surgical evaluation by end of hospitalization for consideration of cholecystectomy Secondary to concern of gallbladder etiology presentation initially initiated Zosyn. Or changing to Primaxin secondary to history of frequent UTIs . Blood cultures have already been drawn and negative to date. Triglyceride level was checked and not elevated Check lipase in am Status: Acute (4) Pneumonia: Covid PCR is positive Continue Primaxin. Vancomycin discontinued as MRSA PCR negative Continue pulmonary toilet We will try to wean from ventilator when mental status improves, comorbidities improved. Currently only requiring an FiO2 of 40%. Appreciate pulmonary critical care intervention. Yeast growing from endotracheal aspirate fluconazole. Renally adjusted dose. Suspect colonization/thrush and patient receiving broad-spectrum antibiotics, steroids Currently off pressors Status: Acute (5) Transaminitis: Gallbladder ultrasound did not demonstrate dilated ducts. No evidence of cholecystitis. Gallstones were noted. LFTs approximately the same today with the exception of alk phos which is slightly higher. Continue to hold statin. LFTs stable but elevated - CMP in am Continue to trend Status: Acute (6) Cardiomyopathy: History of ejection fraction 30 to 35% on last echocardiogram March 2019. Repeat echocardiogram demonstrates an EF of approximately 25%. History of ventricular tachycardia, pacemaker and ICD implantation. Past history of atrial fibrillation, as well as coronary artery disease. Continue amiodarone. Troponin without significant delta. Status: Acute Qualifiers: Cardiomyopathy type: unspecified Qualified Code(s): I42.9 - Cardiomyopathy, unspecified (7) Acute kidney injury: Acute kidney injury superimposed on chronic kidney disease - worsening Poor urine output Nephrology on board. Will likely require PERFORMANCE SOLUTIONS SPECIALIST K normal currently Fluid overload Renal function has yet to recover, but perhaps slight more urine output. Avoid renal toxic medication No evidence of obstruction on CT CK not significantly elevated Status: Acute Additional A&P Information History of diarrhea. Enteric pathogens, C. difficile ordered. Oral vancomycin started secondary to markedly elevated white blood cell count suspicious of C. difficile UTI. Continue Primaxin. Urine grew Klebsiella, E. coli Nutrition, nephro Scot added. Full code Heparin for DVT prophylaxis Protonix for GI prophylaxis Prognosis guarded Attestations Medical Necessity Statement*: Will require further hospitalization for managment of respiratory failure on vent, pneumonia, and now renal failure Time Spent in Patient Care: Greater than 35 minutes (>than 50% of time spent in counselling and/or direct pt care on unit). Critical Care Time: Critical Care Time (min): 40 Coding Level of Care Code Acute Livestock Farmer for g Fwd Diagnoses DKA (diabetic ketoacidoses) E11.10 Acute encephalopathy G93.40 Pancreatitis, acute K85.90 Pneumonia J18.9 Transaminitis R74.01 Cardiomyopathy I42.9 Cardiomyopathy type: unspecified Acute kidney injury N17.9
[2020-10-29 17:37] LABS: Glucose Point of Care 199 mg/dL (70-110)
--- NOTE | 2020-10-29 18:20 | PC.NURSE ---
Shift Note Frequent safety and comfort rounds continue. Orders and/or nursing care completed as indicated. Patient monitored for response to intervention and treatment. Uneventful shift Patient rested in bed throughout the day. Total urine output was 125 mL. Telenephrology consult done. Likely will get orders for dialysis and place a dialysis port tommorow. Nurse updated the patient's son. Family is aware of likely need for dialysis and will discuss consent.
[2020-10-29 20:29] LABS: Glucose Point of Care 218 mg/dL (70-110)
[2020-10-29] MEDS: insulin glargine 100 units/1 mL 30 UNIT SUBCUT (22:15)
[2020-10-30] VITALS (64 sets, daily range): BP systolic 86–149; BP diastolic 39–76; PULSE 57–87; RESP 16–26; TEMP 36.1–37.3; O2SAT 92–100; BMI 25.4
[2020-10-30] MEDS: propofol 1,000 MG/100 ML INJ 9.66 MG IV (00:19)
--- NOTE | 2020-10-30 02:55 | PC.NURSE ---
Family updated Son, Chai Alvarenga, called and received update on patient status around 1999.
[2020-10-30 03:32] LABS: ABG PCO2 30.3 mmHg (35-45); ABG PH Result 7.47 (7.35-7.45); Arterial Blood Gas Hematocrit 33.3 % (37-47); Base Excess ABG -1.1 mmol/L (-2.0-2.0); Blood Gas Allen Test Pos; Blood Gas Sample Site Radial, right; Blood Gas Sample Type Arterial; Blood Gas Tidal Volume 0.35; HCO3 ABG 21.9 mmol/L (22-26); Oxygen Device VENT; PO2 ABG 69.5 mmHg (80.0-100.0)
[2020-10-30] MEDS: heparin 5,000 unit/mL INJ 1 mL 5000 UNIT SUBCUT ×2 (03:46→15:47)
[2020-10-30] MEDS: calcium carbonate 500 mg Chew Tablet 1000 MG PO ×4 (03:46→20:16)
[2020-10-30 04:58] LABS: Basophils # 0.1 10^3/uL (0.0-0.1); Basophils % 0.4 %; Eosinophils % 0.1 %; Hematocrit 31.9 % (37.0-47.0); Hemoglobin 10.9 g/dL (11.5-15.3); Lymphocytes # 0.7 10^3/uL (0.8-4.8); Lymphocytes % 1.7 %; Mean Corpuscular HGB Conc 34.2 g/dL (30.0-36.0); Mean Corpuscular Volume 87.9 fl (81-99); Mean Platelet Volume 10.9 fL (7.4-10.4); Monocytes % 2.7 %; Neutrophils # 35.36 10^3/uL (1.8-7.7); Neutrophils % 90.9 %; Nucleated Red Blood Cells % 0 %; Platelet Count 224 10^3/cmm (130-400); Red Blood Count 3.63 10^6/uL (4.1-5.3); Red Cell Distribution Width 16.4 % (12.1-15.1)
[2020-10-30 05:18] LABS: D Dimer 6.08 ug/mIFEU (0-0.59)
[2020-10-30 05:19] LABS: Lactate (Lactic Acid level) 1.3 mmol/L (0.5-2.2)
[2020-10-30 05:27] LABS: Alanine Aminotransferase 52 U/L (0-33); Albumin Level 1.8 g/dL (3.5-5.2); Alkaline Phosphatase 772 IU/L (35-105); Anion Gap 26.7 (5-19); Aspartate Amino Transferase 128 U/L (0-32); Calcium 7.6 mg/dL (8.5-10.5); Carbon Dioxide 20 mmol/L (22-29); Chloride 90 mmol/L (98-107); Globulin 3.7 g/dL (1.3-4.6); Glucose 338 mg/dL (65-115); Lipase 181 U/L (13-60); Magnesium 2.4 mg/dL (1.7-2.3); Potassium 4.7 mmol/L (3.5-5.1); Sodium 132 mmol/L (136-145); Total Bilirubin 0.9 mg/dL (0.15-1.2); Total Protein 5.5 g/dL (6.6-8.7); Triglycerides 285 mg/dL (0-150)
[2020-10-30 05:32] LABS: Procalcitonin 1.15 ng/mL (0-0.5)
[2020-10-30 05:38] LABS: Osmolality Calculated 325 mOsm/kg (285-295)
[2020-10-30 05:39] LABS: Blood Urea Nitrogen 117 mg/dL (8-23)
[2020-10-30 05:47] LABS: Slide Review Slide Review Perform; White Blood Count 38.9 10^3/uL (4.0-10.0)
[2020-10-30 05:52] LABS: Glucose Point of Care 257 mg/dL (70-110)
--- NOTE | 2020-10-30 07:00 | XRR_ITS ---
PROCEDURE INFORMATION: Exam: XR Chest Exam date and time: 10/30/2020 7:00 AM Age: 75 years old Clinical indication: Shortness of breath; Additional info: Respiratory failure, intubated TECHNIQUE: Imaging protocol: XR of the chest. Views: 1 view. Total images: 1 COMPARISON: CR XR chest 1V portable [id number] 10/29/2020 5:51 AM FINDINGS: Tubes, catheters and devices: AICD projects in satisfactory location. Tubes and catheters are unchanged from the prior exam. Lungs: Bilateral pulmonary opacities are again noted with the right-sided opacities showing interval worsening. Pleural spaces: Unremarkable. No pleural effusion. No pneumothorax. Heart/Mediastinum: Heart size is stable when compared to the prior exam. Bones/joints: Osseous structures are unchanged from the prior exam. XR/XR chest 1V portable [id number] IMPRESSION: 1. Tubes and catheters are unchanged from the prior exam. 2. Bilateral pulmonary opacities are again noted with the right-sided opacities showing interval worsening.
--- NOTE | 2020-10-30 07:19 | PC.NURSE ---
Shift Note Frequent safety and comfort rounds continue. Orders and/or nursing care completed as indicated. At beginning of shift patient not utilizing Levophed to maintain blood pressure, as agitation increased, sedation increased per APR and blood pressures decreased. Levophed restarted per Apr. Later in the shift, patient's blood pressures maintained adequately and Levophed titrated off per MAR. Patient monitored for response to intervention and treatment(s). Education provided included information regarding medication. Patient is intubated and sedated, therefore needs reinforcement on all education.
[2020-10-30 07:21] LABS: Glucose Point of Care 397 mg/dL (70-110)
[2020-10-30] MEDS: propofol 1,000 MG/100 ML INJ 11.59 MG IV ×2 (07:31→15:47)
[2020-10-30] MEDS: ipratropium-albuterol 3 mL Neb INHALATION ×3 (07:58→19:45)
[2020-10-30] MEDS: insulin glargine 100 units/1 mL 10 UNIT SUBCUT (08:54)
[2020-10-30] MEDS: citalopram 20 mg Tablet 10 MG PO (08:55)
[2020-10-30] MEDS: clopidogrel 75 mg Tablet PO (08:55)
[2020-10-30] MEDS: amiodarone 200 mg Tablet 400 MG PO (08:55)
[2020-10-30] MEDS: aspirin 81 mg EC Tablet PO (08:55)
[2020-10-30] MEDS: pantoprazole 40 mg SDV IVP (08:56)
[2020-10-30] MEDS: levothyroxine 75 mcg Tablet PO (08:56)
[2020-10-30] MEDS: nystatin powder 15 gm Btl 1 APPLIC TOPICAL ×2 (09:07→18:47)
--- NOTE | 2020-10-30 09:25 | PC.CHAP ---
Pastoral Care Encounter/Spiritual Assessment Type of Contact [] Declined pearl stringer visit [] Patient/Family/Request visit [] Outpatient visit [] Follow-up visit [] Physician referral [] Code/Alert [x] Routine visit [] Staff referral [] Actively dying [] Patient sleeping [] Family support [] [] Out of room [] Palliative care [] [] Receiving care in room [] Pre-surgical visit [] Trauma [] Long length of stay [x] ICU visit [] Other: Relational/Emotional Strength [] Patient feels connected with others/family/visitors/staff [] Distress [] Loneliness/isolation [] Abandonment Spirituality of Patient [] Person of Eleanor [] Attends Buddhist of their Eleanor [] Believes in Prayer [] Reads Bible or Presybeterian materials [] There are Spiritual issues to be addressed Business Development Analyst Interventions [x] Prayer [] Active listening [] Non-anxious presence [] Spiritual/emotional support [] Crisis/trauma care [] Spiritual counseling [] Bereavement support [] Provided bereavement packet [] Provided Bible/devotional materials [] Provided toy/stuffed animal, coloring book to patient or family member [] Provided Communion [] Anointing/[place] [] Salvation [x] Completed spiritual assessment [] Other: Impact on Illness or Injury [] Angry [] Fearful [] Anxious [] Often cries [] Exhaustion [] Unable to work [] Unable to attend christian [] Unable to walk/stand [] Unable to read [] Unable to drive [] Unable to eat/drink [] Unable to sleep [] Unable to be with family [] Patient intubated [] Other: Summary Time spent with patient
--- NOTE | 2020-10-30 10:40 | P.PN_ITS ---
Subjective Subjective: Interval history: Carmen is sedated on the ventilator. Nursing reports no new issues overnight. Medications: Reviewed: Yes Vitals/I&O/Wt Last Vital Signs Temp 97.3 F L 10/30/20 09:00 Pulse 80 10/30/20 10:00 Resp 23 H 10/30/20 10:00 BP 92/48 10/30/20 10:00 Pulse Ox 94 10/30/20 10:00 10/29/20 10/30/20 10/30/20 22:59 06:59 14:59 Intake Total 160.228 / 926.412 528.347 / 1454.759 82.096 / 82.096 Output Total 125 / 125 325 / 450 Balance 35.228 / 801.412 203.347 / 1004.759 82.096 / 82.096 Weight last 48 hrs Weight 71.668 kg Weight 71.668 kg Physical Exam Narrative: EXAM NARRATIVE: General exam, sedated and intubated. Orogastric tube noted. Neck is supple no lymphadenopathy or thyromegaly. Right subclavian line noted. Cardiovascular regular rate and rhythm, no murmur Lungs coarse breath sounds bilaterally Abdomen is soft. Question tenderness right upper quadrant. Positive bowel sounds. No obvious organomegaly exam Montalvo, small amount of urine is noted. Had about 450 out in the last 24 hours. Extremities no cyanosis clubbing. At least 2+ edema. Urinary Catheter Management^: Montalvo: Cath Placed During This Visit: yes Reason for Continuing Indwelling Catheter: Accurate Measurement of Urinary Output in Critically Ill Patients Urinary Catheter Date of Insertion: 10/24/20 Urinary Catheter Time of Insertion: 13:00 Data : 10/30/20 04:25 10/30/20 04:25 Micro: Microbiology 10/26/20 00:40 Urine Culture - Final Urine,Clean Catch Yeast 10/24/20 13:10 Blood Culture - Final Blood NO GROWTH AFTER 5 DAYS 10/26/20 09:00 Gram Stain - Final Sputum - Endotracheal Tube Aspirate Sputum Culture - Final Yeast 10/24/20 09:45 Blood Culture - Final Blood NO GROWTH AFTER 5 DAYS A&P Assessment and plan (1) DKA (diabetic ketoacidoses): Resolved She has been transitioned to long-acting insulin, sliding scale Status: Acute (2) Acute encephalopathy: Sedated Status: Acute (3) Pancreatitis, acute: Lipase improved History of gallstones complicates presentation. May need surgical evaluation by end of hospitalization for consideration of cholecystectomy Secondary to concern of gallbladder etiology presentation initially initiated Zosyn. Or changing to Primaxin secondary to history of frequent UTIs . Blood cultures have already been drawn and negative to date. Triglyceride level was checked and not elevated Status: Acute (4) Pneumonia: Covid PCR is positive Continue Primaxin. Vancomycin discontinued as MRSA PCR negative Continue pulmonary toilet Currently on an FiO2 of 35% but considering fluid overload with renal failure am reluctant to extubate currently. Appreciate pulmonary critical care intervention. Yeast growing from endotracheal aspirate, urine so on fluconazole. Renally adjusted dose. Suspect colonization/thrush and patient receiving broad-spectrum antibiotics, steroids Currently off pressors Status: Acute (5) Transaminitis: Gallbladder ultrasound did not demonstrate dilated ducts. No evidence of cholecystitis. Gallstones were noted. LFTs approximately the same today with the exception of alk phos which is slightly higher. Continue to hold statin. LFTs continue to be elevated. Status: Acute (6) Cardiomyopathy: History of ejection fraction 30 to 35% on last echocardiogram March 2019. Repeat echocardiogram demonstrates an EF of approximately 25%. History of ventricular tachycardia, pacemaker and ICD implantation. Past history of atrial fibrillation, as well as coronary artery disease. Continue amiodarone. Troponin without significant delta. Status: Acute Qualifiers: Cardiomyopathy type: unspecified Qualified Code(s): I42.9 - Cardiomyopathy, unspecified (7) Acute kidney injury: Acute kidney injury superimposed on chronic kidney disease. At this point none improved but urine output up in the last 24 hours. Appreciate nephrology input Avoid renal toxic medication No evidence of obstruction on CT CK not significantly elevated Status: Acute Additional A&P Information C. difficile positive. Markedly elevated white blood cell count. Currently on vancomycin per OG UTI. Continue Primaxin. Urine grew Klebsiella, E. coli Nutrition, on tube feeds Full code Heparin for DVT prophylaxis Protonix for GI prophylaxis Prognosis guarded Attestations Medical Necessity Statement*: Needs continued hospitalization secondary to respiratory failure requiring mechanical ventilation. Critical Care Time: Critical Care Time (min): 34 Other Attestations: The high probability of a clinically significant, sudden or life threatening deterioration of the patient's [pulmonary, renal] system(s) required my full and direct attention, intervention and personal management. The critical care time is as shown. This time is in addition to time spent performing any reported procedures but includes the following: [x] Data and vital sign review and interpretation [x] Patient assessment, examination and intervention [x] Documentation [x] Medication orders and management Coding Level of Care Code Acute Shipboard Intelligence Analyst for g Fwd Diagnoses DKA (diabetic ketoacidoses) E11.10 Acute encephalopathy G93.40 Pancreatitis, acute K85.90 Pneumonia J18.9 Transaminitis R74.01 Cardiomyopathy I42.9 Cardiomyopathy type: unspecified Acute kidney injury N17.9
--- NOTE | 2020-10-30 10:54 | PC.NUTR ---
Current TF of Nepro 1.8 @ 25 ml/hr will provide 1080 Kcals + 306 from Prop = 1386 kcal (95% est kcal needs), 49 g prot (59% est prot needs), and 435 ml H2O, with water flushes per MD discretion.
[2020-10-30 11:43] LABS: Glucose Point of Care 348 mg/dL (70-110)
[2020-10-30] MEDS: fluconazole premix 100 MG in empty flexible container 1 EACH 50 MG IV (13:01)
--- NOTE | 2020-10-30 13:28 | P.PN_ITS ---
Subjective Subjective: Interval history: Remains critically sick in the ICU. UO remains poor, creatinine still uptrending. Diuretics ineffective now Medications: Reviewed: Yes Vitals/I&O/Wt Last Vital Signs Temp 97.3 F L 10/30/20 09:00 Pulse 80 10/30/20 10:00 Resp 19 H 10/30/20 11:23 BP 92/48 10/30/20 10:00 Pulse Ox 94 10/30/20 11:23 10/29/20 10/30/20 10/30/20 22:59 06:59 14:59 Intake Total 160.228 / 926.412 528.347 / 1454.759 82.096 / 82.096 Output Total 125 / 125 325 / 450 100 / 100 Balance 35.228 / 801.412 203.347 / 1004.759 -17.904 / -17.904 Weight last 48 hrs Weight 71.668 kg Weight 71.668 kg Physical Exam Narrative: EXAM NARRATIVE: Constitutional: intubated and vented HEENT: Wet mucosa, no jvp, non icteric Lungs: Bilaterally basal wheeze, rales in all lung zones CVS: S1 S2, no murmurs Abdo: Soft, BS ok Ext 4: Minimal edema, peripheral perfusion with no cyanosis Neurological: Grossly non-focal Urinary Catheter Management^: Montalvo: Cath Placed During This Visit: yes Reason for Continuing Indwelling Catheter: Accurate Measurement of Urinary Output in Critically Ill Patients Urinary Catheter Date of Insertion: 10/24/20 Urinary Catheter Time of Insertion: 13:00 Data : 10/30/20 04:25 10/30/20 04:25 Micro: Microbiology 10/26/20 00:40 Urine Culture - Final Urine,Clean Catch Yeast 10/24/20 13:10 Blood Culture - Final Blood NO GROWTH AFTER 5 DAYS 10/26/20 09:00 Gram Stain - Final Sputum - Endotracheal Tube Aspirate Sputum Culture - Final Yeast 10/24/20 09:45 Blood Culture - Final Blood NO GROWTH AFTER 5 DAYS A&P Additional A&P Information 1. Acute kidney injury Likely to be infection related ATN. No acute indication for dialysis today, however, she will need dialysis in the am; Dr Mclaughlin to help with temp line and orders placed for the morning Strict I's and O's Avoid usual nephrotoxic agents Dose medication for GFR less than 15 2. Chemistry Minor non critical aberrration 3. VDRF mgmt per icu team weaning over next few days. FiO2 35% 4. Sepsis Multiple potential foci of infection including C. difficile, pancreatitis, pneumonia, urosepsis. Being covered with combination antibiotics including Primaxin, vancomycin, p.o. vancomycin. 5. Hemodynamics Close monitoring in the icu pressors as needed Thank you for consultation, as always it is a pleasure to follow these cases with you Kurt Wakefield MD Nephrology [phone] Attestations Medical Necessity Statement*: donte for [place] Coding Level of Care Code Acute Customer Specialist for Chris [facility]
--- NOTE | 2020-10-30 15:08 | PC.NURSE ---
Tube feed residual was 200. Previously today it was 50. Nurse paused tube feeds. will recheck and restart tube feeds if indicated.
[2020-10-30] MEDS: dexamethasone 10 mg/mL INJ 6 MG IVP (15:47)
--- NOTE | 2020-10-30 17:20 | P.PN_ITS ---
Subjective Subjective: Interval history: The patient was seen and examined. Patient continues to be ventilator dependent. Her FiO2 is only 35%. Unfortunately, her mental status has not improved. The patient is spontaneously moving however unable to follow any commands at this time. The creatinine and BUN has continued to get worse. The patient has developed peripheral edema. The plan is for dialysis tomorrow. Bedside ultrasound revealed dilated IVC and hepatic veins. The bilateral B- lines have improved. Medications: Reviewed: Yes Vitals/I&O/Wt Last Vital Signs Temp 96.9 F L 10/30/20 12:00 Pulse 66 10/30/20 15:07 Resp 18 10/30/20 15:05 BP 92/54 10/30/20 15:00 Pulse Ox 94 10/30/20 15:05 10/30/20 10/30/20 10/30/20 06:59 14:59 22:59 Intake Total 528.347 / 1454.759 82.096 / 82.096 95.811 / 177.907 Output Total 325 / 450 100 / 100 Balance 203.347 / 1004.759 -17.904 / -17.904 95.811 / 77.907 Weight last 48 hrs Weight 158 lb Weight 158 lb Physical Exam Narrative: EXAM NARRATIVE: General: Patient is intubated and sedated Neck: No JVD Respiratory: Auscultation: Coarse breath sound bilaterally, no wheezing or rhonchi Cardiovascular: Regular rate and rhythm, S1-S2 present, no murmur, bilateral peripheral edema. Abdomen: Soft, nondistended, positive bowel sound Skin: No rash Neuro: Patient moves spontaneously, no purposeful movement and not following commands Urinary Catheter Management^: [place]alvo: Cath Placed During This Visit: yes Reason for Continuing Indwelling Catheter: Accurate Measurement of Urinary Output in Critically Ill Patients Urinary Catheter Date of Insertion: 10/24/20 Urinary Catheter Time of Insertion: 13:00 Data : 10/30/20 04:25 10/30/20 04:25 Micro: Microbiology 10/26/20 00:40 Urine Culture - Final Urine,Clean Catch Yeast 10/24/20 13:10 Blood Culture - Final Blood NO GROWTH AFTER 5 DAYS Attestation for Other Data: I personally reviewed and interpreted the following: Other data: I have reviewed the patient's laboratory, [place] and radiologic data. Her endotracheal aspirate and urine culture growing yeast. A&P Assessment and plan (1) Pneumonia due to severe acute respiratory syndrome coronavirus 2 (SARS-CoV-2): The patient has SARS-CoV-2 pneumonia. Her oxygen requirement is currently only 35%. The patient is on volume control mechanical ventilation with lung protective strategy. She is currently on dexamethasone 6 mg daily. Status: Acute (2) Septic shock: The patient has come off of pressor. Her urine culture grew Klebsiella a nd E. coli both sensitive to imipenem. The patient is currently on imipenem. Both endotracheal aspirate and urine culture grew yeast however the patient is not in septic shock. I do not believe this is playing any role in the patient's septic shock at this point. Status: Acute (3) Ischemic cardiomyopathy with implantable cardioverter-defibrillator (ICD): The patient has ischemic cardiomyopathy with an ejection fraction approximately 25 to 30%. Her ejection fraction today looks better than how it was on admission on bedside echocardiography. We will continue the supportive therapy. Status: Acute (4) Acute encephalopathy: The patient has multiple etiology for encephalopathy. For the time being, the patient has significant uremia which can certainly affect her mental status. The patient is not having any purposeful movement or not following commands. The plan is for her to undergo dialysis tomorrow. I have obtained a consent and I will insert the dialysis catheter tomorrow morning. Status: Acute (5) DKA (diabetic ketoacidoses): The patient insulin drip was switched to long-acting insulin over the weekend. Currently her blood sugar is ranging between 160-350. Status: Acute (6) ATN (acute tubular necrosis): The patient has suffered ATN and the kidney function unfortunately has not recovered yet. The patient is going to need dialysis tomorrow. Hopefully with dialysis her mental status gets better and if her mental status is better the patient will likely get extubated very quickly. Status: Acute Attestations Medical Necessity Statement*: Will defer to the primary team Coding Level of Care Code Acute Instructional Support Specialist for [facility] Buck Diagnoses Pneumonia due to severe acute respiratory syndrome coronavirus 2 (SARS-CoV-2) U07.1; J12.82 Septic shock A41.9; R65.21 Ischemic cardiomyopathy with implantable cardioverter-defibrillator (ICD) I25.5; Z95.810 Acute encephalopathy G93.40 DKA (diabetic ketoacidoses) E11.10 ATN (acute tubular necrosis) N17.0 Time Spent (min) 33
[2020-10-30 18:41] LABS: Glucose Point of Care 310 mg/dL (70-110)
[2020-10-30] MEDS: insulin glargine 100 units/1 mL 30 UNIT SUBCUT (20:17)
[2020-10-31] VITALS (65 sets, daily range): BP systolic 83–131; BP diastolic 42–69; PULSE 60–67; RESP 18–24; TEMP 35.5–36.2; O2SAT 91–100
[2020-10-31] MEDS: heparin 5,000 unit/mL INJ 1 mL 5000 UNIT SUBCUT ×2 (03:04→15:16)
[2020-10-31] MEDS: calcium carbonate 500 mg Chew Tablet 1000 MG PO ×4 (03:04→20:16)
[2020-10-31] MEDS: propofol 1,000 MG/100 ML INJ 5.8 MG IV (04:04)
[2020-10-31 04:47] LABS: Basophils # 0.1 10^3/uL (0.0-0.1); Basophils % 0.3 %; Hematocrit 30.6 % (37.0-47.0); Hemoglobin 10.4 g/dL (11.5-15.3); Lymphocytes # 0.8 10^3/uL (0.8-4.8); Lymphocytes % 2.4 %; Mean Corpuscular Hemoglobin 29.3 pg (28.0-34.0); Mean Corpuscular Volume 86.2 fl (81-99); Mean Platelet Volume 11.3 fL (7.4-10.4); Monocytes % 2.9 %; Neutrophils # 31.72 10^3/uL (1.8-7.7); Nucleated Red Blood Cells % 0 %; Platelet Count 163 10^3/cmm (130-400); Red Blood Count 3.55 10^6/uL (4.1-5.3)
[2020-10-31 05:01] LABS: White Blood Count 34.9 10^3/uL (4.0-10.0)
[2020-10-31 05:06] LABS: Alanine Aminotransferase 32 U/L (0-33); Albumin Level 1.9 g/dL (3.5-5.2); Alkaline Phosphatase 665 IU/L (35-105); Anion Gap 23.5 (5-19); Aspartate Amino Transferase 69 U/L (0-32); Calcium 8.2 mg/dL (8.5-10.5); Carbon Dioxide 22 mmol/L (22-29); Chloride 93 mmol/L (98-107); Globulin 3.5 g/dL (1.3-4.6); Glucose 214 mg/dL (65-115); Magnesium 2.5 mg/dL (1.7-2.3); Potassium 4.5 mmol/L (3.5-5.1); Sodium 134 mmol/L (136-145); Total Bilirubin 0.8 mg/dL (0.15-1.2); Total Protein 5.4 g/dL (6.6-8.7)
--- NOTE | 2020-10-31 05:17 | PC.NURSE ---
Shift Note Frequent safety and comfort rounds continue. Orders and/or nursing care completed as indicated. Patient monitored for response to intervention and treatment(s). Education provided includes frequent turning and skin care. Patient and/or outbound call center representative Reinforcement needed. Will continue to monitor.
[2020-10-31 05:22] LABS: ABG PCO2 33.9 mmHg (35-45); ABG PH Result 7.43 (7.35-7.45); Arterial Blood Gas Hematocrit 54.5 % (37-47); Blood Gas Allen Test Pos; Blood Gas Operator Identificat JB; Blood Gas Sample Site Radial, right; Blood Gas Sample Type Arterial; Blood Gas Tidal Volume 0.35; HCO3 ABG 22.5 mmol/L (22-26); Oxygen Device VENT; PO2 ABG 85.3 mmHg (80.0-100.0)
[2020-10-31 05:33] LABS: Osmolality Calculated 322 mOsm/kg (285-295)
[2020-10-31 05:34] LABS: Blood Urea Nitrogen 117 mg/dL (8-23)
--- NOTE | 2020-10-31 07:00 | XRR_ITS ---
PROCEDURE INFORMATION: Exam: XR Chest Exam date and time: 10/31/2020 7:00 AM Age: 75 years old Clinical indication: Dyspnea; Additional info: Resp failure TECHNIQUE: Imaging protocol: XR of the chest. Views: 1 view. Total images: 1 COMPARISON: CR XR chest 1V portable [id number] 10/30/2020 5:04 AM FINDINGS: Tubes, catheters and devices: AICD projects in satisfactory location. Tubes and catheters are unchanged from the prior exam. Lungs: Bilateral pulmonary opacities are again noted with the right-sided opacities showing interval improvement. Pleural spaces: Unremarkable. No pleural effusion. No pneumothorax. Heart/Mediastinum: Heart size is stable when compared to the prior exam. Bones/joints: Osseous structures are unchanged from the prior exam. XR/XR chest 1V portable [id number] IMPRESSION: 1. Tubes and catheters are unchanged from the prior exam. 2. Bilateral pulmonary opacities are again noted with the right-sided opacities showing interval improvement.
[2020-10-31] MEDS: ipratropium-albuterol 3 mL Neb INHALATION ×2 (07:51→20:21)
[2020-10-31 08:25] LABS: Glucose Point of Care 239 mg/dL (70-110)
--- NOTE | 2020-10-31 08:30 | P.PN_ITS ---
Subjective Subjective: Interval history: Carmen is sedated on the ventilator. No issues overnight. Medications: Reviewed: Yes Vitals/I&O/Wt Last Vital Signs Temp 96.0 F L 10/31/20 05:19 Pulse 60 10/31/20 07:58 Resp 18 10/31/20 07:54 BP 117/57 10/31/20 06:00 Pulse Ox 94 10/31/20 07:54 10/30/20 10/31/20 10/31/20 22:59 06:59 14:59 Intake Total 458.495 / 540.591 143.399 / 683.990 Output Total 200 / 300 Balance 458.495 / 440.591 -56.601 / 383.990 Weight last 48 hrs Weight 74.928 kg Weight 71.668 kg Physical Exam Narrative: EXAM NARRATIVE: General exam, sedated and intubated. Orogastric tube noted. Tracks some with her eyes, but will not follow instructions. Neck is supple no lymphadenopathy or thyromegaly. Right subclavian line noted. Cardiovascular regular rate and rhythm, no murmur Lungs coarse breath sounds bilaterally Abdomen is soft. Positive bowel sounds. No obvious organomegaly exam Montalvo, small amount of urine is noted. Less output than yesterday. Extremities no cyanosis clubbing. At least 2+ edema. Urinary Catheter Management^: Montalvo: Cath Placed During This Visit: yes Reason for Continuing Indwelling Catheter: Accurate Measurement of Urinary Output in Critically Ill Patients Urinary Catheter Date of Insertion: 10/24/20 Urinary Catheter Time of Insertion: 13:00 Data : 10/31/20 04:13 10/31/20 04:13 A&P Assessment and plan (1) DKA (diabetic ketoacidoses): Resolved She has been transitioned to long-acting insulin, sliding scale Overall sugars appear acceptable. Status: Acute (2) Acute encephalopathy: Sedated Dialysis is planned today after temporary dialysis catheter insertion. Hopefully mental status will improve to a degree she can be extubated. Status: Acute (3) Pancreatitis, acute: Lipase improved History of gallstones complicates presentation. May need surgical evaluation by end of hospitalization for consideration of cholecystectomy Secondary to concern of gallbladder etiology presentation initially initiated Zosyn. Or changing to Primaxin secondary to history of frequent UTIs . Blood cultures have already been drawn and negative to date. Triglyceride level was checked and not elevated Status: Acute (4) Pneumonia: Covid PCR is positive Currently ventilator dependent but not requiring much in the means of FiO2 or PEEP. Continue Primaxin. Vancomycin discontinued as MRSA PCR negative Continue pulmonary toilet Continue dexamethasone Possible extubation if mental status improves, dialysis occurs to take off excess fluid Appreciate pulmonary critical care intervention. Yeast growing from endotracheal aspirate, urine so on fluconazole. Renally adjusted dose. Suspect colonization/thrush and patient receiving broad-spectrum antibiotics, steroids Currently off pressors Status: Acute (5) Transaminitis: Gallbladder ultrasound did not demonstrate dilated ducts. No evidence of cholecystitis. Gallstones were noted. LFTs approximately the same today with the exception of alk phos which is slightly higher. Continue to hold statin. LFTs continue to be elevated. Status: Acute (6) Cardiomyopathy: History of ejection fraction 30 to 35% on last echocardiogram March 2019. Repeat echocardiogram demonstrates an EF of approximately 25%. History of ventricular tachycardia, pacemaker and ICD implantation. Past history of atrial fibrillation, as well as coronary artery disease. Continue amiodarone. Troponin without significant delta. Status: Acute Qualifiers: Cardiomyopathy type: unspecified Qualified Code(s): I42.9 - Cardiomyopathy, unspecified (7) Acute kidney injury: Acute kidney injury superimposed on chronic kidney disease. Appreciate nephrology input Avoid renal toxic medication No evidence of obstruction on CT CK not significantly elevated Dialysis expected today Status: Acute Additional A&P Information C. difficile positive. Markedly elevated white blood cell count. Currently on vancomycin per OG. White blood cell count still markedly elevated. Very slight improvement from yesterday. Some of this may be driven by IV steroids. UTI. Continue Primaxin. Urine grew Klebsiella, E. coli Nutrition, on tube feeds Full code Heparin for DVT prophylaxis Protonix for GI prophylaxis Prognosis guarded Attestations Medical Necessity Statement*: Needs continued hospitalization secondary to respiratory failure requiring mechanical ventilation, acute kidney injury requiring dialysis. Critical Care Time: Critical Care Time (min): 30 Other Attestations: The high probability of a clinically significant, sudden or life threatening deterioration of the patient's [pulmonary, renal] system(s) required my full and direct attention, intervention and personal management. The critical care time is as shown. This time is in addition to time spent performing any reported procedures but includes the following: [x] Data and vital sign review and interpretation [x] Patient assessment, examination and intervention [x] Documentation [x] Medication orders and management Coding Level of Care Code Acute Recruitment Coordinator for Chg Fwd Diagnoses DKA (diabetic ketoacidoses) E11.10 Acute encephalopathy G93.40 Pancreatitis, acute K85.90 Pneumonia J18.9 Transaminitis R74.01 Cardiomyopathy I42.9 Cardiomyopathy type: unspecified Acute kidney injury N17.9
[2020-10-31] MEDS: amiodarone 200 mg Tablet 400 MG PO (09:38)
[2020-10-31] MEDS: pantoprazole 40 mg SDV IVP (09:38)
[2020-10-31] MEDS: clopidogrel 75 mg Tablet PO (09:38)
[2020-10-31] MEDS: levothyroxine 75 mcg Tablet PO (09:38)
[2020-10-31] MEDS: citalopram 20 mg Tablet 10 MG PO (09:38)
[2020-10-31] MEDS: nystatin powder 15 gm Btl 1 APPLIC TOPICAL ×2 (10:19→18:47)
--- NOTE | 2020-10-31 10:44 | PM.ACPR ---
Procedure/Consent Time out: Time Out Performed: Yes Consent: Consent for Procedure: Consent obtained from other (indicate) (Son) Procedure Narrative: Name of the procedure: Right femoral vein hemodialysis catheter insertion under ultrasound guidance. Medications: Lidocaine 1% 5 mL. IV medications: Fentanyl and propofol drip Consent: Obtained from her son. Description of the procedure: The right femoral vein was identified under ultrasound guidance with collapsibility and lack of pulsatility. The site was prepared using sterile technique and the patient was positioned optimally. The skin, subcutaneous tissue was anesthetized with 1% lidocaine. The introducer needle was then advanced under direct ultrasound guidance till flashback was noted. Dark nonpulsatile blood was noted. The guidewire was advanced through the needle and confirmed to be in the femoral vein with ultrasound. Using Seldinger technique the right femoral vein hemodialysis catheter was inserted. The catheter was sutured in place. The insertion length was 20 cm. Complications: None Blood loss: 1 mL Acute Procedures Epistaxis Control: Time out performed: Yes
--- NOTE | 2020-10-31 10:46 | PM.PN ---
Subjective Subjective: Interval history: The patient was seen and examined. No significant overnight event. The mental status has not changed significantly. Not following commands. Medications: Reviewed: Yes Vitals/I&O/Wt Last Vital Signs Temp 96.0 F L 10/31/20 05:19 Pulse 60 10/31/20 07:58 Resp 18 10/31/20 09:41 BP 117/57 10/31/20 06:00 Pulse Ox 95 10/31/20 09:41 10/30/20 10/31/20 10/31/20 22:59 06:59 14:59 Intake Total 458.495 / 540.591 143.399 / 683.990 Output Total 200 / 300 Balance 458.495 / 440.591 -56.601 / 383.990 Weight last 48 hrs Weight 165 lb 3 oz Weight 158 lb Physical Exam Narrative: EXAM NARRATIVE: General: Patient is intubated and sedated Neck: No JVD Respiratory: Auscultation: Coarse breath sound bilaterally, no wheezing or rhonchi Cardiovascular: Regular rate and rhythm, S1-S2 present, no murmur, bilateral peripheral edema. Abdomen: Soft, nondistended, positive bowel sound Skin: No rash Neuro: Patient moves spontaneously, no purposeful movement and not following commands Urinary Catheter Management^: Montalvo: Cath Placed During This Visit: yes Reason for Continuing Indwelling Catheter: Accurate Measurement of Urinary Output in Critically Ill Patients Urinary Catheter Date of Insertion: 10/24/20 Urinary Catheter Time of Insertion: 13:00 Data : 10/31/20 04:13 10/31/20 04:13 Attestation for Other Data: I personally reviewed and interpreted the following: Other data: The chest x-ray from this morning revealed improvement in bilateral infiltrates. A&P Assessment and plan (1) Pneumonia due to severe acute respiratory syndrome coronavirus 2 (SARS-CoV-2): The patient has SARS-CoV-2 pneumonia. Her oxygen requirement is currently only 35%. The patient is on volume control mechanical ventilation with lung protective strategy. Given the minimal oxygen requirement, I am going to discontinue the dexamethasone today. The patient will be ready for extubation as soon as she has a mental status. Status: Acute (2) Septic shock: The patient has come off of pressor. Her urine culture grew Klebsiella and E. coli both sensitive to imipenem. The patient is currently on imipenem. Both endotracheal aspirate and urine culture grew yeast however the patient is not in septic shock. The patient is on fluconazole. Status: Acute (3) Ischemic cardiomyopathy with implantable cardioverter-defibrillator (ICD): The patient has ischemic cardiomyopathy with an ejection fraction approximately 25 to 30%. We will continue the supportive therapy. Status: Acute (4) Acute encephalopathy: The patient has multiple etiology for encephalopathy. Her uremia is significant. The plan is for dialysis today hopefully this will with her mental status. Status: Acute (5) DKA (diabetic ketoacidoses): The patient is currently on long-acting insulin. With the discontinuation of dexamethasone blood sugar will be better controlled. Status: Acute (6) ATN (acute tubular necrosis): The patient has suffered ATN and the kidney function unfortunately has not recovered yet. The patient is scheduled for dialysis today.. Status: Acute Attestations Medical Necessity Statement*: Will defer to the primary team Coding Level of Care Code Acute Administration Physician for [facility] Diagnoses Pneumonia due to severe acute respiratory syndrome coronavirus 2 (SARS-CoV-2) U07.1; J12.82 Septic shock A41.9; R65.21 Ischemic cardiomyopathy with implantable cardioverter-defibrillator (ICD) I25.5; Z95.810 Acute encephalopathy G93.40 DKA (diabetic ketoacidoses) E11.10 ATN (acute tubular necrosis) N17.0
[2020-10-31 12:16] LABS: Glucose Point of Care 225 mg/dL (70-110)
--- NOTE | 2020-10-31 13:18 | PM.PN ---
Subjective Subjective: Interval history: She remains stable overnight, with no issues. Not waking from the vent at this time Dialysis is about to be initiated Hemodynamics remain stable off levo for the time being Medications: Reviewed: Yes Vitals/I&O/Wt Last Vital Signs Temp 96.0 F L 10/31/20 05:19 Pulse 61 10/31/20 10:30 Resp 22 H 10/31/20 13:08 BP 98/49 10/31/20 10:30 Pulse Ox 96 10/31/20 13:08 10/30/20 10/31/20 10/31/20 22:59 06:59 14:59 Intake Total 458.495 / 540.591 143.399 / 683.990 110.664 / 110.664 Output Total 200 / 300 Balance 458.495 / 440.591 -56.601 / 383.990 110.664 / 110.664 Weight last 48 hrs Weight 74.928 kg Weight 71.668 kg Physical Exam Narrative: EXAM NARRATIVE: Constitutional: intubated and vented HEENT: Wet mucosa, no jvp, non icteric Lungs: Bilaterally basal wheeze, rales in all lung zones CVS: S1 S2, no murmurs Abdo: Soft, BS ok Ext 4: Minimal edema, peripheral perfusion with no cyanosis Neurological: Grossly non-focal Urinary Catheter Management^: Montalvo: Cath Placed During This Visit: yes Reason for Continuing Indwelling Catheter: Accurate Measurement of Urinary Output in Critically Ill Patients Urinary Catheter Date of Insertion: 10/24/20 Urinary Catheter Time of Insertion: 13:00 Data : 10/31/20 04:13 10/31/20 04:13 A&P Additional A&P Information 1. Acute kidney injury Likely to be infection related ATN. Plan for some gentle dialysis today Daily evaluation for dialysis eneds Strict I's and O's Avoid usual nephrotoxic agents Dose medication for GFR less than 15 2. Chemistry Minor non critical aberrration 3. VDRF mgmt per icu team weaning over next few days. FiO2 35% Not recovering enough neurologically for weaning 4. Sepsis Multiple potential foci of infection including C. difficile, pancreatitis, pneumonia, urosepsis. Being covered with combination antibiotics including Primaxin, vancomycin, p.o. vancomycin. 5. Hemodynamics Close monitoring in the icu pressors as needed Thank you for consultation, as always it is a pleasure to follow these cases with you Kurt Wakefield MD Nephrology [phone] Attestations Medical Necessity Statement*: eval for [place] Coding Level of Care Code Acute Building Guard Deputy Sheriff for [facility]
--- NOTE | 2020-10-31 16:00 | PC.SOCIAL ---
IMM Update IMM not updated. Patient remains intubated. Not anticipating discharge.
[2020-10-31] MEDS: heparin, porcine 1,000 unit/mL INJ 10 mL HE (16:13)
[2020-10-31] MEDS: fluconazole premix 100 MG in empty flexible container 1 EACH 50 MG IV (16:29)
[2020-10-31] MEDS: propofol 1,000 MG/100 ML INJ 11.59 MG IV (16:41)
--- NOTE | 2020-10-31 16:58 | PC.HD ---
Heparin 6800 units given during treatment to prevent clotting within dialysis circuit.
[2020-10-31 17:39] LABS: Glucose Point of Care 57 mg/dL (70-110)
[2020-10-31] MEDS: dextrose 50% syringe 50 mL IVP (17:57)
[2020-10-31 18:41] LABS: Glucose Point of Care 130 mg/dL (70-110)
--- NOTE | 2020-10-31 18:48 | PC.NURSE ---
HD cath was placed at bedside this AM. 50 MCG bolus was given pre procedure. Patient tolerated well.
--- NOTE | 2020-10-31 18:50 | PC.NURSE ---
BS was 57 recheck was 130
[2020-10-31] MEDS: insulin glargine 100 units/1 mL 10 UNIT SUBCUT (20:16)
[2020-11-01] VITALS (59 sets, daily range): BP systolic 84–124; BP diastolic 41–69; PULSE 60–70; RESP 18–22; TEMP 36.4–36.9; O2SAT 93–97
[2020-11-01 00:52] LABS: Glucose Point of Care 118 mg/dL (70-110)
[2020-11-01] MEDS: propofol 1,000 MG/100 ML INJ 11.59 MG IV ×3 (03:30→13:15)
[2020-11-01] MEDS: heparin 5,000 unit/mL INJ 1 mL 5000 UNIT SUBCUT ×2 (04:02→18:27)
[2020-11-01 05:23] LABS: Hematocrit 32.9 % (37.0-47.0); Hemoglobin 11.4 g/dL (11.5-15.3); Mean Corpuscular HGB Conc 34.7 g/dL (30.0-36.0); Mean Corpuscular Hemoglobin 29.4 pg (28.0-34.0); Mean Corpuscular Volume 84.8 fl (81-99); Platelet Count 260 10^3/cmm (130-400); Red Blood Count 3.88 10^6/uL (4.1-5.3)
[2020-11-01 05:37] LABS: Alanine Aminotransferase 23 U/L (0-33); Albumin Level 1.8 g/dL (3.5-5.2); Alkaline Phosphatase 551 IU/L (35-105); Anion Gap 16.7 (5-19); Aspartate Amino Transferase 61 U/L (0-32); Blood Urea Nitrogen 71 mg/dL (8-23); Calcium 7.7 mg/dL (8.5-10.5); Carbon Dioxide 25 mmol/L (22-29); Chloride 94 mmol/L (98-107); Globulin 3.6 g/dL (1.3-4.6); Glucose 128 mg/dL (65-115); Osmolality Calculated 296 mOsm/kg (285-295); Potassium 3.7 mmol/L (3.5-5.1); Sodium 132 mmol/L (136-145); Total Bilirubin 0.9 mg/dL (0.15-1.2); Total Protein 5.4 g/dL (6.6-8.7)
[2020-11-01 05:47] LABS: Slide Review Slide Review Perform
[2020-11-01 05:48] LABS: Absolute Neutrophil 59.1 10^3/cmm (1.4-6.5); Absolute Segmented Neutrophil 48.9 10/cmm (1.6-7.1); Band Neutrophils Absolute 10.2 10^3/cmm (0.0-1.2); Eosinophils 0 %; Lymphocytes 2 %; Lymphocytes Absolute 1.3 10^3/cmm (1.2-3.4); Monocytes Absolute 0.6 10^3/cmm (0.1-0.6); Platelet Estimate Normal (Normal); Segmented Neutrophils 77 %; Total Cells Counted 100 (0-100); White Blood Count 63.5 10^3/uL (4.0-10.0)
[2020-11-01 05:49] LABS: Anisocytosis 1+
--- NOTE | 2020-11-01 05:58 | PC.NURSE ---
Shift Note Frequent safety and comfort rounds continue. Orders and/or nursing care completed as indicated. Patient monitored for response to intervention and treatment(s). Education provided includes pain management. Patient and/or premium service representative reinforcement needed. Will continue to monitor.
--- NOTE | 2020-11-01 07:34 | CT_ITS ---
WS: [id number] CT CHEST, ABDOMEN, AND PELVIS TECHNIQUE: Noncontrast CT of the chest, abdomen, and pelvis with coronal and sagittal reformatted chris ges. CLINICAL INFORMATION: increased WBC count COMPARISON: CT October 24, [address] chest 17,008 DLP: 1341.[address] scans at [facility] use at least one of these dose optimization techniques: automated e xposure control; mA and/or kV adjustment per patient size (includes targeted exams where dose is matc hed to clinical indication); or iterative reconstruction. CT CHEST: Mild chronic emphysematous changes. Endotracheal tube with tip above the quincy. Enteric tube with ti p in the stomach. Patchy bilateral mid and lower lobe pulmonary infiltrates with compressive atelecta sis in the lung bases. Associated air bronchograms. Subsegmental atelectasis in the lower lobes. Trac e bilateral pleural fluid. Slight hazy groundglass infiltrates in the perihilar regions and right upp er lobe. Recommend correlation for pneumonia. Normal caliber thoracic aorta. Coronary calcification. Calcified hilar nodes. Cardiac pacer. CT ABDOMEN AND PELVIS: Normal noncontrast liver. Normal gallbladder. Splenic granulomas. Contrast with air-fluid level in th e stomach. Previously described inflammatory changes are more prominent today about the pancreas rath er than the transverse colon. Diffuse edema involving the pancreatic parenchyma with peripancreatic i nflammatory stranding compatible with pancreatitis. Recommend correlation with pancreatic enzymes. Pa rtial gastric outlet obstruction due to pancreatic edema. Peripancreatic inflammatory changes progres sed since October 24, 2020. Montalvo catheter. Small amount of free fluid in the pelvis. Colon is decompressed. Adrenal glands are n ormal. Retained contrast in the kidneys with striated enhancement suspicious for pyelonephritis. Lizandro mmend correlation for urinary tract infection. No hydronephrosis. Moderate degenerative changes lumba r spine. CT/CT chest abd pel wo con IMPRESSION: 1. Moderate chronic emphysematous changes with hazy bilateral subpleural pulmo nary infiltrates. Compressive atelectasis with some consolidation in the lung b ases with air bronchograms. Recommend correlation for pneumonia including COVID 19 pneumonia. 2. Endotracheal tube with tip above the quincy. 3. Progressed changes of pancreatitis with diffuse pancreatic edema and increa sed peripancreatic inflammatory changes with induration in the surrounding mese ntery. Recommend correlation with pancreatic enzymes. 4. Peripancreatic edema results in partial gastric outlet obstruction with air -fluid level in the stomach. 5. Retained contrast in the kidneys with diffuse patchy striated enhancement s uspicious for pyelonephritis. Recommend correlation for ascending urinary tract infection. No hydronephrosis. 6. Montalvo catheter with a small amount of free fluid in the pelvis. 7. Diffuse mild body wall anasarca.
[2020-11-01] MEDS: ipratropium-albuterol 3 mL Neb INHALATION ×2 (07:35→20:13)
[2020-11-01] MEDS: pantoprazole 40 mg SDV IVP (08:20)
[2020-11-01] MEDS: levothyroxine 75 mcg Tablet PO (08:20)
[2020-11-01] MEDS: amiodarone 200 mg Tablet 400 MG PO (08:20)
[2020-11-01] MEDS: calcium carbonate 500 mg Chew Tablet 1000 MG PO ×3 (08:20→20:21)
[2020-11-01] MEDS: clopidogrel 75 mg Tablet PO (08:20)
[2020-11-01] MEDS: aspirin 81 mg EC Tablet PO (08:20)
[2020-11-01] MEDS: citalopram 20 mg Tablet 10 MG PO (08:20)
[2020-11-01] MEDS: metroNIDAZOLE IV 500 MG/100 ML PREMIX 100 MG IV ×2 (08:21→15:18)
[2020-11-01 08:50] LABS: Glucose Point of Care 125 mg/dL (70-110)
--- NOTE | 2020-11-01 09:17 | PM.PN ---
Subjective Subjective: Interval history: No significant issues overnight. From what I understand her tube feeds were held secondary to high residual Medications: Reviewed: Yes Vitals/I&O/Wt Last Vital Signs Temp 97.2 F L 10/31/20 19:00 Pulse 60 11/01/20 07:40 Resp 19 H 11/01/20 07:38 BP 109/49 11/01/20 06:00 Pulse Ox 95 11/01/20 07:38 10/31/20 11/01/20 11/01/20 22:59 06:59 14:59 Intake Total 337.293 / 469.290 209.859 / 679.149 Output Total 1807 / 1807 Balance -1469.707 / -1337.710 209.859 / -1127.851 Weight last 48 hrs Weight 74.1 kg Weight 74.928 kg Physical Exam Narrative: EXAM NARRATIVE: General exam, sedated and intubated. Orogastric tube noted. Neck is supple no lymphadenopathy or thyromegaly. Right subclavian line noted. Cardiovascular regular rate and rhythm, no murmur Lungs coarse breath sounds bilaterally Abdomen is soft. Positive bowel sounds. No obvious organomegaly exam Montalvo, small amount of urine is noted. Extremities no cyanosis clubbing. At least 2+ edema. Urinary Catheter Management^: Montalvo: Cath Placed During This Visit: yes Reason for Continuing Indwelling Catheter: Accurate Measurement of Urinary Output in Critically Ill Patients Urinary Catheter Date of Insertion: 10/24/20 Urinary Catheter Time of Insertion: 13:00 Data : 11/01/20 05:05 11/01/20 05:05 A&P Assessment and plan (1) DKA (diabetic ketoacidoses): Resolved She has been transitioned to long-acting insulin, sliding scale Lantus decreased secondary to hypoglycemia that occurred yesterday. Blood sugar acceptable this morning. Status: Acute (2) Acute encephalopathy: Sedated Dialysis initiated yesterday. Currently mental status unchanged. Status: Acute (3) Pancreatitis, acute: Lipase improved History of gallstones complicates presentation. May need surgical evaluation by end of hospitalization for consideration of cholecystectomy Secondary to concern of gallbladder etiology presentation initially initiated Zosyn. Changed to Primaxin secondary to history of frequent UTIs . Blood cultures have already been drawn and negative to date. Triglyceride level was checked and not elevated Status: Acute (4) Pneumonia: Covid PCR is positive Currently ventilator dependent but not requiring much in the means of FiO2 or PEEP. Continue Primaxin. Vancomycin discontinued as MRSA PCR negative Continue pulmonary toilet Dexamethasone discontinued October 31 as FiO2 requirement was low, white blood cell count persistently high. Possible extubation if mental status improves, dialysis occurs to take off excess fluid Appreciate pulmonary critical care intervention. Yeast growing from endotracheal aspirate, urine so on fluconazole. Renally adjusted dose. Suspect colonization/thrush and patient receiving broad-spectrum antibiotics, steroids. Check serum galactomannan Currently off pressors White blood cell count significantly higher today. Check CT chest abdomen and pelvis with oral contrast. Repeat sputum culture. Check serum galactomannan. Check lactate although abdominal exam seems benign. She has been having bowel movements. Add Flagyl secondary to increasing white blood cell count despite treatment with vancomycin orally. Pulmonary/critical care will evaluate as well. Status: Acute (5) Transaminitis: Gallbladder ultrasound did not demonstrate dilated ducts. No evidence of cholecystitis. Gallstones were noted. LFTs approximately the same today with the exception of alk phos which is slightly higher. Continue to hold statin. LFTs continue to be elevated. Status: Acute (6) Cardiomyopathy: History of ejection fraction 30 to 35% on last echocardiogram March 2019. Repeat echocardiogram demonstrates an EF of approximately 25%. History of ventricular tachycardia, pacemaker and ICD implantation. Past history of atrial fibrillation, as well as coronary artery disease. Continue amiodarone. Troponin without significant delta. Status: Acute Qualifiers: Cardiomyopathy type: unspecified Qualified Code(s): I42.9 - Cardiomyopathy, unspecified (7) Acute kidney injury: Acute kidney injury superimposed on chronic kidney disease. Appreciate nephrology input Avoid renal toxic medication No evidence of obstruction on CT CK not significantly elevated Dialysis performed October 31. Awaiting their assessment today. Status: Acute Additional A&P Information C. difficile positive. Markedly elevated white blood cell count. Currently on vancomycin per OG. White blood cell count has increased further. Flagyl IV added. CT exam ordered. UTI. Continue Primaxin. Urine grew Klebsiella, E. coli. Consider discontinuation of Primaxin depending upon CT results if concern for elevated white blood cell count is worsening C. difficile. Currently on day #9. Nutrition, on tube feeds. Held for high residuals Full code Heparin for DVT prophylaxis Protonix for GI prophylaxis Prognosis guarded Attestations Medical Necessity Statement*: Needs continued ICU care secondary to respiratory failure requiring mechanical ventilation, renal failure, etc. Time Spent in Patient Care: 42 Critical Care Time: The high probability of a clinically significant, sudden or life threatening deterioration of the patient's [pulmonary, renal, infectious disease] system(s) required my full and direct attention, intervention and personal management. The critical care time is as shown. This time is in addition to time spent performing any reported procedures but includes the following: [x] Data and vital sign review and interpretation [x] Patient assessment, examination and intervention [x] Documentation [x] Medication orders and management Coding Level of Care Code Acute Casting Supervisor for [facility] Fwd Diagnoses DKA (diabetic ketoacidoses) E11.10 Acute encephalopathy G93.40 Pancreatitis, acute K85.90 Pneumonia J18.9 Transaminitis R74.01 Cardiomyopathy I42.9 Cardiomyopathy type: unspecified Acute kidney injury N17.9
[2020-11-01] MEDS: nystatin powder 15 gm Btl 1 APPLIC TOPICAL ×2 (09:38→18:28)
--- NOTE | 2020-11-01 10:09 | PC.CHAP ---
Pastoral Care Encounter/Spiritual Assessment Type of Contact [] Declined mud analysis supervisor visit [] Patient/Family/Request visit [] Outpatient visit [] Follow-up visit [] Physician referral [] Code/Alert [x] Routine visit [] Staff referral [] Actively dying [] Patient sleeping [] Family support [] [] Out of room [] Palliative care [] [x] Receiving care in room [] Pre-surgical visit [] Trauma [] Long length of stay [x] ICU visit [] Other: Relational/Emotional Strength [] Patient feels connected with others/family/visitors/staff [] Distress [] Loneliness/isolation [] Abandonment Spirituality of Patient [] Person of Eleanor [] Attends Yazidi of their Eleanor [] Believes in Prayer [] Reads Bible or Adventism materials [] There are Spiritual issues to be addressed Personnel Assistant Interventions [x] Prayer [] Active listening [] Non-anxious presence [] Spiritual/emotional support [] Crisis/trauma care [] Spiritual counseling [] Bereavement support [] Provided bereavement packet [] Provided Bible/devotional materials [] Provided toy/stuffed animal, coloring book to patient or family member [] Provided Communion [] Anointing/[place] [] Salvation [x] Completed spiritual assessment [] Other: Impact on Illness or Injury [] Angry [] Fearful [] Anxious [] Often cries [] Exhaustion [] Unable to work [] Unable to attend episcopalian [] Unable to walk/stand [] Unable to read [] Unable to drive [] Unable to eat/drink [] Unable to sleep [] Unable to be with family [] Patient intubated [] Other: Summary Time spent with patient
[2020-11-01 10:11] LABS: Lactate (Lactic Acid level) 1.3 mmol/L (0.5-2.2)
[2020-11-01 11:47] LABS: Glucose Point of Care 136 mg/dL (70-110)
--- NOTE | 2020-11-01 12:04 | PM.PN ---
Subjective Subjective: Interval history: She remains critically sick in the ICU. Leukocytosis noted. Levophed on a 6 mics per minute. No urine output. Ventilator settings remain relatively stable, FiO2 only 35%. Still too sick to come off the ventilator. Medications: Reviewed: Yes Vitals/I&O/Wt Last Vital Signs Temp 98.2 F 11/01/20 08:00 Pulse 61 11/01/20 11:30 Resp 20 H 11/01/20 11:20 BP 104/62 11/01/20 11:30 Pulse Ox 95 11/01/20 11:30 10/31/20 11/01/20 11/01/20 22:59 06:59 14:59 Intake Total 337.293 / 469.290 209.859 / 679.149 Output Total 1807 / 1807 Balance -1469.707 / -1337.710 209.859 / -1127.851 Weight last 48 hrs Weight 74.1 kg Weight 74.928 kg Physical Exam Narrative: EXAM NARRATIVE: Constitutional: intubated and vented HEENT: Wet mucosa, no jvp, non icteric Lungs: Bilaterally basal wheeze, rales in all lung zones CVS: S1 S2, no murmurs Abdo: Soft, BS ok Ext 4: Minimal edema, peripheral perfusion with no cyanosis Neurological: Grossly non-focal Urinary Catheter Management^: Montalvo: Cath Placed During This Visit: yes Reason for Continuing Indwelling Catheter: Accurate Measurement of Urinary Output in Critically Ill Patients Urinary Catheter Date of Insertion: 10/24/20 Urinary Catheter Time of Insertion: 13:00 Data : 11/01/20 05:05 11/01/20 05:05 A&P Additional A&P Information 1. Acute kidney injury Likely to be infection related ATN. No plans for dialysis today but will plan on dialysis tomorrow; may need to defer if she continues to poorly; 3K, UF 2L Strict I's and O's Avoid usual nephrotoxic agents Dose medication for GFR less than 15 2. Chemistry Minor non critical aberrration 3. VDRF mgmt per icu team weaning over next few days. FiO2 35% 4. Sepsis Multiple potential foci of infection including C. difficile, pancreatitis, pneumonia, urosepsis. Being covered with combination antibiotics including Primaxin, vancomycin, p.o. vancomycin. Repeat CT A/P today 5. Hemodynamics Close monitoring in the icu pressors as needed Sick lady with a gaurded prognosis Thank you for consultation, as always it is a pleasure to follow these cases with you Kurt Wakefield MD Nephrology [phone] Attestations Medical Necessity Statement*: eval for [place] Coding Level of Care Code Acute Coning Machine Operator for [facility]
[2020-11-01] MEDS: iohexol 300 mg/mL 50 mL Btl PO (13:44)
[2020-11-01] MEDS: fluconazole premix 100 MG in empty flexible container 1 EACH 50 MG IV (15:18)
--- NOTE | 2020-11-01 15:45 | PC.NUTR ---
TF: recommend restart Nepro 1.8 at 15mL/hr and advance after 8hr to 20mL/hr. If/when medically appropriate, recommend Beneprotein with water flushes Q6H: 1 scoop Q6H with H20 flush of 90mL (60mL mixed with powder + 30mL flush after); Beneprotein will provide 96 kcal and 24g protein/day. Nepro, propofol, and beneprotein in total will provide 1266 kcal/day, 63g protein, and 708 mL H2O. Additional water flushes per MD discretion. See nutrition assessment for more details
[2020-11-01 18:27] LABS: Glucose Point of Care 170 mg/dL (70-110)
[2020-11-01 18:59] LABS: Lipase 117 U/L (13-60)
--- NOTE | 2020-11-01 19:18 | PC.NURSE ---
Shift Note Frequent safety and comfort rounds continue. Orders and/or nursing care completed as indicated. Patient monitored for response to intervention and treatment. Uneventful shift. Patient was taken to CT due to elevated WBC count. Revealed pancreatitis and partial gastric obstruction. Received orders for NPO and hooked patient up to low intermittent suction. 50 mL of urine out today. no bowel movement. rested in bed throughout the day.
[2020-11-01 20:21] LABS: Glucose Point of Care 169 mg/dL (70-110)
[2020-11-01] MEDS: insulin glargine 100 units/1 mL 10 UNIT SUBCUT (20:21)
[2020-11-01] MEDS: metroNIDAZOLE IV 500 MG/100 ML PREMIX 200 MG IV (20:23)
[2020-11-02] VITALS (78 sets, daily range): BP systolic 87–136; BP diastolic 37–57; PULSE 60–74; RESP 16–28; TEMP 36.4–37.1; O2SAT 92–97
[2020-11-02] MEDS: propofol 1,000 MG/100 ML INJ 11.59 MG IV ×2 (00:49→06:26)
[2020-11-02] MEDS: metroNIDAZOLE IV 500 MG/100 ML PREMIX 200 MG IV (01:55)
[2020-11-02] MEDS: calcium carbonate 500 mg Chew Tablet 1000 MG PO ×4 (02:50→20:06)
[2020-11-02] MEDS: heparin 5,000 unit/mL INJ 1 mL 5000 UNIT SUBCUT ×2 (03:21→15:30)
[2020-11-02 05:18] LABS: Basophils # 0.2 10^3/uL (0.0-0.1); Basophils % 0.4 %; Eosinophils # 0.1 10^3/uL (0.0-0.8); Eosinophils % 0.1 %; Hematocrit 30.6 % (37.0-47.0); Hemoglobin 10.4 g/dL (11.5-15.3); Lymphocytes # 1.4 10^3/uL (0.8-4.8); Lymphocytes % 2.9 %; Mean Corpuscular Hemoglobin 29.3 pg (28.0-34.0); Mean Corpuscular Volume 86.2 fl (81-99); Mean Platelet Volume 11.2 fL (7.4-10.4); Monocytes % 2.2 %; Neutrophils # 41.68 10^3/uL (1.8-7.7); Nucleated Red Blood Cells % 0.1 %; Platelet Count 191 10^3/cmm (130-400); Red Blood Count 3.55 10^6/uL (4.1-5.3); Red Cell Distribution Width 16.2 % (12.1-15.1)
[2020-11-02 05:35] LABS: Alanine Aminotransferase 16 U/L (0-33); Albumin Level 1.5 g/dL (3.5-5.2); Alkaline Phosphatase 411 IU/L (35-105); Anion Gap 22.1 (5-19); Aspartate Amino Transferase 64 U/L (0-32); Blood Urea Nitrogen 73 mg/dL (8-23); Calcium 7.9 mg/dL (8.5-10.5); Carbon Dioxide 22 mmol/L (22-29); Chloride 91 mmol/L (98-107); Globulin 3.7 g/dL (1.3-4.6); Glucose 129 mg/dL (65-115); Lipase 71 U/L (13-60); Osmolality Calculated 295 mOsm/kg (285-295); Potassium 4.1 mmol/L (3.5-5.1); Sodium 131 mmol/L (136-145); Total Protein 5.2 g/dL (6.6-8.7)
[2020-11-02 05:40] LABS: ABG PCO2 31.1 mmHg (35-45); ABG PH Result 7.46 (7.35-7.45); Arterial Blood Gas Hematocrit 32.9 % (37-47); Base Excess ABG -0.9 mmol/L (-2.0-2.0); Blood Gas Allen Test Pos; Blood Gas Sample Type Arterial; HCO3 ABG 22.3 mmol/L (22-26); PO2 ABG 66.2 mmHg (80.0-100.0)
[2020-11-02 05:43] LABS: Blood Gas Sample Site Radial, left; Blood Gas Tidal Volume 0.35; Oxygen Device VENT
[2020-11-02 06:13] LABS: Slide Review Slide Review Perform
[2020-11-02 06:17] LABS: White Blood Count 47.4 10^3/uL (4.0-10.0)
--- NOTE | 2020-11-02 06:39 | NUR.SHIFT ---
Patient remained stable throughout shift, vital signs stable, hypotension managed with levophed. Levophed, propofol, and fentanyl gtt titrated as needed. Repositioned, and oral care done Q2. Patient NPO with OGT to low intermittent suction, 400 mL out during shift. Bath given in AM. Will continue to monitor.
--- NOTE | 2020-11-02 07:00 | XR_ITS ---
WS: [id number] Portable AP semiupright chest, 11/02/2020 Clinical Data: resp failure Comparison: Portable chest, 10/31/2020 Findings: The patchy bilateral pulmonary opacities have not changed. The heart is normal. The right s ubclavian catheter, endotracheal tube and nasogastric tube remain in position. The permanent pacemake r has not changed. On for leads are on the chest wall. XR/XR chest 1V portable [id number] Impression: 1. No change in patchy bilateral pulmonary opacities. 2. No change in position of multiple tubes.
[2020-11-02] MEDS: ipratropium-albuterol 3 mL Neb INHALATION ×2 (07:55→20:31)
[2020-11-02] MEDS: metroNIDAZOLE IV 500 MG/100 ML PREMIX 100 MG IV ×3 (08:15→20:06)
[2020-11-02 08:18] LABS: Glucose Point of Care 124 mg/dL (70-110)
--- NOTE | 2020-11-02 08:35 | PM.PN ---
Subjective Subjective: Interval history: Carmen is sedated on the ventilator. Medications: Reviewed: Yes Vitals/I&O/Wt Last Vital Signs Temp 97.7 F 11/02/20 06:00 Pulse 60 11/02/20 07:58 Resp 20 H 11/02/20 07:58 BP 106/51 11/02/20 06:00 Pulse Ox 94 11/02/20 07:58 11/01/20 11/02/20 11/02/20 22:59 06:59 14:59 Intake Total 666.561 / 966.561 332.630 / 1299.191 154.368 / 154.368 Output Total 50 / 50 50 / 100 Balance 616.561 / 916.561 282.630 / 1199.191 154.368 / 154.368 Weight last 48 hrs Weight 74.162 kg Weight 74.1 kg Physical Exam Narrative: EXAM NARRATIVE: General exam, sedated and intubated. Orogastric tube noted. Tube feeds were discontinued yesterday. Neck is supple no lymphadenopathy or thyromegaly. Right subclavian line noted. Cardiovascular regular rate and rhythm, no murmur Lungs coarse breath sounds bilaterally Abdomen is soft. Positive bowel sounds. No obvious organomegaly exam Montalvo, small amount of urine is noted. Extremities no cyanosis clubbing. At least 2+ edema. Urinary Catheter Management^: Montalvo: Cath Placed During This Visit: yes Reason for Continuing Indwelling Catheter: Accurate Measurement of Urinary Output in Critically Ill Patients Urinary Catheter Date of Insertion: 10/24/20 Urinary Catheter Time of Insertion: 13:00 Data : 11/02/20 04:40 11/02/20 04:40 Micro: Microbiology 11/01/20 09:50 Gram Stain - Final Sputum - Endotracheal Tube Aspirate 11/01/20 12:30 Blood Culture - Preliminary Blood SPECIMEN COLLECTED 11/01/20 12:40 Blood Culture - Preliminary Blood SPECIMEN COLLECTED Other data: Chest x-ray today tubes okay, bilateral infiltrates unchanged A&P Assessment and plan (1) DKA (diabetic ketoacidoses): Resolved She has been transitioned to long-acting insulin, sliding scale Lantus decreased secondary to hypoglycemia that occurred yesterday. Blood sugar have been stable Status: Acute (2) Acute encephalopathy: Sedated Dialysis initiated 10/31. If dialysis is performed today, would consider discontinuing all sedation to reevaluate mental status for possible timing of extubation if appropriate. Status: Acute (3) Pancreatitis, acute: Lipase improved History of gallstones complicates presentation. May need surgical evaluation by end of hospitalization for consideration of cholecystectomy Secondary to concern of gallbladder etiology presentation initially initiated Zosyn. Changed to Primaxin secondary to history of frequent UTIs . Blood cultures have already been drawn and negative to date. Triglyceride level was checked and not elevated Repeat lipase was done on November 01 on November 02 showing no significant increase. Secondary to increased white blood cell count noted yesterday a CT chest abdomen and pelvis was performed. This demonstrated evidence of pancreatitis, with partial gastric outlet obstruction. Tube feedings were discontinued at that time. Repeat cultures obtained. Status: Acute (4) Pneumonia: Covid PCR is positive Currently ventilator dependent but not requiring much in the means of FiO2 or PEEP. Continue Primaxin. Vancomycin IV was discontinued as MRSA PCR negative Continue pulmonary toilet Dexamethasone discontinued October 31 as FiO2 requirement was low, white blood cell count persistently high. Possible extubation if mental status improves, dialysis occurs to take off excess fluid Appreciate pulmonary critical care intervention. Yeast growing from endotracheal aspirate, urine so on fluconazole. Renally adjusted dose. Suspect colonization/thrush and patient receiving broad-spectrum antibiotics, steroids. Serum galactomannan pending as well as culture of fungal organism. Currently on pressors, norepinephrine at approximately 8 With increasing white blood cell count Flagyl was added to oral vancomycin and Primaxin. Note that she has C. difficile. No specific etiology found on CT imaging although pancreatic edema could be contributing. White blood cell count is decreasing currently. Status: Acute (5) Transaminitis: Gallbladder ultrasound did not demonstrate dilated ducts. No evidence of cholecystitis. Gallstones were noted. LFTs approximately the same today with the exception of alk phos which is slightly higher. Continue to hold statin. LFTs continue to be elevated. Secondary to pancreatitis, with cholelithiasis could consider cholecystectomy if patient's clinical status improves. Status: Acute (6) Cardiomyopathy: History of ejection fraction 30 to 35% on last echocardiogram March 2019. Repeat echocardiogram demonstrates an EF of approximately 25%. History of ventricular tachycardia, pacemaker and ICD implantation. Past history of atrial fibrillation, as well as coronary artery disease. Continue amiodarone. Troponin without significant delta. Status: Acute Qualifiers: Cardiomyopathy type: unspecified Qualified Code(s): I42.9 - Cardiomyopathy, unspecified (7) Acute kidney injury: Acute kidney injury superimposed on chronic kidney disease. Appreciate nephrology input Avoid renal toxic medication No evidence of obstruction on CT CK not significantly elevated Dialysis performed October 31. Awaiting their assessment today. Status: Acute Additional A&P Information C. difficile positive. Markedly elevated white blood cell count. Currently on vancomycin per OG. White blood cell count has increased further. Flagyl IV added. No evidence of toxic megacolon. UTI. Continue Primaxin. Urine grew Klebsiella, E. coli. Day #10 of Primaxin currently. Nutrition, on tube feeds. Discontinued secondary to concern of partial gastric outlet obstruction. Will discuss with pulmonary critical care. Full code Heparin for DVT prophylaxis Protonix for GI prophylaxis Prognosis guarded Attestations Medical Necessity Statement*: Needs continued hospitalization secondary to respiratory failure requiring mechanical ventilation Critical Care Time: Critical Care Time (min): 35 Other Attestations: The high probability of a clinically significant, sudden or life threatening deterioration of the patient's [pulmonary, renal, cardiac] system(s) required my full and direct attention, intervention and personal management. The critical care time is as shown. This time is in addition to time spent performing any reported procedures but includes the following: [x] Data and vital sign review and interpretation [x] Patient assessment, examination and intervention [x] Documentation [x] Medication orders and management Coding Level of Care Code Acute Buttonhole Maker for [facility] Diagnoses DKA (diabetic ketoacidoses) E11.10 Acute encephalopathy G93.40 Pancreatitis, acute K85.90 Pneumonia J18.9 Transaminitis R74.01 Cardiomyopathy I42.9 Cardiomyopathy type: unspecified Acute kidney injury N17.9
[2020-11-02] MEDS: nystatin powder 15 gm Btl 1 APPLIC TOPICAL (09:50)
[2020-11-02] MEDS: citalopram 20 mg Tablet 10 MG PO (09:54)
[2020-11-02] MEDS: amiodarone 200 mg Tablet 400 MG PO (09:54)
[2020-11-02] MEDS: aspirin 81 mg EC Tablet PO (09:54)
[2020-11-02] MEDS: pantoprazole 40 mg SDV IVP (09:55)
[2020-11-02] MEDS: levothyroxine 75 mcg Tablet PO (09:55)
[2020-11-02] MEDS: clopidogrel 75 mg Tablet PO (09:55)
--- NOTE | 2020-11-02 10:41 | PC.NURSE ---
[address] Austin. Reviewed labs, vital signs, medications, and plan of care. Plan to wean sedation after HD for extubation trial.
[2020-11-02 11:41] LABS: Glucose Point of Care 132 mg/dL (70-110)
--- NOTE | 2020-11-02 12:27 | PM.PN ---
Subjective Subjective: Interval history: remains intubated, on levophed Medications: Reviewed: Yes Vitals/I&O/Wt Last Vital Signs Temp 97.8 F 11/02/20 07:00 Pulse 62 11/02/20 10:30 Resp 22 H 11/02/20 11:11 BP 109/41 11/02/20 10:30 Pulse Ox 95 11/02/20 11:11 11/01/20 11/02/20 11/02/20 22:59 06:59 14:59 Intake Total 666.561 / 966.561 332.630 / 1299.191 354.368 / 354.368 Output Total 50 / 50 50 / 100 Balance 616.561 / 916.561 282.630 / 1199.191 354.368 / 354.368 Weight last 48 hrs Weight 74.162 kg Weight 74.1 kg Physical Exam Urinary Catheter Management^: Montalvo: Cath Placed During This Visit: yes Reason for Continuing Indwelling Catheter: Accurate Measurement of Urinary Output in Critically Ill Patients Urinary Catheter Date of Insertion: 10/24/20 Urinary Catheter Time of Insertion: 13:00 Data : 11/02/20 04:40 11/02/20 04:40 Other Labs: Na 131 Albumin 1.5, hamzah Ca 9.9 Micro: Microbiology 11/01/20 09:50 Gram Stain - Final Sputum - Endotracheal Tube Aspirate 11/01/20 12:30 Blood Culture - Preliminary Blood SPECIMEN COLLECTED 11/01/20 12:40 Blood Culture - Preliminary Blood SPECIMEN COLLECTED CXR: Radiologist's impression: bilateral patchy opacities ABG Interpretation 1: 7.46/31/66 35% FIO2 A&P Additional A&P Information Impression: 1. Acute oligoanuric kidney injury 2. VDRF, pneumonia 3. C.diff, UTI, pancreatitis 4. Mild hyponatremia 5. Anemia: Hb Stable 6. Cardiomyopathy Plan: will dialyze today: 4h, 1500 ml UF as BP tolerates, 3K, 34Bicarb. If not tolerated hemodymically, will change to CVVHD Attestations Medical Necessity Statement*: critically ill in ICU Time Spent in Patient Care: 16 - 35 minutes Coding Level of Care Code Acute Transportation Department Head for Chris Jane
[2020-11-02] MEDS: propofol 1,000 MG/100 ML INJ 9.66 MG IV (14:05)
[2020-11-02] MEDS: fluconazole premix 100 MG in empty flexible container 1 EACH 50 MG IV (14:52)
--- NOTE | 2020-11-02 14:56 | PC.SOCIAL ---
IMM Updated Page 2 updated, reviewed and placed in chart. Initialed, timed and dated.
[2020-11-02 15:26] LABS: Hepatitis B Surface AB 3.5 (11.5-1000); Hepatitis B Surface Antigen Non-Reactive (Nonreactive); Hepatitis C Virus Antibody Non-Reactive (Nonreactive)
[2020-11-02] MEDS: heparin, porcine 1,000 unit/mL INJ 10 mL 10000 UNIT HE ×2 (15:30→16:59)
--- NOTE | 2020-11-02 16:47 | P.PN_ITS ---
Subjective Subjective: Interval history: The patient was seen and examined. Intubated and sedated. Unfortunately there has been no significant improvement of her mental status. Undergoing dialysis now. Her white count has come down with addition of intravenous metronidazole on top of oral vancomycin for C. difficile infection. Her blood culture today was positive for gram-positive cocci in clusters 1 out of 3 bottles. The vasopressor requirement has also been slowly going up. Currently the patient is on [address] scan of the chest abdomen pelvis yesterday revealed expected pulmonary changes with COVID-19. The abdominal CT revealed no evidence of bowel perforation or toxic megacolon however there is significant very pancreatic edema with partial gastric outlet obstruction. There is also evidence of pyelonephritis. The patient continues to be on minimal FiO2 requirement. Medications: Reviewed: Yes Vitals/I&O/Wt Last Vital Signs Temp 97.6 F 11/02/20 11:00 Pulse 67 11/02/20 16:00 Resp 22 H 11/02/20 11:11 BP 110/45 11/02/20 16:00 Pulse Ox 93 11/02/20 16:00 11/02/20 11/02/20 11/02/20 06:59 14:59 22:59 Intake Total 332.630 / 1299.191 736.705 / 736.705 58.89 / 795.595 Output Total 50 / 100 Balance 282.630 / 1199.191 736.705 / 736.705 58.89 / 795.595 Weight last 48 hrs Weight 163 lb 8 oz Weight 163 lb 5.8 oz Physical Exam Narrative: EXAM NARRATIVE: General: Patient is intubated and sedated Neck: No JVD Respiratory: Auscultation: Coarse breath sound bilaterally, no wheezing or rhonchi Cardiovascular: Regular rate and rhythm, S1-S2 present, no murmur, bilateral peripheral edema. Abdomen: Soft, nondistended, positive bowel sound Skin: No rash Neuro: Patient moves spontaneously, no purposeful movement and not following commands Urinary Catheter Management^: Montalvo: Cath Placed During This Visit: yes Reason for Continuing Indwelling Catheter: Accurate Measurement of Urinary Output in Critically Ill Patients Urinary Catheter Date of Insertion: 10/24/20 Urinary Catheter Time of Insertion: 13:00 Data : 11/02/20 04:40 11/02/20 04:40 Micro: Microbiology 11/01/20 12:30 Blood Culture - Preliminary Blood Gram positive cocci 11/01/20 09:50 Gram Stain - Final Sputum - Endotracheal Tube Aspirate Sputum Culture - Preliminary Yeast 11/01/20 12:40 Blood Culture - Preliminary Blood NEGATIVE TO DATE Attestation for Other Data: I personally reviewed and interpreted the following: Other data: I have reviewed the patient laboratory, [place] and radiologic data. Please see the HPI. A&P Assessment and plan (1) Pneumonia due to severe acute respiratory syndrome coronavirus 2 (SARS-CoV-2): The patient has SARS-CoV-2 pneumonia. Her oxygen requirement is currently only 35%. The primary limitation is her mental status in proceeding with extubation. At this point, I would start the patient on dexmedetomidine and discontinue propofol and fentanyl. If necessary the patient could get fentanyl boluses to keep her comfortable. I would not go above the dose of 0.74 Precedex given her renal failure. If necessary, the patient may require Haldol or Seroquel to minimize sedative agents. Status: Acute (2) Septic shock: The patient is on increasing dose of vasopressor at this time. She is on imipenem, IV metronidazole, oral vancomycin and fluconazole. Her latest blood culture from yesterday is positive for gram-positive cocci in clusters 1 out of 3 bottles. Although this could be a contaminant given the presence of worsening pressor requirement I am going to start the patient on linezolid. The central line needs to come out and can be changed to a midline catheter for vasopressors. Depending on the isolated species we will decide on future antibiotic therapy. There is evidence of partial gastric outlet obstruction secondary to pancreat itis. There is no evidence of necrotic pancreatitis and the patient is on imipenem which is the recommended treatment for necrotic pancreatitis anyway. Status: Acute (3) Ischemic cardiomyopathy with implantable cardioverter-defibrillator (ICD): The patient has ischemic cardiomyopathy with an ejection fraction a pproximately 25 to 30%. We will continue the supportive therapy. Status: Acute (4) Acute encephalopathy: Please see above. The patient is getting dialyzed as well. I am hoping her mental status will improve soon. Status: Acute (5) DKA (diabetic ketoacidoses): The patient is currently on long-acting insulin. Acceptable blood sugar. Status: Acute (6) ATN (acute tubular necrosis): The patient has suffered ATN and the kidney function unfortunately has not recovered . Minimal urine output. The patient is receiving dialysis today. Status: Acute Attestations Medical Necessity Statement*: Will defer to the primary team Coding Level of Care Code Acute Quality Assistant for [facility] F[facility] Diagnoses Pneumonia due to severe acute respiratory syndrome coronavirus 2 (SARS-CoV-2) U07.1; J12.82 Septic shock A41.9; R65.21 Ischemic cardiomyopathy with implantable cardioverter-defibrillator (ICD) I25.5; Z95.810 Acute encephalopathy G93.40 DKA (diabetic ketoacidoses) E11.10 ATN (acute tubular necrosis) N17.0 Time Spent (min) 33
[2020-11-02 17:11] LABS: Glucose Point of Care 102 mg/dL (70-110)
[2020-11-02] MEDS: artificial tears Op Soln 15 mL Btl 1 DROP EYE-BOTH (17:29)
--- NOTE | 2020-11-02 19:25 | PC.NURSE ---
[address] Elizabeth. Orders to turn propofol and fentynal drips off after HD. Precedex drip and PRN Fentynal for vent weaning. Max Precedex drip rate 0.7 mcg/kg/min. Reported positive blood cultures. Plan for PICC line and removal of central line. Antibiotics changed.
[2020-11-02] MEDS: dexmedeTOMIDine 0.9 % NaCL 400 MCG/100 ML PREMIX IV (20:07)
[2020-11-02] MEDS: linezolid premix 600 MG/300 ML PREMIX 300 MG IV (20:24)
[2020-11-02] MEDS: insulin glargine 100 units/1 mL 10 UNIT SUBCUT (21:19)
[2020-11-02] MEDS: fentaNYL 50 mcg/mL INJ 2mL 25 MCG IVP (22:44)
[2020-11-03] VITALS (34 sets, daily range): BP systolic 83–142; BP diastolic 42–72; PULSE 60–67; RESP 14–23; TEMP 36.9; O2SAT 93–98
--- NOTE | 2020-11-03 00:25 | PC.HD ---
Groin cath site and perineal area appear to have yeast infection, red and thick white discharge noted from perineal area. Groin cath site cleaned thoroughly with CHG swab x3 and allowed to dry completely before cath site redressed.
[2020-11-03] MEDS: fentaNYL 50 mcg/mL INJ 2mL 25 MCG IVP ×4 (00:56→05:53)
[2020-11-03] MEDS: metroNIDAZOLE IV 500 MG/100 ML PREMIX 100 MG IV ×4 (01:00→20:39)
[2020-11-03] MEDS: heparin 5,000 unit/mL INJ 1 mL 5000 UNIT SUBCUT ×2 (03:24→15:51)
--- NOTE | 2020-11-03 03:40 | PC.NURSE ---
Addendum entered by Zbigniew Baez RN 11/03/20 03:46: I witnessed 90 mL of a Fentanyl drip being wasted with ESA Noyola. Original Note: FENTANYL WASTE 90 mL IV fentanyl drip wasted with ESA Bolden.
[2020-11-03] MEDS: linezolid premix 600 MG/300 ML PREMIX 300 MG IV ×2 (04:01→16:48)
[2020-11-03 04:03] LABS: Basophils # 0.1 10^3/uL (0.0-0.1); Basophils % 0.3 %; Hemoglobin 9.7 g/dL (11.5-15.3); Lymphocytes % 2.4 %; Mean Corpuscular HGB Conc 33.4 g/dL (30.0-36.0); Mean Corpuscular Hemoglobin 29.6 pg (28.0-34.0); Mean Corpuscular Volume 88.4 fl (81-99); Mean Platelet Volume 10.8 fL (7.4-10.4); Monocytes # 1.2 10^3/uL (0.2-0.9); Neutrophils # 36.99 10^3/uL (1.8-7.7); Neutrophils % 88.1 %; Nucleated Red Blood Cells % 0 %; Platelet Count 160 10^3/cmm (130-400); Red Blood Count 3.28 10^6/uL (4.1-5.3); Red Cell Distribution Width 16.3 % (12.1-15.1)
[2020-11-03 04:22] LABS: Alanine Aminotransferase 13 U/L (0-33); Albumin Level 1.5 g/dL (3.5-5.2); Alkaline Phosphatase 551 IU/L (35-105); Anion Gap 15.4 (5-19); Aspartate Amino Transferase 65 U/L (0-32); Blood Urea Nitrogen 29 mg/dL (8-23); Calcium 7.8 mg/dL (8.5-10.5); Carbon Dioxide 25 mmol/L (22-29); Chloride 95 mmol/L (98-107); Globulin 3.7 g/dL (1.3-4.6); Glucose 218 mg/dL (65-115); Osmolality Calculated 284 mOsm/kg (285-295); Phosphorus 5.1 mg/dL (2.5-4.5); Potassium 4.4 mmol/L (3.5-5.1); Sodium 131 mmol/L (136-145); Total Bilirubin 1.1 mg/dL (0.15-1.2); Total Protein 5.2 g/dL (6.6-8.7)
[2020-11-03 04:48] LABS: White Blood Count 41.9 10^3/uL (4.0-10.0)
[2020-11-03 04:49] LABS: Slide Review Slide Review Perform
[2020-11-03 07:44] LABS: Glucose Point of Care 244 mg/dL (70-110)
[2020-11-03] MEDS: ipratropium-albuterol 3 mL Neb INHALATION (08:58)
[2020-11-03] MEDS: calcium carbonate 500 mg Chew Tablet 1000 MG PO ×3 (09:05→20:38)
[2020-11-03] MEDS: levothyroxine 75 mcg Tablet PO (09:05)
[2020-11-03] MEDS: pantoprazole 40 mg SDV IVP (09:05)
[2020-11-03] MEDS: amiodarone 200 mg Tablet 400 MG PO (09:05)
[2020-11-03] MEDS: aspirin 81 mg EC Tablet PO (09:05)
[2020-11-03] MEDS: clopidogrel 75 mg Tablet PO (09:05)
[2020-11-03] MEDS: citalopram 20 mg Tablet 10 MG PO (09:06)
--- NOTE | 2020-11-03 09:06 | P.PN_ITS ---
Subjective Subjective: Interval history: Sedated on the ventilator. Medications: Reviewed: Yes Vitals/I&O/Wt Last Vital Signs Temp 98.6 F 11/02/20 19:30 Pulse 63 11/03/20 08:59 Resp 18 11/03/20 08:59 BP 107/47 11/03/20 08:00 Pulse Ox 98 11/03/20 08:59 11/02/20 11/03/20 11/03/20 22:59 06:59 14:59 Intake Total 1491.785 / 2228.490 693.214 / 2921.704 Output Total 2400 / 2450 125 / 2575 Balance -908.215 / -221.510 568.214 / 346.704 Weight last 48 hrs Weight 76.1 kg Weight 74.162 kg Physical Exam Narrative: EXAM NARRATIVE: General exam, sedated and intubated. Opens eyes. Does not follow directions currently. Was getting fentanyl as needed through the night. Currently on Precedex. Neck is supple no lymphadenopathy or thyromegaly. Right subclavian line noted. Cardiovascular regular rate and rhythm, no murmur Lungs coarse breath sounds bilaterally Abdomen is soft. Positive bowel sounds. No obvious organomegaly exam Montalvo, small amount of urine is noted. Extremities no cyanosis clubbing. At least 2+ edema. Urinary Catheter Management^: Montalvo: Cath Placed During This Visit: yes Reason for Continuing Indwelling Catheter: Accurate Measurement of Urinary Output in Critically Ill Patients Urinary Catheter Date of Insertion: 10/24/20 Urinary Catheter Time of Insertion: 13:00 Data : 11/03/20 03:40 11/03/20 03:40 Micro: Microbiology 11/01/20 12:30 Blood Culture - Preliminary Blood Gram positive cocci 11/01/20 09:50 Gram Stain - Final Sputum - Endotracheal Tube Aspirate Sputum Culture - Preliminary Yeast 11/01/20 12:40 Blood Culture - Preliminary Blood NEGATIVE TO DATE A&P Assessment and plan (1) DKA (diabetic ketoacidoses): Resolved She has been transitioned to long-acting insulin, sliding scale Blood sugar have been stable Status: Acute (2) Acute encephalopathy: Sedated Dialysis initiated 10/31. Repeat run of dialysis November 02. Continue to wean sedation today to see if meaningful response occurs. Status: Acute (3) Pancreatitis, acute: Lipase improved History of gallstones complicates presentation. May need surgical evaluation by end of hospitalization for consideration of cholecystectomy Secondary to concern of gallbladder etiology presentation initially initiated Zosyn. Changed to Primaxin secondary to history of frequent UTIs . Blood cultures have already been drawn and negative to date. Triglyceride level was checked and not elevated Repeat lipase was done on November 01 on November 02 showing no significant increase. Secondary to increased white blood cell count noted and a CT chest abdomen and pelvis was performed November 01. This demonstrated evidence of pancreatitis, with partial gastric outlet obstruction. Tube feedings were discontinued at that time. Repeat cultures obtained demonstrated 1/3 bottles gram-positive cocci, so Restart tube feeds today at low rate to see if tolerated Status: Acute (4) Pneumonia: Covid PCR is positive Currently ventilator dependent but not requiring much in the means of FiO2 or PEEP. Continue Primaxin. Vancomycin IV was discontinued as MRSA PCR negative Continue pulmonary toilet Dexamethasone discontinued October 31 as FiO2 requirement was low, white blood cell count persistently high. Possible extubation if mental status improves, dialysis occurs to take off excess fluid Appreciate pulmonary critical care intervention. Yeast growing from endotracheal aspirate, urine so on fluconazole. Renally adjusted dose. Suspect colonization/thrush and patient receiving broad-spectrum antibiotics, steroids. Serum galactomannan pending as well as culture of fungal organism. Currently on pressors, norepinephrine, lower amount currently With increasing white blood cell count Flagyl was added to oral vancomycin and Primaxin. Note that she has C. difficile. No specific etiology found on CT imaging although pancreatic edema could be contributing. White blood cell count is again decreasing but still markedly elevated. Status: Acute (5) Transaminitis: Gallbladder ultrasound did not demonstrate dilated ducts. No evidence of cholecystitis. Gallstones were noted. LFTs approximately the same today with the exception of alk phos which is slightly higher. Continue to hold statin. LFTs continue to be elevated. Secondary to pancreatitis, with cholelithiasis could consider cholecystectomy if patient's clinical status improves. Status: Acute (6) Cardiomyopathy: History of ejection fraction 30 to 35% on last echocardiogram March 2019. Repeat echocardiogram demonstrates an EF of approximately 25%. History of ventricular tachycardia, pacemaker and ICD implantation. Past history of atrial fibrillation, as well as coronary artery disease. Continue amiodarone. Troponin without significant delta. Status: Acute Qualifiers: Cardiomyopathy type: unspecified Qualified Code(s): I42.9 - Cardiomyopathy, unspecified (7) Acute kidney injury: Acute kidney injury superimposed on chronic kidney disease. Appreciate nephrology input Avoid renal toxic medication No evidence of obstruction on CT CK not significantly elevated Dialysis performed October 31, November 03. Has not regained significant urine output or renal function. Status: Acute Additional A&P Information C. difficile positive. Markedly elevated white blood cell count. Currently on vancomycin per OG. Flagyl IV added. No evidence of toxic megacolon. UTI. Continue Primaxin. Urine grew Klebsiella, E. coli. Day #11 of Primaxin currently. Concern of pyelonephritis noted on CT November 01 Nutrition, on tube feeds. Discontinued secondary to concern of partial gastric outlet obstruction. Restart tube feeds at 10 cc an hour, monitoring closely for tolerance of this. Full code Heparin for DVT prophylaxis Protonix for GI prophylaxis Prognosis guarded Attestations Medical Necessity Statement*: Needs continued hospital stay secondary to respiratory failure from COVID-19 pneumonia. Critical Care Time: Critical Care Time (min): 34 Other Attestations: The high probability of a clinically significant, sudden or life threatening deterioration of the patient's [pulmonary, renal] system(s) required my full and direct attention, intervention and personal management. The critical care time is as shown. This time is in addition to time spent performing any reported procedures but includes the following: [x] Data and vital sign review and interpretation [x] Patient assessment, examination and intervention [x] Documentation [x] Medication orders and management Coding Level of Care Code Acute Fireworks Assembly Supervisor for [facility] Fwd Diagnoses DKA (diabetic ketoacidoses) E11.10 Acute encephalopathy G93.40 Pancreatitis, acute K85.90 Pneumonia J18.9 Transaminitis R74.01 Cardiomyopathy I42.9 Cardiomyopathy type: unspecified Acute kidney injury N17.9
--- NOTE | 2020-11-03 10:00 | P.PN_ITS ---
Subjective Subjective: Interval history: not waking up with sedation off. family meeting planned for this afternoon Medications: Reviewed: Yes Vitals/I&O/Wt Last Vital Signs Temp 98.6 F 11/02/20 19:30 Pulse 63 11/03/20 08:59 Resp 19 H 11/03/20 09:07 BP 107/47 11/03/20 08:00 Pulse Ox 98 11/03/20 09:07 11/02/20 11/03/20 11/03/20 22:59 06:59 14:59 Intake Total 1491.785 / 2228.490 693.214 / 2921.704 Output Total 2400 / 2450 125 / 2575 Balance -908.215 / -221.510 568.214 / 346.704 Weight last 48 hrs Weight 76.1 kg Weight 74.162 kg Physical Exam Urinary Catheter Management^: [place]alvo: Cath Placed During This Visit: yes Reason for Continuing Indwelling Catheter: Accurate Measurement of Urinary Output in Critically Ill Patients Urinary Catheter Date of Insertion: 10/24/20 Urinary Catheter Time of Insertion: 13:00 Data : 11/03/20 03:40 11/03/20 03:40 Micro: Microbiology 11/01/20 23:44 Urine Culture - Preliminary Urine Catheterized Yeast 11/01/20 12:30 Blood Culture - Preliminary Blood Gram positive cocci 11/01/20 09:50 Gram Stain - Final Sputum - Endotracheal Tube Aspirate Sputum Culture - Preliminary Yeast 11/01/20 12:40 Blood Culture - Preliminary Blood NEGATIVE TO DATE A&P Additional A&P Information Impression: 1. Acute oligoanuric kidney injury, HD yesterday, 1500 ml UF 2. VDRF, pneumonia, COVID+: oxygenating well on 35% 3. C.diff, UTI, pancreatitis 4. Mild hyponatremia 5. Anemia: Hb Stable 6. Cardiomyopathy Plan: Prognosis poor. No indication for dialysis today. Attestations Medical Necessity Statement*: see above Time Spent in Patient Care: less than 15 minutes Coding Level of Care Code Acute Breakfast Supervisor for Chris [facility]
[2020-11-03] MEDS: nystatin powder 15 gm Btl 1 APPLIC TOPICAL ×2 (10:28→17:10)
[2020-11-03] MEDS: artificial tears Op Soln 15 mL Btl 1 DROP EYE-BOTH (10:28)
--- NOTE | 2020-11-03 11:37 | PC.NUTR ---
Nutrition note: Pt with nutritional intake significantly under estimated needs X 11 days, possibly longer. Poor po intake prior to admit, NPO 10/24-10/26, and minimal TF provision 10/27-11/02 resulting in average of 339 kcal/day X 7 days. Recently held X 3 days d/t partial gastric outlet obstruction. Nurse states will be restarting TF today at 10 ml/hr. When medically appropriate and if tolerated, recommend increase in rate to 30 ml/hr to provide 1296 kcal, 58 g protein, and 522 ml H2O. Due to increased protein needs for wound healing and dialysis, continue to recommend Beneprotein with water flushes Q6H: 1 scoop Q6H with H20 flush of 90mL (60mL mixed H2O with powder + 30mL flush after) to provide additional 100 kcal, 24g protein, and 360 ml H2O. Additional water flushes per MD discretion given apparent 25 lb fluid gain since admit. If unable to tolerate TF, would recommend consideration of TPN given 11 days of limited kcal/protein provision. See full RD assessment for further details.
[2020-11-03 12:21] LABS: Glucose Point of Care 176 mg/dL (70-110)
[2020-11-03] MEDS: fluconazole premix 100 MG in empty flexible container 1 EACH 50 MG IV (13:47)
--- NOTE | 2020-11-03 15:20 | PC.NURSE ---
sedation off since early this morning no purposful response at this time rolls head from side to side open eyes at times. oral care done and dressing removed large liquid bm noted
--- NOTE | 2020-11-03 15:23 | PC.CHAP ---
Pastoral Care Encounter/Spiritual Assessment Type of Contact [] Declined senior occupational therapist visit [] Patient/Family/Request visit [] Outpatient visit [] Follow-up visit [] Physician referral [] Code/Alert [] Routine visit [] Staff referral [] Actively dying [] Patient sleeping [] Family support [] [] Out of room [] Palliative care [] [] Receiving care in room [] Pre-surgical visit [] Trauma [xx] Long length of stay [xx] ICU visit [] Other: Relational/Emotional Strength [] Patient feels connected with others/family/visitors/staff [] Distress [] Loneliness/isolation [] Abandonment Spirituality of Patient [] Person of [place] [] Attends Amish of their [place] [] Believes in Prayer [] Reads Bible or Mosque materials [] There are Spiritual issues to be addressed Commercial Diver Interventions [xx] Prayer [] Active listening [] Non-anxious presence [] Spiritual/emotional support [] Crisis/trauma care [] Spiritual counseling [] Bereavement support [] Provided bereavement packet [] Provided Bible/devotional materials [] Provided toy/stuffed animal, coloring book to patient or family member [] Provided Communion [] Anointing/[place] [] Salvation [] Completed spiritual assessment [] Other: Impact on Illness or Injury [] Angry [] Fearful [] Anxious [] Often cries [] Exhaustion [] Unable to work [] Unable to attend mosque [] Unable to walk/stand [] Unable to read [] Unable to drive [] Unable to eat/drink [] Unable to sleep [] Unable to be with family [] Patient intubated [] Other: Summary Nurse recommended not entering room due to isolation. Commercial Diver prayed outside room. Time spent with patient 2 minutes
--- NOTE | 2020-11-03 15:28 | CTR_ITS ---
PROCEDURE INFORMATION: Exam: CT Head Without Contrast Exam date and time: 11/03/2020 3:28 PM Age: 75 years old Clinical indication: Other: Encephalopathy; Patient HX: Covid+ intubated minimal response to sedation stop TECHNIQUE: Imaging protocol: Computed tomography of the head without contrast. Radiation optimization: All CT scans at this facility use at least one of these dose optimization techniques: automated exposure control; mA and/or kV adjustment per patient size (includes targeted exams where dose is matched to clinical indication); or iterative reconstruction. COMPARISON: CT head wo con* [id number] 10/25/2020 5:41 AM RADIATION DOSE METRICS: Total DLP (mGy-cm): 875.3 FINDINGS: Brain: Mild atrophy and mild white matter chronic microvascular changes are noted. No hemorrhage or evidence of acute infarction is seen. Cerebral ventricles: No ventriculomegaly. Paranasal sinuses: Mild sinusitis changes are appreciated. Mastoid air cells: Mild bilateral mastoiditis is noted. Bones/joints: Unremarkable. No acute fracture. Soft tissues: Unremarkable. CT/CT head wo con* [id number] IMPRESSION: No acute intracranial abnormality. Mild sinusitis and bilateral mastoiditis. Radiation Dose CTDIVOL = (mGy): DLP = 875.3 (mGy-cm)
[2020-11-03 18:26] LABS: Glucose Point of Care 200 mg/dL (70-110)
--- NOTE | 2020-11-03 18:42 | NUR.SHIFT ---
Shift Note Frequent safety and comfort rounds continue. Orders and/or nursing care completed as indicated. Patient monitored for response to and treatment(s). Education provided includes[]. Patient and/or electroplating sales representative [ResponseToTeaching]. Will continue to monitor. to ct at this time for ct of head done continues to move head from side to side
[2020-11-03 19:39] LABS: Glucose Point of Care 193 mg/dL (70-110)
[2020-11-03] MEDS: insulin glargine 100 units/1 mL 10 UNIT SUBCUT (20:32)
[2020-11-04] VITALS (38 sets, daily range): BP systolic 89–141; BP diastolic 42–87; PULSE 60–79; RESP 16–31; TEMP 36.9; O2SAT 89–98
[2020-11-04] MEDS: metroNIDAZOLE IV 500 MG/100 ML PREMIX 100 MG IV ×4 (01:20→23:20)
[2020-11-04] MEDS: calcium carbonate 500 mg Chew Tablet 1000 MG PO ×4 (03:02→20:17)
[2020-11-04] MEDS: heparin 5,000 unit/mL INJ 1 mL 5000 UNIT SUBCUT ×2 (03:03→15:40)
--- NOTE | 2020-11-04 04:07 | PC.NURSE ---
NURSING NOTE: SHIFT SUMMARY: PT ALERT TO SELF, NO PURPOSFUL MOVEMENT OF EXTREMITIES BUT CAN TURN AND NOD HEAD TO YES AND NO QUESTIONS. DENIES PAIN. REMAINS INTUBATED AND ON VENT/SEE CHART FOR SETTINGS. ALL VS AND ASSESSMENTS CHARTED. GARAY PATENT TO DD. NO DISTRESS NOTED AT THIS TIME. WILL CONTINUE TO MONITOR.
[2020-11-04] MEDS: linezolid premix 600 MG/300 ML PREMIX 300 MG IV (04:12)
[2020-11-04 04:46] LABS: ABG PCO2 30.9 mmHg (35-45); ABG PH Result 7.49 (7.35-7.45); Arterial Blood Gas Hematocrit 39.9 % (37-47); Base Excess ABG 0.9 mmol/L (-2.0-2.0); Blood Gas Allen Test Pos; Blood Gas Sample Site Radial, left; Blood Gas Sample Type Arterial; Blood Gas Tidal Volume 0.35; HCO3 ABG 23.6 mmol/L (22-26); Oxygen Device VENT; PO2 ABG 78.7 mmHg (80.0-100.0)
[2020-11-04 05:28] LABS: Basophils # 0.2 10^3/uL (0.0-0.1); Basophils % 0.4 %; Hematocrit 29.1 % (37.0-47.0); Hemoglobin 9.7 g/dL (11.5-15.3); Lymphocytes # 0.9 10^3/uL (0.8-4.8); Lymphocytes % 2.3 %; Mean Corpuscular HGB Conc 33.3 g/dL (30.0-36.0); Mean Corpuscular Hemoglobin 29.4 pg (28.0-34.0); Mean Corpuscular Volume 88.2 fl (81-99); Mean Platelet Volume 10.9 fL (7.4-10.4); Monocytes # 1.4 10^3/uL (0.2-0.9); Monocytes % 3.8 %; Neutrophils # 33.37 10^3/uL (1.8-7.7); Neutrophils % 87.9 %; Nucleated Red Blood Cells % 0.1 %; Platelet Count 223 10^3/cmm (130-400); Positive C 1; Positive M 1; Red Cell Distribution Width 16.3 % (12.1-15.1)
[2020-11-04 05:54] LABS: Alanine Aminotransferase 13 U/L (0-33); Albumin Level 1.5 g/dL (3.5-5.2); Alkaline Phosphatase 535 IU/L (35-105); Anion Gap 16.9 (5-19); Aspartate Amino Transferase 61 U/L (0-32); Blood Urea Nitrogen 39 mg/dL (8-23); Calcium 7.5 mg/dL (8.5-10.5); Carbon Dioxide 23 mmol/L (22-29); Chloride 91 mmol/L (98-107); Globulin 3.5 g/dL (1.3-4.6); Glucose 205 mg/dL (65-115); Osmolality Calculated 279 mOsm/kg (285-295); Potassium 3.9 mmol/L (3.5-5.1); Sodium 127 mmol/L (136-145)
--- NOTE | 2020-11-04 06:18 | PC.NURSE ---
NURSING NOTE: AT APPROXIMATELY 0610, MANAGER CODING CAME OUT OF ROOM AND TOLD NURSE THAT I THINK PATIENT VOMITED . WENT INTO ROOM AT THIS TIME. VERIFIED OG TUBE PLACEMENT PER ASPIRATION AND AUSCULTATION. ET TUBE PLACEMENT VERIFIED PER RT AND PLACEMENT MIXON CHANGED PER RT. TUBE FEEDING TURNED OFF AT THIS TIME/WILL RESUME. EMESIS AMOUNT SMALL/TUBEFEEDING LIKE IN APPEARANCE. ALL VS AND ASSESSMENTS CHARTED. PT CURRENTLY RESTING WITH EYES CLOSED.
--- NOTE | 2020-11-04 07:00 | XRR_ITS ---
PROCEDURE INFORMATION: Exam: XR Chest Exam date and time: 11/04/2020 7:00 AM Age: 75 years old Clinical indication: Shortness of breath; Additional info: Resp failure TECHNIQUE: Imaging protocol: XR of the chest. Views: 1 view. Total images: 1 COMPARISON: CR XR chest 1V portable [id number] 11/02/2020 5:12 AM FINDINGS: Tubes, catheters and devices: AICD projects in satisfactory location. Tubes and catheters are unchanged from the prior exam. Lungs: Interval worsening of left pleuroparenchymal disease. Right pulmonary opacity is again noted and appears unchanged from the prior exam. Pleural spaces: No pneumothorax. Heart/Mediastinum: Heart size is stable when compared to the prior exam. Bones/joints: Osseous structures are unchanged from the prior exam. Other findings: X-ray is slightly rotated. XR/XR chest 1V portable [id number] IMPRESSION: 1. Tubes and catheters are unchanged from the prior exam. 2. Interval worsening of left pleuroparenchymal disease. 3. Right pulmonary opacity is again noted and appears unchanged from the prior exam.
[2020-11-04 07:42] LABS: Glucose Point of Care 192 mg/dL (70-110)
[2020-11-04] MEDS: aspirin 81 mg EC Tablet PO (08:27)
[2020-11-04] MEDS: citalopram 20 mg Tablet 10 MG PO (08:27)
[2020-11-04] MEDS: clopidogrel 75 mg Tablet PO (08:28)
[2020-11-04] MEDS: levothyroxine 75 mcg Tablet PO (08:28)
[2020-11-04] MEDS: pantoprazole 40 mg SDV IVP ×2 (08:28→20:17)
[2020-11-04] MEDS: amiodarone 200 mg Tablet 400 MG PO (08:28)
[2020-11-04] MEDS: nystatin powder 15 gm Btl 1 APPLIC TOPICAL ×2 (08:41→17:15)
[2020-11-04] MEDS: artificial tears Op Soln 15 mL Btl 1 DROP EYE-BOTH (08:41)
--- NOTE | 2020-11-04 09:07 | PC.NURSE ---
more awake this am continues to shack head from side to side eyes open appears to be somewhat responsive. tube feeding onhold due to emesis this am with aspiration now noted large amts of secretions suctioned
--- NOTE | 2020-11-04 10:08 | P.PN_ITS ---
Subjective Subjective: Interval history: awake Medications: Reviewed: Yes (remains on levophed at 4 mcg) Vitals/I&O/Wt Last Vital Signs Temp 98.4 F 11/04/20 08:00 Pulse 66 11/04/20 08:36 Resp 29 H 11/04/20 09:57 BP 126/65 11/04/20 08:00 Pulse Ox 96 11/04/20 09:57 11/03/20 11/04/20 11/04/20 22:59 06:59 14:59 Intake Total 559.847 / 890.412 755.667 / 1646.079 100 / 100 Output Total 200 / 200 Balance 559.847 / 890.412 555.667 / 1446.079 100 / 100 Weight last 48 hrs Weight 74.503 kg Weight 76.1 kg Physical Exam Const: COMMON NORMALS: no acute distress ORIENTATION/CONSCIOUSNESS: Yes awake HENMT: TEETH & GINGIVA: Yes other (oral ETT) Extremity: GENERAL: Yes edema (trace) Urinary Catheter Management^: [place]: Cath Placed During This Visit: yes Reason for Continuing Indwelling Catheter: Accurate Measurement of Urinary Output in Critically Ill Patients Urinary Catheter Date of Insertion: 10/24/20 Urinary Catheter Time of Insertion: 13:00 Data : 11/04/20 04:25 11/04/20 04:25 Other Labs: 7.49/31/79 35% FIO2 albumin 1.5 Micro: Microbiology 11/01/20 09:50 Gram Stain - Final Sputum - Endotracheal Tube Aspirate Sputum Culture - Preliminary Yeast 11/01/20 23:44 Urine Culture - Preliminary Urine Catheterized Yeast 11/01/20 12:30 Blood Culture - Preliminary Blood Coagulase negativ staphylococc A&P Additional A&P Information Impression: 1. Acute oligoanuric kidney injury, last HD , 24hr UO 300 ml 2. VDRF, pneumonia, COVID+: oxygenating well on 35% 3. C.diff, UTI, pancreatitis 4. Hyponatremia, likely hypervolemic 5. Anemia: Hb Stable 6. Cardiomyopathy Plan: No indication for dialysis today. Will add furosemide 80 mg IV Q12h. Continue to try to taper pressor. Attestations Medical Necessity Statement*: critically ill in ICU Time Spent in Patient Care: 16 - 35 minutes Coding Level of Care Code Acute Dry Cleaning Machine Operator for Chris Jane
--- NOTE | 2020-11-04 11:09 | PC.SOCIAL ---
IMM update IMM not updated as patient is not expected to discharge in the next 24-48 hours.
[2020-11-04] MEDS: FUROsemide 10 mg/mL SDV 10mL 80 MG IVP ×2 (11:16→22:38)
[2020-11-04 11:27] LABS: Glucose Point of Care 145 mg/dL (70-110)
[2020-11-04 12:20] LABS: Iron 50 ug/dL (37-145); Percent Saturation 42.3 % (20-50); Total Iron Binding Capacity 118 mcg/dl; Unsaturated Iron Binding 68 ug/dL (112-347)
[2020-11-04 12:28] LABS: Procalcitonin 2.97 ng/mL (0-0.5)
[2020-11-04 13:34] LABS: Cholesterol 84 mg/dL (0-200); HDL Cholesterol 30 mg/dL (60-100); LDL Cholesterol Calculated 29 mg/dL (50-129); Thyroid Stimulating Hormone 8.42 uIU/mL (0.27-4.20); Triglycerides 126 mg/dL (0-150); VLDL Cholestrol Calculation 25 mg/dL (0-30)
[2020-11-04] MEDS: ipratropium-albuterol 3 mL Neb INHALATION ×2 (15:06→20:26)
--- NOTE | 2020-11-04 15:10 | PC.RESP ---
RT Shift Note Frequent safety and respiratory rounds continue. Orders completed as indicated. Patient monitored pre and post treatments throughout shift. Patient [Did.] tolerate treatments appropriately. Condition [I.DidNotChange]. Patient and/or solar sales representative educated on respiratory treatment and medications. Patient and/or solar sales representative [unable to comprehend]. Will continue to monitor patient progress.
--- NOTE | 2020-11-04 15:17 | PC.RESP ---
RT Shift Note Frequent safety and respiratory rounds continue. Orders completed as indicated. Patient monitored pre and post treatments throughout shift. Patient [Did.] tolerate treatments appropriately. Condition [.DidNotChange]. Patient and/or civil rights representative educated on respiratory treatment and medications. Patient and/or civil rights representative [unable to comprehend. Will continue to monitor patient progress.
[2020-11-04] MEDS: fluconazole 100 mg Tablet PO (15:39)
--- NOTE | 2020-11-04 16:02 | PM.PN ---
Subjective Subjective: Interval history: Hospital course, labs appreciated. On examination patient is intubated, not on any sedation, awake, trying to move her head tracking my voice but not following simple commands. Patient currently on Levophed of 4 with mean arterial pressure of 87. Saturating 97% on 35% FiO2, tidal volume of 350, PEEP of 8. Minimal urine output in last 24 hours. Has remained afebrile. Medications: Reviewed: Yes (remains on levophed at 4 mcg) Vitals/I&O/Wt Last Vital Signs Temp 98.4 F 11/04/20 10:00 Pulse 62 11/04/20 15:07 Resp 24 H 11/04/20 15:15 BP 114/58 11/04/20 14:00 Pulse Ox 97 11/04/20 15:15 11/04/20 11/04/20 11/04/20 06:59 14:59 22:59 Intake Total 755.667 / 1646.079 200 / 200 100 / 300 Output Total 200 / 200 Balance 555.667 / 1446.079 200 / 200 100 / 300 Weight last 48 hrs Weight 74.503 kg Weight 76.1 kg Physical Exam Narrative: EXAM NARRATIVE: General: No acute distress, intubated, off sedation, awake, not following simple commands HEENT: PERRLA, pupils bilaterally equal and reactive Chest: Bilateral bronchial breath sounds, occasional rhonchi and coarse crackles present, equal good air entry bilaterally CVS: S1-S2 regular, no murmurs, no tachycardia, no gallops, no rubs Abdomen: Soft, no organomegaly, distended, bowel sounds sluggish Neuro: No focal deficits, no facial deformity, Urinary Catheter Management^: [place]: Cath Placed During This Visit: yes Reason for Continuing Indwelling Catheter: Accurate Measurement of Urinary Output in Critically Ill Patients Urinary Catheter Date of Insertion: 10/24/20 Urinary Catheter Time of Insertion: 13:00 Data : 11/04/20 04:25 11/04/20 04:25 Micro: Microbiology 11/04/20 13:22 Blood Culture - Preliminary Blood SPECIMEN COLLECTED 11/04/20 13:16 Blood Culture - Preliminary Blood SPECIMEN COLLECTED 11/01/20 09:50 Gram Stain - Final Sputum - Endotracheal Tube Aspirate Sputum Culture - Preliminary Yeast 11/01/20 23:44 Urine Culture - Preliminary Urine Catheterized Yeast 11/01/20 12:30 Blood Culture - Preliminary Blood Coagulase negativ staphylococc A&P Assessment and plan (1) Septic shock: Status: Acute (2) Pneumonia: Status: Acute (3) Pancreatitis, acute: Status: Acute (4) Cardiomyopathy: Status: Acute Qualifiers: Cardiomyopathy type: unspecified Qualified Code(s): I42.9 - Cardiomyopathy, unspecified (5) Acute kidney injury: Status: Acute (6) COVID-19: Status: Acute (7) C. difficile enteritis: Status: Acute (8) Transaminitis: Status: Acute (9) Acute encephalopathy: Status: Acute (10) DKA (diabetic ketoacidoses): Status: Acute Additional A&P Information Septic shock with hypoxia: Secondary to combination of COVID-19 pneumonia, C. difficile colitis, superadded bacterial and possible fungal pneumonia. Keep mean arterial pressure over 65. Wean off Levophed accordingly. Patient is post completion of treatment for COVID-19 with remdesivir, dexamethasone with last dose on October 31. Urine culture previously positive for Klebsiella and E. coli. Currently urine culture and sputum culture positive for yeast. Blood culture one set positive for coag negative staph. Repeat blood culture. Continue with Primaxin, fluconazole. Will dose medications renally. Day 12 of Primaxin today. Will finish 14-day course. Stop Linezolid. MRSA negative in the past. Repeat MRSA swab. If positive will start patient back on linezolid. C. difficile colitis: Having 2-3 episodes of diarrhea daily. Could be secondary to pancreatitis C. difficile colitis. For now continue with vancomycin 500 4 times daily orally, Flagyl 500 every 8 hourly. Acute pancreatitis: Lipase improved. CT abdomen pelvis done on November 01 shows evidence of pancreatitis with partial gastric outlet obstruction. Tube feedings started yesterday and patient had mild aspiration. For now stop tube feedings. IV albumin every 8 hourly for 2 days. Check lipid panel and triglyceride levels. Acute kidney injury: Most likely secondary to ATN. Appreciate nephrology recommendations. No need for dialysis today. Dialysis performed on October 31, November 03. IV Lasix 80 mg twice daily as per nephrology team. Medical reconciliation done for nephrotoxic drugs. No metabolic abnormality currently. Transaminitis: Patient does have history of gallstones. Gallbladder ultrasound did not demonstrate any dilated ducts or evidence of cholecystitis. LFTs stable for now. Continue to hold statins. Cardiomyopathy: Repeat echocardiogram done during this hospitalization shows an EF of 25%. Patient is a history of mental tachycardia, pacemaker and ICD implantation. Continue with home dose of amiodarone. Diabetes ketoacidosis: Resolved. Insulin sliding scale every 4 hourly. Lantus 10 units nightly. Plan for the day: Keep patient off sedation. Switch to Ambien removed for as long as tolerable. Patient gets tachycardic or tachypneic. Switch over to full support overnight with potential plan for extubation tomorrow. Continue with Primaxin and fluconazole. Stop Linezolid. Repeat blood cultures, MRSA swab, sputum culture. Stop tube feeds. IV Lasix 80 mg twice daily, albumin every 8 hourly for 2 days. Wean Levophed as possible. Full code Heparin for DVT prophylaxis Protonix for GI prophylaxis Prognosis guarded Attestations Medical Necessity Statement*: Requires further hospitalization for management of septic shock, hypoxia, ventilator dependent, acute pancreatitis, C. difficile colitis, COVID-19 with superadded bacterial and fungal pneumonia, acute kidney injury requiring on and off dialysis Critical Care Time: The high probability of a clinically significant, sudden or life threatening deterioration of the patient's [pulmonary, renal, GI, ID, cardiac, neurological] system(s) required my full and direct attention, intervention and personal management. The critical care time is as shown. This time is in addition to time spent performing any reported procedures but includes the following: [x] Data and vital sign review and interpretation [x] Patient assessment, examination and intervention [x] Documentation [x] Medication orders and management Critical Care Time (min): 90 Coding Level of Care Code Acute Identifier [facility] for [facility] Fwd Diagnoses Septic shock A41.9; R65.21 Pneumonia J18.9 Pancreatitis, acute K85.90 Cardiomyopathy I42.9 Cardiomyopathy type: unspecified Acute kidney injury N17.9 COVID-19 U07.1 C. difficile enteritis A04.72 Transaminitis R74.01 Acute encephalopathy G93.40 DKA (diabetic ketoacidoses) E11.10
[2020-11-04 16:03] LABS: Glucose Point of Care 118 mg/dL (70-110)
--- NOTE | 2020-11-04 18:58 | NUR.SHIFT ---
Shift Note Frequent safety and comfort rounds continue. Orders and/or nursing care completed as indicated. Patient monitored for response to intervention and treatment(s). Education provided includes[]. Patient and/or commercial representative [ResponseToTeaching]. Will continue to monitor. had large semiliquid bm today pericare done and linen change done . frequent oral care has been on mmmv settiing vent most of afternoon off all sedation has eyes open and will move head from side to side uncertain about purposful response
[2020-11-04 20:25] LABS: Glucose Point of Care 142 mg/dL (70-110)
[2020-11-04] MEDS: budesonide 0.5 mg/2 mL Neb INHALATION (20:26)
[2020-11-04] MEDS: insulin glargine 100 units/1 mL 10 UNIT SUBCUT (20:29)
[2020-11-04 23:36] LABS: Glucose Point of Care 163 mg/dL (70-110)
[2020-11-05] VITALS (32 sets, daily range): BP systolic 91–129; BP diastolic 40–78; PULSE 65–75; RESP 15–28; TEMP 36.6; O2SAT 89–97
[2020-11-05 02:52] LABS: Glucose Point of Care 142 mg/dL (70-110)
[2020-11-05] MEDS: ipratropium-albuterol 3 mL Neb INHALATION ×4 (03:21→20:10)
[2020-11-05 03:57] LABS: Basophils # 0.1 10^3/uL (0.0-0.1); Basophils % 0.4 %; Hematocrit 27.2 % (37.0-47.0); Hemoglobin 8.9 g/dL (11.5-15.3); Lymphocytes # 0.7 10^3/uL (0.8-4.8); Lymphocytes % 2.4 %; Mean Corpuscular HGB Conc 32.7 g/dL (30.0-36.0); Mean Corpuscular Hemoglobin 29.2 pg (28.0-34.0); Mean Corpuscular Volume 89.2 fl (81-99); Mean Platelet Volume 10.7 fL (7.4-10.4); Monocytes # 1.2 10^3/uL (0.2-0.9); Monocytes % 3.8 %; Neutrophils # 27.07 10^3/uL (1.8-7.7); Neutrophils % 89.6 %; Nucleated Red Blood Cells % 0 %; Platelet Count 189 10^3/cmm (130-400); Red Blood Count 3.05 10^6/uL (4.1-5.3); Red Cell Distribution Width 16.7 % (12.1-15.1)
[2020-11-05] MEDS: calcium carbonate 500 mg Chew Tablet 1000 MG PO ×4 (03:57→20:06)
[2020-11-05] MEDS: heparin 5,000 unit/mL INJ 1 mL 5000 UNIT SUBCUT ×2 (03:58→16:30)
[2020-11-05 04:20] LABS: White Blood Count 30.2 10^3/uL (4.0-10.0)
[2020-11-05 04:21] LABS: D Dimer 4.51 ug/mIFEU (0-0.59)
[2020-11-05 04:25] LABS: Alanine Aminotransferase 12 U/L (0-33); Albumin Level 2.4 g/dL (3.5-5.2); Alkaline Phosphatase 628 IU/L (35-105); Anion Gap 22.9 (5-19); Aspartate Amino Transferase 52 U/L (0-32); Blood Urea Nitrogen 46 mg/dL (8-23); Calcium 8.1 mg/dL (8.5-10.5); Carbon Dioxide 21 mmol/L (22-29); Chloride 92 mmol/L (98-107); Globulin 3.2 g/dL (1.3-4.6); Glucose 126 mg/dL (65-115); Osmolality Calculated 287 mOsm/kg (285-295); Potassium 3.9 mmol/L (3.5-5.1); Sodium 132 mmol/L (136-145); Total Bilirubin 1.5 mg/dL (0.15-1.2); Total Protein 5.6 g/dL (6.6-8.7)
[2020-11-05 04:35] LABS: Procalcitonin 2.91 ng/mL (0-0.5)
[2020-11-05 04:46] LABS: C Reactive Protein 132.8 mg/L (0.0-4.9)
[2020-11-05 04:59] LABS: Ferritin 1659 ng/mL (15-150)
--- NOTE | 2020-11-05 06:00 | XRR_ITS ---
PROCEDURE INFORMATION: Exam: XR Chest Exam date and time: 11/05/2020 6:00 AM Age: 75 years old Clinical indication: Device placement; Ett placement (vent status); Patient HX: Covid+, intubated TECHNIQUE: Imaging protocol: XR of the chest. Views: 1 view. COMPARISON: CR (CHEST, ) 11/04/2020 5:42 AM FINDINGS: Tubes, catheters and devices: An endotracheal tube, sequential pacemaker, nasogastric tube and right subclavian catheter projects in stable satisfactory position. Lungs: Stable bilateral pulmonary infiltrates are present especially in the left lung base. There is left basilar atelectasis. Pleural spaces: Stable small left pleural effusion. No pneumothorax. Heart/Mediastinum: Unremarkable. No cardiomegaly. Bones/joints: Unremarkable. XR/XR chest 1V portable [id number] IMPRESSION: 1. Stable chest. 2. Bilateral pulmonary infiltrates especially in the left base with left pleural effusion are unchanged.
[2020-11-05] MEDS: pantoprazole 40 mg SDV IVP ×2 (07:52→20:05)
[2020-11-05] MEDS: metroNIDAZOLE IV 500 MG/100 ML PREMIX 100 MG IV ×3 (07:52→23:09)
[2020-11-05] MEDS: budesonide 0.5 mg/2 mL Neb INHALATION ×2 (08:27→20:10)
[2020-11-05] MEDS: citalopram 20 mg Tablet 10 MG PO (08:29)
[2020-11-05] MEDS: amiodarone 200 mg Tablet 400 MG PO (08:29)
[2020-11-05] MEDS: aspirin 81 mg EC Tablet PO (08:29)
[2020-11-05] MEDS: levothyroxine 75 mcg Tablet PO (08:29)
[2020-11-05] MEDS: nystatin powder 15 gm Btl 1 APPLIC TOPICAL ×2 (08:38→17:51)
--- NOTE | 2020-11-05 09:01 | PC.NURSE ---
weaned off levophed at this time. changed vent to mmv for attempted extubation continues to move head from side to side with eyes open unsure about purposful movement .reposition off swat area bottom
--- NOTE | 2020-11-05 09:35 | P.PN_ITS ---
Subjective Subjective: Interval history: No acute events overnight. Patient has remained hemodynamically stable. Levophed turned off early in the morning today. Has been off sedation. Turned over to pressure support early in the morning and extubated around 10 AM. Extubated to nasal cannula 2 L. After extubation patient awake, alert, following very minimal commands. Able to communicate t hrough nodding head occasionally. Documented urine output in last 24 hours 1100 cc. Vitals/I&O/Wt Last Vital Signs Temp 98 F 11/05/20 08:00 Pulse 66 11/05/20 08:28 Resp 22 H 11/05/20 08:40 BP 107/78 11/05/20 08:00 Pulse Ox 96 11/05/20 08:40 11/04/20 11/05/20 11/05/20 22:59 06:59 14:59 Intake Total 300 / 500 183.896 / 683.896 337.592 / 337.592 Output Total 350 / 350 600 / 950 200 / 200 Balance -50 / 150 -416.104 / -266.104 137.592 / 137.592 Weight last 48 hrs Weight 74.843 kg Weight 74.503 kg Physical Exam Narrative: EXAM NARRATIVE: General: No acute distress, intubated, off sedation, awake, not following simple commands HEENT: PERRLA, pupils bilaterally equal and reactive Chest: Bilateral bronchial breath sounds, occasional rhonchi and coarse crackles present, equal good air entry bilaterally CVS: S1-S2 regular, no murmurs, no tachycardia, no gallops, no rubs Abdomen: Soft, no organomegaly, distended, bowel sounds sluggish Neuro: No focal deficits, no facial deformity, Urinary Catheter Management^: Montalvo: Cath Placed During This Visit: yes Reason for Continuing Indwelling Catheter: Accurate Measurement of Urinary Output in Critically Ill Patients Urinary Catheter Date of Insertion: 10/24/20 Urinary Catheter Time of Insertion: 13:00 Data : 11/05/20 03:00 11/05/20 03:00 Micro: Microbiology 11/01/20 23:44 Urine Culture - Final Urine Catheterized Miranda albicans 11/01/20 09:50 Gram Stain - Final Sputum - Endotracheal Tube Aspirate Sputum Culture - Final Miranda albicans 11/04/20 13:22 Blood Culture - Preliminary Blood SPECIMEN COLLECTED 11/04/20 13:16 Blood Culture - Preliminary Blood SPECIMEN COLLECTED A&P Assessment and plan (1) Septic shock: Status: Acute (2) Pneumonia: Status: Acute (3) Pancreatitis, acute: Status: Acute (4) Cardiomyopathy: History of ejection fraction 30 to 35% on last echocardiogram March 2019. Repeat echocardiogram demonstrates an EF of approximately 25%. History of ventricular tachycardia, pacemaker and ICD implantation. Past history of atrial fibrillation, as well as coronary artery disease. Con tinue amiodarone. Troponin without significant delta. Status: Acute Qualifiers: Cardiomyopathy type: unspecified Qualified Code(s): I42.9 - Cardiomyopathy, unspecified (5) Acute kidney injury: Status: Acute (6) COVID-19: Status: Acute (7) C. difficile enteritis: Status: Acute (8) Transaminitis: Status: Acute (9) Acute encephalopathy: Sedated Dialysis initiated 10/31. Repeat run of dialysis November 02. Continue to wean sedation today to see if meaningful response occurs. Status: Acute (10) DKA (diabetic ketoacidoses): Resolved She has been transitioned to long-acting insulin, sliding scale Blood sugar have been stable Status: Acute (11) Partial gastric outlet obstruction: Status: Acute (12) Ischemic cardiomyopathy with implantable cardioverter-defibrillator (ICD): Status: Acute Additional A&P Information Septic shock with hypoxia: Secondary to combination of COVID-19 pneumonia, C. difficile colitis, superadded bacterial and possible fungal pneumonia. Keep mean arterial pressure over 65. Extubated on November 05 Weaned off Levophed. Patient is post completion of treatment for COVID-19 with remdesivir, dexamethasone with last dose on October 31. Urine culture previously positive for Klebsiella and E. coli. Currently urine culture and sputum culture positive for Miranda albicans. Blood culture one set positive for coag negative staph. Repeat blood cultures so far negative Continue with Primaxin, fluconazole. Will dose medications renally. Day 13 of Primaxin today. Will finish 14-day course. Stop Linezolid. MRSA negative in the past. C. difficile colitis: Having 2-3 episodes of diarrhea daily. Could be secondary to pancreatitis C. difficile colitis. For now continue with vancomycin 500 4 times daily orally, Flagyl 500 every 8 hourly. Acute pancreatitis: Lipase improved. CT abdomen pelvis done on November 01 shows evidence of pancreatitis with partial gastric outlet obstruction. Tube feedings started yesterday and patient had mild aspiration. For now stop tube feedings. IV albumin every 8 hourly for 2 days. Check lipid panel and triglyceride levels. Will consider repeating CT abdomen pelvis within next 48 to 72 hours to rule out abdominal collections/abscess formation. Acute kidney injury: Most likely secondary to ATN. Appreciate nephrology recommendations. Holding dialysis today. Dialysis performed on October 31, November 03. IV Lasix 80 mg twice daily as per nephrology team. Medical reconciliation done for nephrotoxic drugs. No metabolic abnormality currently. Transaminitis: Patient does have history of gallstones. Gallbladder ultrasound did not demonstrate any dilated ducts or evidence of cholecystitis. LFTs stable for now. Continue to hold statins. Cardiomyopathy: Repeat echocardiogram done during this hospitalization shows an EF of 25%. Patient is a history of mental tachycardia, pacemaker and ICD implantation. Continue with home dose of amiodarone. Diabetes ketoacidosis: Resolved. Insulin sliding scale every 4 hourly. Lantus 10 units nightly. Plan for the day: Extubated today. Physical therapy. Continue with IV Primaxin and fluconazole. Maintain saturation over 88%. Mean arterial pressure over 65. Hold off on tube feeds. Nutrition: For now hold off on tube feeds given aspiration few days ago because of gastric outlet obstruction. Can consider TPN but will need to be cautious given Miranda albicans in sputum and urine. Will retry tube feeds through NG tube in next 24 hours. Hypothyroidism: Currently on oral levothyroxine 75 mcg. TSH elevated. Could be secondary to poor oral absorption from pancreatitis. Free T3 low. Switch to IV levothyroxine 50 mcg daily from tomorrow. Full code Heparin for DVT prophylaxis Protonix for GI prophylaxis Prognosis guarded Attestations Medical Necessity Statement*: Requires further hospitalization for management of sepsis with hypoxia secondary to COVID-19 pneumonia, C. difficile colitis, superadded bacterial and fungal pneumonia, severe acute pancreatitis, acute kidney injury requiring dialysis, cardiomyopathy with a EF of 25% Critical Care Time: The high probability of a clinically significant, sudden or life threatening deterioration of the patient's [pulmonary, neurological, ID, GI, renal] system(s) required my full and direct attention, intervention and personal management. The critical care time is as shown. This time is in addition to time spent performing any reported procedures but includes the following: [x] Data and vital sign review and interpretation [x] Patient assessment, examination and intervention [x] Documentation [x] Medication orders and management Critical Care Time (min): 90 Coding Level of Care Code Acute Household Personal Assistant for Chg Fwd Diagnoses Septic shock A41.9; R65.21 Pneumonia J18.9 Pancreatitis, acute K85.90 Cardiomyopathy I42.9 Cardiomyopathy type: unspecified Acute kidney injury N17.9 COVID-19 U07.1 C. difficile enteritis A04.72 Transaminitis R74.01 Acute encephalopathy G93.40 DKA (diabetic ketoacidoses) E11.10 Partial gastric outlet obstruction K31.1 Ischemic cardiomyopathy with implantable cardioverter-defibrillator (ICD) I25.5; Z95.810
[2020-11-05 09:55] LABS: Glucose Point of Care 129 mg/dL (70-110)
[2020-11-05 09:55] LABS: Glucose Point of Care 98 mg/dL (70-110)
--- NOTE | 2020-11-05 10:02 | PC.NURSE ---
removed og tube at this time and replaced with left nares to closed ... large soft bm noted blayne care done and cleaned . no verbal response noted at this time
[2020-11-05 10:25] LABS: Free T4 Free Thyroxine 1.38 ng/dL (0.82-1.77)
[2020-11-05] MEDS: FUROsemide 10 mg/mL SDV 10mL 80 MG IVP ×2 (12:15→23:10)
--- NOTE | 2020-11-05 12:26 | P.PN_ITS ---
Subjective Subjective: Interval history: Ms. Alvarenga was extubated this morning. She is very confused, not really interacting with staff members. Rolling her head around but not in a meaningful way. Vasopressor agents are off now. She remains on Lasix infusion. Urine output remains marginal, only 550 mL over the last 24 hours. No extremity edema or other hypervolemic features. Medications: Reviewed: Yes (remains on levophed at 4 mcg) Vitals/I&O/Wt Last Vital Signs Temp 98 F 11/05/20 08:00 Pulse 69 11/05/20 10:00 Resp 22 H 11/05/20 08:40 BP 103/65 11/05/20 10:00 Pulse Ox 95 11/05/20 10:00 11/04/20 11/05/20 11/05/20 22:59 06:59 14:59 Intake Total 300 / 500 183.896 / 683.896 437.592 / 437.592 Output Total 350 / 350 600 / 950 200 / 200 Balance -50 / 150 -416.104 / -266.104 237.592 / 237.592 Weight last 48 hrs Weight 74.843 kg Weight 74.503 kg Physical Exam Narrative: EXAM NARRATIVE: Constitutional: confused, no overt distress HEENT: Wet mucosa, no jvp, non icteric Lungs: Bilaterally clear CVS: S1 S2, no murmurs Abdo: Soft, BS ok Ext 4: Minimal edema, peripheral perfusion with no cyanosis Neurological: Grossly non-focal Urinary Catheter Management^: Montalvo: Cath Placed During This Visit: yes Reason for Continuing Indwelling Catheter: Accurate Measurement of Urinary Output in Critically Ill Patients Urinary Catheter Date of Insertion: 10/24/20 Urinary Catheter Time of Insertion: 13:00 Data : 11/05/20 03:00 11/05/20 03:00 Micro: Microbiology 11/05/20 07:20 MRSA Culture - Final Nose 11/01/20 23:44 Urine Culture - Final Urine Catheterized Miranda albicans 11/01/20 09:50 Gram Stain - Final Sputum - Endotracheal Tube Aspirate Sputum Culture - Final Miranda albicans 11/04/20 13:22 Blood Culture - Preliminary Blood SPECIMEN COLLECTED 11/04/20 13:16 Blood Culture - Preliminary Blood SPECIMEN COLLECTED A&P Additional A&P Information 1. Acute kidney injury Likely to be infection related ATN. No plans for dialysis today and I will evaluate her in the am for additional need Cont Lasix infusion Strict I's and O's Avoid usual nephrotoxic agents Dose medication for GFR less than 15 2. Chemistry Minor non critical aberrration 3. VDRF extubated today, close monitoring in the icu 4. Sepsis Multiple potential foci of infection including C. difficile, pancreatitis, pneumonia, urosepsis, cholecystitis 5. Hemodynamics Close monitoring in the icu pressors as needed Sick lady with a gaurded prognosis Thank you for consultation, as always it is a pleasure to follow these cases with you Kurt Wakefield MD Nephrology [phone] Attestations Medical Necessity Statement*: eval for renal failure Coding Level of Care Code Acute Chef Broiler Or Fry for Chris Jane
[2020-11-05] MEDS: fluconazole premix 200 MG/100 ML PREMIX 100 MG IV (13:52)
--- NOTE | 2020-11-05 14:19 | PC.RESP ---
RT Shift Note Frequent safety and respiratory rounds continue. Orders completed as indicated. Patient monitored pre and post treatments throughout shift. Patient [Did.] tolerate treatments appropriately. Condition [.DidNotChange]. Patient and/or registration representative educated on respiratory treatment and medications. Patient and/or registration representative [unable to comprehend]. Will continue to monitor patient progress.
[2020-11-05 14:35] LABS: Glucose Point of Care 119 mg/dL (70-110)
--- NOTE | 2020-11-05 16:42 | PC.PT ---
PT note; nursing request hold PT at this time, as patient unable to follow any directions or maintain sitting balance, will reattempt in a.m.
[2020-11-05 16:47] LABS: Glucose Point of Care 147 mg/dL (70-110)
[2020-11-05 20:35] LABS: Glucose Point of Care 144 mg/dL (70-110)
[2020-11-05] MEDS: insulin glargine 100 units/1 mL 10 UNIT SUBCUT (20:49)
[2020-11-05 23:24] LABS: Glucose Point of Care 98 mg/dL (70-110)
[2020-11-06] VITALS (34 sets, daily range): BP systolic 96–121; BP diastolic 49–85; PULSE 74–87; RESP 12–37; TEMP 36.1–37; O2SAT 85–94; BMI 25.9
[2020-11-06] MEDS: ipratropium-albuterol 3 mL Neb INHALATION ×4 (03:10→23:36)
[2020-11-06] MEDS: calcium carbonate 500 mg Chew Tablet 1000 MG PO ×4 (03:10→20:19)
[2020-11-06] MEDS: heparin 5,000 unit/mL INJ 1 mL 5000 UNIT SUBCUT ×2 (03:10→16:21)
[2020-11-06 03:20] LABS: Glucose Point of Care 81 mg/dL (70-110)
[2020-11-06 04:48] LABS: Basophils # 0.1 10^3/uL (0.0-0.1); Basophils % 0.4 %; Hematocrit 25.2 % (37.0-47.0); Hemoglobin 8.4 g/dL (11.5-15.3); Lymphocytes # 0.5 10^3/uL (0.8-4.8); Lymphocytes % 1.7 %; Mean Corpuscular HGB Conc 33.3 g/dL (30.0-36.0); Mean Corpuscular Hemoglobin 29.6 pg (28.0-34.0); Mean Corpuscular Volume 88.7 fl (81-99); Mean Platelet Volume 10.7 fL (7.4-10.4); Monocytes # 0.8 10^3/uL (0.2-0.9); Monocytes % 2.4 %; Neutrophils # 28.73 10^3/uL (1.8-7.7); Neutrophils % 92.1 %; Nucleated Red Blood Cells % 0 %; Platelet Count 161 10^3/cmm (130-400); Red Blood Count 2.84 10^6/uL (4.1-5.3); Red Cell Distribution Width 16.7 % (12.1-15.1)
[2020-11-06 05:14] LABS: White Blood Count 31.2 10^3/uL (4.0-10.0)
[2020-11-06 05:15] LABS: Alanine Aminotransferase 11 U/L (0-33); Albumin Level 3.2 g/dL (3.5-5.2); Alkaline Phosphatase 449 IU/L (35-105); Anion Gap 24.4 (5-19); Aspartate Amino Transferase 55 U/L (0-32); Blood Urea Nitrogen 61 mg/dL (8-23); Calcium 8.4 mg/dL (8.5-10.5); Carbon Dioxide 20 mmol/L (22-29); Chloride 92 mmol/L (98-107); Globulin 2.9 g/dL (1.3-4.6); Glucose 80 mg/dL (65-115); Osmolality Calculated 292 mOsm/kg (285-295); Potassium 3.4 mmol/L (3.5-5.1); Sodium 133 mmol/L (136-145); Total Bilirubin 1.7 mg/dL (0.15-1.2); Total Protein 6.1 g/dL (6.6-8.7)
[2020-11-06 05:32] LABS: Glucose Point of Care 97 mg/dL (70-110)
--- NOTE | 2020-11-06 05:49 | PC.NURSE ---
Shift Note Frequent safety and comfort rounds continue. Pt repositioned and oral cares preformed every 2 hours. Pt having multiple watery stools, received order for rectal tube due to wound on bottom. Orders and nursing care completed as indicated. Patient monitored for response to intervention and treatment. Education provided includes oxygen safety. Patient verbalized understanding.
[2020-11-06] MEDS: budesonide 0.5 mg/2 mL Neb INHALATION ×2 (08:30→23:36)
[2020-11-06 09:49] LABS: Glucose Point of Care 87 mg/dL (70-110)
[2020-11-06] MEDS: citalopram 20 mg Tablet 10 MG PO (09:51)
[2020-11-06] MEDS: levothyroxine 100 mcg SDV 50 MCG IVP (09:51)
[2020-11-06] MEDS: amiodarone 200 mg Tablet 400 MG PO (09:51)
[2020-11-06] MEDS: aspirin 81 mg EC Tablet PO (09:51)
[2020-11-06] MEDS: pantoprazole 40 mg SDV IVP ×2 (09:51→20:19)
[2020-11-06] MEDS: metroNIDAZOLE IV 500 MG/100 ML PREMIX 100 MG IV ×3 (09:52→23:13)
[2020-11-06] MEDS: nystatin powder 15 gm Btl 1 APPLIC TOPICAL ×2 (09:53→17:07)
--- NOTE | 2020-11-06 10:02 | PC.CHAP ---
Pastoral Care Encounter/Spiritual Assessment Type of Contact [] Declined cash manager visit [] Patient/Family/Request visit [] Outpatient visit [] Follow-up visit [] Physician referral [] Code/Alert [x] Routine visit [] Staff referral [] Actively dying [] Patient sleeping [] Family support [] [] Out of room [] Palliative care [] [] Receiving care in room [] Pre-surgical visit [] Trauma [] Long length of stay [x] ICU visit [] Other: Relational/Emotional Strength [] Patient feels connected with others/family/visitors/staff [] Distress [] Loneliness/isolation [] Abandonment Spirituality of Patient [] Person of Eleanor [] Attends Scientologist of their Eleanor [] Believes in Prayer [] Reads Bible or Religion materials [] There are Spiritual issues to be addressed Hvac Installation Technician Interventions [x] Prayer [] Active listening [] Non-anxious presence [] Spiritual/emotional support [] Crisis/trauma care [] Spiritual counseling [] Bereavement support [] Provided bereavement packet [] Provided Bible/devotional materials [] Provided toy/stuffed animal, coloring book to patient or family member [] Provided Communion [] Anointing/Isle [] Salvation [x] Completed spiritual assessment [] Other: Impact on Illness or Injury [] Angry [] Fearful [] Anxious [] Often cries [] Exhaustion [] Unable to work [] Unable to attend evangelical [] Unable to walk/stand [] Unable to read [] Unable to drive [] Unable to eat/drink [] Unable to sleep [] Unable to be with family [] Patient intubated [] Other: Summary Time spent with patient
--- NOTE | 2020-11-06 10:53 | P.PN_ITS ---
Subjective Subjective: Interval history: She is awake, alert, tracks, does not answer questions. I cannot get her to reliably follow commands. She does close her eyes, but then looks away and it is not clear whether she did after being asked or spontaneously. Does not squeeze her hands. Does appear to attempt to weakly cough at times, but again unclear what this is on command or not. Vitals/I&O/Wt Last Vital Signs Temp 98.0 F 11/06/20 07:00 Pulse 77 11/06/20 10:00 Resp 28 H 11/06/20 10:00 BP 100/49 11/06/20 10:00 Pulse Ox 89 L 11/06/20 10:00 11/05/20 11/06/20 11/06/20 22:59 06:59 14:59 Intake Total 300 / 937.592 300 / 1237.592 Output Total 500 / 700 750 / 1450 Balance -200 / 237.592 -450 / -212.408 Weight last 48 hrs Weight 73.028 kg Weight 74.843 kg Physical Exam Const: COMMON NORMALS: no acute distress GENERAL APPEARANCE: frail appearing OTHER: Weak HENMT: COMMON NORMALS: oropharynx normal Neck/C-Spine: COMMON NORMALS: no JVD Resp: COMMON NORMALS: normal respiratory effort AUSCULTATION: rhonchi Cardio: COMMON NORMALS: no JVD, regular rhythm, S1 normal heart sound present, S2 normal heart sound present and No murmurs present (Cardio) RHYTHM: regular rhythm HEART SOUNDS: S1 normal heart sound present and S2 normal heart sound present GI: COMMON NORMALS: Normal to inspection, nondistended, normoactive bowel sounds present, Soft to palpation and non-tender PALPATION: Yes Soft to palpation Extremity: COMMON NORMALS: no joint enlargement GENERAL: Yes edema (2+) Neuro: COMMON NORMALS: moves all extremities Skin: COMMON NORMALS: no rashes or lesions noted GENERAL SKIN EXAM: no rashes or lesions noted Urinary Catheter Management^: Montalvo: Cath Placed During This Visit: yes Reason for Continuing Indwelling Catheter: Accurate Measurement of Urinary Output in Critically Ill Patients Urinary Catheter Date of Insertion: 10/24/20 Urinary Catheter Time of Insertion: 13:00 Data : 11/06/20 03:35 11/06/20 03:35 Micro: Microbiology 11/04/20 13:22 Blood Culture - Preliminary Blood NEGATIVE TO DATE 11/04/20 13:16 Blood Culture - Preliminary Blood NEGATIVE TO DATE 11/05/20 07:20 MRSA Culture - Final Nose A&P Assessment and plan (1) Pneumonia: Oxygenation with mild improvement this morning, down to 4 L nasal cannula oxygen. She is, however, very weak protecting her airway effectively with very weak cough. Moderate rhonchi. Has been requiring nasotracheal suctioning. At this time continue n.p.o. Aspiration precautions. NT suctioning as needed. Completing the last day of original course of antibiotics today. Continue supportive care at this time, will give more time for sedation to wean off since extubation, continue to wonder see if she may become better able to protect airway, stronger, able to manage any ADLs. Monitor following de-escalation of antibiotics. We will request speech therapy. Continue mobilization. PT, OT. Status: Acute (2) Septic shock: Resolved. Status: Acute (3) Pancreatitis, acute: Should be resolved with normalization of lipase. Does not drink alcohol. Gallstones and gallbladder. Will need consideration of cholecystectomy. Triglycerides normal. Consideration of MRCP as there is not a clear obstructive etiology of the pancreatitis. Status: Acute (4) Cardiomyopathy: History of ejection fraction 30 to 35% on last echocardiogram March 2019. Repeat echocardiogram demonstrates an EF of approximately 25%. History of ventricular tachycardia, pacemaker and ICD implantation. Past history of atrial fibrillation, as well as coronary artery disease. Continue amiodarone. Troponin without significant delta. Status: Acute Qualifiers: Cardiomyopathy type: unspecified Qualified Code(s): I42.9 - Cardiomyopathy, unspecified (5) Acute kidney injury: Appreciate nephrology follow-up. No plan for dialysis at this time. Status: Acute (6) COVID-19: Status: Acute (7) C. difficile enteritis: Status: Acute (8) Transaminitis: Status: Acute (9) Acute encephalopathy: Sedated Dialysis initiated 10/31. Repeat run of dialysis November 02. Continue to wean sedation today to see if meaningful response occurs. Status: Acute (10) DKA (diabetic ketoacidoses): Resolved She has been transitioned to long-acting insulin, sliding scale Blood sugar have been stable Status: Acute (11) Partial gastric outlet obstruction: Status: Acute (12) Ischemic cardiomyopathy with implantable cardioverter-defibrillator (ICD): Continue Lasix. Status: Acute Additional A&P Information Acute encephalopathy: multifactorial, infection related following COVID-19, possibly hypoxic/ischemic with hypoxic respite failure, septic shock, metabolic with acute renal failure. Urine culture previously positive for Klebsiella and E. coli. Currently urine culture and sputum culture positive for Miranda albicans. Continue fluconazole. Blood culture one set positive for coag negative staph. Repeat blood cultures so far negative C. difficile colitis: Having 2-3 episodes of diarrhea daily. Could be secondary to pancreatitis C. difficile colitis. Continue with vancomycin 500 4 times daily orally, Flagyl 500 every 8 hourly. Partial gastric outlet obstruction. NPO. Tube feedings held after had mild aspiration. For now stop tube feedings. IV albumin every 8 hourly for 2 days. Transaminitis: Patient does have history of gallstones. Gallbladder ultrasound did not demonstrate any dilated ducts or evidence of cholecystitis. LFTs stable for now. Continue to hold statins. Cardiomyopathy: Repeat echocardiogram done during this hospitalization shows an EF of 25%. Patient is a history of mental tachycardia, pacemaker and ICD implantation. Continue with home dose of amiodarone. Diabetes ketoacidosis: Resolved. Insulin sliding scale every 4 hourly. Lantus 10 units nightly. Hypothyroidism: Currently on oral levothyroxine 75 mcg. TSH elevated. Could be secondary to poor oral absorption from pancreatitis. Free T3 low. Was switched to IV levothyroxine 50 mcg daily. Attestations Medical Necessity Statement*: Continue admission for supportive care following weaning off sedative agents after extubation, reassess mental status, ability to protect airway, ADLs, reassess ability to resume oral intake, monitor with de- escalation of antibiotics, continue treatment for C. difficile colitis. Coding Level of Care Code Acute Chemical Instrumentation Officer for [facility] Fwd Diagnoses Pneumonia J18.9 Septic shock A41.9; R65.21 Pancreatitis, acute K85.90 Cardiomyopathy I42.9 Cardiomyopathy type: unspecified Acute kidney injury N17.9 COVID-19 U07.1 C. difficile enteritis A04.72 Transaminitis R74.01 Acute encephalopathy G93.40 DKA (diabetic ketoacidoses) E11.10 Partial gastric outlet obstruction K31.1 Ischemic cardiomyopathy with implantable cardioverter-defibrillator (ICD) I25.5; Z95.810
[2020-11-06 11:06] LABS: Erythrocyte Sedimentation Rate 41 mm/hr (0-15)
[2020-11-06] MEDS: FUROsemide 10 mg/mL SDV 10mL 80 MG IVP ×2 (12:50→23:12)
--- NOTE | 2020-11-06 14:16 | P.PN_ITS ---
Subjective Subjective: Interval history: Seen and examined on hemodialysis today. No acute issues over the last 24 hours. Not currently on vasopressor agents. Still remains very confused. Hemo dynamics reviewed, remained stable. Medications: Reviewed: Yes (remains on levophed at 4 mcg) Vitals/I&O/Wt Last Vital Signs Temp 98.3 F 11/06/20 12:00 Pulse 83 11/06/20 13:00 Resp 21 H 11/06/20 13:00 BP 108/58 11/06/20 13:00 Pulse Ox 92 11/06/20 13:00 11/05/20 11/06/20 11/06/20 22:59 06:59 14:59 Intake Total 300 / 937.592 300 / 1237.592 200 / 200 Output Total 500 / 700 750 / 1450 Balance -200 / 237.592 -450 / -212.408 200 / 200 Weight last 48 hrs Weight 73.028 kg Weight 74.843 kg Physical Exam Narrative: EXAM NARRATIVE: Constitutional: confused, no overt distress HEENT: Wet mucosa, no jvp, non icteric Lungs: Bilaterally clear CVS: S1 S2, no murmurs Abdo: Soft, BS ok Ext 4: Minimal edema, peripheral perfusion with no cyanosis Neurological: Grossly non-focal Urinary Catheter Management^: Montalvo: Cath Placed During This Visit: yes Reason for Continuing Indwelling Catheter: Accurate Measurement of Urinary Output in Critically Ill Patients Urinary Catheter Date of Insertion: 10/24/20 Urinary Catheter Time of Insertion: 13:00 Data : 11/06/20 03:35 11/06/20 03:35 Micro: Microbiology 11/01/20 12:40 Blood Culture - Final Blood NO GROWTH AFTER 5 DAYS 11/04/20 13:22 Blood Culture - Preliminary Blood NEGATIVE TO DATE 11/04/20 13:16 Blood Culture - Preliminary Blood NEGATIVE TO DATE 11/05/20 07:20 MRSA Culture - Final Nose A&P Additional A&P Information 1. Acute kidney injury Likely to be infection related ATN. Dialysis today Close monitoring for renal recovery Cont Lasix infusion Strict I's and O's Avoid usual nephrotoxic agents Dose medication for GFR less than 15 2. Chemistry Minor non critical aberrration 3. VDRF s/p extubation on 11/05 4. Sepsis Multiple potential foci of infection including C. difficile, pancreatitis, pneumonia, urosepsis, cholecystitis 5. Hemodynamics Close monitoring in the icu pressors as needed Sick lady with a gaurded prognosis; I appreciate on going conversation about goals of care Thank you for consultation, as always it is a pleasure to follow these cases with you Kurt Wakefield MD Nephrology [phone] Attestations Medical Necessity Statement*: eval for [place] Coding Level of Care Code Acute Bolt Threader for Lindag Buck
[2020-11-06] MEDS: fluconazole premix 200 MG/100 ML PREMIX 100 MG IV (14:43)
[2020-11-06 16:26] LABS: Glucose Point of Care 71 mg/dL (70-110)
--- NOTE | 2020-11-06 17:52 | PC.PT ---
As per physician notes, patient appears to track person in the room, but frequently rolling her head [id number] and not necessarily always tracking, unable to elicit any meaningful response from patient regarding hand squeeze or other muscle contractions when placing extremities on stretch, was unable to elicit any facial change with bilateral hamstring stretching, or any motor movements; therefore patient is unable to follow any commands, toward meaningful progress at this time, and is therefore inappropriate for further physical therapy intervention, until this improves; will reevaluate with improvement in situation and with new orders, and in the meantime nursing staff are capable of maintaining range of motion, during hygiene care, and will contact physician and/or physical therapist, when appropriate for patient to be reevaluated. Patient appeared in no pain during end range of all testing.
[2020-11-06 18:50] LABS: Glucose Point of Care 86 mg/dL (70-110)
[2020-11-06 20:05] LABS: Glucose Point of Care 80 mg/dL (70-110)
[2020-11-06 23:26] LABS: Glucose Point of Care 88 mg/dL (70-110)
[2020-11-07] VITALS (17 sets, daily range): BP systolic 52–117; BP diastolic 30–66; PULSE 60–91; RESP 3–26; TEMP 36.2–36.9; O2SAT 88–99
--- NOTE | 2020-11-07 00:31 | PC.NURSE ---
Transfer Note Patient transferred to [place] from ICU via bed at 0010. Handoff given to MS bedside nurse. Patient oriented to environment and equipment. Covering service notified. Orders reviewed and will continue to monitor. Family and/or risk control field representative notified.
[2020-11-07] MEDS: ipratropium-albuterol 3 mL Neb INHALATION ×3 (03:12→14:36)
[2020-11-07] MEDS: heparin 5,000 unit/mL INJ 1 mL 5000 UNIT SUBCUT ×2 (03:46→18:38)
[2020-11-07] MEDS: calcium carbonate 500 mg Chew Tablet 1000 MG PO ×2 (03:46→07:42)
[2020-11-07 03:56] LABS: Glucose Point of Care 110 mg/dL (70-110)
[2020-11-07 05:48] LABS: Basophils # 0.1 10^3/uL (0.0-0.1); Basophils % 0.3 %; Hematocrit 26.8 % (37.0-47.0); Hemoglobin 8.4 g/dL (11.5-15.3); Lymphocytes # 0.4 10^3/uL (0.8-4.8); Lymphocytes % 1.3 %; Mean Corpuscular HGB Conc 31.3 g/dL (30.0-36.0); Mean Corpuscular Hemoglobin 29.2 pg (28.0-34.0); Mean Corpuscular Volume 93.1 fl (81-99); Mean Platelet Volume 10.4 fL (7.4-10.4); Monocytes # 0.8 10^3/uL (0.2-0.9); Monocytes % 2.4 %; Neutrophils # 29.61 10^3/uL (1.8-7.7); Neutrophils % 92.9 %; Nucleated Red Blood Cells % 0 %; Platelet Count 169 10^3/cmm (130-400); Red Blood Count 2.88 10^6/uL (4.1-5.3); Red Cell Distribution Width 17.2 % (12.1-15.1)
--- NOTE | 2020-11-07 06:00 | XR_ITS ---
WS: [id number] Exam: XR chest 1V portable [id number] Date/Time of Exam: 11/07/2020 6:30 AM Reason For Exam: covid Comparison with previous exam 11/05/2020. Increasing consolidating infiltrates are seen in the right upper and lower lobes as well as the left upper lobe. There is also infiltrate and atelectasis in the left base. Heart size remains normal. No pleural effusions or pneumothorax. A right-sided subclavian catheter ends at the cavoatrial junction. A cardiac pacer is in place. An enteric tube enters the stomach but the tip is not visible. ET tube has been removed since previous exam. XR/XR chest 1V portable [id number] IMPRESSION: 1. Increasing bilateral consolidating infiltrates when compared to prior study.
[2020-11-07 06:05] LABS: D Dimer 3.57 ug/mIFEU (0-0.59)
[2020-11-07 06:17] LABS: Alanine Aminotransferase 11 U/L (0-33); Alkaline Phosphatase 412 IU/L (35-105); Anion Gap 24.6 (5-19); Aspartate Amino Transferase 53 U/L (0-32); Blood Urea Nitrogen 28 mg/dL (8-23); Calcium 8.3 mg/dL (8.5-10.5); Carbon Dioxide 20 mmol/L (22-29); Chloride 98 mmol/L (98-107); Globulin 2.8 g/dL (1.3-4.6); Glucose 120 mg/dL (65-115); Osmolality Calculated 295 mOsm/kg (285-295); Potassium 3.6 mmol/L (3.5-5.1); Sodium 139 mmol/L (136-145); Total Bilirubin 1.6 mg/dL (0.15-1.2); Total Protein 5.8 g/dL (6.6-8.7)
[2020-11-07 06:18] LABS: C Reactive Protein 207.7 mg/L (0.0-4.9)
[2020-11-07 06:30] LABS: White Blood Count 31.9 10^3/uL (4.0-10.0)
[2020-11-07 06:42] LABS: Glucose Point of Care 127 mg/dL (70-110)
[2020-11-07] MEDS: metroNIDAZOLE IV 500 MG/100 ML PREMIX 100 MG IV ×2 (07:41→16:08)
[2020-11-07] MEDS: levothyroxine 100 mcg SDV 50 MCG IVP (07:42)
[2020-11-07] MEDS: aspirin 81 mg EC Tablet PO (07:42)
[2020-11-07] MEDS: citalopram 20 mg Tablet 10 MG PO (07:42)
[2020-11-07] MEDS: amiodarone 200 mg Tablet 400 MG PO (07:42)
[2020-11-07] MEDS: pantoprazole 40 mg SDV IVP (07:42)
--- NOTE | 2020-11-07 08:22 | PC.SLP ---
Pt unable to participate in a swallowing due to decline in medical status.
[2020-11-07] MEDS: budesonide 0.5 mg/2 mL Neb INHALATION (08:27)
[2020-11-07] MEDS: nystatin powder 15 gm Btl 1 APPLIC TOPICAL ×2 (10:34→18:41)
[2020-11-07] MEDS: FUROsemide 10 mg/mL SDV 10mL 80 MG IVP (12:25)
[2020-11-07 12:28] LABS: Glucose Point of Care 154 mg/dL (70-110)
--- NOTE | 2020-11-07 12:50 | PM.PN ---
Subjective Subjective: Interval history: Renal failure in the setting of she remains very confused at this time. No acute issues, no acute distress, she remains very sick. ~500mL of urine output over the last 24hrs Medications: Reviewed: Yes (remains on levophed at 4 mcg) Vitals/I&O/Wt Last Vital Signs Temp 98.5 F 11/07/20 12:13 Pulse 85 11/07/20 12:13 Resp 24 H 11/07/20 12:13 BP 107/62 11/07/20 12:13 Pulse Ox 94 11/07/20 12:13 11/06/20 11/07/20 11/07/20 22:59 06:59 14:59 Intake Total 500 / 700 557 / 1257 100 / 100 Output Total 2049 / 2049 750 / 2800 Balance -1550 / -1350 -193 / -1543 100 / 100 Weight last 48 hrs Weight 73.482 kg Weight 73.6 kg Weight 73.028 kg Physical Exam Narrative: EXAM NARRATIVE: Constitutional: confused, no overt distress HEENT: Wet mucosa, no jvp, non icteric Lungs: Bilaterally clear CVS: S1 S2, no murmurs Abdo: Soft, BS ok Ext 4: Minimal edema, peripheral perfusion with no cyanosis Neurological: Grossly non-focal Urinary Catheter Management^: Montalvo: Cath Placed During This Visit: yes Reason for Continuing Indwelling Catheter: Accurate Measurement of Urinary Output in Critically Ill Patients Urinary Catheter Date of Insertion: 10/24/20 Urinary Catheter Time of Insertion: 13:00 Data : 11/07/20 05:27 11/07/20 05:27 Micro: Microbiology 11/01/20 12:40 Blood Culture - Final Blood NO GROWTH AFTER 5 DAYS A&P Additional A&P Information 1. Acute kidney injury Likely to be infection related ATN. Will assess for dialysis tomorrow Close monitoring for renal recovery Strict I's and O's Avoid usual nephrotoxic agents Dose medication for GFR less than 15 2. Chemistry Minor non critical aberrration 3. VDRF s/p extubation on 11/05 4. Sepsis Multiple potential foci of infection including C. difficile, pancreatitis, pneumonia, urosepsis, cholecystitis 5. Hemodynamics Remains stable off pressors Sick lady with a gaurded prognosis; I appreciate on going conversation about goals of care Thank you for consultation, as always it is a pleasure to follow these cases with you Kurt Wakefield MD Nephrology [phone] Attestations Medical Necessity Statement*: Eval for [place] Coding Level of Care Code Acute Sawmill Tally Clerk for Chris Jane
--- NOTE | 2020-11-07 13:45 | PC.NURSE ---
Call received from Dr. Beach reguarding transfer status on pt. Awaiting family to arrive and decide comfort care vs. treatment. Pending ICU transfer orders.
[2020-11-07] MEDS: fluconazole premix 200 MG/100 ML PREMIX 100 MG IV (13:47)
--- NOTE | 2020-11-07 13:55 | PC.NUTR ---
Nutrition reassessment: Pt with severely low nutritional intake for extended time period, including average of 197 kcal/day X 12 days (10/27-11/07), with additional 3 days NPO prior to that, as well as poor po intakes prior to admission. If unable to tolerate oral diet or enteral nutrition, and if consistent with goals of care, recommend initiation of TPN to meet nutritional needs. However, concern with renal function and overall medical stability in terms of rate and initiation of parenteral nutrition--per MD discretion. See full RD assessment for further details.
[2020-11-07] MEDS: LORazepam 0.5 mg Tablet 0.25 MG PO (14:15)
--- NOTE | 2020-11-07 16:53 | PC.NURSE ---
Family at bedside approximately 1600. Family was given options to continue with aggressive care or make comfort care. Family at bedside chose to continue all aggressive measures. Dr. Goddard notified and pt assigned to ICU bed 5. Bedside report given to Yee RN. Blood pressure at the time of transport 72/41, Oxygen 8.5 L masked.
--- NOTE | 2020-11-07 17:05 | XRR_ITS ---
PROCEDURE INFORMATION: Exam: XR Chest Exam date and time: 11/07/2020 5:05 PM Age: 75 years old Clinical indication: Device placement; Patient HX: Et tube placement; Additional info: Check tube placement TECHNIQUE: Imaging protocol: XR of the chest. Views: 1 view. Total images: 1 COMPARISON: CR XR chest 1V portable [id number] 11/07/2020 6:28 AM FINDINGS: Tubes, catheters and devices: Endotracheal tube tip in satisfactory position above the quincy. Nasogastric tube tip below the diaphragm at the level of body of the stomach. Right subclavian central venous catheter tip atrial caval junction. Pacemaker defibrillator. EKG leads. Lungs: Bilateral mixed ground-glass interstitial lung disease and early consolidated alveolar airspace disease of active pneumonitis/pneumonia, right lung more involved than left. Pleural spaces: No pleural effusion. No pneumothorax. Heart/Mediastinum: Cardiac structures and configuration with arteriosclerosis. Bones/joints: Unremarkable. XR/XR chest 1V portable [id number] IMPRESSION: Endotracheal tube tip in satisfactory position above the quincy.
[2020-11-07] MEDS: propofol 1,000 MG/100 ML INJ 2.2 MG IV (17:27)
[2020-11-07] MEDS: etomidate 20 ML 20 MG (17:30)
--- NOTE | 2020-11-07 17:33 | PM.ACPR ---
Acute Procedures Intubation: Time out performed: Yes Sedative: etomidate Paralytic: succinylcholine Laryngoscope: fiber optic video scope ET tube size: 8 Tube secured depth (cm): 23 Tube secured location: lips Tube placement confirmation: visualized tube passing through cords, equal breath sounds bilaterally, no breath sounds over epigastrium and color change noted Patient tolerated procedure: well Intubation complications: none
[2020-11-07 19:01] LABS: Glucose Point of Care 204 mg/dL (70-110)
--- NOTE | 2020-11-07 19:28 | PC.NURSE ---
Pt came from med surg, with RT and primary nurse. sats in the 70's and nonresponsive. RSI kit taken from riky and Dr. Rios intubated the pt, successful with first attempt. BP dropped, with conscious sedation, Levophed and vasopression started. Propofol started at a very low dose of 10 mcgs for pt comfort. Chest xray done for tube placement. upon skin assessment by ICU nurse, blisters noted around anus and in labia. this was reported to Dr. Jennings, Acyclovir ordered.
--- NOTE | 2020-11-07 19:49 | PM.PN ---
Subjective Subjective: Interval history: Awake, confused during my visit earlier in the day. Subsequently intubated, sedated in the ICU. Vitals/I&O/Wt Last Vital Signs Temp 98.5 F 11/07/20 12:13 Pulse 91 11/07/20 17:15 Resp 3 L 11/07/20 18:13 BP 78/43 11/07/20 17:15 Pulse Ox 99 11/07/20 18:13 11/07/20 11/07/20 11/07/20 06:59 14:59 22:59 Intake Total 557 / 1257 200 / 200 329.22 / 529.22 Output Total 750 / 2800 Balance -193 / -1543 200 / 200 329.22 / 529.22 Weight last 48 hrs Weight 73.482 kg Weight 73.6 kg Weight 73.028 kg Physical Exam Const: COMMON NORMALS: no acute distress GENERAL APPEARANCE: frail appearing OTHER: Weak HENMT: COMMON NORMALS: oropharynx normal Neck/C-Spine: COMMON NORMALS: no JVD Resp: COMMON NORMALS: normal respiratory effort AUSCULTATION: rhonchi Cardio: COMMON NORMALS: no JVD, regular rhythm, S1 normal heart sound present, S2 normal heart sound present and No murmurs present (Cardio) RHYTHM: regular rhythm HEART SOUNDS: S1 normal heart sound present and S2 normal heart sound present GI: COMMON NORMALS: Normal to inspection, nondistended, normoactive bowel sounds present, Soft to palpation and non-tender PALPATION: Yes Soft to palpation Extremity: COMMON NORMALS: no joint enlargement GENERAL: Yes edema (Trace) Neuro: COMMON NORMALS: moves all extremities Skin: COMMON NORMALS: no rashes or lesions noted GENERAL SKIN EXAM: no rashes or lesions noted Urinary Catheter Management^: [place]: Cath Placed During This Visit: yes Reason for Continuing Indwelling Catheter: Accurate Measurement of Urinary Output in Critically Ill Patients Urinary Catheter Date of Insertion: 10/24/20 Urinary Catheter Time of Insertion: 13:00 Data : 11/07/20 05:27 11/07/20 05:27 Micro: Microbiology 11/01/20 12:30 Blood Culture - Final Blood Coagulase negativ staphylococc A&P Assessment and plan (1) Pneumonia: Very weak. Not adequately protecting airway. Continues to have rhonchi. Today more tachypnea, some worsening in oxygenation. As per discussion with family concern for recurrent reaspiration. Discussed considerations with regards to escalation of care and reintubation for airway protection, as well as discussed not escalating care further given high risk of complication, as well overall prognosis is not good given she has not shown signs of recovery despite renal replacement therapy and despite elapsed time since extubation, with consideration for ischemic/hypoxic brain injury secondary to hypoxic respite failure, septic shock previously. Discussed consideration otherwise of comfort care as well. Family had come to visit her here to see her condition. They had requested to proceed with aggressive care. She was transferred to ICU. Intubated. Confirmation x-ray ET tube in good positioning. Due to hypotension started on pressor support, transiently required Levophed and vasopressin, but wean down to Levophed 10 mcg. Due to concern for recurrent bacterial infection with recurrent aspiration restarted on Primaxin. Continued on fluconazole. CT abdomen pelvis ordered due to pancreatitis, and with worsening condition for reassessment for necrotizing pancreatitis, with worsening condition and possibility of infection antibiotics resumed as above. Continued on Flagyl. Continued on vancomycin per NGT, Flagyl for C. difficile colitis. At 19:50 noted in PEA with bradycardia and then asystole with loss of pulse. CODE BLUE was called. Underwent 30 minutes of good quality resuscitative efforts without achieving ROSC. Status: Acute (2) Septic shock: Resolved. Status: Acute (3) Pancreatitis, acute: Should be resolved with normalization of lipase. Does not drink alcohol. Gallstones and gallbladder. Will need consideration of cholecystectomy. Triglycerides normal. Consideration of MRCP as there is not a clear obstructive etiology of the pancreatitis. Status: Acute (4) Cardiomyopathy: History of ejection fraction 30 to 35% on last echocardiogram March 2019. Repeat echocardiogram demonstrates an EF of approximately 25%. History of ventricular tachycardia, pacemaker and ICD implantation. Past history of atrial fibrillation, as well as coronary artery disease. Continue amiodarone. Troponin without significant delta. Status: Acute Qualifiers: Cardiomyopathy type: unspecified Qualified Code(s): I42.9 - Cardiomyopathy, unspecified (5) Acute kidney injury: Had HD on 11/06. Status: Acute (6) COVID-19: Status: Acute (7) C. difficile enteritis: Status: Acute (8) Transaminitis: Status: Acute (9) Acute encephalopathy: Without improvement in mental status. Very weak, very weak attempted cough. Not protecting airway. Not making eye contact, answering questions or following commands. This despite improvement in creatinine, with hemodialysis, and elapsing time since extubation. Discussed with family concern regarding sustained hypoxic/ischemic encephalopathy secondary to severe COVID-19 with with respiratory failure, septic shock, pancreatitis, and additional other comorbidities. Status: Acute (10) DKA (diabetic ketoacidoses): Resolved Status: Acute (11) Partial gastric outlet obstruction: Status: Acute (12) Ischemic cardiomyopathy with implantable cardioverter-defibrillator (ICD): Continue Lasix. Status: Acute Additional A&P Information Urine culture previously positive for Klebsiella and E. coli. Currently urine culture and sputum culture positive for Miranda albicans. Continue fluconazole. Blood culture one set positive for coag negative staph. Repeat blood cultures so far negative C. difficile colitis: Having 2-3 episodes of diarrhea daily. Could be secondary to pancreatitis C. difficile colitis. Continue with vancomycin 500 4 times daily orally, Flagyl 500 every 8 hourly. Partial gastric outlet obstruction. NPO. Tube feedings held after had mild aspiration. For now stop tube feedings. IV albumin every 8 hourly for 2 days. Transaminitis: Patient does have history of gallstones. Gallbladder ultrasound did not demonstrate any dilated ducts or evidence of cholecystitis. LFTs stable for now. Continue to hold statins. Cardiomyopathy: Repeat echocardiogram done during this hospitalization shows an EF of 25%. Patient is a history of mental tachycardia, pacemaker and ICD implantation. Continue with home dose of amiodarone. Diabetes ketoacidosis: Resolved. Insulin sliding scale every 4 hourly. Lantus 10 units nightly. Hypothyroidism: Currently on oral levothyroxine 75 mcg. TSH elevated. Could be secondary to poor oral absorption from pancreatitis. Free T3 low. Was switched to IV levothyroxine 50 mcg daily. Attestations Medical Necessity Statement*: N/A Coding Level of Care Code Acute Plow And Boring Machine Tender for Chg 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 Diagnoses Pneumonia J18.9 Septic shock A41.9; R65.21 Pancreatitis, acute K85.90 Cardiomyopathy I42.9 Cardiomyopathy type: unspecified Acute kidney injury N17.9 COVID-19 U07.1 C. difficile enteritis A04.72 Transaminitis R74.01 Acute encephalopathy G93.40 DKA (diabetic ketoacidoses) E11.10 Partial gastric outlet obstruction K31.1 Ischemic cardiomyopathy with implantable cardioverter-defibrillator (ICD) I25.5; Z95.810
[2020-11-07 19:55] LABS: Glucose Point of Care 175 mg/dL (70-110)
--- NOTE | 2020-11-07 20:30 | PC.NURSE ---
MTS contacted - pt not candidate for MTS or Saving Site. Body to be released to home.
--- NOTE | 2020-11-07 20:39 | PM.DDS ---
Discharge Providers DDS Date of Admission: 10/24/20 14:46 Date Summary Completed: 11/07/20 Attending Provider at Admission: Robin Austin MD Time of : 19:50 Attending Provider at Discharge: Semaj Beach Primary Care Provider: Aziza Nguyen MD DS Diagnoses Hospital Diagnoses (1) Pneumonia: (2) Septic shock: (3) Pancreatitis, acute: (4) Cardiomyopathy: Problem details: LVEF of approximately 30%, unchanged, unable to tolerate STERLING or ARB in past due to lower BP Qualifiers: Cardiomyopathy type: unspecified Qualified Code(s): I42.9 - Cardiomyopathy, unspecified (5) Acute kidney injury: (6) COVID-19: (7) C. difficile enteritis: (8) Transaminitis: (9) Acute encephalopathy: (10) DKA (diabetic ketoacidoses): (11) Partial gastric outlet obstruction: (12) Ischemic cardiomyopathy with implantable cardioverter-defibrillator (ICD): Reason for Visit Reason for Visit: AMS/ BLOOD SUGAR 474 Summary Date and Time of Date of : 11/07/20 Time of : 19:50 Summary Summary: 75-year-old lady with complicated past medical history including ischemic cardiomyopathy, EF 25%, with AICD in place, ASHD, current kidney disease, A. fib, dementia, HLD, HTN, hypothyroidism and other as per HPI, was admitted for assessment management due to acute encephalopathy, DKA, COVID-19 pneumonia, acute pancreatitis, acute kidney injury requiring hemodialysis, C. difficile colitis treated with oral vancomycin, IV Flagyl, fungal pneumonia, fungal UTI, treated with Diflucan, septic shock with needed pressors, hypoxic respiratory failure requiring mechanical ventilatory support. Empiric antibiotic coverage for superimposed bacterial pneumonia was also provided with Primaxin, linezolid. Subsequently discontinued. DKA had resolved. Cholecystitis noted on gallbladder ultrasound, although no clear obstructive etiology of pancreatitis seen. Did not drink alcohol. Triglycerides normal. Possibly viral induced or other occult cause. Wean down on mechanical ventilatory support, was extubated on 11/05. Post extubation very weak, not answering questions or following commands with persistent encephalopathy, very weak cough. Unable to effectively clear secretions. Had to continue n.p.o. Tube feeds transiently had to be held as well due to episode of aspiration. Previously with noted gastric outlet obstruction secondary to pancreatitis. Unable to receive TPN due to disseminated fungal infection. With acute kidney injury requiring intermittent hemodialysis, consideration was given to possibly prolonged clearance of sedatives, however, as discussed with family given very complicated course high suspicion for ischemia, hypoxic encephalopathy. Without improvement in mental status, worsening hypoxia, as per further discussions with family she was reintubated today due to worsening condition. Required initiation of pressors initially up to max dose of Levophed plus vasopressin, subsequently weaned down to 10 mcg Levophed alone, with concern for possible recurrence of bacterial infection restarted on Primaxin, continued on other agents including oral vancomycin, IV Flagyl, fluconazole. Heparin VT prophylaxis. CT abdomen pelvis requested for additional reassessment of pancreatitis, however, at 19:50 suffered cardiac arrest with PEA initially bradycardic, subsequently PEA with paced rhythm. No AICD discharge noted. Despite close to 30 minutes of good quality CPR ROSC could not be achieved. Family notified of her passing and will be making arrangements. They declined autopsy when offered. Additional Data Confirmation of as documented by pronouncing clinician: no pulse and no respirations Family: contacted Was code activated?: Yes Autopsy requested?: No Advance directives?: No (unknown, no family and pt nonverbal) Discharge Plan Discharge Patient Disposition: Condition: Stable Prescriptions: No Action aspirin [Adult Low Dose Aspirin] 81 mg tablet,delayed release (DR/EC) 81 mg PO DAILY RF: 0 PreserVision AREDS [id number] hals-oe-izii capsule 1 cap PO BID RF: 0 albuterol sulfate 2.5 mg /3 mL (0.083 %) solution for nebulization 2.5 mg inhalation Q8H PRN (Reason: bronchospasm) Qty: 90 RF: 0 (DME) nebulizer See Rx Instructions .Route .MEDSUPPLY Qty: 1 RF: 0 tramadol 50 mg tablet 50 mg PO BID PRN (Reason: pain) Qty: 20 RF: 0 lorazepam 0.5 mg tablet 0.5 mg PO TID PRN (Reason: anxiety) Qty: 90 RF: 1 diclofenac sodium [Voltaren] 1 % gel 4 g TOPICAL QID Qty: 300 RF: 2 insulin aspart U-100 [Novolog U-100 Insulin aspart] 100 unit/mL solution See Rx Instructions SUBCUT .COMPLEX Qty: 30 RF: 0 nitroglycerin [Nitrostat] 0.4 mg tablet, sublingual 0.4 mg SUBLINGUAL Q5M PRN (Reason: Chest Pain) Qty: 25 RF: 2 albuterol sulfate [ProAir HFA] 90 mcg/actuation HFA aerosol inhaler 2 puff inhalation Q6H PRN (Reason: shortness of breath or wheezing) Qty: 8.5 RF: 0 citalopram 10 mg tablet 10 mg PO DAILY Qty: 30 RF: 2 Tresiba FlexTouch U-100 100 unit/mL (3 mL) insulin pen See Rx Instructions .ROUTE .COMPLEX Qty: 30 RF: 2 (DME) PULLUP DEPENDS MEDIUM See Rx Instructions .Route .MEDSUPPLY Qty: 100 RF: 2 polyethylene glycol 3350 [Miralax] 17 gram/dose powder 17 g PO DAILY Qty: 119 RF: 2 ascorbic acid (vitamin C) [Vitamin C] 1,000 mg Tablet 500 mg PO BID RF: 0 famotidine 20 mg Tablet 20 mg PO BID RF: 0 furosemide 20 mg tablet 20 mg PO DAILY Qty: 30 RF: 0 Fosamax 70 mg Tablet 70 mg PO Q7D RF: 0 meclizine 25 mg Tablet See Rx Instructions .ROUTE .COMPLEX RF: 0 amiodarone 200 mg tablet 400 mg PO DAILY RF: 0 clopidogrel 75 mg tablet 75 mg PO DAILY RF: 0 carvedilol 3.125 mg tablet 3.125 mg PO BID RF: 0 levothyroxine 75 mcg tablet 75 mcg PO DAILY RF: 0 methenamine hippurate 1 gram tablet 1 g PO BID RF: 0 gabapentin 100 mg capsule 100 mg PO BEDTIME RF: 0 ergocalciferol (vitamin D2) 1,250 mcg (50,000 unit) capsule 1,250 mcg PO Q7D RF: 0 rosuvastatin 40 mg tablet 40 mg PO DAILY RF: 0 Probable Cause of Probable cause of : Cardiac arrest DS Attestations Time Spent in /Discharge Care*: greater than 30 min Quality - AMI: AMI present?: No Quality - Stroke: CVA present?: No Quality - VTE: VTE present?: No Coding Level of Care Code Acute Premix Concrete Batcher for [facility] Fwd Diagnoses Pneumonia J18.9 Septic shock A41.9; R65.21 Pancreatitis, acute K85.90 Cardiomyopathy I42.9 Cardiomyopathy type: unspecified Acute kidney injury N17.9 COVID-19 U07.1 C. difficile enteritis A04.72 Transaminitis R74.01 Acute encephalopathy G93.40 DKA (diabetic ketoacidoses) E11.10 Partial gastric outlet obstruction K31.1 Ischemic cardiomyopathy with implantable cardioverter-defibrillator (ICD) I25.5; Z95.810
--- NOTE | 2020-11-07 20:49 | PC.NURSE ---
Nurse was in Pt room administering medicine. Pt HR began to srinivas down. Asystole occurred and a code was called at 1950 (see code paperwork). Pt was Pronounced at 2018. MTS called. Family contacted.
--- NOTE | 2020-11-07 22:14 | PC.NURSE ---
Pt family stated that pt was possibly wearing rings and a bracelet when she was admitted. There are no notes or documentation of any rings. Pyxis checked in ICU and med surg. Room in med surg and previous and current ICU rooms checked. Family states they will look at home and call back after searching. supervisor fertilizer notified. Description of items taken and placed in chart. Security notified and items are not in safe. Will pass information along to dayshift. Admitting nurse was ESA Mora, and he will be working tomorrow to consult if he recalls rings.
--- NOTE | 2020-11-08 03:47 | PC.NURSE ---
Per family member Rimma Atkinson - lost items included 2-3 rings and 1 bracelet. Oval shaped right with a lighthouse a ring with a mother and baby owl and a possible third ring that pt family member does not remember what it looked like a yellow, red and blue beaded bracelet
[2020-11-08 13:55] LABS: Erythrocyte Sedimentation Rate 41 mm/hr (0-15)
[2020-11-09 18:43] LABS: Aspergillus AG,EIA,Serum NOT DETECTED; Aspergillus Galactomannan Inde <0.50
== END 2020-11-07 19:50 | disposition expired | DRG 207 ==
LOC: ER 11:35 → ICU 14:57 → MEDSURG 11-07 00:17 → ICU 11-07 16:41
PROVIDERS: Family Medicine; Hospitalist; Internal Medicine; Internal Medicine Nephrology; Student in an Organized Health Care Education/Training Program; Admitting Provider Internal Medicine; Emergency Provider Family Medicine; PCP Family Medicine; Visit Provider Internal Medicine
DX: U07.1 COVID-19 (principal); E11.10 Type 2 diabetes mellitus with ketoacidosis without coma; L89.153 Pressure ulcer of sacral region, stage 3; J12.82 Pneumonia due to coronavirus disease 2019; R65.21 Severe sepsis with septic shock; J96.01 Acute respiratory failure with hypoxia; J15.9 Unspecified bacterial pneumonia; K85.90 Acute pancreatitis without necrosis or infection, unspecified; G93.41 Metabolic encephalopathy; N17.0 Acute kidney failure with tubular necrosis; A41.9 Sepsis, unspecified organism; N39.0 Urinary tract infection, site not specified; I13.0 Hypertensive heart and chronic kidney disease with heart failure and stage 1 through stage 4 chronic kidney disease, or unspecified chronic kidney disease; I50.32 Chronic diastolic (congestive) heart failure; K31.1 Adult hypertrophic pyloric stenosis; E87.4 Mixed disorder of acid-base balance; A04.72 Enterocolitis due to Clostridium difficile, not specified as recurrent; I48.91 Unspecified atrial fibrillation; F41.8 Other specified anxiety disorders; I25.10 Atherosclerotic heart disease of native coronary artery without angina pectoris; Z98.61 Coronary angioplasty status; E11.22 Type 2 diabetes mellitus with diabetic chronic kidney disease; N18.9 Chronic kidney disease, unspecified; I25.5 Ischemic cardiomyopathy; G89.4 Chronic pain syndrome; F03.90 Unspecified dementia, unspecified severity, without behavioral disturbance, psychotic disturbance, mood disturbance, and anxiety; K81.9 Cholecystitis, unspecified; I46.9 Cardiac arrest, cause unspecified; E78.5 Hyperlipidemia, unspecified; K21.9 Gastro-esophageal reflux disease without esophagitis; Z95.810 Presence of automatic (implantable) cardiac defibrillator; I34.0 Nonrheumatic mitral (valve) insufficiency; E03.9 Hypothyroidism, unspecified; E55.9 Vitamin D deficiency, unspecified; Z77.22 Contact with and (suspected) exposure to environmental tobacco smoke (acute) (chronic); Z87.440 Personal history of urinary (tract) infections; B96.1 Klebsiella pneumoniae [K. pneumoniae] as the cause of diseases classified elsewhere; B96.20 Unspecified Escherichia coli [E. coli] as the cause of diseases classified elsewhere; D64.9 Anemia, unspecified; B37.9 Candidiasis, unspecified
CPT/HCPCS: 36415; 36416; 36592; 36600; 51702; 70450; 71045; 71250; 74176; 74177; 76705; 80048; 80051; 80053; 80061; 81001; 82009; 82330; 82550; 82570; 82728; 82803; 82805; 82962; 83540; 83550; 83605; 83690; 83735; 84100; 84145; 84300; 84439; 84443; 84478; 84481; 84484; 85007; 85025; 85378; 85651; 86140; 86706; 86803; 87040; 87070; 87077; 87086; 87106; 87186; 87205; 87305; 87340; 87426; 87493; 87506; 87635; 87641; 90935; 93005; 93308; 94002; 94003; 94640; 94660; 94762; 94799; 96365; 96366; 96367; 96372; 96375; 97161; 97167; 99291; C9113; J0171; J0610; J0743; J1100; J1450; J1642; J1644; J1815 ×2; J1940; J1956; J2020; J2310; J2543; J2704; J3010; J3370; J3475; J3480; J3490; J7030; J7050; J7626; J7799; P9047; Q3014; Q9967; S0030